=== PATIENT | male | born 1940 | race Caucasian/White ===

== ENCOUNTER → 2017-06-15 | Outpatient (CLI) | payer MEDICARE, SELFPAY | PROVIDERS: Visit Provider Nurse Practitioner Family | DX: J98.4 Other disorders of lung (principal); R05 Cough | CPT/HCPCS: 87070; 87205 ==

== ENCOUNTER 2017-06-27 09:00 | Outpatient (CLI) | payer MEDICARE, SELFPAY ==
[2017-06-27 08:35] VITALS: BP 110/65; PULSE 86; RESP 20; O2SAT 92
== END 2017-06-27 09:05 | disposition home or self-care (01) ==
LOC: INF 14:17
PROVIDERS: Family Provider Internal Medicine Adolescent Medicine; Visit Provider Allergy & Immunology
DX: J45.50 Severe persistent asthma, uncomplicated (principal)
CPT/HCPCS: 96372; J2357

== ENCOUNTER 2017-07-10 10:03 | Outpatient (CLI) | payer MEDICARE, SELFPAY ==
[2017-07-10 09:00] VITALS: BP 132/81; PULSE 68; RESP 20; TEMP 36.9; O2SAT 98
[2017-07-10 10:04] VITALS: BMI 29.4
== END 2017-07-10 10:33 | disposition home or self-care (01) ==
LOC: INF 10:04
PROVIDERS: Family Provider Internal Medicine Adolescent Medicine; Visit Provider Allergy & Immunology
DX: J45.50 Severe persistent asthma, uncomplicated (principal)
CPT/HCPCS: 96372; J2357

== ENCOUNTER 2017-07-13 13:01 | Day surgery (SDC) | payer MEDICARE, SELFPAY ==
--- NOTE | 2017-07-13 | CA_ITS ---
Procedure: Transesophageal echocardiogram Indication for procedure: MVP MR, shortness of breath Procedure: Patient was brought into cardiac catheter lab holding area in hemodynamically stable condition, after the informed consent, conscious sedation was provided by anesthesiologist, local anesthesia was applied, and transesophageal echocardiogram performed without any difficulty. Patient tolerated the procedure well Findings: 1. Left atrium is moderately enlarged, left atrial appendage is free of thrombus, there is good appendage flow by spectral Doppler. 2. The right atrium is mildly enlarged, intra-atrial septum is intact, there is no flow across the intra-atrial septum, agitated saline contrast study is to identify intracardiac shunt. 3. The aortic valve is minimally thickened and fibrosed, leaflet continue to display good mobility. There is no aortic stenosis or aortic insufficiency. 4. The mitral valve leaflets of myxomatous, there is zach prolapse of the posterior mitral leaflet, there is focal prolapse of the anterior mitral leaflet also seen. There is no mitral stenosis, there is multiple jets of the mitral regurgitation, or degenerating from both anterior and posterior mitral leaflet, the mean mitral regurgitation jet is through posterior mitral valve leaflets prolapse, or mitral regurgitation jet is very eccentric redirected, the vena contracta measures 9 mm suggestive of severe mitral regurgitation. There is blunting of the systolic forward flow seen in the pulmonary vein. 5. The tricuspid valve leaflets are minimally thickened, there is mild tricuspid regurgitation. 6. The pulmonic valve is minimally thickened and fibrosed. 7. The right ventricle is normal size and contractility. 8. The left ventricle is normal size, overall preserved left ventricular systolic function in the obtained views, visually estimated ejection fraction 55% with no obvious regional wall motion abnormality. 9. No significant pericardial effusion noted. 10. Ascending, arch and descending thoracic aorta there is no aneurysm or dissection, nonmobile by atheromatous plaque seen in the descending thoracic aorta. Conclusion: 1. Biatrial enlargement, normal left ventricular size, preserved left ventricular systolic function, visually estimated ejection fraction 55% with no obvious regional wall motion abnormality. 2. Abnormal mitral valve as described above associated with severe mitral regurgitation. 3. Mild tricuspid regurgitation. 4. Agitated saline contrast study fails to identify intracardiac shunt. 5. No significant pericardial effusion noted 6. Nonmobile atheromatous plaque seen in the descending thoracic aorta.
[2017-07-13 13:09] VITALS: BMI 29.0
[2017-07-13 13:18] VITALS: BP 159/86; PULSE 77; RESP 16; TEMP 36.8; O2SAT 97
[2017-07-13 13:56] VITALS: BP 116/62; PULSE 77; RESP 20; O2SAT 97
--- NOTE | 2017-07-13 14:03 | HMH.ANESCL ---
[facility] Anesthesia Checklist - Patient Identification Patient Identification: Arm Band - Structural Data Admitted From: Home Planned Operative Procedure/s: ERA Consent for Planned Operative Procedure(s) Verified: Yes Verified Documents: Surgical Consent, History and Physical - Additional verifications Anesthesia Reactions: No - Airway Assessment C-Spine Mobility Assessed: Yes (MP2) TMJ Mobility Assessed: Yes Dentition: Good Dentition - Neurological Assessment Level of Consciousness: Awake, Alert - Anesthesia Plan Anesthesia Risk discussed: Yes ASA Class: III Anesthesia Type: MAC [facility] Anesthesia HX I have reviewed the patient's past medical history: Yes Medical History: Reports:: Asthma, Diabetes Mellitus Type 2, Hyperlipidemia, Hypertension Denies:: Seizures Other Medical History: Reports: Arthritis, Hypothyroidism Comment: mitral valve prolapse Laterality Cases: Right: Total Hip Replacement Other Surgeries: Yes: Other *Family Hx:: No significant family history, Coronary Artery Disease, Heart Attack
[2017-07-13 14:15] VITALS: BP 117/69; PULSE 82; RESP 20; O2SAT 93
[2017-07-13 14:30] VITALS: BP 99/58; PULSE 81; RESP 20; O2SAT 93
[2017-07-13 14:45] VITALS: BP 144/72; PULSE 77; RESP 20; O2SAT 94
[2017-07-13 14:47] VITALS: BP 144/72; PULSE 81; RESP 20; O2SAT 93
== END 2017-07-13 14:53 | disposition home or self-care (01) ==
PROVIDERS: Family Provider Internal Medicine Adolescent Medicine; PCP Internal Medicine Adolescent Medicine; Visit Provider Internal Medicine Cardiovascular Disease
DX: R06.02 Shortness of breath (principal); I34.0 Nonrheumatic mitral (valve) insufficiency
CPT/HCPCS: 93312

== ENCOUNTER → 2017-07-21 11:09 | Outpatient (CLI) | payer MEDICARE, SELFPAY ==
[2017-07-21 11:33] LABS: INR 0.92 (0.9-1.1); Prothrombin Time 9.9 seconds (9.4-11.8)
[2017-07-21 12:11] LABS: Basophils # 0.1 K/mm3 (0-0.2); Basophils % 0.7 % (0.1-2.0); Eosinophils % 10.4 % (0.1-12.0); Hematocrit 43.1 % (42.0-52.0); Lymphocytes # 1.6 K/mm3 (0.7-4.5); Lymphocytes % 16.6 K/mm3 (10-50); Mean Corpuscular HGB Conc 32.6 g/dL (31.8-35.4); Mean Corpuscular Hemoglobin 30.8 pg (27.0-31.2); Mean Corpuscular Volume 94.6 fl (80-94); Mean Platelet Volume 7.3 fl (7.4-10.4); Monocytes # 0.5 K/mm3 (0.1-1.0); Monocytes % 4.8 % (1.7-9.3); Neutrophils # 6.3 K/mm3 (1.8-7.8); Neutrophils % 67.5 % (37.0-80.0); Platelet Count 259 K/mm3 (142-424); Red Blood Count 4.55 M/mm3 (4.60-6.20); Red Cell Distribution Width 13.1 % (11.5-17.5); White Blood Count 9.3 K/mm3 (4.8-10.8)
[2017-07-21 13:10] LABS: Blood Urea Nitrogen 17 mg/dL (7-18); Carbon Dioxide 28 mmol/L (21.0-32.0); Chloride 102 mmol/L (98-107); Creatinine,Serum 1.52 mg/dL (0.70-1.30); Estimated Glomerular Filt Rate 44 ml/min (>60); GFR (African American) 54 ML/MIN (>60); Glucose 309 mg/dL (74-106); Sodium 138 mmol/L (136-145)
== END ==
PROVIDERS: PCP Internal Medicine Adolescent Medicine; Visit Provider Internal Medicine Cardiovascular Disease
DX: Z01.818 Encounter for other preprocedural examination (principal); I34.1 Nonrheumatic mitral (valve) prolapse; I10 Essential (primary) hypertension; E78.5 Hyperlipidemia, unspecified; I34.0 Nonrheumatic mitral (valve) insufficiency; E11.9 Type 2 diabetes mellitus without complications; R06.00 Dyspnea, unspecified
CPT/HCPCS: 36415; 80048; 85025; 85610

== ENCOUNTER 2017-07-24 07:37 | Day surgery (SDC) | payer MEDICARE, SELFPAY ==
[2017-07-24] VITALS (15 sets, daily range): BP systolic 116–144; BP diastolic 64–83; PULSE 70–94; RESP 16–20; TEMP 36.6; O2SAT 90–96; BMI 30.6
--- NOTE | 2017-07-24 | IR_ITS ---
CARDIAC CATHETERIZATION DATE OF CATHETERIZATION:07/24/2017 9:26 AM PROCEDURES: 1. Left heart catheterization 2. Left ventriculogram 3. Selective coronary angiogram INDICATION FOR TEST: 1. Preoperative evaluation for mitral valve surgery 2. Coronary artery disease Informed consent was obtained prior to the procedure. COMPLICATIONS: None ESTIMATED BLOOD LOSS: Less than 10 ml. TECHNIQUE: One percent lidocaine used to anesthetize the right anterior aspect of the wrist. The right radial artery was accessed via the Seldinger technique. A 6 Trinidadian sheath was placed in the right radial artery. 2.5 mg of verapamil, 800 mcg of nitroglycerin and 5000 U Heparin were given through the arterial sheath. The trap catheter was also used to perform left heart catheterization and left ventriculography. At the end of the procedure the patient was transferred to the post-op holding area in stable condition for arterial sheath removal. ANGIOGRAPHIC RESULTS: 1. The left main artery has distal 10% stenoses 2. The left anterior descending artery has an ostial 60% stenosis followed by an additional 50-60% stenosis followed by a mid vessel concentric 80% stenosis. A large first diagonal artery is free of disease 3. The circumflex artery is nondominant and has a long concentric 60% stenosis 4. The right coronary artery is a dominant vessel and has proximal concentric 60% followed by mid vessel 70% followed by an additional mid vessel 80% stenosis 5. The SANCHEZ ventriculogram reveals mild left ventricular dilatation with normal ejection fraction 65% 6. The left ventricular end-diastolic pressure 20 mmHg IMPRESSION: 1. Severe three-vessel coronary artery disease as described above accompanied by severe mitral regurgitation per noninvasive evaluation 2. Mild left ventricular dilatation with normal ejection fraction in the setting of severe mitral regurgitation 3. Mildly elevated LVEDP PLAN: 1. Patient will be referred for 3-4 vessel bypass surgery along with mitral valve repair 2. Statin therapy with goal LDL less than 55 3. Daily low-dose aspirin 4. Avoidance of tobacco products
[2017-07-24 08:15] LABS: POC Glucose,Bedside 68 mg/dL
[2017-07-24 08:25] LABS: Anion Gap 13.3 mEq/L (5-15); Blood Urea Nitrogen 20 mg/dL (7-18); Carbon Dioxide 29 mmol/L (21.0-32.0); Chloride 107 mmol/L (98-107); Creatinine Clearance Estimated 62 mL/min (0-300); Creatinine,Serum 1.41 mg/dL (0.70-1.30); Estimated Glomerular Filt Rate 48 ml/min (>60); GFR (African American) 59 ML/MIN (>60); Glucose 74 mg/dL (74-106); Potassium 4.3 mmoL/L (3.5-5.1); Sodium 145 mmol/L (136-145)
[2017-07-24 08:30] LABS: Basophils # 0.1 K/mm3 (0-0.2); Basophils % 0.8 % (0.1-2.0); Eosinophils # 1.2 K/mm3 (0.0-0.4); Eosinophils % 11.6 % (0.1-12.0); Hematocrit 43.6 % (42.0-52.0); Hemoglobin 14.3 g/dL (14.1-18.0); Lymphocytes # 1.7 K/mm3 (0.7-4.5); Lymphocytes % 16.4 K/mm3 (10-50); Mean Corpuscular HGB Conc 32.7 g/dL (31.8-35.4); Mean Corpuscular Hemoglobin 30.4 pg (27.0-31.2); Mean Corpuscular Volume 92.9 fl (80-94); Mean Platelet Volume 6.9 fl (7.4-10.4); Monocytes # 0.5 K/mm3 (0.1-1.0); Monocytes % 4.3 % (1.7-9.3); Neutrophils # 7.1 K/mm3 (1.8-7.8); Neutrophils % 66.8 % (37.0-80.0); Platelet Count 270 K/mm3 (142-424); Red Cell Distribution Width 13.2 % (11.5-17.5); White Blood Count 10.6 K/mm3 (4.8-10.8)
[2017-07-24 10:00] LABS: POC Glucose,Bedside 75 mg/dL
--- NOTE | 2017-08-03 12:55 | PC.NURSE ---
post procedure call made, pt did not answer message left for pt to call hospital with any questions/concerns
== END 2017-07-24 14:12 | disposition home or self-care (01) ==
PROVIDERS: Family Provider Internal Medicine Adolescent Medicine; PCP Internal Medicine Adolescent Medicine; Visit Provider Internal Medicine
DX: I25.10 Atherosclerotic heart disease of native coronary artery without angina pectoris (principal); I34.0 Nonrheumatic mitral (valve) insufficiency; I10 Essential (primary) hypertension; R53.83 Other fatigue; E11.9 Type 2 diabetes mellitus without complications
CPT/HCPCS: 80048; 82962; 85025; 93458; 96372; 99152; C1725; C1769; J1644; J2357; Q9967

== ENCOUNTER → 2017-08-28 15:13 | Outpatient (REF) | payer MEDICARE, SELFPAY ==
[2017-08-28 15:34] LABS: Basophils % 0.2 % (0.1-2.0); Eosinophils # 0.7 K/mm3 (0.0-0.4); Eosinophils % 8.6 % (0.1-12.0); Hematocrit 30.4 % (42.0-52.0); Hemoglobin 9.3 g/dL (14.1-18.0); Lymphocytes # 1.2 K/mm3 (0.7-4.5); Lymphocytes % 15.1 K/mm3 (10-50); Mean Corpuscular HGB Conc 30.5 g/dL (31.8-35.4); Mean Corpuscular Hemoglobin 30.1 pg (27.0-31.2); Mean Corpuscular Volume 98.5 fl (80-94); Mean Platelet Volume 7.3 fl (7.4-10.4); Monocytes # 0.4 K/mm3 (0.1-1.0); Monocytes % 4.9 % (1.7-9.3); Neutrophils # 5.6 K/mm3 (1.8-7.8); Neutrophils % 71.2 % (37.0-80.0); Platelet Count 342 K/mm3 (142-424); Red Blood Count 3.09 M/mm3 (4.60-6.20); Red Cell Distribution Width 15.3 % (11.5-17.5); White Blood Count 7.9 K/mm3 (4.8-10.8)
[2017-08-28 17:09] LABS: Alanine Aminotransferase 37 U/L (12-78); Albumin Level 2.4 gm/dL (3.4-5.0); Albumin/Globulin Ratio 0.7 (1.1-1.8); Alkaline Phosphatase 70 U/L (46-116); Anion Gap 10.7 mEq/L (5-15); Bilirubin,Total 0.4 mg/dL (0.2-1.0); Blood Urea Nitrogen 23 mg/dL (7-18); Calcium 8.1 mg/dL (8.5-10.1); Carbon Dioxide 31 mmol/L (21.0-32.0); Chloride 101 mmol/L (98-107); Creatinine,Serum 1.57 mg/dL (0.70-1.30); Estimated Glomerular Filt Rate 43 ml/min (>60); GFR (African American) 52 ML/MIN (>60); Globulin 3.5 gm/dl (1.3-3.2); Glucose 165 mg/dL (74-106); Potassium 4.7 mmoL/L (3.5-5.1); Sodium 138 mmol/L (136-145); Total Protein,Serum 5.9 gm/dL (6.4-8.2)
[2017-08-28 17:21] LABS: Aspartate Amino Transferase 27 U/L (15-37)
== END ==
LOC: LAB 15:13
PROVIDERS: Visit Provider Internal Medicine Adolescent Medicine
DX: R53.1 Weakness (principal)
CPT/HCPCS: 80053; 85025

== ENCOUNTER → 2017-09-04 14:38 | Outpatient (CLI) | payer MEDICARE, SELFPAY ==
[2017-09-04 14:16] LABS: Basophils % 0.3 % (0.1-2.0); Eosinophils # 2.4 K/mm3 (0.0-0.4); Eosinophils % 24.9 % (0.1-12.0); Hematocrit 35.9 % (42.0-52.0); Hemoglobin 10.6 g/dL (14.1-18.0); Lymphocytes # 1.2 K/mm3 (0.7-4.5); Lymphocytes % 12.7 K/mm3 (10-50); Mean Corpuscular HGB Conc 29.6 g/dL (31.8-35.4); Mean Corpuscular Hemoglobin 29.7 pg (27.0-31.2); Mean Corpuscular Volume 100.2 fl (80-94); Mean Platelet Volume 7.5 fl (7.4-10.4); Monocytes # 0.4 K/mm3 (0.1-1.0); Monocytes % 3.9 % (1.7-9.3); Neutrophils # 5.6 K/mm3 (1.8-7.8); Neutrophils % 58.2 % (37.0-80.0); Platelet Count 278 K/mm3 (142-424); Red Blood Count 3.58 M/mm3 (4.60-6.20); Red Cell Distribution Width 15.3 % (11.5-17.5); White Blood Count 9.6 K/mm3 (4.8-10.8)
[2017-09-04 15:05] LABS: Alanine Aminotransferase 31 U/L (12-78); Albumin Level 2.7 gm/dL (3.4-5.0); Albumin/Globulin Ratio 0.7 (1.1-1.8); Alkaline Phosphatase 82 U/L (46-116); Anion Gap 13.7 mEq/L (5-15); Aspartate Amino Transferase 24 U/L (15-37); Bilirubin,Total 0.2 mg/dL (0.2-1.0); Blood Urea Nitrogen 17 mg/dL (7-18); Calcium 8.1 mg/dL (8.5-10.1); Carbon Dioxide 28 mmol/L (21.0-32.0); Chloride 104 mmol/L (98-107); Creatinine,Serum 1.63 mg/dL (0.70-1.30); Estimated Glomerular Filt Rate 41 ml/min (>60); GFR (African American) 50 ML/MIN (>60); Globulin 3.8 gm/dl (1.3-3.2); Glucose 243 mg/dL (74-106); Potassium 4.7 mmoL/L (3.5-5.1); Sodium 141 mmol/L (136-145); Total Protein,Serum 6.5 gm/dL (6.4-8.2)
== END ==
PROVIDERS: Family Provider Internal Medicine Adolescent Medicine; PCP Internal Medicine; Visit Provider Allergy & Immunology
DX: Z95.1 Presence of aortocoronary bypass graft (principal); R53.1 Weakness; E11.9 Type 2 diabetes mellitus without complications
CPT/HCPCS: 80053; 85025

== ENCOUNTER → 2017-09-11 14:47 | Outpatient (REF) | payer MEDICARE, SELFPAY ==
[2017-09-11 15:01] LABS: Basophils # 0.1 K/mm3 (0-0.2); Basophils % 0.4 % (0.1-2.0); Hematocrit 38.4 % (42.0-52.0); Hemoglobin 11.8 g/dL (14.1-18.0); Lymphocytes # 1.6 K/mm3 (0.7-4.5); Lymphocytes % 13.9 K/mm3 (10-50); Mean Corpuscular HGB Conc 30.6 g/dL (31.8-35.4); Mean Corpuscular Hemoglobin 30.1 pg (27.0-31.2); Mean Corpuscular Volume 98.2 fl (80-94); Mean Platelet Volume 7.2 fl (7.4-10.4); Monocytes # 0.4 K/mm3 (0.1-1.0); Monocytes % 3.6 % (1.7-9.3); Neutrophils # 4.6 K/mm3 (1.8-7.8); Platelet Count 251 K/mm3 (142-424); Red Blood Count 3.91 M/mm3 (4.60-6.20); Red Cell Distribution Width 15.2 % (11.5-17.5); White Blood Count 11.7 K/mm3 (4.8-10.8)
[2017-09-11 16:44] LABS: Alanine Aminotransferase 29 U/L (12-78); Albumin/Globulin Ratio 0.8 (1.1-1.8); Alkaline Phosphatase 76 U/L (46-116); Anion Gap 13.4 mEq/L (5-15); Aspartate Amino Transferase 22 U/L (15-37); Bilirubin,Total 0.3 mg/dL (0.2-1.0); Blood Urea Nitrogen 19 mg/dL (7-18); Calcium 8.2 mg/dL (8.5-10.1); Carbon Dioxide 29 mmol/L (21.0-32.0); Chloride 106 mmol/L (98-107); Estimated Glomerular Filt Rate 42 ml/min (>60); GFR (African American) 51 ML/MIN (>60); Globulin 3.8 gm/dl (1.3-3.2); Glucose 109 mg/dL (74-106); Potassium 4.4 mmoL/L (3.5-5.1); Sodium 144 mmol/L (136-145); Total Protein,Serum 6.8 gm/dL (6.4-8.2)
== END ==
LOC: LAB 14:47
PROVIDERS: Visit Provider Internal Medicine Adolescent Medicine
DX: I25.810 Atherosclerosis of coronary artery bypass graft(s) without angina pectoris (principal); R53.1 Weakness; E11.9 Type 2 diabetes mellitus without complications
CPT/HCPCS: 80053; 85025

== ENCOUNTER 2017-09-15 12:44 | Outpatient (RCR) | payer MEDICARE, SELFPAY | END 2017-10-25 11:14 | disposition home or self-care (01) | LOC: PT 12:44 | PROVIDERS: Family Provider Internal Medicine Adolescent Medicine; PCP Internal Medicine; Visit Provider Thoracic Surgery (Cardiothoracic Vascular Surgery) | DX: Z95.1 Presence of aortocoronary bypass graft (principal) | CPT/HCPCS: 93798 ==

== ENCOUNTER → 2017-09-22 11:41 | Outpatient (CLI) | payer MEDICARE, SELFPAY ==
--- NOTE | 2017-09-22 | CI_ITS ---
Cerebrovascular Exam Indications: TIA 434.91. IMPRESSIONS 1. The left internal carotid artery reveals no evidence of plaque or stenosis. 2. The left common and external carotid arteries reveal no significant stenosis. 3. Study suggests less than 20% stenosis involving the right internal carotid artery and the left internal carotid artery. Carotid duplex study. Complete study and Doppler flow study including spectral analysis, color and domingo scale imaging. Height: Height: 182.9cm. Height: 72in. Weight: Weight: 98kg. Weight: 215.6lb. Body mass index: BMI: 29.3kg/m^2. Body surface area: BSA: 2.25m^2. Location: Vascular laboratory. Patient status: Outpatient. Tables: Arterial flow: + +--------+--------+ Location V sys V ed + +--------+--------+ Right CCA - proximal 84.1cm/s 17.3cm/s + +--------+--------+ Right CCA - distal 88.8cm/s 19.6cm/s + +--------+--------+ Right ECA 85.5cm/s -------- + +--------+--------+ Right ICA - proximal 65.1cm/s 21cm/s + +--------+--------+ Right ICA - mid 90.4cm/s 35.3cm/s + +--------+--------+ Right ICA - distal 81.1cm/s 25.9cm/s + +--------+--------+ Right vertebral 48cm/s -------- + +--------+--------+ Left CCA - proximal 83.8cm/s 24.3cm/s + +--------+--------+ Left CCA - distal 74.4cm/s 21cm/s + +--------+--------+ Left ECA 98.7cm/s -------- + +--------+--------+ Left ICA - proximal 48cm/s 16.6cm/s + +--------+--------+ Left ICA - mid 72.5cm/s 30.1cm/s + +--------+--------+ Left ICA - distal 89.5cm/s 31.4cm/s + +--------+--------+ Left vertebral 49.1cm/s -------- + +--------+--------+ Velocity ratios: + + + + + + Right, V sys Right, V ed Left, V sys Left, V ed + + + + + + Max ICA/dist CCA 1.02 1.8 1.2 1.5 + + + + + + (Report amended ) Electronically signed by: Gustavo Prince [id number]
--- NOTE | 2017-09-22 11:43 | CT_ITS ---
CT head/brain wo con HISTORY: Weakness and slurred speech ITS.REASON: weakness, slurred speech ORDERING PHYSICIAN: Brian Reaves MD PATIENT AGE: 77 years COMPARISON: None TECHNIQUE: Axial images obtained without contrast. Brain and bone windows reviewed. All CT scans at the facility use one or more dose reduction, viz: automated exposure control; ma/kV adjustment per patient size (including targeted exams where dose is matched to indication; i.e. head); or iterative reconstruction technique. FINDINGS: There is extensive artifact from a right sided neurostimulator vestibular stimulator device. No midline shift or mass effect is evident. No intracranial hemorrhage or hydrocephalus. Artifact could obscure underlying abnormalities. There is mild generalized atrophy There is mild mucosal thickening of the ethmoid and maxillary sinuses as well as a small amount fluid in the right mastoid sinus. The vestibular stimulator device enters into the right mastoid region with postsurgical changes of the right mastoid sinus. IMPRESSION: 1. No acute finding. 2. Artifact from right vestibular stimulator device 3. Paranasal sinus disease
--- NOTE | 2017-09-22 11:43 | CA_ITS ---
PROCEDURE: 2-D M-mode and color Doppler study INDICATIONS FOR THE TEST: Chest pain COPD Heart Murmur Tobacco Smoking Palpitations Fatigue Syncope Edema Hypertension+Diabetes Mellitus+ Rheumatic Fever SOB TOVAR Obesity Hyperlipidemia+ Family History HD Additional History CABG, CAD, MVP, MV REPAIR 08/13 PATIENT INFORMATION HEIGHT:72 WEIGHT:216 GENDER: Male B/P:138/78 2-D/M-MODE INTERPRETATION: 2-D MEASUREMENTS OBSERVED VALUES IN CMS Right Ventricular Dimension (RVDd) 3.2 Interventricular Septum (Thickness)(IVsd) 1.6 Left Ventricular Internal Dimensions(LVIDd) 4.2 Left Ventricular Posterior Wall (Thickness)(LVPWd) 1.0 Aortic Root 3.9 Aortic Cusp Separation 2.3 Left Atrial Dimensions (LAD) 4.6 2D 1. Left atrium is mildly enlarged, left ventricle is normal size, mild concentric left ventricular hypertrophy, visually estimated ejection fraction 50%, there is abnormal septal motion. 2. The right atrium and right ventricle are mildly enlarged with normal contractility. 3. The aortic valve is minimally thickened and fibrosed. 4. The mitral valve leaflets are minimally thickened, patient is status post mitral valve repair. 5. The tricuspid valve leaflets are minimally thickened. 6. The pulmonic valve is poorly visualized. 7. No significant pericardial effusion note. DOPPLER INTERROGATION: Doppler interrogation of the aortic, mitral and tricuspid valvular presence of moderate mitral and mild tricuspid regurgitation, tricuspid and jet velocity insufficient for calculation of the right ventricular systolic pressure, diastolic parameters are inconclusive. There is no significant mitral inflow obstruction seen. CONCLUSION: 1. Mildly enlarged left atrium, normal left ventricular size, mild concentric left ventricular hypertrophy, visually estimated ejection fraction 50%, there is abnormal septal motion. Diastolic parameters are inconclusive. 2. Status post mitral valve repair, there is moderate mitral regurgitation, there is no significant mitral inflow obstruction. 3. Mild tricuspid regurgitation 4. No significant pericardial effusion noted.
== END ==
PROVIDERS: PCP Internal Medicine Adolescent Medicine; Visit Provider Internal Medicine Cardiovascular Disease
DX: I25.10 Atherosclerotic heart disease of native coronary artery without angina pectoris (principal); R47.81 Slurred speech; R53.1 Weakness; R29.898 Other symptoms and signs involving the musculoskeletal system; I34.1 Nonrheumatic mitral (valve) prolapse; I10 Essential (primary) hypertension; E78.5 Hyperlipidemia, unspecified; E11.9 Type 2 diabetes mellitus without complications
CPT/HCPCS: 70450; 93225; 93306; 93880

== ENCOUNTER → 2017-09-23 07:12 | Outpatient (CLI) | payer MEDICARE, SELFPAY ==
[2017-09-23 07:26] LABS: Basophils # 0.1 K/mm3 (0-0.2); Basophils % 0.6 % (0.1-2.0); Eosinophils # 2.9 K/mm3 (0.0-0.4); Hematocrit 41.1 % (42.0-52.0); Hemoglobin 12.5 g/dL (14.1-18.0); Lymphocytes % 18.5 K/mm3 (10-50); Mean Corpuscular HGB Conc 30.3 g/dL (31.8-35.4); Mean Corpuscular Hemoglobin 29.9 pg (27.0-31.2); Mean Corpuscular Volume 98.5 fl (80-94); Mean Platelet Volume 7.4 fl (7.4-10.4); Monocytes # 0.5 K/mm3 (0.1-1.0); Monocytes % 4.3 % (1.7-9.3); Neutrophils # 5.3 K/mm3 (1.8-7.8); Neutrophils % 49.5 % (37.0-80.0); Platelet Count 209 K/mm3 (142-424); Red Blood Count 4.17 M/mm3 (4.60-6.20); Red Cell Distribution Width 14.9 % (11.5-17.5); White Blood Count 10.7 K/mm3 (4.8-10.8)
[2017-09-23 07:51] LABS: Alanine Aminotransferase 33 U/L (12-78); Albumin Level 2.9 gm/dL (3.4-5.0); Alkaline Phosphatase 67 U/L (46-116); Anion Gap 10.3 mEq/L (5-15); Aspartate Amino Transferase 28 U/L (15-37); Bilirubin,Direct 0.2 mg/dL (0.0-0.2); Bilirubin,Total 0.5 mg/dL (0.2-1.0); Blood Urea Nitrogen 17 mg/dL (7-18); Carbon Dioxide 28 mmol/L (21.0-32.0); Chloride 107 mmol/L (98-107); Chol/HDL Ratio 3.2 (1-3.5); Cholesterol 136 mg/dL (140-200); Creatinine,Serum 1.28 mg/dL (0.70-1.30); Estimated Glomerular Filt Rate 54 ml/min (>60); Free T4 (Free Thyroxine) 1.18 ng/dl (0.76-1.46); GFR (African American) 66 ML/MIN (>60); Glucose 127 mg/dL (74-106); HDL Cholesterol 42 mg/dL (27-67); LDL Cholesterol 73 mg/dL (0-130); Potassium 4.3 mmoL/L (3.5-5.1); Sodium 141 mmol/L (136-145); Thyroid Stimulating Hormone 9.57 uIU/ml (0.358-3.740); Total Protein,Serum 7.2 gm/dL (6.4-8.2); Triglycerides 107 mg/dL (30-200); VLDL Cholesterol 21 mg/dL (0-40)
== END ==
PROVIDERS: Visit Provider Internal Medicine Cardiovascular Disease
DX: Z95.1 Presence of aortocoronary bypass graft (principal); Z98.890 Other specified postprocedural states; R47.81 Slurred speech; I34.1 Nonrheumatic mitral (valve) prolapse; I10 Essential (primary) hypertension; E78.5 Hyperlipidemia, unspecified; I25.10 Atherosclerotic heart disease of native coronary artery without angina pectoris; E11.9 Type 2 diabetes mellitus without complications
CPT/HCPCS: 36415; 80048; 80061; 80076; 84439; 84443; 85025

== ENCOUNTER → 2017-10-13 10:57 | Outpatient (CLI) | payer MEDICARE, SELFPAY ==
--- NOTE | 2017-10-13 11:02 | NVE_ITS ---
Venous Exam Indications: 729.5 Pain in limb. Cough IMPRESSIONS No evidence of deep or superficial vein thrombosis involving the right lower extremity and left lower extremity History: Left lower extremity pain. Swelling of the left lower extremity. Dyspnea. Risk factors: Hypertension. Labs, prior tests, procedures, and surgery: (July 2017). Mitral valve repair. Patient had cardiac bypass surgery 07/2017. Patient is currently taking Lovenox injections. Labs, prior tests, procedures, and surgery: (July 2017). Mitral valve repair. Patient had cardiac bypass surgery 07/2017. Patient is currently taking Lovenox injections. Complete lower extremity venous duplex evaluation. Doppler flow study including spectral analysis, color and domingo scale imaging. Location: Vascular laboratory. Patient status: Outpatient. CRITICAL FINDINGS - Reported to: EMERSON Alvarez - Read back and verified. - 10/13/17 - 11:40 - Bilateral venous dopplers negative for DVT or SVT Tables: Venous flow and imaging: + +-------+ + Location Overall Flow properties + +-------+ + Right common femoral Patent Normal phasicity; spontaneous; normal augmentation; compressible + +-------+ + Right saphenofemoral junction Patent Compressible + +-------+ + Right profunda femoral Patent Compressible + +-------+ + Right femoral Patent Normal phasicity; spontaneous; normal augmentation; compressible; no reflux + +-------+ + Right greater saphenous Patent Normal phasicity; spontaneous; normal augmentation; compressible + +-------+ + Right popliteal Patent Normal phasicity; spontaneous; normal augmentation; compressible + +-------+ + Right posterior tibial Patent Compressible + +-------+ + Right peroneal Patent Compressible + +-------+ + Right gastrocnemius Patent Compressible + +-------+ + Right soleal Patent Compressible + +-------+ + Left common femoral Patent Normal phasicity; spontaneous; normal augmentation; compressible + +-------+ + Left saphenofemoral junction Patent Com
== END ==
PROVIDERS: PCP Internal Medicine Adolescent Medicine; Visit Provider Internal Medicine Adolescent Medicine
DX: R60.1 Generalized edema (principal)
CPT/HCPCS: 93970

== ENCOUNTER 2017-10-16 09:34 | Outpatient (CLI) | payer MEDICARE, SELFPAY ==
[2017-10-16 16:01] LABS: PHA INR Fingerstick 1.3 (0.9-1.1)
== END 2017-10-16 16:06 | disposition home or self-care (01) ==
PROVIDERS: PCP Internal Medicine Adolescent Medicine; Visit Provider Internal Medicine Adolescent Medicine
DX: Z79.01 Long term (current) use of anticoagulants (principal); Z51.81 Encounter for therapeutic drug level monitoring; I05.9 Rheumatic mitral valve disease, unspecified
CPT/HCPCS: 85610; G0463

== ENCOUNTER 2017-10-18 09:34 | Outpatient (CLI) | payer MEDICARE, SELFPAY ==
--- NOTE | 2017-10-18 12:37 | US_ITS ---
US extremity LT limited CLINICAL INDICATION: ITS.REASON: MASS ON DORSUM ORDERING PHYSICIAN: Toney Contreras MD PATIENT AGE: 77 years FINDINGS: In the subcutaneous soft tissues along the dorsum of the foot there is a mostly hypoechoic heterogeneous area of echogenicity. This measures 3 x 0.7 x 2.9 cm containing scattered cystic areas within this region. IMPRESSION: Complex partially cystic area of heterogeneous echogenicity along the dorsum of the foot corresponding to the palpable abnormality. This is nonspecific and could represent hematoma or abscess.
--- NOTE | 2017-10-18 12:38 | XR_ITS ---
XR foot LT min 3V HISTORY: Soft tissue mass on the dorsum of the foot ITS.REASON: MASS ON DORSUM ORDERING PHYSICIAN: Toney Contreras MD PATIENT AGE: 77 years FINDINGS: No fracture or dislocation. No lytic or blastic change. There are mild hypertrophic changes at the navicular cuneiform joint. No bony erosive changes. Small calcaneal spur is present with mild calcification of the plantar fascia the region of the spur. There is mild focal soft tissue swelling along the dorsum of the foot at the proximal metatarsal region IMPRESSION: 1. No acute bony findings. 2. Focal soft tissue swelling along the dorsum of the forefoot.
[2017-10-18 14:19] LABS: PHA INR Fingerstick 1.5 (0.9-1.1)
== END 2017-10-18 14:28 | disposition home or self-care (01) ==
PROVIDERS: PCP Internal Medicine Adolescent Medicine; Visit Provider Internal Medicine Adolescent Medicine
DX: Z79.01 Long term (current) use of anticoagulants (principal); Z51.81 Encounter for therapeutic drug level monitoring; I34.0 Nonrheumatic mitral (valve) insufficiency; R22.42 Localized swelling, mass and lump, left lower limb
CPT/HCPCS: 73630; 76882; 85610; 99211; G0463

== ENCOUNTER 2017-10-23 09:07 | Outpatient (CLI) | payer MEDICARE, SELFPAY ==
[2017-10-23 14:36] LABS: PHA INR Fingerstick 1.4 (0.9-1.1)
== END 2017-10-23 15:06 | disposition home or self-care (01) ==
PROVIDERS: PCP Internal Medicine Adolescent Medicine; Visit Provider Internal Medicine Adolescent Medicine
DX: Z79.01 Long term (current) use of anticoagulants (principal); Z51.81 Encounter for therapeutic drug level monitoring; I34.0 Nonrheumatic mitral (valve) insufficiency
CPT/HCPCS: 85610; 99211; G0463

== ENCOUNTER 2017-10-30 09:00 | Outpatient (CLI) | payer MEDICARE, SELFPAY ==
[2017-10-30 14:22] LABS: PHA INR Fingerstick 1.8 (0.9-1.1)
== END 2017-10-30 14:33 | disposition home or self-care (01) ==
LOC: ACC 09:01
PROVIDERS: Family Provider Internal Medicine Adolescent Medicine; PCP Internal Medicine Adolescent Medicine; Visit Provider Internal Medicine Adolescent Medicine
DX: Z79.01 Long term (current) use of anticoagulants (principal); Z51.81 Encounter for therapeutic drug level monitoring; I34.0 Nonrheumatic mitral (valve) insufficiency
CPT/HCPCS: 71046; 85610; 99211; G0463

== ENCOUNTER → 2017-10-31 06:58 | Outpatient (CLI) | payer MEDICARE, SELFPAY ==
[2017-10-31 07:24] LABS: Basophils # 0.1 K/mm3 (0-0.2); Basophils % 0.9 % (0.1-2.0); Eosinophils # 1.2 K/mm3 (0.0-0.4); Eosinophils % 12.5 % (0.1-12.0); Hematocrit 44.1 % (42.0-52.0); Hemoglobin 14.1 g/dL (14.1-18.0); Lymphocytes # 1.7 K/mm3 (0.7-4.5); Lymphocytes % 17.1 K/mm3 (10-50); Mean Corpuscular Hemoglobin 30.7 pg (27.0-31.2); Mean Corpuscular Volume 96.1 fl (80-94); Mean Platelet Volume 7.3 fl (7.4-10.4); Monocytes # 0.6 K/mm3 (0.1-1.0); Monocytes % 5.7 % (1.7-9.3); Neutrophils # 6.2 K/mm3 (1.8-7.8); Neutrophils % 63.8 % (37.0-80.0); Platelet Count 242 K/mm3 (142-424); Red Blood Count 4.59 M/mm3 (4.60-6.20); Red Cell Distribution Width 14.5 % (11.5-17.5); White Blood Count 9.7 K/mm3 (4.8-10.8)
[2017-10-31 09:13] LABS: Alanine Aminotransferase 46 U/L (12-78); Albumin Level 3.7 gm/dL (3.4-5.0); Alkaline Phosphatase 65 U/L (46-116); Anion Gap 12.2 mEq/L (5-15); Aspartate Amino Transferase 47 U/L (15-37); Bilirubin,Direct 0.2 mg/dL (0.0-0.2); Bilirubin,Indirect 0.4 mg/dL (0.0-0.9); Bilirubin,Total 0.6 mg/dL (0.2-1.0); Blood Urea Nitrogen 38 mg/dL (7-18); Carbon Dioxide 32 mmol/L (21.0-32.0); Chloride 104 mmol/L (98-107); Chol/HDL Ratio 3.7 (1-3.5); Cholesterol 179 mg/dL (140-200); Creatinine,Serum 1.88 mg/dL (0.70-1.30); Estimated Glomerular Filt Rate 35 ml/min (>60); Free Thyroxine Index 4.8 ug/dL (5.93-13.13); GFR (African American) 42 ML/MIN (>60); Glucose 187 mg/dL (74-106); HDL Cholesterol 48 mg/dL (27-67); LDL Cholesterol 105 mg/dL (0-130); Potassium 5.2 mmoL/L (3.5-5.1); Sodium 143 mmol/L (136-145); T4 (Thyroxine) 13.1 ug/dl (4.7-13.3); Thyroid Stimulating Hormone 8.55 uIU/ml (0.358-3.740); Total Protein,Serum 7.2 gm/dL (6.4-8.2); Triglycerides 129 mg/dL (30-200); Triiodothryronine (T3) Uptake 37 % (31-39); VLDL Cholesterol 26 mg/dL (0-40)
== END ==
PROVIDERS: Visit Provider Physician Assistant
DX: R06.02 Shortness of breath (principal); R07.89 Other chest pain; R05 Cough; I34.1 Nonrheumatic mitral (valve) prolapse; R53.83 Other fatigue
CPT/HCPCS: 36415; 80048; 80061; 80076; 83880; 84436; 84443; 84479; 85025

== ENCOUNTER 2017-11-06 08:51 | Outpatient (CLI) | payer MEDICARE, SELFPAY ==
[2017-11-06 13:05] LABS: PHA INR Fingerstick 2.2 (0.9-1.1)
== END 2017-11-06 14:53 | disposition home or self-care (01) ==
LOC: ACC 08:52
PROVIDERS: Family Provider Internal Medicine Adolescent Medicine; PCP Internal Medicine Adolescent Medicine; Visit Provider Internal Medicine Adolescent Medicine
DX: Z79.01 Long term (current) use of anticoagulants (principal); Z51.81 Encounter for therapeutic drug level monitoring; I34.0 Nonrheumatic mitral (valve) insufficiency
CPT/HCPCS: 85610; 99211; G0463

== ENCOUNTER 2017-11-09 13:52 | Outpatient (RCR) | payer MEDICARE, SELFPAY | END 2017-11-09 13:53 | disposition home or self-care (01) | LOC: PT 13:52 | PROVIDERS: Visit Provider Internal Medicine Adolescent Medicine | DX: I25.10 Atherosclerotic heart disease of native coronary artery without angina pectoris (principal); I34.0 Nonrheumatic mitral (valve) insufficiency | CPT/HCPCS: 93798 ==

== ENCOUNTER → 2017-11-10 07:08 | Outpatient (CLI) | payer MEDICARE, SELFPAY ==
[2017-11-10 09:16] LABS: Alanine Aminotransferase 74 U/L (12-78); Albumin Level 3.1 gm/dL (3.4-5.0); Alkaline Phosphatase 54 U/L (46-116); Aspartate Amino Transferase 59 U/L (15-37); Bilirubin,Direct 0.2 mg/dL (0.0-0.2); Bilirubin,Indirect 0.3 mg/dL (0.0-0.9); Bilirubin,Total 0.5 mg/dL (0.2-1.0); Cholesterol 139 mg/dL (140-200); HDL Cholesterol 47 mg/dL (27-67); LDL Cholesterol 76 mg/dL (0-130); Total Protein,Serum 5.7 gm/dL (6.4-8.2); Triglycerides 82 mg/dL (30-200); VLDL Cholesterol 16 mg/dL (0-40)
== END ==
PROVIDERS: Visit Provider Internal Medicine Cardiovascular Disease
DX: Z98.890 Other specified postprocedural states (principal); I10 Essential (primary) hypertension; Z95.1 Presence of aortocoronary bypass graft
CPT/HCPCS: 36415; 80061; 80076

== ENCOUNTER 2017-11-21 07:47 | Outpatient (CLI) | payer MEDICARE, SELFPAY | END 2017-11-21 11:32 | disposition home or self-care (01) | LOC: ACC 07:48 | PROVIDERS: Visit Provider Internal Medicine Adolescent Medicine | DX: Z79.01 Long term (current) use of anticoagulants (principal); Z51.81 Encounter for therapeutic drug level monitoring; I34.0 Nonrheumatic mitral (valve) insufficiency | CPT/HCPCS: 85610; 99211; G0463 ==

== ENCOUNTER 2017-12-13 07:46 | Outpatient (CLI) | payer MEDICARE, SELFPAY | END 2017-12-13 14:12 | disposition home or self-care (01) | LOC: ACC 07:46 | PROVIDERS: PCP Internal Medicine Adolescent Medicine; Visit Provider Internal Medicine Adolescent Medicine | DX: Z79.01 Long term (current) use of anticoagulants (principal) | CPT/HCPCS: 85610; 99211; G0463 ==

== ENCOUNTER → 2018-01-19 07:09 | Outpatient (CLI) | payer MEDICARE, SELFPAY ==
[2018-01-19 07:14] LABS: Microscopic, Urine URINE MICROSCOPIC (MICROSCOPIC)
[2018-01-19 08:01] LABS: Basophils # 0.1 K/mm3 (0-0.2); Basophils % 0.7 % (0.1-2.0); Eosinophils # 1.5 K/mm3 (0.0-0.4); Eosinophils % 19.6 % (0.1-12.0); Hematocrit 44.6 % (42.0-52.0); Hemoglobin 14.5 g/dL (14.1-18.0); Lymphocytes # 1.4 K/mm3 (0.7-4.5); Lymphocytes % 17.9 K/mm3 (10-50); Mean Corpuscular HGB Conc 32.5 g/dL (31.8-35.4); Mean Corpuscular Hemoglobin 30.4 pg (27.0-31.2); Mean Corpuscular Volume 93.6 fl (80-94); Monocytes # 0.4 K/mm3 (0.1-1.0); Monocytes % 5.3 % (1.7-9.3); Neutrophils # 4.4 K/mm3 (1.8-7.8); Neutrophils % 56.5 % (37.0-80.0); Platelet Count 214 K/mm3 (142-424); Red Blood Count 4.77 M/mm3 (4.60-6.20); White Blood Count 7.7 K/mm3 (4.8-10.8)
[2018-01-19 08:47] LABS: Albumin Level 3.5 gm/dL (3.4-5.0); Anion Gap 15.3 mEq/L (5-15); Blood Urea Nitrogen 15 mg/dL (7-18); Calcium 8.8 mg/dL (8.5-10.1); Carbon Dioxide 27 mmol/L (21.0-32.0); Chloride 107 mmol/L (98-107); Creatinine,Serum 1.18 mg/dL (0.70-1.30); Estimated Glomerular Filt Rate 60 ml/min (>60); GFR (African American) 72 ML/MIN (>60); Glucose 196 mg/dL (74-106); Phosphorous 3.5 mg/dL (2.4-4.9); Potassium 5.3 mmoL/L (3.5-5.1); Sodium 144 mmol/L (136-145)
[2018-01-19 09:23] LABS: Appearance,Urine CLEAR (Clear); Bilirubin,Urine Negative (Negative); Blood, Urine TRACE-I (Negative); Color,Urine YELLOW (Yellow); Glucose,Urine (UA) Negative (Negative); Ketones,Urine Negative (Negative); Leukocyte Esterase,Urine Negative (Negative); Nitrate,Urine Negative (Negative); Protein,Urine Negative (Negative); Specific Gravity, Urine 1.025 (1.005-1.030); Urobilinogen,Urine 0.2 EU/dl (0.2)
[2018-01-19 09:30] LABS: Creatinine,Urine Random 187 mg/dL (20-320); Total Protein,Urine Random 21.9 mg/dL (0.0-11.9)
[2018-01-19 09:36] LABS: Bacteria,Urine Trace /lpf
== END ==
PROVIDERS: Physician Assistant; Visit Provider Hospitalist
DX: N18.9 Chronic kidney disease, unspecified (principal); Z79.01 Long term (current) use of anticoagulants; Z51.81 Encounter for therapeutic drug level monitoring; I34.1 Nonrheumatic mitral (valve) prolapse; R06.02 Shortness of breath
CPT/HCPCS: 36415; 80069; 81001; 82570; 83880; 84155; 85025

== ENCOUNTER 2018-01-24 08:03 | Outpatient (CLI) | payer MEDICARE, SELFPAY ==
[2018-01-25 10:46] LABS: PHA INR Fingerstick 2.2 (0.9-1.1)
== END 2018-01-25 10:48 | disposition home or self-care (01) ==
LOC: ACC 08:04
PROVIDERS: Family Provider Internal Medicine Adolescent Medicine; PCP Internal Medicine Adolescent Medicine; Visit Provider Internal Medicine Adolescent Medicine
DX: Z79.01 Long term (current) use of anticoagulants (principal); Z51.81 Encounter for therapeutic drug level monitoring; I34.1 Nonrheumatic mitral (valve) prolapse
CPT/HCPCS: 85610; 99211; G0463

== ENCOUNTER → 2018-02-17 07:25 | Outpatient (CLI) | payer MEDICARE, SELFPAY ==
[2018-02-17 07:58] LABS: Basophils # 0.1 K/mm3 (0-0.2); Basophils % 0.8 % (0.1-2.0); Eosinophils # 1.2 K/mm3 (0.0-0.4); Eosinophils % 15.5 % (0.1-12.0); Hematocrit 45.9 % (42.0-52.0); Hemoglobin 14.7 g/dL (14.1-18.0); Lymphocytes # 1.6 K/mm3 (0.7-4.5); Lymphocytes % 21.3 K/mm3 (10-50); Mean Corpuscular HGB Conc 31.9 g/dL (31.8-35.4); Mean Corpuscular Hemoglobin 30.4 pg (27.0-31.2); Mean Corpuscular Volume 95.3 fl (80-94); Mean Platelet Volume 6.9 fl (7.4-10.4); Monocytes # 0.4 K/mm3 (0.1-1.0); Monocytes % 4.8 % (1.7-9.3); Neutrophils # 4.4 K/mm3 (1.8-7.8); Neutrophils % 57.5 % (37.0-80.0); Platelet Count 173 K/mm3 (142-424); Red Blood Count 4.82 M/mm3 (4.60-6.20); Red Cell Distribution Width 13.9 % (11.5-17.5); White Blood Count 7.6 K/mm3 (4.8-10.8)
[2018-02-17 09:02] LABS: Alanine Aminotransferase 54 U/L (12-78); Albumin Level 3.4 gm/dL (3.4-5.0); Alkaline Phosphatase 62 U/L (46-116); Anion Gap 9.9 mEq/L (5-15); Aspartate Amino Transferase 42 U/L (15-37); Bilirubin,Total 0.6 mg/dL (0.2-1.0); Blood Urea Nitrogen 17 mg/dL (7-18); Calcium 8.4 mg/dL (8.5-10.1); Carbon Dioxide 30 mmol/L (21.0-32.0); Chloride 106 mmol/L (98-107); Creatinine,Serum 1.25 mg/dL (0.70-1.30); Estimated Glomerular Filt Rate 56 ml/min (>60); Free Thyroxine Index 3.6 ug/dL (5.93-13.13); GFR (African American) 67 ML/MIN (>60); Globulin 3.4 gm/dl (1.3-3.2); Glucose 233 mg/dL (74-106); Potassium 4.9 mmoL/L (3.5-5.1); Prostate Specific Ag, Diagnost 2.41 ng/mL (0.0-4.0); Sodium 141 mmol/L (136-145); T4 (Thyroxine) 9.8 ug/dl (4.7-13.3); Thyroid Stimulating Hormone 3.12 uIU/ml (0.358-3.740); Total Protein,Serum 6.8 gm/dL (6.4-8.2); Triiodothryronine (T3) Uptake 37 % (31-39)
== END ==
PROVIDERS: PCP Internal Medicine Adolescent Medicine; Visit Provider Internal Medicine Adolescent Medicine
DX: E11.42 Type 2 diabetes mellitus with diabetic polyneuropathy (principal); N40.0 Benign prostatic hyperplasia without lower urinary tract symptoms; E03.9 Hypothyroidism, unspecified; E78.5 Hyperlipidemia, unspecified; I25.10 Atherosclerotic heart disease of native coronary artery without angina pectoris
CPT/HCPCS: 36415; 80053; 83036; 84153; 84436; 84443; 84479; 85025

== ENCOUNTER → 2018-02-20 12:45 | Outpatient (CLI) | payer MEDICARE, SELFPAY ==
--- NOTE | 2018-02-20 12:47 | US_ITS ---
US kidney retroperitoneal comp HISTORY: Chronic renal disease ITS.REASON: CKD ORDERING PHYSICIAN: Joshua Finley PATIENT AGE: 77 years Comparison: None FINDINGS: The right kidney is 10 x 5 x 7 cm. No hydronephrosis. There is mild cortical thinning with cortex measuring 1 cm. Unremarkable echogenicity. The left kidney is 11 x 4.5 x 5 cm. No hydronephrosis. Mild cortical thinning at approximately 1 cm with unremarkable echogenicity. Incidental note made of cholelithiasis. IMPRESSION: 1. Bilateral renal cortical thinning. No hydronephrosis 2. Cholelithiasis
== END ==
PROVIDERS: Family Provider Internal Medicine Adolescent Medicine; PCP Internal Medicine Adolescent Medicine; Visit Provider Hospitalist
DX: N18.9 Chronic kidney disease, unspecified (principal)
CPT/HCPCS: 76770

== ENCOUNTER 2018-02-28 07:55 | Outpatient (CLI) | payer MEDICARE, SELFPAY ==
[2018-02-28 10:32] LABS: PHA INR Fingerstick 2.1 (0.9-1.1)
== END 2018-02-28 10:38 | disposition home or self-care (01) ==
LOC: ACC 07:56
PROVIDERS: PCP Internal Medicine Adolescent Medicine; Visit Provider Internal Medicine Adolescent Medicine
DX: Z51.81 Encounter for therapeutic drug level monitoring (principal); Z79.01 Long term (current) use of anticoagulants; I05.9 Rheumatic mitral valve disease, unspecified
CPT/HCPCS: 85610; 99211; G0463

== ENCOUNTER → 2018-03-09 07:14 | Outpatient (CLI) | payer MEDICARE, SELFPAY ==
[2018-03-09 07:24] LABS: Microscopic, Urine URINE MICROSCOPIC (MICROSCOPIC)
[2018-03-09 07:56] LABS: Basophils # 0.1 K/mm3 (0-0.2); Basophils % 0.8 % (0.1-2.0); Eosinophils # 1.2 K/mm3 (0.0-0.4); Eosinophils % 15.7 % (0.1-12.0); Lymphocytes # 1.6 K/mm3 (0.7-4.5); Lymphocytes % 21.3 K/mm3 (10-50); Mean Corpuscular HGB Conc 32.5 g/dL (31.8-35.4); Mean Corpuscular Volume 95.2 fl (80-94); Mean Platelet Volume 6.9 fl (7.4-10.4); Monocytes # 0.4 K/mm3 (0.1-1.0); Monocytes % 5.8 % (1.7-9.3); Neutrophils # 4.3 K/mm3 (1.8-7.8); Neutrophils % 56.4 % (37.0-80.0); Platelet Count 176 K/mm3 (142-424); Red Blood Count 4.83 M/mm3 (4.60-6.20); Red Cell Distribution Width 13.7 % (11.5-17.5); White Blood Count 7.6 K/mm3 (4.8-10.8)
[2018-03-09 08:37] LABS: Appearance,Urine CLEAR (Clear); Bilirubin,Urine Negative (Negative); Blood, Urine 1+ (Negative); Color,Urine DK YELLOW (Yellow); Glucose,Urine (UA) Negative (Negative); Ketones,Urine Negative (Negative); Leukocyte Esterase,Urine Negative (Negative); Nitrate,Urine Negative (Negative); Protein,Urine Negative (Negative); Specific Gravity, Urine >= 1.030 (1.005-1.030); Urobilinogen,Urine 0.2 EU/dl (0.2)
[2018-03-09 09:41] LABS: Bacteria,Urine 2+ /lpf; Mucus,Urine 2+ /lpf
[2018-03-09 10:46] LABS: Albumin Level 3.4 gm/dL (3.4-5.0); Anion Gap 9.5 mEq/L (5-15); Blood Urea Nitrogen 14 mg/dL (7-18); Calcium 8.4 mg/dL (8.5-10.1); Carbon Dioxide 31 mmol/L (21.0-32.0); Chloride 107 mmol/L (98-107); Creatinine,Serum 1.24 mg/dL (0.70-1.30); Estimated Glomerular Filt Rate 56 ml/min (>60); GFR (African American) 68 ML/MIN (>60); Glucose 220 mg/dL (74-106); Phosphorous 3.4 mg/dL (2.4-4.9); Potassium 5.5 mmoL/L (3.5-5.1); Sodium 142 mmol/L (136-145)
[2018-03-09 10:49] LABS: Hemoglobin A1C 8.3 % (0.0-7.0)
[2018-03-10 09:16] LABS: Immunoglobulin A, Qn 173 mg/dL (61-437); Immunoglobulin G, Qn 1186 mg/dL (700-1600)
[2018-03-12 05:17] LABS: Immunoglobulin M, Qn 118 mg/dL (15-143)
[2018-03-12 16:19] LABS: Albumin 3.4 g/dL (2.9-4.4); Alpha-1-Globulin 0.3 g/dL (0.0-0.4); Alpha-2-Globulin 0.8 g/dL (0.4-1.0); Gamma Globulin 1.2 g/dL (0.4-1.8); Protein, Total 6.9 g/dL (6.0-8.5)
[2018-03-13 15:30] LABS: Albumin, U 35.2 % (.); Alpha-1-Globulin, U 2.9 % (.); Alpha-2-Globulin, U 15.7 % (.); Gamma Globulin, U 24.2 % (.); M-Spike, % Not Observed % (Not Observed); Protein,Total,Urine 32.4 mg/dL (Not Estab.)
== END ==
PROVIDERS: PCP Internal Medicine Adolescent Medicine; Visit Provider Hospitalist
DX: N18.9 Chronic kidney disease, unspecified (principal); Z51.81 Encounter for therapeutic drug level monitoring; Z79.01 Long term (current) use of anticoagulants; R82.90 Unspecified abnormal findings in urine; E11.9 Type 2 diabetes mellitus without complications
CPT/HCPCS: 36415; 80069; 81001; 82784; 83036; 84155; 84156; 84165; 84166; 85025; 86335; 87086

== ENCOUNTER 2018-04-09 07:54 | Outpatient (CLI) | payer MEDICARE, SELFPAY ==
[2018-04-09 10:30] LABS: PHA INR Fingerstick 2.3 (0.9-1.1)
== END 2018-04-09 10:36 | disposition home or self-care (01) ==
LOC: ACC 07:55
PROVIDERS: Family Provider Internal Medicine Adolescent Medicine; PCP Internal Medicine Adolescent Medicine; Visit Provider Internal Medicine Adolescent Medicine
DX: Z79.01 Long term (current) use of anticoagulants (principal); Z51.81 Encounter for therapeutic drug level monitoring; I34.1 Nonrheumatic mitral (valve) prolapse
CPT/HCPCS: 85610; 99211; G0463

== ENCOUNTER 2018-05-21 07:46 | Outpatient (CLI) | payer MEDICARE, SELFPAY ==
[2018-05-21 14:19] LABS: PHA INR Fingerstick 1.6 (0.9-1.1)
== END 2018-05-21 14:23 | disposition home or self-care (01) ==
LOC: ACC 07:48
PROVIDERS: PCP Internal Medicine Adolescent Medicine; Visit Provider Internal Medicine Adolescent Medicine
DX: Z51.81 Encounter for therapeutic drug level monitoring (principal); Z79.01 Long term (current) use of anticoagulants; I05.9 Rheumatic mitral valve disease, unspecified
CPT/HCPCS: 85610; 99211; G0463

== ENCOUNTER → 2018-05-23 07:06 | Outpatient (CLI) | payer MEDICARE, SELFPAY ==
[2018-05-23 09:37] LABS: Prostate Specific Ag Screen 2.4 ng/mL (0.0-4.0)
== END ==
PROVIDERS: Visit Provider Urology
DX: N40.1 Benign prostatic hyperplasia with lower urinary tract symptoms (principal); Z12.5 Encounter for screening for malignant neoplasm of prostate
CPT/HCPCS: 36415; G0103

== ENCOUNTER 2018-06-20 07:59 | Outpatient (CLI) | payer MEDICARE, SELFPAY ==
[2018-06-20 10:57] LABS: PHA INR Fingerstick 2.1 (0.9-1.1)
== END 2018-06-20 10:58 | disposition home or self-care (01) ==
LOC: ACC 08:00
PROVIDERS: PCP Internal Medicine Adolescent Medicine; Visit Provider Internal Medicine Adolescent Medicine
DX: Z51.81 Encounter for therapeutic drug level monitoring (principal); Z79.01 Long term (current) use of anticoagulants; I05.9 Rheumatic mitral valve disease, unspecified
CPT/HCPCS: 85610; 99211; G0463

== ENCOUNTER → 2018-06-21 07:00 | Outpatient (CLI) | payer MEDICARE, SELFPAY ==
[2018-06-21 07:30] LABS: Basophils # 0.1 K/mm3 (0-0.2); Basophils % 0.8 % (0.1-2.0); Eosinophils # 1.3 K/mm3 (0.0-0.4); Eosinophils % 13.7 % (0.1-12.0); Hematocrit 43.5 % (42.0-52.0); Hemoglobin 14.5 g/dL (14.1-18.0); Lymphocytes # 1.5 K/mm3 (0.7-4.5); Lymphocytes % 16.4 % (10-50); Mean Corpuscular HGB Conc 33.3 g/dL (31.8-35.4); Mean Corpuscular Hemoglobin 31.2 pg (27.0-31.2); Mean Corpuscular Volume 93.8 fl (80-94); Mean Platelet Volume 6.9 fl (7.4-10.4); Monocytes # 0.5 K/mm3 (0.1-1.0); Monocytes % 4.8 % (1.7-9.3); Neutrophils % 64.4 % (37.0-80.0); Platelet Count 205 K/mm3 (142-424); Red Blood Count 4.64 M/mm3 (4.60-6.20); Red Cell Distribution Width 13.8 % (11.5-17.5); White Blood Count 9.4 K/mm3 (4.8-10.8)
[2018-06-21 09:12] LABS: Hemoglobin A1C 10.1 % (0.0-7.0)
[2018-06-21 09:19] LABS: Alanine Aminotransferase 53 U/L (12-78); Albumin Level 3.2 gm/dL (3.4-5.0); Albumin/Globulin Ratio 0.9 (1.1-1.8); Alkaline Phosphatase 64 U/L (46-116); Anion Gap 13.4 mEq/L (5-15); Aspartate Amino Transferase 40 U/L (15-37); Bilirubin,Total 0.6 mg/dL (0.2-1.0); Blood Urea Nitrogen 13 mg/dL (7-18); Calcium 8.4 mg/dL (8.5-10.1); Carbon Dioxide 28 mmol/L (21.0-32.0); Chloride 107 mmol/L (98-107); Chol/HDL Ratio 3.3 (1-3.5); Cholesterol 150 mg/dL (140-200); Creatinine,Serum 1.13 mg/dL (0.70-1.30); Estimated Glomerular Filt Rate 62 ml/min (>60); Free Thyroxine Index 3.6 ug/dL (5.93-13.13); GFR (African American) 76 ML/MIN (>60); Globulin 3.4 gm/dl (1.3-3.2); Glucose 138 mg/dL (74-106); HDL Cholesterol 45 mg/dL (27-67); LDL Cholesterol 83 mg/dL (0-130); Potassium 4.4 mmoL/L (3.5-5.1); Sodium 144 mmol/L (136-145); T4 (Thyroxine) 10.1 ug/dl (4.7-13.3); Thyroid Stimulating Hormone 0.81 uIU/ml (0.358-3.740); Total Protein,Serum 6.6 gm/dL (6.4-8.2); Triglycerides 109 mg/dL (30-200); Triiodothryronine (T3) Uptake 36 % (31-39); VLDL Cholesterol 22 mg/dL (0-40)
== END ==
PROVIDERS: Visit Provider Internal Medicine Adolescent Medicine
DX: E11.42 Type 2 diabetes mellitus with diabetic polyneuropathy (principal); E78.5 Hyperlipidemia, unspecified; E03.9 Hypothyroidism, unspecified
CPT/HCPCS: 36415; 80053; 80061; 83036; 84436; 84443; 84479; 85025

== ENCOUNTER → 2018-07-17 13:24 | Outpatient (CLI) | payer MEDICARE, SELFPAY ==
--- NOTE | 2018-07-17 13:28 | XR_ITS ---
XR hip RT 2-3V w/pelvis HISTORY: ITS.REASON: RT HIP PAIN ORDERING PHYSICIAN: Lawrence Kay MD PATIENT AGE: 78 years COMPARISON: 09/30/2014 FINDINGS: There has been a polar prosthesis placement on the right. No fracture or dislocation. There is good alignment of the prosthesis. Small metallic clips are present in the lower pelvic region consistent with prostate seed implants. IMPRESSION: Status post right hip replacement with no acute finding
== END ==
PROVIDERS: PCP Internal Medicine Adolescent Medicine; Visit Provider Internal Medicine Adolescent Medicine
DX: M25.551 Pain in right hip (principal)
CPT/HCPCS: 73502

== ENCOUNTER → 2018-07-24 07:28 | Outpatient (CLI) | payer MEDICARE, SELFPAY ==
[2018-07-24 07:34] LABS: Microscopic, Urine URINE MICROSCOPIC (MICROSCOPIC)
[2018-07-24 07:58] LABS: Appearance,Urine CLEAR (Clear); Bilirubin,Urine Negative (Negative); Blood, Urine 1+ (Negative); Color,Urine YELLOW (Yellow); Glucose,Urine (UA) Negative (Negative); Ketones,Urine Negative (Negative); Leukocyte Esterase,Urine Negative (Negative); Nitrate,Urine Negative (Negative); Protein,Urine Negative (Negative); Urobilinogen,Urine 0.2 EU/dl (0.2)
[2018-07-24 08:03] LABS: Basophils # 0.1 K/mm3 (0-0.2); Basophils % 0.8 % (0.1-2.0); Eosinophils # 1.4 K/mm3 (0.0-0.4); Eosinophils % 13.4 % (0.1-12.0); Hematocrit 49.2 % (42.0-52.0); Hemoglobin 15.2 g/dL (14.1-18.0); Lymphocytes # 1.5 K/mm3 (0.7-4.5); Lymphocytes % 14.8 % (10-50); Mean Corpuscular HGB Conc 30.9 g/dL (31.8-35.4); Mean Corpuscular Hemoglobin 30.5 pg (27.0-31.2); Mean Corpuscular Volume 98.5 fl (80-94); Mean Platelet Volume 7.2 fl (7.4-10.4); Monocytes # 0.5 K/mm3 (0.1-1.0); Monocytes % 4.9 % (1.7-9.3); Neutrophils # 6.8 K/mm3 (1.8-7.8); Neutrophils % 66.1 % (37.0-80.0); Platelet Count 192 K/mm3 (142-424); Red Cell Distribution Width 13.6 % (11.5-17.5); White Blood Count 10.2 K/mm3 (4.8-10.8)
[2018-07-24 08:22] LABS: WBC,Urine Occasional #/hpf (0-3)
[2018-07-24 08:23] LABS: Bacteria,Urine Trace /lpf; RBC,Urine 20-50 #/hpf (0-3); Squamous Epithelial Cell,Urine Occasional #/hpf (0-5)
[2018-07-24 08:51] LABS: INR 1.55 (0.9-1.1); Prothrombin Time 15.8 seconds (9.4-11.8)
[2018-07-24 10:06] LABS: Albumin Level 3.6 gm/dL (3.4-5.0); Anion Gap 11.7 mEq/L (5-15); Blood Urea Nitrogen 16 mg/dL (7-18); Calcium 8.7 mg/dL (8.5-10.1); Carbon Dioxide 30 mmol/L (21.0-32.0); Chloride 102 mmol/L (98-107); Estimated Glomerular Filt Rate 58 ml/min (>60); GFR (African American) 70 ML/MIN (>60); Glucose 219 mg/dL (74-106); Phosphorous 3.7 mg/dL (2.4-4.9); Potassium 4.7 mmoL/L (3.5-5.1); Sodium 139 mmol/L (136-145)
[2018-07-25 09:31] LABS: Vitamin D 25 Hydroxy 30.3 ng/mL (30.0-100.0)
== END ==
LOC: ACC 07:35 → LAB 08:08
PROVIDERS: PCP Internal Medicine Adolescent Medicine; Visit Provider Hospitalist
DX: N18.9 Chronic kidney disease, unspecified (principal); Z51.81 Encounter for therapeutic drug level monitoring; Z79.01 Long term (current) use of anticoagulants; I05.9 Rheumatic mitral valve disease, unspecified
CPT/HCPCS: 36415; 80069; 81001; 82652; 85025; 85610

== ENCOUNTER 2018-08-06 08:30 | Outpatient (CLI) | payer MEDICARE, SELFPAY ==
[2018-09-24 11:36] LABS: PHA INR Fingerstick 2.2 (0.9-1.1)
== END 2018-08-06 14:27 | disposition home or self-care (01) ==
LOC: ACC 08:31
PROVIDERS: PCP Internal Medicine Adolescent Medicine; Visit Provider Internal Medicine Adolescent Medicine
DX: Z51.81 Encounter for therapeutic drug level monitoring (principal); Z79.01 Long term (current) use of anticoagulants; I34.1 Nonrheumatic mitral (valve) prolapse
CPT/HCPCS: 85610; 99211; G0463

== ENCOUNTER → 2018-08-07 08:02 | Outpatient (POV) | payer MEDICARE, SELFPAY | PROVIDERS: Visit Provider Dermatology | DX: Z00.00 Encounter for general adult medical examination without abnormal findings (principal) ==

== ENCOUNTER 2018-08-24 09:00 | Outpatient (RCR) | payer MEDICARE, SELFPAY | END 2018-08-24 09:05 | disposition home or self-care (01) | LOC: PT 09:00 | PROVIDERS: Visit Provider Orthopaedic Surgery | DX: M70.61 Trochanteric bursitis, right hip (principal) | CPT/HCPCS: 97010; 97014; 97035; 97110; 97163; G0283 ==

== ENCOUNTER 2018-09-03 07:23 | Outpatient (CLI) | payer MEDICARE, SELFPAY ==
[2018-09-19 16:04] LABS: PHA INR Fingerstick 2.2 (0.9-1.1)
== END 2018-09-03 16:11 | disposition home or self-care (01) ==
LOC: ACC 07:24
PROVIDERS: PCP Internal Medicine Adolescent Medicine; Visit Provider Internal Medicine Adolescent Medicine
DX: Z51.81 Encounter for therapeutic drug level monitoring (principal); Z79.01 Long term (current) use of anticoagulants; I34.0 Nonrheumatic mitral (valve) insufficiency
CPT/HCPCS: 85610; 99211; G0463

== ENCOUNTER → 2018-09-13 07:00 | Outpatient (CLI) | payer MEDICARE, SELFPAY ==
[2018-09-13 07:29] LABS: Basophils # 0.1 K/mm3 (0-0.2); Basophils % 0.6 % (0.1-2.0); Eosinophils # 0.4 K/mm3 (0.0-0.4); Eosinophils % 3.8 % (0.1-12.0); Hemoglobin 14.4 g/dL (14.1-18.0); Lymphocytes # 1.2 K/mm3 (0.7-4.5); Lymphocytes % 10.9 % (10-50); Mean Corpuscular HGB Conc 32.7 g/dL (31.8-35.4); Mean Corpuscular Hemoglobin 31.4 pg (27.0-31.2); Mean Corpuscular Volume 96.1 fl (80-94); Monocytes # 0.5 K/mm3 (0.1-1.0); Monocytes % 4.5 % (1.7-9.3); Neutrophils # 8.5 K/mm3 (1.8-7.8); Neutrophils % 80.2 % (37.0-80.0); Platelet Count 279 K/mm3 (142-424); Red Blood Count 4.58 M/mm3 (4.60-6.20); Red Cell Distribution Width 13.4 % (11.5-17.5); White Blood Count 10.6 K/mm3 (4.8-10.8)
[2018-09-13 07:47] LABS: Hemoglobin A1C 8.5 % (0.0-7.0)
[2018-09-13 08:44] LABS: Alanine Aminotransferase 66 U/L (12-78); Albumin Level 3.2 gm/dL (3.4-5.0); Albumin/Globulin Ratio 0.9 (1.1-1.8); Alkaline Phosphatase 61 U/L (46-116); Anion Gap 13.3 mEq/L (5-15); Aspartate Amino Transferase 61 U/L (15-37); Bilirubin,Total 0.6 mg/dL (0.2-1.0); Blood Urea Nitrogen 17 mg/dL (7-18); Calcium 8.6 mg/dL (8.5-10.1); Carbon Dioxide 28 mmol/L (21.0-32.0); Chloride 105 mmol/L (98-107); Chol/HDL Ratio 3.6 (1-3.5); Cholesterol 154 mg/dL (140-200); Creatinine,Serum 1.14 mg/dL (0.70-1.30); Estimated Glomerular Filt Rate 62 ml/min (>60); GFR (African American) 75 ML/MIN (>60); Globulin 3.6 gm/dl (1.3-3.2); Glucose 164 mg/dL (74-106); HDL Cholesterol 43 mg/dL (27-67); LDL Cholesterol 87 mg/dL (0-130); Potassium 5.3 mmoL/L (3.5-5.1); Sodium 141 mmol/L (136-145); Thyroid Stimulating Hormone 5.36 uIU/ml (0.358-3.740); Total Protein,Serum 6.8 gm/dL (6.4-8.2); Triglycerides 120 mg/dL (30-200); VLDL Cholesterol 24 mg/dL (0-40)
== END ==
PROVIDERS: Visit Provider Internal Medicine Adolescent Medicine
DX: E11.42 Type 2 diabetes mellitus with diabetic polyneuropathy (principal); Z79.4 Long term (current) use of insulin; E78.5 Hyperlipidemia, unspecified; E03.9 Hypothyroidism, unspecified; I48.2 Chronic atrial fibrillation
CPT/HCPCS: 36415; 80053; 80061; 83036; 84443; 85025

== ENCOUNTER 2018-10-01 08:03 | Outpatient (CLI) | payer MEDICARE, SELFPAY | END 2018-10-01 14:59 | disposition home or self-care (01) | LOC: ACC 08:04 | PROVIDERS: PCP Internal Medicine Adolescent Medicine; Visit Provider Internal Medicine | DX: Z51.81 Encounter for therapeutic drug level monitoring (principal); Z79.01 Long term (current) use of anticoagulants; I05.9 Rheumatic mitral valve disease, unspecified | CPT/HCPCS: 99211; G0463 ==

== ENCOUNTER → 2018-10-23 10:56 | Outpatient (CLI) | payer MEDICARE, SELFPAY ==
--- NOTE | 2018-10-23 11:01 | CA_ITS ---
PROCEDURE: 2-D M-mode and color Doppler study INDICATIONS FOR THE TEST: Chest pain COPD Heart Murmur Tobacco Smoking Palpitations Fatigue+ Syncope Edema Hypertension+Diabetes Mellitus+ Rheumatic Fever SOB TOVAR+Obesity Hyperlipidemia+ Family History HD Additional History CABG, MV Repair 07/2017 PATIENT INFORMATION HEIGHT: 72 WEIGHT: 226 GENDER: Male B/P: 158/76 2-D/M-MODE INTERPRETATION: 2-D MEASUREMENTS OBSERVED VALUES IN CMS Right Ventricular Dimension (RVDd) 3.6 Interventricular Septum (Thickness)(IVsd) 1.1 Left Ventricular Internal Dimensions(LVIDd) 5.5 Left Ventricular Posterior Wall (Thickness)(LVPWd) 1.0 Aortic Root 3.7 Aortic Cusp Separation 2.2 Left Atrial Dimensions (LAD) 4.3 2D 1. Left atrium is moderately enlarged, left ventricle is normal size, mild concentric left ventricular hypertrophy, visually estimated ejection fraction 55% with no regional wall motion abnormality. 2. The right atrium and right ventricle are mildly enlarged with normal contractility. 3. The aortic valve is thickened and calcified leaflet continue to display good mobility. 4.. Historically the patient has mitral valve repair, leaflets are minimally thickened, there appears to be a mitral valve clip present. 5. The tricuspid valve is grossly normal. 6. The pulmonic valve is poorly visualized. 7. No significant pericardial effusion noted. DOPPLER INTERROGATION: Doppler interrogation of the aortic, mitral and tricuspid valvular presence of moderate to severe mitral and mild tricuspid regurgitation, tricuspid regurgitant jet velocity is inadequate for calculation of the right ventricular systolic pressure, diastolic parameters are inconclusive. CONCLUSION: 1. Biatrial enlargement, normal left ventricular size, mild concentric left ventricular hypertrophy, visually estimated ejection fraction 55% with no regional wall motion abnormality, diastolic parameters are inconclusive. 2. Mildly enlarged right ventricle with normal contractility. 3. Thickened and calcified aortic valve without aortic stenosis aortic insufficiency. 4. Status post mitral valve repair likely mitral valve clip, there is residual moderate to severe mitral regurgitation present, there is no significant mitral inflow obstruction. 5. Mild tricuspid regurgitation, tricuspid regurgitant jet velocity is inadequate for calculation of the right ventricular systolic pressure. 6. No significant pericardial effusion noted.
--- NOTE | 2018-10-23 11:46 | XR_ITS ---
XR chest 2V HISTORY: ITS.REASON: cough ORDERING PHYSICIAN: Seth Clement MD PATIENT AGE: 78 years COMPARISON: 10/30/2017 FINDINGS: There has been a prior CABG. There is fracture of the superiormost median sternotomy wire which has developed in the interval. Normal heart size. There are atelectatic changes in the right lung base. There are increased markings in the left lower lobe consistent with atelectasis or infiltrate with some superimposed chronic change. No acute bony findings. IMPRESSION: 1. Right basilar atelectasis which has developed since the previous exam. 2. Left basilar atelectasis or infiltrate with superimposed chronic change
[2018-10-23 14:24] LABS: Anion Gap 13.4 mEq/L (5-15); Blood Urea Nitrogen 18 mg/dL (7-18); Carbon Dioxide 28 mmol/L (21.0-32.0); Chloride 104 mmol/L (98-107); Creatinine,Serum 1.25 mg/dL (0.70-1.30); Estimated Glomerular Filt Rate 56 ml/min (>60); GFR (African American) 67 ML/MIN (>60); Glucose 71 mg/dL (74-106); Potassium 4.4 mmoL/L (3.5-5.1); Sodium 141 mmol/L (136-145)
[2018-10-23 14:32] LABS: Creatine Kinase 1990 U/L (39-308)
== END ==
PROVIDERS: PCP Internal Medicine Adolescent Medicine; Visit Provider Internal Medicine
DX: I25.10 Atherosclerotic heart disease of native coronary artery without angina pectoris; I34.1 Nonrheumatic mitral (valve) prolapse; E11.9 Type 2 diabetes mellitus without complications; E78.5 Hyperlipidemia, unspecified; I48.91 Unspecified atrial fibrillation; I50.9 Heart failure, unspecified; J44.9 Chronic obstructive pulmonary disease, unspecified; R05 Cough; R06.00 Dyspnea, unspecified; R53.83 Other fatigue; R06.02 Shortness of breath; Z79.4 Long term (current) use of insulin
CPT/HCPCS: 36415; 71046; 80048; 82550; 83880; 93306

== ENCOUNTER → 2018-10-25 14:51 | Outpatient (CLI) | payer MEDICARE, SELFPAY ==
[2018-10-25 20:47] LABS: Creatine Kinase 2862 U/L (39-308)
== END ==
PROVIDERS: Visit Provider Urology
DX: E11.9 Type 2 diabetes mellitus without complications (principal); E78.5 Hyperlipidemia, unspecified; I25.10 Atherosclerotic heart disease of native coronary artery without angina pectoris; I34.1 Nonrheumatic mitral (valve) prolapse; I48.91 Unspecified atrial fibrillation; I50.9 Heart failure, unspecified; J44.9 Chronic obstructive pulmonary disease, unspecified; R05 Cough; R06.00 Dyspnea, unspecified; R53.83 Other fatigue; Z79.4 Long term (current) use of insulin
CPT/HCPCS: 36415; 82550

== ENCOUNTER 2018-10-29 08:12 | Outpatient (CLI) | payer MEDICARE, SELFPAY ==
[2018-10-29 12:04] LABS: PHA INR Fingerstick 2.6 (0.9-1.1)
== END 2018-10-29 12:06 | disposition home or self-care (01) ==
LOC: ACC 08:13
PROVIDERS: PCP Internal Medicine Adolescent Medicine; Visit Provider Internal Medicine
DX: Z51.81 Encounter for therapeutic drug level monitoring (principal); Z79.01 Long term (current) use of anticoagulants; I34.0 Nonrheumatic mitral (valve) insufficiency
CPT/HCPCS: 85610; 99211; G0463

== ENCOUNTER → 2018-10-30 12:33 | Outpatient (CLI) | payer MEDICARE, SELFPAY ==
[2018-10-30 14:53] LABS: Alanine Aminotransferase 74 U/L (12-78); Albumin Level 3.4 gm/dL (3.4-5.0); Alkaline Phosphatase 67 U/L (46-116); Anion Gap 10.4 mEq/L (5-15); Aspartate Amino Transferase 53 U/L (15-37); Bilirubin,Direct 0.1 mg/dL (0.0-0.2); Bilirubin,Indirect 0.4 mg/dL (0.0-0.9); Bilirubin,Total 0.5 mg/dL (0.2-1.0); Blood Urea Nitrogen 22 mg/dL (7-18); Calcium 8.3 mg/dL (8.5-10.1); Carbon Dioxide 30 mmol/L (21.0-32.0); Chloride 104 mmol/L (98-107); Creatinine,Serum 1.32 mg/dL (0.70-1.30); Estimated Glomerular Filt Rate 52 ml/min (>60); Free Thyroxine Index 2.7 ug/dL (5.93-13.13); GFR (African American) 63 ML/MIN (>60); Glucose 148 mg/dL (74-106); Potassium 4.4 mmoL/L (3.5-5.1); Sodium 140 mmol/L (136-145); T4 (Thyroxine) 7.9 ug/dl (4.7-13.3); Thyroid Stimulating Hormone 3.42 uIU/ml (0.358-3.740); Total Protein,Serum 7.4 gm/dL (6.4-8.2); Triiodothryronine (T3) Uptake 34 % (31-39)
[2018-10-30 14:54] LABS: Creatine Kinase 1491 U/L (39-308)
== END ==
PROVIDERS: Visit Provider Nurse Practitioner Family
DX: E07.9 Disorder of thyroid, unspecified (principal); E78.5 Hyperlipidemia, unspecified; I10 Essential (primary) hypertension; I25.10 Atherosclerotic heart disease of native coronary artery without angina pectoris; M62.82 Rhabdomyolysis
CPT/HCPCS: 36415; 80048; 80076; 82550; 84436; 84443; 84479

== ENCOUNTER 2018-11-02 08:00 | Outpatient (RCR) | payer MEDICARE, SELFPAY | END 2018-11-02 08:05 | disposition home or self-care (01) | LOC: PT 08:00 | PROVIDERS: Visit Provider Orthopaedic Surgery | DX: M54.5 Low back pain (principal) | CPT/HCPCS: 97010; 97110; 97163 ==

== ENCOUNTER → 2018-11-06 10:07 | Outpatient (CLI) | payer MEDICARE, SELFPAY ==
[2018-11-06 11:41] LABS: Creatine Kinase 1180 U/L (39-308)
== END ==
PROVIDERS: Visit Provider Internal Medicine
DX: I34.1 Nonrheumatic mitral (valve) prolapse; I25.10 Atherosclerotic heart disease of native coronary artery without angina pectoris; R06.02 Shortness of breath; E11.9 Type 2 diabetes mellitus without complications; E78.2 Mixed hyperlipidemia; I48.0 Paroxysmal atrial fibrillation; I50.32 Chronic diastolic (congestive) heart failure; J43.8 Other emphysema; R05 Cough; R53.83 Other fatigue; Z79.4 Long term (current) use of insulin
CPT/HCPCS: 36415; 82550

== ENCOUNTER → 2018-11-07 10:49 | Outpatient (CLI) | payer MEDICARE, SELFPAY ==
--- NOTE | 2018-11-07 10:56 | FL_ITS ---
FL barium swallow modified: 11/07/2018 10:56 AM CLINICAL HISTORY: ORDERING PHYSICIAN: Toney Contreras MD PATIENT AGE: 78 years Comparison: None TECHNIQUE: Patient administered varying consistencies of barium contrast, while viewed in lateral position under real-time fluoroscopy with cine recording. FLUOROSCOPY TIME: 1 minute and 31 seconds The study was performed in conjunction with speech pathologist. Please see that report & recommendations. FINDINGS: Patient was given varying consistencies of barium. No distended penetration or tracheal aspiration. There is mild minimal residual within the valleculae IMPRESSION: Unremarkable modified barium swallow Please see speech pathologist report and recommendations.
--- NOTE | 2018-11-07 14:26 | HMH.SLMBS2 ---
Speech & Language Evaluation Speech/Language Mod Barium Swallow Start: 11/07/18 14:17 Freq: once Status: Complete Protocol: Document 11/07/18 14:17 NILESH (Rec: 11/07/18 14:26 NILESH [id number]) [facility] Recommendations Diet Dietary Recommendations Regular,Thin Liquids Treatment/Strategies Strategy/Precaution Recommend Small Bites and Sips,Alternate Liquids/Solids Mod Barium Swallow Impressions Summary and Impressions Oral Phase Impression No Impairment (WFL) Oral Phase Summary Mr. Wu was given the following consistencies: thins via straw and open cup, pudding, pureed, mechanical soft, regular, mixed, and pill with thin wash. No signs of impairment in the oral phase noted. Pharyngeal Phase Impression Minimal Impairment Pharyngeal Phase Summary Mild residue noted in valleculae with mechanical soft and regular but cleared with thin wash. At this time, it is recommended that Mr. Wu alternate between bite and sip and use small bites and small sips during meals. It is also recommended that he use gravy or sauce on dry meat. Speech/Language MBS Assessment/Goals/Plan Assessment Date of Evaluation: 11/07/18 Evaluation Type Initial Certification Assessment/Problems Dysphagia Does Patient Qualify for Service No Recommendations PHYSICIAN CERTIFICATION: The specified therapy services are required, authorized, and reviewed every 30 days. Dysphagia Swallow Precautions/Strategies Small Bites and Sips,Alternate Liquids/Solids Plan Pt/Guardian verbally ack understanding Yes of dx/prognosis/goals G -code Required Yes G-CODES ST Current Status [id number] ST Current Status Modifier CI-At least 1% but less than 20% impaired, limited or restricted ST Goal Status [id number] ST Goal Status Modifier CI-At least 1% but less than 20% impaired, limited or restricted Mod Barium Swallow Setup Exam Setup Radiologist Gustavo Prince Level of Consciousness Awake,Alert,Appropriate, Follows Commands Position (degrees) 90 Mod Barium Swallow-Lat View Textures Lateral View Food Presen
== END ==
PROVIDERS: PCP Internal Medicine Adolescent Medicine; Visit Provider Internal Medicine Adolescent Medicine
DX: R13.10 Dysphagia, unspecified (principal)
CPT/HCPCS: 70371; 92611

== ENCOUNTER 2018-11-20 08:22 | Day surgery (SDC) | payer MEDICARE, SELFPAY ==
[2018-11-20] VITALS (17 sets, daily range): BP systolic 135–173; BP diastolic 65–95; PULSE 65–76; RESP 16–18; TEMP 36.8; O2SAT 92–97; BMI 30.9
--- NOTE | 2018-11-20 08:00 | IR_ITS ---
CARDIAC CATHETERIZATION DATE OF CATHETERIZATION:11/20/2018 12:43 PM PROCEDURES: Left heart catheterization Selective coronary angiogram Left ventriculogram Left internal mammary angiography Selective engagement of the saphenous vein graft to the right coronary artery with angiography INDICATION FOR TEST: 1. Severe mitral regurgitation 2. Preoperative evaluation for mitral valve repair 3. Coronary artery disease 4. Status post coronary artery bypass surgery COMPLICATIONS: None ESTIMATED BLOOD LOSS: Less than 10 ml. TECHNIQUE: One percent lidocaine was used to anesthetize the right groin. The right femoral artery was accessed via the Seldinger technique. A 5 [place] sheath was placed in the right femoral artery and a 7 [place] sheath was placed in the right femoral vein. A [place]-Yanelis catheter was used to perform right heart catheterization as well as perform a saturation and hemodynamic run. A [id number] 4 [id number] multipurpose catheter and angled pigtail catheter were used to perform selective angiography of the saphenous vein graft to the right coronary artery as well as nonselective left internal mammary angiography as well as left heart catheterization and left ventriculogram. At the end of the procedure the patient was transferred to the postop holding area in stable condition for sheath removal. ANGIOGRAPHIC RESULTS: The left main artery is mid vessel 20% and distal 30-40% stenosis The left anterior descending artery has severe proximal stenosis with competitive flow from the left internal mammary artery The circumflex artery gives rise to 2 obtuse marginal arteries both have proximal 30% nonflow limiting stenoses with no evidence of competitive venous flow The right coronary artery has proximal 30-40% stenosis followed by mid vessel 80% stenoses with competitive flow from the posterior descending artery The SANCHEZ ventriculogram reveals preserved at 65%, +3-4 mitral regurgitation is identified The left ventricular end-diastolic pressure 10 mmHg The left internal mammary artery is widely patent to the mid LAD The saphenous vein graft to the posterior descending artery is widely patent Right atrial pressure 3 mmHg Pulmonary artery pressure 40/20 mmHg Pulmonary artery occlusion pressure 15 mmHg, no V wave is seen during blood wedging Left ventricular end-diastolic pressure 10 mmHg Right atrial saturation 77% Pulmonary artery saturation 76% IMPRESSION: Coronary artery disease as described above with adequate two-vessel revascularization Class III to IV mitral regurgitation Moderate pulmonary hypertension No hemodynamic evidence of V wave on right heart catheterization or during pulmonary artery occlusion pressure Moderate to severe mitral regurgitation is described above PLAN: 1. At this point I favor medical management. I am interested in obtaining a transesophageal echocardiogram if at all possible to obtain better images of the mitral valve apparatus to determine if patient might be a candidate for mitral clip
[2018-11-20 09:13] LABS: Basophils # 0.1 K/mm3 (0-0.2); Basophils % 0.8 % (0.1-2.0); Eosinophils # 1.8 K/mm3 (0.0-0.4); Eosinophils % 20.9 % (0.1-12.0); Hemoglobin 15.1 g/dL (14.1-18.0); Lymphocytes # 1.6 K/mm3 (0.7-4.5); Lymphocytes % 18.9 % (10-50); Mean Corpuscular HGB Conc 34.3 g/dL (31.8-35.4); Mean Corpuscular Hemoglobin 32.2 pg (27.0-31.2); Mean Corpuscular Volume 93.9 fl (80-94); Monocytes # 0.4 K/mm3 (0.1-1.0); Monocytes % 4.8 % (1.7-9.3); Neutrophils # 4.6 K/mm3 (1.8-7.8); Neutrophils % 54.5 % (37.0-80.0); Platelet Count 188 K/mm3 (142-424); Red Blood Count 4.69 M/mm3 (4.60-6.20); Red Cell Distribution Width 14.1 % (11.5-17.5); White Blood Count 8.4 K/mm3 (4.8-10.8)
[2018-11-20 09:20] LABS: INR 0.99 (0.9-1.1); Prothrombin Time 10.3 seconds (9.4-11.8)
[2018-11-20 09:48] LABS: Blood Urea Nitrogen 13 mg/dL (7-18); Calcium 8.2 mg/dL (8.5-10.1); Carbon Dioxide 28 mmol/L (21.0-32.0); Chloride 104 mmol/L (98-107); Creatinine Clearance Estimated 74 mL/min (50-200); Creatinine,Serum 1.17 mg/dL (0.70-1.30); Estimated Glomerular Filt Rate 60 ml/min (>60); GFR (African American) 73 ML/MIN (>60); Glucose 233 mg/dL (74-106); Sodium 140 mmol/L (136-145)
[2018-11-20 15:46] LABS: CATHL Arterial O2 SAT 76 % (90-100); CATHL Venous O2 SAT 77 % (75-80)
== END 2018-11-20 15:52 | disposition home or self-care (01) ==
LOC: CATHLAB 08:23
PROVIDERS: PCP Internal Medicine Adolescent Medicine; Visit Provider Internal Medicine
DX: E11.9 Type 2 diabetes mellitus without complications (principal); E78.5 Hyperlipidemia, unspecified; I11.0 Hypertensive heart disease with heart failure; I25.10 Atherosclerotic heart disease of native coronary artery without angina pectoris; I34.0 Nonrheumatic mitral (valve) insufficiency; I48.0 Paroxysmal atrial fibrillation; I50.32 Chronic diastolic (congestive) heart failure; Z95.1 Presence of aortocoronary bypass graft; Z79.51 Long term (current) use of inhaled steroids; Z79.4 Long term (current) use of insulin; Z79.01 Long term (current) use of anticoagulants; Z79.899 Other long term (current) drug therapy; Z88.8 Allergy status to other drugs, medicaments and biological substances; Z82.49 Family history of ischemic heart disease and other diseases of the circulatory system; E03.9 Hypothyroidism, unspecified
CPT/HCPCS: 80048; 82810; 85025; 85610; 93461; 99152; 99153; C1725; C1769; C1894; J1644; Q9967

== ENCOUNTER 2018-11-26 08:56 | Outpatient (CLI) | payer MEDICARE, SELFPAY ==
[2018-11-26 10:41] LABS: PHA INR Fingerstick 1.6 (0.9-1.1)
== END 2018-11-26 10:48 | disposition home or self-care (01) ==
LOC: ACC 08:58
PROVIDERS: PCP Internal Medicine Adolescent Medicine; Visit Provider Internal Medicine
DX: Z51.81 Encounter for therapeutic drug level monitoring (principal); Z79.01 Long term (current) use of anticoagulants; Z95.2 Presence of prosthetic heart valve
CPT/HCPCS: 85610; 99211; G0463

== ENCOUNTER → 2018-11-26 10:44 | Outpatient (CLI) | payer MEDICARE, SELFPAY ==
--- NOTE | 2017-10-30 10:28 | XR_ITS ---
XR chest 2V HISTORY: ITS.REASON: cough, dyspnea ORDERING PHYSICIAN: MARY Salcido PATIENT AGE: 77 years COMPARISON: 10/08/2017 FINDINGS: Prior median sternotomy. Patchy density is present in the left lung base consistent with atelectasis and/or infiltrate. The remaining lungs are clear. No acute bony anomalies. IMPRESSION: Atelectasis and/or infiltrate in the left lower lobe
[2018-11-26 12:03] LABS: Creatine Kinase 1499 U/L (39-308)
== END ==
PROVIDERS: Nurse Practitioner Family; Visit Provider Physician Assistant
DX: Z51.81 Encounter for therapeutic drug level monitoring (principal); Z79.01 Long term (current) use of anticoagulants; I34.0 Nonrheumatic mitral (valve) insufficiency
CPT/HCPCS: 36415; 71046; 82550; 85610; 99211; G0463

== ENCOUNTER → 2018-11-29 06:57 | Outpatient (CLI) | payer MEDICARE, SELFPAY ==
[2018-11-29 08:09] LABS: Erythrocyte Sedimentation Rate 22 mm/hr (0-20)
[2018-11-29 11:08] LABS: C-Reactive Protein < 0.2 mg/L (0.0-0.9)
[2018-11-30 12:13] LABS: Anti-Centromere B Antibodies <0.2 AI (0.0-0.9); Anti-Jo-1 <0.2 AI (0.0-0.9); Anti-Smith Antibody <0.2 AI (0.0-0.9); Antichromatin Antibodies <0.2 AI (0.0-0.9); Antiscleroderma-70 Antibodies <0.2 AI (0.0-0.9); RNP Antibodies 0.4 AI (0.0-0.9); Sjogren's Anti-SS-A <0.2 AI (0.0-0.9); Sjogren's Anti-SS-B <0.2 AI (0.0-0.9)
[2018-11-30 20:48] LABS: Anti-DNA (DS) Ab Qn <1 IU/mL (0-9)
== END ==
PROVIDERS: Visit Provider Internal Medicine
DX: R74.8 Abnormal levels of other serum enzymes (principal); E11.9 Type 2 diabetes mellitus without complications; E78.5 Hyperlipidemia, unspecified; I10 Essential (primary) hypertension; I25.10 Atherosclerotic heart disease of native coronary artery without angina pectoris; I34.0 Nonrheumatic mitral (valve) insufficiency; I48.0 Paroxysmal atrial fibrillation; M62.82 Rhabdomyolysis; R05 Cough; R06.09 Other forms of dyspnea; R53.83 Other fatigue; Z82.49 Family history of ischemic heart disease and other diseases of the circulatory system; Z86.73 Personal history of transient ischemic attack (TIA), and cerebral infarction without residual deficits; Z95.1 Presence of aortocoronary bypass graft; Z95.2 Presence of prosthetic heart valve; Z98.890 Other specified postprocedural states; Z79.4 Long term (current) use of insulin
CPT/HCPCS: 36415; 85651; 86140; 86225; 86235; 86431

== ENCOUNTER → 2018-12-06 09:12 | Outpatient (CLI) | payer MEDICARE, SELFPAY ==
--- NOTE | 2018-12-06 09:25 | CT_ITS ---
CT chest wo con HISTORY: Pulmonary fibrosis, elevated eosinophils , asthma, cough, shortness of air ITS.REASON: pulmonary fibrosis ORDERING PHYSICIAN: Seth Clement MD PATIENT AGE: 78 years COMPARISON: None Technique: Axial images obtained. Sagittal, and coronal reformatted images are also generated and reviewed. All CT scans at the facility use one or more dose reduction, viz: automated exposure control, ma/kV adjustment per patient size (including targeted exams where dose is matched to indication, i.e. head), or iterative reconstruction technique. FINDINGS: No mediastinal or hilar mass. There are mildly prominent mediastinal lymph nodes. The largest ismael area is in the precarinal region measuring 2.3 x 1.2 cm not significantly changed. Coronary artery calcifications are present. There has been a prior CABG. Median sternotomy site is slightly prominent but not significantly changed. There is mild cardiomegaly. There are scattered reticular opacities in the right lower lobe peripherally.. There are atelectatic/fibrotic changes in both lower lobes. There is an ill-defined nodular opacity in the right upper lobe at 7 mm. There is a 11 mm nodule in the right lung base centrally not readily apparent on the previous exam. There is an additional 6 mm nodule in the right lower lobe posteriorly. There is low lung volumes with bilateral lower lobe atelectatic changes. There is a 10 mm noncalcified nodule within the lingula. Calcified granuloma is present in the left lower lobe. A 3 mm noncalcified nodule present in the left upper lobe. There is elevation of the hemidiaphragm on both sides with atelectatic changes slightly worse on the right the previous exam. No acute bony findings. Upper abdominal images show cholelithiasis. IMPRESSION: 1. There are low lung lines with elevated hemidiaphragms on both sides with bibasilar atelectasis. This is slightly worse on the right when compared to the previous exam. 2. There are bilateral nodular opacities which are not readily apparent on the previous exam. The nodules in the lung bases could have been obscured by the motion artifact that was present on the previous study. Continued follow-up is recommended. One cannot see the possibility of neoplasm/metastatic disease. 3. There are some scattered reticular opacities in the right lower lobe peripherally. These are nonspecific and could be inflammatory or infectious. 4. Cholelithiasis
== END ==
PROVIDERS: Visit Provider Internal Medicine
DX: R06.00 Dyspnea, unspecified (principal); J84.10 Pulmonary fibrosis, unspecified
CPT/HCPCS: 71250

== ENCOUNTER → 2018-12-07 07:00 | Outpatient (CLI) | payer MEDICARE, SELFPAY | PROVIDERS: Visit Provider Internal Medicine | DX: D72.1 Eosinophilia (principal) | CPT/HCPCS: 87177 ==

== ENCOUNTER → 2018-12-10 06:57 | Outpatient (CLI) | payer MEDICARE, SELFPAY ==
[2018-12-10 07:29] LABS: Basophils # 0.1 K/mm3 (0-0.2); Basophils % 0.9 % (0.1-2.0); Eosinophils # 1.8 K/mm3 (0.0-0.4); Eosinophils % 17.5 % (0.1-12.0); Hemoglobin 14.7 g/dL (14.1-18.0); Lymphocytes # 1.8 K/mm3 (0.7-4.5); Lymphocytes % 18.1 % (10-50); Mean Corpuscular HGB Conc 32.6 g/dL (31.8-35.4); Mean Corpuscular Volume 92.1 fl (80-94); Mean Platelet Volume 7.1 fl (7.4-10.4); Monocytes # 0.5 K/mm3 (0.1-1.0); Monocytes % 5.3 % (1.7-9.3); Neutrophils # 5.9 K/mm3 (1.8-7.8); Neutrophils % 58.3 % (37.0-80.0); Platelet Count 230 K/mm3 (142-424); Red Blood Count 4.88 M/mm3 (4.60-6.20); Red Cell Distribution Width 13.8 % (11.5-17.5); White Blood Count 10.1 K/mm3 (4.8-10.8)
[2018-12-10 08:35] LABS: Albumin Level 3.2 gm/dL (3.4-5.0); Anion Gap 14.3 mEq/L (5-15); Blood Urea Nitrogen 17 mg/dL (7-18); Calcium 8.5 mg/dL (8.5-10.1); Carbon Dioxide 28 mmol/L (21.0-32.0); Chloride 103 mmol/L (98-107); Creatinine,Serum 1.47 mg/dL (0.70-1.30); Estimated Glomerular Filt Rate 46 ml/min (>60); GFR (African American) 56 ML/MIN (>60); Glucose 172 mg/dL (74-106); Phosphorous 3.7 mg/dL (2.4-4.9); Potassium 4.3 mmoL/L (3.5-5.1); Sodium 141 mmol/L (136-145)
[2018-12-10 09:09] LABS: Microscopic, Urine URINE MICROSCOPIC (MICROSCOPIC)
[2018-12-10 09:25] LABS: Appearance,Urine CLEAR (Clear); Bilirubin,Urine Negative (Negative); Blood, Urine TRACE-I (Negative); Color,Urine YELLOW (Yellow); Glucose,Urine (UA) Negative (Negative); Ketones,Urine Negative (Negative); Leukocyte Esterase,Urine Negative (Negative); Nitrate,Urine Negative (Negative); Protein,Urine Negative (Negative); Urobilinogen,Urine 0.2 EU/dl (0.2)
[2018-12-10 10:28] LABS: Bacteria,Urine 1+ /lpf; RBC,Urine Occasional #/hpf (0-3); Squamous Epithelial Cell,Urine Occasional #/hpf (0-5); WBC,Urine Occasional #/hpf (0-3)
[2018-12-13 07:45] LABS: Strongyloides IgG Antibody Negative (Negative)
== END ==
PROVIDERS: Internal Medicine; Visit Provider Internal Medicine Nephrology
DX: D72.1 Eosinophilia (principal); N18.2 Chronic kidney disease, stage 2 (mild)
CPT/HCPCS: 36415; 80069; 81001; 85025; 86682

== ENCOUNTER → 2018-12-19 06:55 | Outpatient (CLI) | payer MEDICARE, SELFPAY ==
[2018-12-19 07:34] LABS: Basophils # 0.1 K/mm3 (0-0.2); Basophils % 0.8 % (0.1-2.0); Eosinophils # 2.2 K/mm3 (0.0-0.4); Eosinophils % 25.1 % (0.1-12.0); Hematocrit 48.3 % (42.0-52.0); Hemoglobin 15.2 g/dL (14.1-18.0); Lymphocytes # 1.6 K/mm3 (0.7-4.5); Lymphocytes % 18.3 % (10-50); Mean Corpuscular HGB Conc 31.5 g/dL (31.8-35.4); Mean Corpuscular Hemoglobin 30.8 pg (27.0-31.2); Mean Corpuscular Volume 97.8 fl (80-94); Mean Platelet Volume 7.7 fl (7.4-10.4); Monocytes # 0.4 K/mm3 (0.1-1.0); Neutrophils # 4.6 K/mm3 (1.8-7.8); Neutrophils % 51.8 % (37.0-80.0); Platelet Count 231 K/mm3 (142-424); Red Blood Count 4.93 M/mm3 (4.60-6.20); Red Cell Distribution Width 14.2 % (11.5-17.5); White Blood Count 8.9 K/mm3 (4.8-10.8)
[2018-12-19 08:27] LABS: Alanine Aminotransferase 50 U/L (12-78); Albumin Level 3.2 gm/dL (3.4-5.0); Albumin/Globulin Ratio 0.8 (1.1-1.8); Alkaline Phosphatase 68 U/L (46-116); Anion Gap 13.5 mEq/L (5-15); Aspartate Amino Transferase 36 U/L (15-37); Bilirubin,Total 0.7 mg/dL (0.2-1.0); Blood Urea Nitrogen 20 mg/dL (7-18); Calcium 8.3 mg/dL (8.5-10.1); Carbon Dioxide 28 mmol/L (21.0-32.0); Chloride 103 mmol/L (98-107); Chol/HDL Ratio 6.4 (1-3.5); Cholesterol 238 mg/dL (140-200); Creatinine,Serum 1.47 mg/dL (0.70-1.30); Estimated Glomerular Filt Rate 46 ml/min (>60); Free Thyroxine Index 2.5 ug/dL (5.93-13.13); GFR (African American) 56 ML/MIN (>60); Globulin 3.9 gm/dl (1.3-3.2); Glucose 206 mg/dL (74-106); HDL Cholesterol 37 mg/dL (27-67); LDL Cholesterol 165 mg/dL (0-130); Potassium 4.5 mmoL/L (3.5-5.1); Sodium 140 mmol/L (136-145); T4 (Thyroxine) 7.5 ug/dl (4.7-13.3); Thyroid Stimulating Hormone 12.85 uIU/ml (0.358-3.740); Total Protein,Serum 7.1 gm/dL (6.4-8.2); Triglycerides 181 mg/dL (30-200); Triiodothryronine (T3) Uptake 33 % (31-39); VLDL Cholesterol 36 mg/dL (0-40)
[2018-12-19 08:37] LABS: Hemoglobin A1C 8.3 % (0.0-7.0)
== END ==
PROVIDERS: Visit Provider Internal Medicine Adolescent Medicine
DX: E11.42 Type 2 diabetes mellitus with diabetic polyneuropathy (principal); E03.9 Hypothyroidism, unspecified; Z79.4 Long term (current) use of insulin
CPT/HCPCS: 36415; 80053; 80061; 83036; 84436; 84443; 84479; 85025

== ENCOUNTER → 2019-01-07 10:01 | Outpatient (CLI) | payer MEDICARE, SELFPAY ==
[2019-01-07 10:07] LABS: Microscopic, Urine URINE MICROSCOPIC (MICROSCOPIC)
[2019-01-07 11:08] LABS: Appearance,Urine CLEAR (Clear); Bilirubin,Urine Negative (Negative); Blood, Urine 1+ (Negative); Color,Urine YELLOW (Yellow); Glucose,Urine (UA) 1+ (Negative); Ketones,Urine Negative (Negative); Leukocyte Esterase,Urine Negative (Negative); Nitrate,Urine Negative (Negative); Protein,Urine Negative (Negative); Specific Gravity, Urine 1.025 (1.005-1.030); Urobilinogen,Urine 0.2 EU/dl (0.2)
[2019-01-07 11:13] LABS: Basophils # 0.1 K/mm3 (0-0.2); Basophils % 0.6 % (0.1-2.0); Eosinophils # 1.1 K/mm3 (0.0-0.4); Eosinophils % 12.8 % (0.1-12.0); Hematocrit 44.5 % (42.0-52.0); Lymphocytes # 1.3 K/mm3 (0.7-4.5); Mean Corpuscular HGB Conc 31.5 g/dL (31.8-35.4); Mean Corpuscular Hemoglobin 29.9 pg (27.0-31.2); Mean Corpuscular Volume 94.8 fl (80-94); Mean Platelet Volume 7.1 fl (7.4-10.4); Monocytes # 0.4 K/mm3 (0.1-1.0); Monocytes % 4.8 % (1.7-9.3); Neutrophils # 5.9 K/mm3 (1.8-7.8); Neutrophils % 66.8 % (37.0-80.0); Platelet Count 224 K/mm3 (142-424); Red Blood Count 4.69 M/mm3 (4.60-6.20); White Blood Count 8.9 K/mm3 (4.8-10.8)
[2019-01-07 11:20] LABS: Bacteria,Urine Trace /lpf; Squamous Epithelial Cell,Urine Occasional #/hpf (0-5); WBC,Urine Occasional #/hpf (0-3)
--- NOTE | 2019-01-07 12:19 | XR_ITS ---
XR hip RT 2-3V w/pelvis HISTORY: Right hip pain, prior hip replacement ITS.REASON: RT HIP PAIN ORDERING PHYSICIAN: Stepan Patel PATIENT AGE: 78 years COMPARISON: None 07/17/2018 FINDINGS: Bipolar prosthesis is present is in good position. No orthopedic complications. No fracture or dislocation. No lytic or blastic change. IMPRESSION: Status post bipolar prosthesis placement, no acute finding
--- NOTE | 2019-01-07 12:19 | XR_ITS ---
XR sacroiliac joint BI min 3V CLINICAL INDICATION: Pain ITS.REASON: LOW BACK PAIN ORDERING PHYSICIAN: Stepan Patel PATIENT AGE: 78 years Comparison: None FINDINGS: No fracture or dislocation. No lytic or blastic change. The SI joints have an unremarkable appearance IMPRESSION: Negative SI joints
--- NOTE | 2019-01-07 12:19 | XR_ITS ---
EXAM: XR lumbar spine min 4V HISTORY: ITS.REASON: LOW BACK PAIN ORDERING PHYSICIAN: Stepan Patel PATIENT AGE: 78 years COMPARISON: None FINDINGS: There is minimal lumbar curvature convex right. Multilevel osteophytes are present from L1 to L5. Degenerative disc disease is noted at L1-L2, L2-L3, and L3-L4. No fracture or dislocation. No lytic or blastic change. Mild facet arthritic changes are present at L3-L4 and L5. Incidental note is made of a fusiform infrarenal abdominal aortic aneurysm which measures 4.9 cm in AP dimension on the lateral view. IMPRESSION: Lumbar spondylosis with degenerative disc disease, facet arthritic change, and osteophytosis Infrarenal abdominal aortic aneurysm at 4.9 cm on the lateral view. Consider CT for more thorough evaluation
[2019-01-07 12:40] LABS: Albumin Level 3.2 gm/dL (3.4-5.0); Anion Gap 11.8 mEq/L (5-15); Blood Urea Nitrogen 22 mg/dL (7-18); Calcium 8.7 mg/dL (8.5-10.1); Carbon Dioxide 30 mmol/L (21.0-32.0); Chloride 103 mmol/L (98-107); Estimated Glomerular Filt Rate 49 ml/min (>60); GFR (African American) 59 ML/MIN (>60); Glucose 227 mg/dL (74-106); Potassium 4.8 mmoL/L (3.5-5.1); Sodium 140 mmol/L (136-145)
== END ==
PROVIDERS: PCP Internal Medicine Adolescent Medicine; Visit Provider Internal Medicine Nephrology
DX: N18.2 Chronic kidney disease, stage 2 (mild) (principal); M54.5 Low back pain; M25.551 Pain in right hip
CPT/HCPCS: 36415; 72110; 72202; 73502; 80069; 81001; 85025

== ENCOUNTER → 2019-01-10 09:33 | Outpatient (CLI) | payer MEDICARE, SELFPAY ==
[2019-01-11 10:32] LABS: Vitamin B12 407 pg/mL (232-1245)
[2019-01-12 09:39] LABS: Peripheral Smear Review Scanned Result
[2019-01-17 08:05] LABS: Strongyloides IgG Antibody Negative (Negative)
== END ==
PROVIDERS: Visit Provider Internal Medicine Medical Oncology
DX: D64.9 Anemia, unspecified (principal)
CPT/HCPCS: 36415; 82607; 83520; 86682

== ENCOUNTER → 2019-01-11 10:41 | Outpatient (CLI) | payer MEDICARE, SELFPAY ==
--- NOTE | 2019-01-11 10:43 | MR_ITS ---
MR lumbar spine wo con, MR 3-d myelogram/MRCP HISTORY: Low back pain, trouble walking, bilateral leg pain, fatigue. Symptoms X several years, worsening recently. ORDERING PHYSICIAN: Toney Contreras MD PATIENT AGE: 78 years Comparison: 01/07/2019 TECHNIQUE: Standard multiplanar multiecho sequences are performed without contrast. 3-D MIP and myelographic images are also rendered and reviewed FINDINGS: There is normal alignment. Spinal cord ends at the L1 level. T12-L1: Unremarkable. L1-L2: Mild disc desiccation. L2-L3: Mild degenerative disc disease with mild facet and ligamentum flavum hypertrophy. There is mild right lateral recess narrowing. L3-L4: Moderate to severe degenerative disc disease with bulging disc along with endplate hypertrophic change and facet and ligamentum flavum hypertrophy with bilateral lateral recess narrowing left greater than right and severe left-sided foraminal narrowing moderate to severe right foraminal narrowing. A Schmorl's node is present along the inferior endplate of L3. L4-L5: Degenerative disc disease with bulging disc and small broad-based right paracentral disc protrusion which shows some slight increase in T1 and T2 signal. There is associated severe facet and ligamentum flavum hypertrophy. There is resultant severe right lateral recess narrowing with severe canal stenosis at this level with severe right foraminal narrowing and moderate to severe left foraminal narrowing. L5-S1: Mild degenerative disc disease with small concentric bulging disc with an annular fissure with mild bilateral lateral recess and foraminal narrowing. Incidental note made of a fusiform abdominal aortic aneurysm measuring at least 3.6 cm x 3.7 cm. IMPRESSION: 1. L3-L4: Moderate to severe degenerative disc disease with bulging disc along with endplate hypertrophic change and facet and ligamentum flavum hypertrophy with bilateral lateral recess narrowing left greater than right and severe left-sided foraminal narrowing moderate to severe right foraminal narrowing. A Schmorl's node is present along the inferior endplate of L3. 2. L4-L5: Degenerative disc disease with bulging disc and small broad-based right paracentral disc protrusion which shows some slight increase in T1 and T2 signal. There is associated severe facet and ligamentum flavum hypertrophy. There is resultant severe right lateral recess narrowing with severe canal stenosis at this level with severe right foraminal narrowing and moderate to severe left foraminal narrowing. 3. L5-S1: Mild degenerative disc disease with small concentric bulging disc with an annular fissure with mild bilateral lateral recess and foraminal narrowing. 4. 3.7 cm infrarenal abdominal aortic aneurysm
== END ==
PROVIDERS: PCP Internal Medicine Adolescent Medicine; Visit Provider Internal Medicine Adolescent Medicine
DX: M54.5 Low back pain (principal); M47.9 Spondylosis, unspecified
CPT/HCPCS: 72148; 76376; 85060

== ENCOUNTER → 2019-01-21 08:56 | Outpatient (POV) | payer MEDICARE, SELFPAY ==
[2019-01-21 09:08] VITALS: BP 130/84; PULSE 75; RESP 16; O2SAT 93; BMI 29.4
--- NOTE | 2019-01-22 08:43 | HMH.PMCON ---
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 We discussed utilizing a smaller dose of steroid. We will also see if he can come off of his anticoagulation therapy for the procedure. Patient and I did also briefly discuss the mild procedure given his severe ligamentum flavum hypertrophy it may be beneficial for him in the future. Dr. Worthington has reviewed this note and agrees with this plan of care. This note was dictated using voice recognition software and may contain errors or omissions HPI - Data of Consult Consult date: 01/21/19 Requesting Physician: Maria Del Rosario Macario APRN Primary Care Provider: Toney Contreras MD - Consult Narrative Reason for consult: Back pain, hip pain, leg weakness History of present illness: Mr. Wu is a 78 year old male Who presents today for consultation in regards to his low back and leg pain. Patient has had a long history of back pain and has found that it is recently gotten much worse. Patient sustained a fall several months ago since then he has been having continued issues with his low back. He does have an MRI showing multiple levels of facet and ligamentum flavum hypertrophy. Patient does state that his pain is relieved when he is sitting down and is worse when he is standing. We did discuss spinal stenosis. Patient is currently on anticoagulation therapy. He is getting this from Dr. Clement. He is continuing to try to stay active as possible and continuing home stretching. He rates his pain today a 6 out of 10. CC: Maria Del Rosario Macario APRN [facility] History I have reviewed the patient's past medical history: Yes Medical History: Reports:: Asthma, Atrial Fibrillation, Congestive Heart Failure, Chronic Obstructive Pulmonary Disease (COPD), Coronary Artery Disease, Diabetes Mellitus Type 2, Hyperlipidemia, Hypertension Denies:: Cancer, Internal Pacemaker, MRSA, Seizures *Have you ever received a pneumonia vaccine?: Yes *Have you received a flu vaccine this season?: No Other Medical History: Reports: Arthritis, Hypothyroidism Laterality Cases: Right: Total Hip Replacement Other Surgeries: Yes: CABG, Cardiac Catheterization, Cardiac Surgery, Colonoscopy, Other (cochlear implant). No: Pacemaker Amputation: No - *Social History Smoking Status: Never smoker Alcohol Intake: never Alcohol Intake Frequency:: other Substance Use Type: denies use *Occupational Status:: retired Housing: house Household Members: spouse *Travel in the last 8 weeks: None Family Hx:: No significant family history, Coronary Artery Disease, Heart Attack, Diabetes Review of Systems - Review of Systems ROS General: no recent weight change, no fever, no sleep disturbances Respiratory: no cough, no shortness of air, no recurring pulmonary infections Cardiovascular/Peripheral Vascular: No chest pain, No palpitations, no edema, no shortness of breath. Gastrointestinal: no incontinence, normal bowel movements reported Genitourinary: no incontinence Musculoskeletal: Back pain, leg pain Psychiatric: normal mood/ affect Neurological: Weakne
--- NOTE | 2019-01-22 08:46 | P.CONS_ITS ---
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 We discussed utilizing a smaller dose of steroid. We will also see if he can come off of his anticoagulation therapy for the procedure. Patient and I did also briefly discuss the mild procedure given his severe ligamentum flavum hypertrophy it may be beneficial for him in the future. Dr. Worthington has reviewed this note and agrees with this plan of care. This note was dictated using voice recognition software and may contain errors or omissions HPI - Data of Consult Consult date: 01/21/19 Requesting Physician: Maria Del Rosario Macario APRN Primary Care Provider: Toney Contreras MD - Consult Narrative Reason for consult: Back pain, hip pain, leg weakness History of present illness: Mr. Wu is a 78 year old male Who presents today for consultation in regards to his low back and leg pain. Patient has had a long history of back pain and has found that it is recently gotten much worse. Patient sustained a fall several months ago since then he has been having continued issues with his low back. He does have an MRI showing multiple levels of facet and ligamentum flavum hypertrophy. Patient does state that his pain is relieved when he is sitting down and is worse when he is standing. We did discuss spinal stenosis. Patient is currently on anticoagulation therapy. He is getting this from Dr. Clement. He is continuing to try to stay active as possible and continuing home stretching. He rates his pain today a 6 out of 10. CC: Maria Del Rosario Macario APRN [facility] History I have reviewed the patient's past medical history: Yes Medical History: Reports:: Asthma, Atrial Fibrillation, Congestive Heart Failure, Chronic Obstructive Pulmonary Disease (COPD), Coronary Artery Disease, Diabetes Mellitus Type 2, Hyperlipidemia, Hypertension Denies:: Cancer, Internal Pacemaker, MRSA, Seizures *Have you ever received a pneumonia vaccine?: Yes *Have you received a flu vaccine this season?: No Other Medical History: Reports: Arthritis, Hypothyroidism Laterality Cases: Right: Total Hip Replacement Other Surgeries: Yes: CABG, Cardiac Catheterization, Cardiac Surgery, Colonoscopy, Other (cochlear implant). No: Pacemaker Amputation: No - *Social History Smoking Status: Never smoker Alcohol Intake: never Alcohol Intake Frequency:: other Substance Use Type: denies use *Occupational Status:: retired Housing: house Household Members: spouse *Travel in the last 8 weeks: None Family Hx:: No significant family history, Coronary Artery Disease, Heart Attack, Diabetes Review of Systems - Review of Systems ROS General: no recent weight change, no fever, no sleep disturbances Respiratory: no cou
== END ==
PROVIDERS: PCP Internal Medicine Adolescent Medicine; Visit Provider Clinical Nurse Specialist Family Health
DX: M51.36 Other intervertebral disc degeneration, lumbar region (principal); M48.00 Spinal stenosis, site unspecified; M46.06 Spinal enthesopathy, lumbar region
CPT/HCPCS: 99202

== ENCOUNTER → 2019-03-05 09:10 | Outpatient (POV) | payer MEDICARE, SELFPAY ==
[2019-03-05 09:30] VITALS: BP 165/85; PULSE 75; RESP 18; O2SAT 98; BMI 30.1
--- NOTE | 2019-03-05 10:14 | P.CONS_ITS ---
[facility] Pain Management SOAP Note Subjective:: Patient is a pleasant 78-year-old white male who presents today for follow-up after lumbar epidural steroid injection. Patient did have some relief however it was not lasting. Patient's main complaint is pain when he is walking and standing. Patient has have ligamentum flavum hypertrophy and he does have weakness in his bilateral lower legs. Patient's pain is relieved with leaning forward and sitting down. He rates his pain a 0 out of 10 when he is sitting however it is a 7 out of 10 when he is walking ROS General: no recent weight change, no fever, no sleep disturbances Respiratory: no cough, no shortness of air, no recurring pulmonary infections Cardiovascular/Peripheral Vascular: No chest pain, No palpitations, no edema, no shortness of breath. Gastrointestinal: no incontinence, normal bowel movements reported Genitourinary: no incontinence Musculoskeletal: Back pain, leg pain Psychiatric: normal mood/ affect Neurological: Weakness in bilateral lower extremities when standing, [denies balance issues] Objective:: Physical Exam General: Alert and oriented x3, no acute distress, pleasant and cooperative, [on room air] Lungs: Resps E/U, Symmetrical chest expansion, Eyes: PERRL Musculoskeletal: Flexion and extension of lumbar spine somewhat guarded secondary to pain, deep tendon reflexes normal, strength in upper and lower extremities [5/5], [abnormal gait noted] Neurological: speech clear, 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 Plan:: We will continue the like the phone number to her this encounter is for exam of the for normal comparison and control and clinical research program. We will plan a mild procedure at L3-L4 L4-L5 for him. Patient is on anticoagulation therapy however he does have permission to come off prior to the procedure. I discussed risks and benefits with the patient he would like to proceed. Patient and I discussed adding physical therapy after his procedure and he would like to do so I discussed doing this with an 8 weeks after. Patient states that he can walk for less than 10 minutes and stand for less than 5 minutes [address] time[address] Dr[address] Worthington has reviewed this note and agrees with this plan of care. This note was dictated using voice recognition software and may contain errors or omissions Pain Management Hx Components *Have you ever received a pneumonia vaccine?: Yes *Have you received a flu vaccine this season?: Yes - *Social History *Occupational Status:: other *Travel in the last 8 weeks: None
== END ==
PROVIDERS: PCP Internal Medicine Adolescent Medicine; Visit Provider Clinical Nurse Specialist Family Health
DX: M51.16 Intervertebral disc disorders with radiculopathy, lumbar region (principal); M48.062 Spinal stenosis, lumbar region with neurogenic claudication
CPT/HCPCS: 99212

== ENCOUNTER → 2019-03-15 07:03 | Outpatient (CLI) | payer MEDICARE, SELFPAY ==
[2019-03-15 08:18] LABS: Basophils # 0.1 K/mm3 (0-0.2); Basophils % 0.7 % (0.1-2.0); Eosinophils # 0.5 K/mm3 (0.0-0.4); Eosinophils % 5.3 % (0.1-12.0); Hematocrit 42.1 % (42.0-52.0); Hemoglobin 14.1 g/dL (14.1-18.0); Lymphocytes # 1.5 K/mm3 (0.7-4.5); Lymphocytes % 16.2 % (10-50); Mean Corpuscular HGB Conc 33.5 g/dL (31.8-35.4); Mean Corpuscular Hemoglobin 32.2 pg (27.0-31.2); Mean Corpuscular Volume 96.4 fl (80-94); Mean Platelet Volume 7.1 fl (7.4-10.4); Monocytes # 0.5 K/mm3 (0.1-1.0); Neutrophils # 6.6 K/mm3 (1.8-7.8); Neutrophils % 72.8 % (37.0-80.0); Platelet Count 222 K/mm3 (142-424); Red Blood Count 4.36 M/mm3 (4.60-6.20); Red Cell Distribution Width 13.6 % (11.5-17.5)
[2019-03-15 09:14] LABS: Alanine Aminotransferase 35 U/L (12-78); Albumin Level 3.3 gm/dL (3.4-5.0); Alkaline Phosphatase 59 U/L (46-116); Anion Gap 15.5 mEq/L (5-15); Aspartate Amino Transferase 38 U/L (15-37); Bilirubin,Total 0.6 mg/dL (0.2-1.0); Blood Urea Nitrogen 17 mg/dL (7-18); Calcium 8.7 mg/dL (8.5-10.1); Carbon Dioxide 25 mmol/L (21.0-32.0); Chloride 107 mmol/L (98-107); Chol/HDL Ratio 5.6 (1-3.5); Cholesterol 213 mg/dL (140-200); Creatinine,Serum 1.09 mg/dL (0.70-1.30); Estimated Glomerular Filt Rate 65 ml/min (>60); Free Thyroxine Index 3.4 ug/dL (5.93-13.13); GFR (African American) 79 ML/MIN (>60); Globulin 3.3 gm/dl (1.3-3.2); Glucose 98 mg/dL (74-106); HDL Cholesterol 38 mg/dL (27-67); LDL Cholesterol 153 mg/dL (0-130); Potassium 4.5 mmoL/L (3.5-5.1); Sodium 143 mmol/L (136-145); T4 (Thyroxine) 9.2 ug/dl (4.7-13.3); Thyroid Stimulating Hormone 3.76 uIU/ml (0.358-3.740); Total Protein,Serum 6.6 gm/dL (6.4-8.2); Triglycerides 110 mg/dL (30-200); Triiodothryronine (T3) Uptake 37 % (31-39); VLDL Cholesterol 22 mg/dL (0-40)
[2019-03-15 10:32] LABS: Hemoglobin A1C 7.6 % (0.0-7.0)
== END ==
PROVIDERS: Visit Provider Internal Medicine Adolescent Medicine
DX: E78.5 Hyperlipidemia, unspecified (principal); E03.9 Hypothyroidism, unspecified; E11.42 Type 2 diabetes mellitus with diabetic polyneuropathy; Z79.4 Long term (current) use of insulin
CPT/HCPCS: 36415; 80053; 80061; 83036; 84436; 84443; 84479; 85025

== ENCOUNTER → 2019-04-23 10:25 | Outpatient (POV) | payer MEDICARE, SELFPAY ==
--- NOTE | 2019-04-23 11:06 | HMH.PAINSOAP ---
[facility] Pain Management SOAP Note Subjective:: Patient is a pleasant 79-year-old white male who presents today for follow-up after a mild procedure. Overall patient is doing extremely well rating his pain a 2 out of 10. The mild procedure site has healed well with no sign symptoms of infection. Patient would like to move forward with physical therapy at this time. Patient states that he has noticed a difference in his pain pattern. ROS General: no recent weight change, no fever, no sleep disturbances Respiratory: no cough, no shortness of air, no recurring pulmonary infections Cardiovascular/Peripheral Vascular: No chest pain, No palpitations, no edema, no shortness of breath. Gastrointestinal: no new onset incontinence, normal bowel movements reported Genitourinary: no new onset incontinence Musculoskeletal: Back pain, leg pain at times Psychiatric: normal mood/ affect Neurological: [denies new onset weakness in extremities], [denies new onset balance issues] Objective:: Physical Exam General: Alert and oriented x3, no acute distress, pleasant and cooperative, [on room air] Lungs: Resps E/U, Symmetrical chest expansion, Eyes: PERRL Musculoskeletal: Flexion and extension of lumbar spine somewhat guarded secondary to pain, deep tendon reflexes normal, strength in upper and lower extremities [5/5], slightly antalgic gait noted Neurological: speech clear, 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 Patient's been instructed to call the office if he has any issues prior to his next appointment. Dr. Worthington has reviewed this note and agrees with this plan of care. This note was dictated using voice recognition software and may contain errors or omissions [facility] History I have reviewed the patient's past medical history: Yes Medical History: Reports:: Asthma, Atrial Fibrillation, Congestive Heart Failure, Chronic Obstructive Pulmonary Disease (COPD), Coronary Artery Disease, Diabetes Mellitus Type 2, Hyperlipidemia, Hypertension Denies:: Cancer, Diabetes Mellitus Type 1, Internal Pacemaker, MRSA, Seizures *Have you ever received a pneumonia vaccine?: Yes *Have you received a flu vaccine this season?: Yes Other Medical History: Reports: Arthritis, Hypothyroidism. Denies: Blood Transfusion Reaction Laterality Cases: Right: Total Hip Replacement Other Surgeries: Yes: CABG, Cardiac Catheterization, Cardiac Surgery, Colonoscopy, Other (cochlear implant). No: Pacemaker Amputation: No Fractures: No - *Social History Smoking Status: Never smoker Alcohol Intake: never Alcohol Intake Frequency:: other Substance Use Type: denies use *Occupational Status:: retired Housing: house Household Members: spouse *Travel in the last 8 weeks: None Family Hx:: No significant family history, Coronary Artery Disease, Heart Attack, Diabetes
--- NOTE | 2019-04-23 11:09 | P.CONS_ITS ---
[facility] Pain Management SOAP Note Subjective:: Patient is a pleasant 79-year-old white male who presents today for follow-up after a mild procedure. Overall patient is doing extremely well rating his pain a 2 out of 10. The mild procedure site has healed well with no sign symptoms of infection. Patient would like to move forward with physical therapy at this time. Patient states that he has noticed a difference in his pain pattern. ROS General: no recent weight change, no fever, no sleep disturbances Respiratory: no cough, no shortness of air, no recurring pulmonary infections Cardiovascular/Peripheral Vascular: No chest pain, No palpitations, no edema, no shortness of breath. Gastrointestinal: no new onset incontinence, normal bowel movements reported Genitourinary: no new onset incontinence Musculoskeletal: Back pain, leg pain at times Psychiatric: normal mood/ affect Neurological: [denies new onset weakness in extremities], [denies new onset balance issues] Objective:: Physical Exam General: Alert and oriented x3, no acute distress, pleasant and cooperative, [on room air] Lungs: Resps E/U, Symmetrical chest expansion, Eyes: PERRL Musculoskeletal: Flexion and extension of lumbar spine somewhat guarded secondary to pain, deep tendon reflexes normal, strength in upper and lower ex tremities [5/5], slightly antalgic gait noted Neurological: speech clear, continuous improvement specialist equal, no gross sensory deficits Assessment:: 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 Patient's been instructed to call the office if he has any issues prior to his next appointment. Dr. Worthington has reviewed this note and agrees with this plan of care. This note was dictated using voice recognition software and may contain errors or omissions [facility] History I have reviewed the patient's past medical history: Yes Medical History: Reports:: Asthma, Atrial Fibrillation, Congestive Heart Failure, Chronic Obstructive Pulmonary Disease (COPD), Coronary Artery Disease, Diabetes Mellitus Type 2, Hyperlipidemia, Hypertension Denies:: Cancer, Diabetes Mellitus Type 1, Internal Pacemaker, MRSA, Seizures *Have you ever received a pneumonia vaccine?: Yes *Have you received a flu vaccine this season?: Yes Other Medical History: Reports: Arthritis, Hypothyroidism. Denies: Blood Transfusion Reaction Laterality Cases: Right: Total Hip Replacement Other Surgeries: Yes: CABG, Cardiac Catheterization, Cardiac Surgery, Colonoscopy, Other (cochlear implant). No: Pacemaker Amputation: No Fractures: No - *Social History Smoking Status: Never smoker Alcohol Intake: never Alcohol Intake Frequency:: other Substance Use Type: denies use *Occupational Status:: retired Housing: house Household Members: spouse *Travel in the last 8 weeks: None Family Hx:: No significant family history, Coronary Artery Disease, Heart Attack, Diabetes
== END ==
PROVIDERS: PCP Internal Medicine Adolescent Medicine; Visit Provider Clinical Nurse Specialist Family Health
DX: M51.36 Other intervertebral disc degeneration, lumbar region (principal); M48.062 Spinal stenosis, lumbar region with neurogenic claudication
CPT/HCPCS: 99212

== ENCOUNTER → 2019-04-29 07:06 | Outpatient (CLI) | payer MEDICARE, SELFPAY ==
[2019-04-29 07:52] LABS: Basophils # 0.1 K/mm3 (0-0.2); Basophils % 0.8 % (0.1-2.0); Eosinophils # 0.8 K/mm3 (0.0-0.4); Eosinophils % 9.3 % (0.1-12.0); Hematocrit 42.6 % (42.0-52.0); Hemoglobin 13.2 g/dL (14.1-18.0); Lymphocytes # 1.1 K/mm3 (0.7-4.5); Lymphocytes % 13.3 % (10-50); Mean Corpuscular Hemoglobin 31.3 pg (27.0-31.2); Mean Corpuscular Volume 101.1 fl (80-94); Mean Platelet Volume 7.6 fl (7.4-10.4); Monocytes # 0.4 K/mm3 (0.1-1.0); Monocytes % 4.2 % (1.7-9.3); Neutrophils % 72.5 % (37.0-80.0); Platelet Count 193 K/mm3 (142-424); Red Blood Count 4.22 M/mm3 (4.60-6.20); Red Cell Distribution Width 13.2 % (11.5-17.5); White Blood Count 8.3 K/mm3 (4.8-10.8)
[2019-04-29 10:03] LABS: Alanine Aminotransferase 41 U/L (12-78); Albumin Level 3.2 gm/dL (3.4-5.0); Albumin/Globulin Ratio 1.1 (1.1-1.8); Alkaline Phosphatase 58 U/L (46-116); Anion Gap 13.5 mEq/L (5-15); Aspartate Amino Transferase 34 U/L (15-37); Bilirubin,Total 0.5 mg/dL (0.2-1.0); Blood Urea Nitrogen 16 mg/dL (7-18); Calcium 8.3 mg/dL (8.5-10.1); Carbon Dioxide 27 mmol/L (21.0-32.0); Chloride 107 mmol/L (98-107); Chol/HDL Ratio 3.1 (1-3.5); Cholesterol 145 mg/dL (140-200); Creatine Kinase 558 U/L (39-308); Creatinine,Serum 1.12 mg/dL (0.70-1.30); Estimated Glomerular Filt Rate 63 ml/min (>60); Free T4 (Free Thyroxine) 1.17 ng/dl (0.76-1.46); GFR (African American) 76 ML/MIN (>60); Glucose 138 mg/dL (74-106); HDL Cholesterol 47 mg/dL (27-67); LDL Cholesterol 84 mg/dL (0-130); Potassium 4.5 mmoL/L (3.5-5.1); Sodium 143 mmol/L (136-145); Thyroid Stimulating Hormone 4.96 uIU/ml (0.358-3.740); Total Protein,Serum 6.2 gm/dL (6.4-8.2); Triglycerides 69 mg/dL (30-200); VLDL Cholesterol 14 mg/dL (0-40)
[2019-04-29 10:20] LABS: C-Reactive Protein < 0.2 mg/dL (0.0-0.9)
[2019-04-29 11:34] LABS: Hemoglobin A1C 8.2 % (0.0-7.0)
[2019-04-30 09:29] LABS: Vitamin D 25 Hydroxy 28.7 ng/mL (30.0-100.0)
[2019-05-01 14:11] LABS: Microscopic, Urine URINE MICROSCOPIC (MICROSCOPIC)
[2019-05-01 14:38] LABS: Phosphorous 3.1 mg/dL (2.4-4.9)
[2019-05-01 16:37] LABS: Creatinine,Urine Random 210 mg/dL (20-320); Total Protein,Urine Random 22.8 mg/dL (0.0-11.9)
[2019-05-01 16:38] LABS: Appearance,Urine Clear (Clear); Blood, Urine TRACE-I (Negative); Color,Urine Yellow (Yellow); Glucose,Urine (UA) Negative (Negative); Ketones,Urine Negative (Negative); Nitrate,Urine Negative (Negative); Protein,Urine Negative (Negative); Specific Gravity, Urine 1.025 (1.005-1.030)
[2019-05-01 16:39] LABS: Bacteria,Urine Trace /lpf; Bilirubin,Urine Negative (Negative); Leukocyte Esterase,Urine Negative (Negative); Squamous Epithelial Cell,Urine Occasional #/hpf (0-5); Urobilinogen,Urine 0.2 EU/dl (0.2)
[2019-05-01 16:40] LABS: Uric Acid 5.9 mg/dL (2.6-7.2)
[2019-05-01 16:44] LABS: Complement C3 158; Parathyroid Hormone Intact 44
[2019-05-06 14:23] LABS: Antinuclear Antibodies, IFA N
== END ==
PROVIDERS: Internal Medicine Nephrology; PCP Internal Medicine Adolescent Medicine
DX: I25.10 Atherosclerotic heart disease of native coronary artery without angina pectoris (principal); E78.5 Hyperlipidemia, unspecified; I48.91 Unspecified atrial fibrillation; N18.2 Chronic kidney disease, stage 2 (mild); R31.9 Hematuria, unspecified; E11.65 Type 2 diabetes mellitus with hyperglycemia; E55.9 Vitamin D deficiency, unspecified; N40.0 Benign prostatic hyperplasia without lower urinary tract symptoms; Z79.4 Long term (current) use of insulin; I12.9 Hypertensive chronic kidney disease with stage 1 through stage 4 chronic kidney disease, or unspecified chronic kidney disease
CPT/HCPCS: 36415; 80053; 80061; 81001; 82550; 82570; 82652; 83036; 83970; 84100; 84155; 84244; 84439; 84443; 84550; 85025; 86038; 86140; 86161; 87205

== ENCOUNTER 2019-05-09 09:00 | Outpatient (RCR) | payer MEDICARE, SELFPAY ==
--- NOTE | 2019-04-29 11:44 | HMH.PTOPEV ---
PT Outpatient Evaluation Rehab PT Outpatient Evaluation Start: 04/29/19 11:03 Freq: Status: Active Protocol: Document 04/29/19 11:03 MACKENZIE (Rec: 04/29/19 11:44 MACKENZIE [id number]) Electronically Signed By Garrick Cummins, PT 04/29/19 11:03 Outpatient Therapy Subjective History Subjective History Pt reports h/o chronic LBP, w/ injection of the lumbar spine ~ 6 weeks, and then followed by a 'back procedure 2 weeks ago where they made a small incision and removed some cartilage because of my stenosis'. Pt reports improved LBP since the most recent procedure, however, ' I feel like I'm out of shape, my legs get tired real easy'. Chief Complaint Weakness Symptoms Relieved By Rest/Positioning Symptoms Aggravated By Standing,Physical Activity, Walking Prior Functional Limitations Housework,Standing,Walking, Stairs Current Functional Limitations Housework,Standing,Walking, Stairs Symptom Description Intermittent Level of pain today (0-10) 0 Pain scale - at its best (0-10) 0 Pain scale - at its worst (0-10) 1 Lumbopelvic Eval Posture Thoracic Spine Posture Standing Position Neutral Lumbar Spine Posture Standing Position Neutral Assistive device Assistive Devices None / NA Gait Observation General Gait Pattern Observation No Deviations/Normal,Antalgic Gait Manual Muscle Test Bilateral Knee Extension Strength Grade 4 Good Knee Flexion Strength Grade 4 Good Hip Flexion Strength Grade 4- Good- Hip Abduction Strength Grade 3+ Fair+ Hip Adduction Strength Grade 3+ Fair+ Hip External Rotation Strength Grade 4 Good Hip Internal Rotation Strength Grade 4 Good Hip Extension Strength Grade 4- Good- Gluteus Freddy Strength Grade 4 Good Extensor Hallucis Longus Strength Grade 5 Normal Ankle Dorsiflexion Strength Grade 5 Normal Gastronemius/Soleus Strength Grade 5 Normal DTR Rt Patellar 1+ Lt Patellar 1+ Rt Gastroc/Soleus 1+ Lt Gastroc/Soleus 1+ Outpatient Therapy Assessment Impairments Problems/Impairmments Impaired Strength,Impaired Endurance,Impaired Walking, Impaired Standing,Impaired Household Care,Impaired Stair Climbing,Impaired Self Car
== END 2019-05-09 09:05 | disposition home or self-care (01) ==
LOC: PT 09:00
PROVIDERS: PCP Internal Medicine Adolescent Medicine; Visit Provider Clinical Nurse Specialist Family Health
DX: M54.5 Low back pain (principal)
CPT/HCPCS: 97110; 97112; 97163

== ENCOUNTER 2019-05-30 19:10 | Observation (INO) ==
--- NOTE | 2019-05-30 19:49 | Emergency Department Note ---
ED Disposition Condition on Discharge: Fair Time of Disposition: 21:05 - Critical Care Critical Care Time: No <Lety De La Paz - Last Filed: 05/30/19 21:03> <Tomasz Mooney - Last Filed: 05/30/19 21:50> Clinical Impression: Respiratory illness A-fib Qualifiers: Atrial fibrillation type: unspecified Qualified Code(s): I48.91 - Unspecified atrial fibrillation Disposition: Admitted as Observation Attestation: On 05/30/19, the high probability of a clinically significant, sudden or life threatening deterioration of the following system(s) required my full and direct attention, intervention and personal management. The time I documented below is in addition to time spent performing reported procedures but includes the following listed in this critical care notation. Medical Decision Making - Medical Records Medical records reviewed: Yes: I reviewed the patient's medical records. - Todd Inquiry Pt receiving controlled substance: No Todd was queried for this patient: No - Lab Data Lab results reviewed: Yes: I reviewed the patient's lab results. Result diagrams: 05/30/19 20:40 <Lety De La Paz - Last Filed: 05/30/19 21:03> - Lab Data Result diagrams: 05/30/19 20:40 05/30/19 20:40 - Radiology Data #1 Image(s): Chest Image Reviewed: Yes I reviewed the patient's radiology image Preliminary Findings: Abnormal (nonspecific) - ECG Data Tracing #1 Arrhythmias present: afib Ischemic changes: non-specific ST-T wave changes - Physician Consults Physician Consulted: glenroy Reason -: Admission - IRWIN Score for Non-Stemi Age of Patient: 80-89 years old Heart Rate: 70-89 bpm Systolic Blood Pressure: 100-119 mmHg Serum Creatinine: 1.20-1.59 mg/dl CHF Killip Class: I-No CHF Other Risk Factors: None Non-Stemi Risk Score: 153 <Tomasz Mooney - Last Filed: 05/30/19 21:50> Vital Signs: 05/30/19 20:30 05/30/19 20:31 Temperature 98.1 F 98.1 F Temperature Source Oral Oral Pulse Rate [Brachial] 73 Pulse Rate [Right Brachial] 75 Respiratory Rate 20 30 H Blood Pressure [Right Arm] 114/56 L 114/58 L Blood Pressure Mean [Right Arm] 75 76 Blood Pressure Source [Right Arm] Automatic Cuff Automatic Cuff Blood Pressure Position [Right Arm] Sitting Supine 02 Sat by Pulse Oximetry 98 94 L Oxygen Delivery Method Room Air Room Air - Lab Data Lab Results 05/30/19 20:40: WBC 8.6, RBC 4.07 L, Hgb 12.6 L, Hct 39.5 L, MCV 97.1 H, MCH 30.9, MCHC 31.8, RDW 13.5, Plt Count 247, MPV 7.9, Neut % (Auto) 74.9, Lymph % (Auto) 10.6, Mcclain % (Auto) 5.2, Eos % (Auto) 8.7, Baso % (Auto) 0.6, Neut # (Auto) 6.5, Lymph # (Auto) 0.9, Mcclain # (Auto) 0.5, Eos # (Auto) 0.8 H, Baso # (Auto) 0.1 05/30/19 20:40: Sodium 142, Potassium 3.9, Chloride 105, Carbon Dioxide 26, Anion Gap 14.9, BUN 18, Creatinine 1.51 H, Estimated Creat Clear 57, Estimated GFR 45 L, Est GFR ( Amer) 54 L, Glucose 81, Calcium 8.3 L, Total Bilirubin 0.3, AST 32, ALT 39, Alkaline Phosphatase 59, Troponin I 0.04, Total Protein 6.8, Albumin 2.9 L, Globulin 3.9 H, Albumin/Globulin Ratio 0.7 L 05/30/19 20:40: Lactate 1.0 05/30/19 20:40: PT 12.0 H, INR 1.16 H, APTT 34.8 H 05/30/19 21:00: Influenza Type A Ag Negative, Influenza Type B Ag Negative 05/30/19 21:00: Group A Strep Rapid Negative Orders (Tests/Meds): ED MEDICATIONS Generic Name Dose Route Start Last Admin Trade Name Freq PRN Reason Stop Dose Admin Sodium Chloride 1,000 mls @ 999 mls/hr 05/30/19 20:45 05/30/19 20:59 Sod Chlor 0.9% 1000ml Bag IV 05/30/19 21:45 999 mls/hr .Q1H1M CORINA Administration Ceftriaxone Sodium 1 gm/ 50 mls @ 100 mls/hr 05/30/19 21:45 05/30/19 21:43 Sodium Chloride IV 06/13/19 21:44 100 mls/hr Q24H CORINA Administration Protocol Sodium Chloride 3 ml 05/30/19 21:24 Sodium Chloride 3% 15ml [facility] 06/29/19 21:23 ONCE PRN INDUCE SPUTUM COLLECTION Sodium Chloride 3 ml 05/30/19 21:39 Sodium Chloride 3% 15ml [facility] 06/29/19 21:38 ONCE PRN INDUCE SPUTUM COLLECTION Discontinued Medications Generic Name Dose Route Start Last Admin Trade Name Dorene PRN Reason Stop Dose Admin Albuterol/Ipratropium 3 ml 05/30/19 19:50 05/30/19 20:40 Duoneb 3ml [facility] 05/30/19 19:51 3 ml ONCE ONE Administration ORDERS Category Date Time Status BNP [B-Type Natriuretic Peptide] Stat Lab 05/30/19 20:40 Received Troponin I Q3H Lab 05/30/19 23:00 Ordered Troponin I Q3H Lab 05/31/19 02:00 Ordered Blood Culture Stat Micro 05/30/19 19:49 Ordered Sputum Culture & Gram Stain Stat Micro 05/30/19 21:24 Ordered Strep Screen Confirmation Stat Micro 05/30/19 21:00 Received ECG Request by /Som Stat Y 05/30/19 19:57 Ordered Resp/SOB HPI <Lety De La Paz - Last Filed: 05/30/19 21:03> - General Mode of Arrival: Ambulatory Source of Information: Patient, Spouse, Medical Record Limitations: No Limitations - History of Present Illness MD Complaint: shortness of breath, cough Onset (ago): day(s) Context: recent illness Severity: moderate Known history of: diabetes Associated symptoms: denies other symptoms <Tomasz Mooney - Last Filed: 05/30/19 21:50> - General Stated Complaint: Has pneumonia 101.2;coughing;lethargic Time Seen by Provider: 05/30/19 19:43 - History of Present Illness Patient is an 79-year-old white gentleman who comes to the emergency room with persistent cough. He was seen by Dr. Gonzalez on Monday and started on is a Z-Sumit and some prednisone was seen by Dr. Gonzalez again on Monday given cefdinir and Lasix and now comes to the emergency room with a temp of 101.2 and stated that he is still not any better even after taking the medications prescribed by Dr. Gonzalez patient also says he has been coughing up some blood and he is on Xarelto and he has a history of having had a two-vessel CABG 2 mitral valve repairs history of A. fib A. fib right hip replacement surgery for lumbar stenosis and a cochlear implant (Lety De La Paz) - Related Data Home Medications Medication Instructions Recorded Confirmed Insulin Glargine,Hum.rec.anlog 20 unit SQ HS 06/27/17 05/30/19 [Lantus Insulin 100units/mL 10mL vial] Insulin Lispro Protamin/Lispro 50 unit SQ BID 06/27/17 05/30/19 [HumaLOG Mix 75/25 3mL flexpen] aspirin 81 mg tablet,delayed 81 mg PO DAILY tab 09/19/17 05/30/19 release azelastine 137 mcg (0.1 %) nasal 2 mcg INTRANASAL BID PRN 09/19/17 05/30/19 spray aerosol doxazosin 1 mg tablet 4 mg PO DAILY 10/23/18 05/30/19 finasteride 5 mg tablet 5 mg PO DAILY 10/23/18 05/30/19 fluticasone propionate-salmeterol 2 puff INHALATION BID 10/23/18 05/30/19 115 mcg-21 mcg/actuation HFA inhaler Metoprolol Succinate 50 mg PO DAILY 12/27/18 05/30/19 Rivaroxaban [Xarelto] 15 mg PO QPM 12/27/18 05/30/19 levothyroxine 150 mcg tablet 150 mcg PO DAILY #90 tab 01/10/19 05/30/19 Fluticasone/Salmeterol [Advair Hfa 12 gm IH BID 01/21/19 05/30/19 115-21 Mcg Inhaler] Allergies Allergy/AdvReac Type Severity Reaction Status Date / Time nystatin Allergy Intermediate I-HIVES Verified 05/30/19 20:35 Nqnulkq-Gcs-Oqa Reductase AdvReac Severe rhabdomyoly Verified 05/30/19 20:35 Inhibitor sis [facility] History I have reviewed the patient's past medical history: Yes Medical History: Reports:: Asthma, Atrial Fibrillation, Congestive Heart Failure, Chronic Obstructive Pulmonary Disease (COPD), Coronary Artery Disease, Diabetes Mellitus Type 2, Hyperlipidemia, Hypertension Denies:: Cancer, Diabetes Mellitus Type 1, Internal Pacemaker, MRSA, Seizures Other Medical History: Reports: Arthritis, Hypothyroidism. Denies: Blood Transfusion Reaction Comment: mitral valve prolapse Laterality Cases: Right: Total Hip Replacement Other Surgeries: Yes: CABG, Cardiac Catheterization, Cardiac Surgery, Colonoscopy, Other (cochlear implant). No: Pacemaker Amputation: No Fractures: No Comment: Cochlear Implant - Social History Smoking Status: Never smoker Alcohol Intake: never Alcohol Intake Frequency:: other Substance Use Type: denies use Occupational Status: retired Housing: house Household Members: spouse Family Hx:: No significant family history, Coronary Artery Disease, Heart Attack, Diabetes <Lety De La Paz - Last Filed: 05/30/19 21:03> - Hepatitis A Screen Attestation statement:: This patient has been screened for Hepatitis A risk factors. ROS Obtained: Yes All systems reviewed & no additional complaints - Constitutional Constitutional: Reports system reviewed and no additional complaints, except as docu - Cardiovascular Cardiovascular: Reports system reviewed and no additional complaints, except as docu, Reports as per HPI (History of congestive heart failure in the past and has had some heart surg) - Respiratory Respiratory: Yes system reviewed and no additional complaints, except as docu, Yes as per HPI, Yes non-productive cough, Yes coughing up blood <Lety De La Paz - Last Filed: 05/30/19 21:03> Physical Exam - General General appearance: alert, in no apparent distress - Head Head exam: atraumatic, other (Cochlear implant on the right side) - ENT ENT exam: Present: normal exam, other (Cochlear implant on the right side) - Neck Neck exam: Present: normal inspection - Chest Chest inspection: Present: normal inspection - Respiratory Respiratory exam: Present: other - Cardiovascular Cardiovascular exam: Present: irregular rhythm - Abdominal Exam Abdominal exam: Present: soft - Back Exam Back exam: Present: normal inspection - Neurological Exam Neurological exam: Present: alert, oriented X3 <Lety De La Paz - Last Filed: 05/30/19 21:03> - Eye Eye exam: Present: PERRL, EOMI - Extremities Exam Extremities exam: Present: pedal edema. Absent: calf tenderness - Psychiatric Psychiatric exam: Present: normal affect - Skin Skin exam: Present: intact <Tomasz Mooney - Last Filed: 05/30/19 21:50>
[2019-05-30 20:51] LABS: Basophils # 0.1 K/mm3 (0-0.2); Basophils % 0.6 % (0.1-2.0); Eosinophils # 0.8 K/mm3 (0.0-0.4); Eosinophils % 8.7 % (0.1-12.0); Hematocrit 39.5 % (42.0-52.0); Hemoglobin 12.6 g/dL (14.1-18.0); Lymphocytes # 0.9 K/mm3 (0.7-4.5); Lymphocytes % 10.6 % (10-50); Mean Corpuscular HGB Conc 31.8 g/dL (31.8-35.4); Mean Corpuscular Volume 97.1 fl (80-94); Mean Platelet Volume 7.9 fl (7.4-10.4); Monocytes # 0.5 K/mm3 (0.1-1.0); Monocytes % 5.2 % (1.7-9.3); Neutrophils # 6.5 K/mm3 (1.8-7.8); Neutrophils % 74.9 % (37.0-80.0); Platelet Count 247 K/mm3 (142-424); Red Blood Count 4.07 M/mm3 (4.60-6.20); Red Cell Distribution Width 13.5 % (11.5-17.5); White Blood Count 8.6 K/mm3 (4.8-10.8)
[2019-05-30 21:03] LABS: Activated Partial Thrombo Time 34.8 seconds (23.6-34.0); INR 1.16 (0.9-1.1)
[2019-05-30 21:15] LABS: Albumin Level 2.9 gm/dL (3.4-5.0); Albumin/Globulin Ratio 0.7 (1.1-1.8); Anion Gap 14.9 mEq/L (5-15); Bilirubin,Total 0.3 mg/dL (0.2-1.0); Calcium 8.3 mg/dL (8.5-10.1); Globulin 3.9 gm/dl (1.3-3.2); Total Protein,Serum 6.8 gm/dL (6.4-8.2)
[2019-05-31 06:56] LABS: Anion Gap 10.1 mEq/L (5-15); Calcium 7.8 mg/dL (8.5-10.1)
[2019-05-31 06:58] LABS: Basophils % 0.5 % (0.1-2.0); Eosinophils # 0.7 K/mm3 (0.0-0.4); Eosinophils % 10.2 % (0.1-12.0); Hematocrit 36.4 % (42.0-52.0); Hemoglobin 11.5 g/dL (14.1-18.0); Lymphocytes # 0.9 K/mm3 (0.7-4.5); Mean Corpuscular HGB Conc 31.6 g/dL (31.8-35.4); Mean Corpuscular Volume 97.9 fl (80-94); Mean Platelet Volume 7.6 fl (7.4-10.4); Monocytes # 0.5 K/mm3 (0.1-1.0); Monocytes % 8.1 % (1.7-9.3); Neutrophils # 4.5 K/mm3 (1.8-7.8); Neutrophils % 68.2 % (37.0-80.0); Platelet Count 201 K/mm3 (142-424); Red Blood Count 3.72 M/mm3 (4.60-6.20); Red Cell Distribution Width 13.6 % (11.5-17.5); White Blood Count 6.6 K/mm3 (4.8-10.8)
--- NOTE | 2019-05-31 07:27 | Pharmacy Consult Notes ---
[facility] Pharmacy VTE Monitoring - Patient Demographics Admission date: 05/30/19 Report Date: 05/31/19 Time: 07:27 Allergies/Adverse Reactions: Patient Allergies nystatin Allergy (Intermediate, Verified 05/30/19 20:35) I-HIVES Ektarln-Xms-Wvd Reductase Inhibitor Adverse Reaction (Severe, Verified 05/30/19 20:35) rhabdomyolysis Height: 1.83 m Weight: 104.043 kg Patient Problems: Current Active Problems Respiratory illness (Acute) A-fib (Chronic) - VTE Risk Labs: VTE Related Lab Results Hgb 11.5 g/dL (14.1-18.0) L 05/31/19 06:31 Hct 36.4 % (42.0-52.0) L 05/31/19 06:31 Plt Count 201 K/mm3 (142-424) 05/31/19 06:31 PT 12.0 seconds (9.4-11.8) H 05/30/19 20:40 INR 1.16 (0.9-1.1) H 05/30/19 20:40 APTT 34.8 seconds (23.6-34.0) H 05/30/19 20:40 BUN 17 mg/dL (7-18) 05/31/19 06:31 Creatinine 1.32 mg/dL (0.70-1.30) H 05/31/19 06:31 Estimated Creat Clear 65 mL/min (50-200) 05/31/19 06:31 Was VTE Risk Assessment Performed: Yes VTE Score: 6 VTE Risk Level: Moderate Risk - Prophylaxis VTE Prophylaxis Ordered?: Yes Types of VTE Prophylaxis: Pharmacological Pharmacologic Type: Other (XARELTO) - VTE Diagnosis Confirmed Treatment or plan recommended: Continue Current Treatment
--- NOTE | 2019-05-31 08:03 | History & Physical Report ---
*Admission Date: 05/30/19 *Chief complaint: hemoptysis, cough, fever *History of present illness: Mr. Wu is an 79-year-old gentleman who was treated recently for pneumonia in the outpatient setting but has unfortunately not had anticipated response to antibiotics. Has proceeded to have worsening cough, congestion, fever over the past week in light of oral antibiotics. Presented to the ER yesterday due to his cough and fever. Imaging performed showed lobar pneumonia/atalectasis. He was found to be febrile and had a white count. Initiated on a dose of IV ceftriaxone and admitted for failure of outpatient therapy. On interview this morning his biggest complaint is his cough. Denies chest pain, shortness of breath, nausea, vomiting. Nondyspneic on interview. Tolerating good oral intake. Sitting upright in bed. In good spirits. at bedside with him. [facility] History I have reviewed the patient's past medical history: Yes Medical History: Reports:: Asthma, Atrial Fibrillation, Congestive Heart Failure, Chronic Obstructive Pulmonary Disease (COPD), Coronary Artery Disease, Diabetes Mellitus Type 2, Heart Murmur, Hyperlipidemia, Hypertension Denies:: Cancer, Diabetes Mellitus Type 1, Internal Pacemaker, MRSA, Seizures *Have you ever received a pneumonia vaccine?: Yes *Have you received a flu vaccine this season?: Yes Other Medical History: Reports: Anemia, Arthritis, Cataracts, Hypothyroidism, Thyroid Disease. Denies: Blood Transfusion Reaction Laterality Cases: Right: Total Hip Replacement, Bilateral: Cataract Other Surgeries: Yes: CABG, Cardiac Catheterization, Cardiac Surgery, Colonoscopy, Other (cochlear implant). No: Pacemaker Amputation: No Fractures: No - *Social History Educational Level: Completed Graduate School Smoking Status: Never smoker Alcohol Intake: never Alcohol Intake Frequency:: other Substance Use Type: denies use *Occupational Status:: retired Housing: house Household Members: spouse *Travel in the last 8 weeks: None Family Hx:: Diabetes, Heart Attack Review of Systems - Review of Systems Review of systems:: pertinent systems reviewed and negative unless documented below Meds Home Medications Medication Instructions Recorded Confirmed Type Insulin Lispro Protamin/Lispro 50 unit SQ PM 06/27/17 05/31/19 History [HumaLOG Mix 75/25 3mL flexpen] aspirin 81 mg tablet,delayed 81 mg PO DAILY tab 09/19/17 05/30/19 History release azelastine 137 mcg (0.1 %) nasal 2 spray INTRANASAL BID PRN 09/19/17 05/31/19 Hi story spray aerosol finasteride 5 mg tablet 5 mg PO DAILY 10/23/18 05/30/19 History Metoprolol Succinate 50 mg PO DAILY 12/27/18 05/30/19 History Rivaroxaban [Xarelto] 15 mg PO PM 12/27/18 05/31/19 History Albuterol Sulfate [Proair Hfa 2 puffs IH Q4HP PRN 05/30/19 05/30/19 History 90mcg/puff Inh] Atorvastatin Calcium [Atorvastatin 10 mg PO HS 05/30/19 05/30/19 History 10mg Tab] Ezetimibe 10 mg PO HS 05/30/19 05/30/19 History Hydralazine HCl [Hydralazine HCl 25 mg PO BID 05/30/19 05/30/19 History 25mg Tablet] Ubidecarenone [Coenzyme Q-10] 200 mg PO DAILY 05/30/19 05/30/19 History Cefdinir [Omnicef 300mg Capsule] 300 mg PO BID 05/31/19 05/31/19 History Doxazosin Mesylate [Cardura 4mg 4 mg PO DAILY 05/31/19 05/31/19 History tablet] Fluticasone Propionate 2 spry NS BID 05/31/19 05/31/19 History Fluticasone/Salmeterol [Advair Hfa 2 puffs IH BID 05/31/19 05/31/19 History 230-21 Mcg Inhaler] Insulin Lispro Protamin/Lispro 65 unit SQ DAILY 05/31/19 05/31/19 History [HumaLOG Mix 75/25 3mL flexpen] Levothyroxine Sodium 175 mcg PO DAILY 05/31/19 05/31/19 History [Levothyroxine 175mcg (0.175mg) Tab] Allergies Allergy/AdvReac Type Severity Reaction Status Date / Time nystatin Allergy Intermediate I-HIVES Verified 05/30/19 20:35 Ecbxwoi-Huy-Snl Reductase AdvReac Severe rhabdomyoly Verified 05/30/19 20:35 Inhibitor sis Exam Vital signs and Labs for Last 24 Hours: Temp Pulse Resp BP Pulse Ox 97.3 F L 84 18 97/63 L 94 L 05/31/19 04:00 05/31/19 05:57 05/31/19 04:00 05/31/19 04:00 05/31/19 05:57 Laboratory Results - last 24 hr 05/30/19 20:40: WBC 8.6, RBC 4.07 L, Hgb 12.6 L, Hct 39.5 L, MCV 97.1 H, MCH 30.9, MCHC 31.8, RDW 13.5, Plt Count 247, MPV 7.9, Neut % (Auto) 74.9, Lymph % (Auto) 10.6, [place] % (Auto) 5.2, Eos % (Auto) 8.7, Baso % (Auto) 0.6, Neut # (Auto) 6.5, Lymph # (Auto) 0.9, [place] # (Auto) 0.5, Eos # (Auto) 0.8 H, Baso # (Auto) 0.1 05/30/19 20:40: Sodium 142, Potassium 3.9, Chloride 105, Carbon Dioxide 26, Anion Gap 14.9, BUN 18, Creatinine 1.51 H, Estimated Creat Clear 57, Estimated GFR 45 L, Est GFR ( Amer) 54 L, Glucose 81, Calcium 8.3 L, Total Bilirubin 0.3, AST 32, ALT 39, Alkaline Phosphatase 59, Troponin I 0.04, Total Protein 6.8, Albumin 2.9 L, Globulin 3.9 H, Albumin/Globulin Ratio 0.7 L 05/30/19 20:40: Lactate 1.0 05/30/19 20:40: PT 12.0 H, INR 1.16 H, APTT 34.8 H 05/30/19 20:40: B-Natriuretic Peptide 660 H 05/30/19 21:00: Influenza Type A Ag Negative, Influenza Type B Ag Negative 05/30/19 21:00: Group A Strep Rapid Negative 05/30/19 23:00: Troponin I 0.03 05/30/19 23:24: POC Glucose 60 L 05/30/19 23:51: POC Glucose 75 05/31/19 02:27: Troponin I 0.03 05/31/19 06:31: WBC 6.6, RBC 3.72 L, Hgb 11.5 L, Hct 36.4 L, MCV 97.9 H, MCH 30.9, MCHC 31.6 L, RDW 13.6, Plt Count 201, MPV 7.6, Neut % (Auto) 68.2, Lymph % (Auto) 13.0, [place] % (Auto) 8.1, Eos % (Auto) 10.2, Baso % (Auto) 0.5, Neut # (Auto) 4.5, Lymph # (Auto) 0.9, [place] # (Auto) 0.5, Eos # (Auto) 0.7 H, Baso # (Auto) 0.0 05/31/19 06:31: Sodium 142, Potassium 4.1, Chloride 108 H, Carbon Dioxide 28, Anion Gap 10.1, BUN 17, Creatinine 1.32 H, Estimated Creat Clear 65, Estimated GFR 52 L, Est GFR ( Amer) 63, Glucose 88, Calcium 7.8 L, Magnesium 1.7 05/31/19 06:36: POC Glucose 81 I & O for Last 24 hours: Intake & Output 05/28/19 05/29/19 05/30/19 05/31/19 23:59 23:59 23:59 23:59 Intake Total 1050 / 1150 478 / 478 Balance 1050 / 1150 478 / 478 Weight 104.043 kg 104.043 kg - *Routine HEENT Exam Head: Present: normocephalic Eye: Present: EOMI, PERRL ENT: Present: mucous membranes moist - *Routine Neck Exam Present: supple, JVD. Absent: lymphadenopathy - *Routine Respiratory Exam Comments: Good air movement bilaterally, crackles in bilateral bases, no wheeze or rhonchi. - *Routine Cardiovascular Exam Present: RRR - *Routine Abdominal Exam Present: soft, normoactive bowel sounds. Absent: tenderness - *Routine Extremities Exam Absent: cyanosis, clubbing, edema - *Routine Skin Exam Present: warm. Absent: rash - *Routine Neurological Exam Present: alert, oriented X3 Assessment and Plan (1) Pneumonia Current visit: Yes Status: Acute Category: Medical Code(s): J18.9 - Pneumonia, unspecified organism (2) COPD (chronic obstructive pulmonary disease) Current visit: No Status: Chronic Qualifiers: COPD type: emphysema Emphysema type: unspecified Qualified Code(s): J43.9 - Emphysema, unspecified Category: Medical Code(s): J44.9 - Chronic obstructive pulmonary disease, unspecified (3) Hypertensive disorder Current visit: No Status: Chronic Qualifiers: Hypertension type: essential hypertension Qualified Code(s): I10 - Essential (primary) hypertension Category: Medical Code(s): I10 - Essential (primary) hypertension (4) PAF (paroxysmal atrial fibrillation) Current visit: No Status: Chronic Category: Medical Code(s): I48.0 - Paroxysmal atrial fibrillation (5) Cough Current visit: No Status: Resolved Category: Medical Code(s): R05 - Cough (6) LIDYA (acute kidney injury) Current visit: Yes Status: Acute Category: Medical Code(s): N17.9 - Acute kidney failure, unspecified Fluids overnight. Monitor for improvement with morning labs (7) CHF exacerbation Current visit: Yes Status: Acute Category: Medical Code(s): I50.9 - Heart failure, unspecified BNP elevated, JVD on exam, bilateral findings on imaging, and cough, will diurese with Lasix x1. Assess for improvement in respiratory status with improved fluid balance - Assessment and plan all Dx Assessment and Plan for all problems:: Mr. Wu is an 79-year-old male with treatment in the outpatient setting for pneumonia that comes in with persistent fever and cough. Transition to IV Levaquin today. Patient's PSI score is a 91 justifying inpatient admission. Continues to complain of cough. Started on Tessalon Perles. Also noted to have paroxysmal A. fib with coughing not controlled with his metoprolol. Will titrate up dose today with plan for increase dosage at time of discharge if tolerates with blood pressure. Compressive respiratory panel ordered to better identify possible viral etiology as justification for why patient failed outpatient antibiotics. Further management pending results of labs. If remains stable and afebrile for 24 hours, plan for discharge tomorrow
--- NOTE | 2019-05-31 16:36 | Electrocardiograph Report ---
APPROVED REPORT Exam: Resting ECG HR:112 bpm ECG Measurements Heart Rate 112 AXES QRSd 94 QRS 26 QT 388 T120 QTc 529 <Conclusion> Atrial fibrillation with rapid ventricular response Nonspecific ST and T wave abnormality, probably digitalis effect Abnormal ECG Electronically signed by : Toney Contreras, 05/31/2019 16:35:39
[2019-05-31 18:11] LABS: Coronavirus 229E Not Detected (NotDetected); Coronavirus NL63 Not Detected (NotDetected); Coronavirus OC43 Not Detected (NotDetected); Coronovirus HKU1,PCR Not Detected (NotDetected)
--- NOTE | 2019-06-01 00:01 | Discharge Summary ---
General - General Admission date:: 05/30/19 Discharge date: 06/01/19 HPI HPI: Mr. Wu is an 79-year-old gentleman who was treated recently for pneumonia in the outpatient setting but has unfortunately not had anticipated response to antibiotics. Has proceeded to have worsening cough, congestion, fever over the past week in light of oral antibiotics. Presented to the ER yesterday due to his cough and fever. Imaging performed showed lobar pneumonia/atalectasis. He was found to be febrile and had a white count. Initiated on a dose of IV ceftriaxone and admitted for failure of outpatient therapy. On interview this morning his biggest complaint is his cough. Denies chest pain, shortness of breath, nausea, vomiting. Nondyspneic on interview. Tolerating good oral intake. Sitting upright in bed. In good spirits. at bedside with him. Hospital Course Hospital Course: Mr. Wu was admitted for failure of outpatient treatment for pneumonia and paroxysmal A. fib. Would go in and out of A. fib with coughing. Increased metoprolol dosage to 100 mg of extended release with plan to continue this at home. Patient during admission however required no oxygen, had no fever. Tolerated good p.o. intake. Comprehensive panel showed patient positive for parainfluenza. Anticipate failure of antibiotics likely secondary to viral etiology with underlying lung disease. Continue breathing treatments and nebulizers at home. We will also complete 1 more day of Levaquin for total of 10 days of antibiotic treatment for gout prudence to cover for bacterial etiologies that may have been concurrent with para flu. Offered reassurance that this is likely the reason his symptoms were prolonged because of the viral etiology. Counseled that cough may persist for a few weeks. Plan to follow-up in clinic within the next week to assess response to metoprolol and improvement in respiratory symptoms. Patient denies any fever, nausea, chest pain, diarrhea. Complains of cough and fatigue Objective Vital signs: Temp Pulse Resp BP Pulse Ox 98.3 F 85 18 135/70 95 05/31/19 20:00 05/31/19 20:00 05/31/19 20:00 05/31/19 20:00 05/31/19 20:00 Narrative: *Routine HEENT Exam Head: Present: normocephalic Eye: Present: EOMI, PERRL ENT: Present: mucous membranes moist - *Routine Neck Exam Present: supple, JVD. Absent: lymphadenopathy - *Routine Respiratory Exam Comments: Good air movement bilaterally, rhonchi that clear with cough, no wheeze or crackles. - *Routine Cardiovascular Exam Present: RRR - *Routine Abdominal Exam Present: soft, normoactive bowel sounds. Absent: tenderness - *Routine Extremities Exam Absent: cyanosis, clubbing, edema - *Routine Skin Exam Present: warm. Absent: rash - *Routine Neurological Exam Present: alert, oriented X3 Results Labs on day of discharge: Labs from last 24 hours 05/31/19 05/31/19 05/31/19 21:59 18:03 16:46 WBC RBC Hgb Hct MCV MCH MCHC RDW Plt Count MPV Neut % (Auto) Lymph % (Auto) [place] % (Auto) Eos % (Auto) Baso % (Auto) Neut # (Auto) Lymph # (Auto) [place] # (Auto) Eos # (Auto) Baso # (Auto) Sodium Potassium Chloride Carbon Dioxide Anion Gap BUN Creatinine Estimated Creat Clear Estimated GFR Est GFR ( Amer) Glucose POC Glucose 375 H* 298 H Calcium Magnesium Troponin I Chlamy pneumoniae PCR Not detected Adenovirus (PCR) Not detected B. pertussis DNA (PCR) Not detected Coronavirus OC43 (PCR) Not detected Coronavirus HKU1 (PCR) Not detected Coronavirus 229E (PCR) Not detected Coronavirus NL63 (PCR) Not detected Human Metapneumovir PCR Not detected Influenza A (H1) PCR Not detected Influ A (H1N1/09) PCR Not detected Influenza A (H3) PCR Not detected Influenza Type A (PCR) Not detected Influenza Type B (PCR) Not detected M. pneumoniae (PCR) Not detected Parainfluenza 1 (PCR) Detected A Parainfluenza 2 (PCR) Not detected Parainfluenza 3 (PCR) Not detected Parainfluenza 4 (PCR) Not detected RSV (PCR) Not detected Entero/Rhino (PCR) Not detected 05/31/19 05/31/19 05/31/19 11:27 06:36 06:31 WBC RBC Hgb Hct MCV MCH MCHC RDW Plt Count MPV Neut % (Auto) Lymph % (Auto) [place] % (Auto) Eos % (Auto) Baso % (Auto) Neut # (Auto) Lymph # (Auto) [place] # (Auto) Eos # (Auto) Baso # (Auto) Sodium 142 Potassium 4.1 Chloride 108 H Carbon Dioxide 28 Anion Gap 10.1 BUN 17 Creatinine 1.32 H Estimated Creat Clear 65 Estimated GFR 52 L Est GFR ( Amer) 63 Glucose 88 POC Glucose 331 H* 81 Calcium 7.8 L Magnesium 1.7 Troponin I Chlamy pneumoniae PCR Adenovirus (PCR) B. pertussis DNA (PCR) Coronavirus OC43 (PCR) Coronavirus HKU1 (PCR) Coronavirus 229E (PCR) Coronavirus NL63 (PCR) Human Metapneumovir PCR Influenza A (H1) PCR Influ A (H1N1) PCR Influenza A (H3) PCR Influenza Type A (PCR) Influenza Type B (PCR) M. pneumoniae (PCR) Parainfluenza 1 (PCR) Parainfluenza 2 (PCR) Parainfluenza 3 (PCR) Parainfluenza 4 (PCR) RSV (PCR) Entero/Rhino (PCR) 05/31/19 05/31/19 05/30/19 06:31 02:27 23:51 WBC 6.6 RBC 3.72 L Hgb 11.5 L Hct 36.4 L MCV 97.9 H MCH 30.9 MCHC 31.6 L RDW 13.6 Plt Count 201 MPV 7.6 Neut % (Auto) 68.2 Lymph % (Auto) 13.0 [place] % (Auto) 8.1 Eos % (Auto) 10.2 Baso % (Auto) 0.5 Neut # (Auto) 4.5 Lymph # (Auto) 0.9 [place] # (Auto) 0.5 Eos # (Auto) 0.7 H Baso # (Auto) 0.0 Sodium Potassium Chloride Carbon Dioxide Anion Gap BUN Creatinine Estimated Creat Clear Estimated GFR Est GFR ( Amer) Glucose POC Glucose 75 Calcium Magnesium Troponin I 0.03 Chlamy pneumoniae PCR Adenovirus (PCR) B. pertussis DNA (PCR) Coronavirus OC43 (PCR) Coronavirus HKU1 (PCR) Coronavirus 229E (PCR) Coronavirus NL63 (PCR) Human Metapneumovir PCR Influenza A (H1) PCR Influ A () PCR Influenza A (H3) PCR Influenza Type A (PCR) Influenza Type B (PCR) M. pneumoniae (PCR) Parainfluenza 1 (PCR) Parainfluenza 2 (PCR) Parainfluenza 3 (PCR) Parainfluenza 4 (PCR) RSV (PCR) Entero/Rhino (PCR) DS: Diagnosis - Discharge Diagnosis (1) Pneumonia Status: Acute (2) COPD (chronic obstructive pulmonary disease) Status: Chronic (3) Hypertensive disorder Status: Chronic (4) PAF (paroxysmal atrial fibrillation) Status: Chronic (5) Cough Status: Acute (6) LIDYA (acute kidney injury) Status: Acute (7) CHF exacerbation Status: Resolved Discharge Plan - Patient Discharge Instructions ACTIVITY: Continue current activity DIET: continue same diet Patient Instructions: Coronary Artery Disease, Atrial Fibrillation, DI for Atrial Fibrillation, DI for Coronary Artery Disease, DI for Respiratory Failure, Respiratory Failure - Follow up Plan Follow up with: Toney Contreras MD [Primary Care Provider] - Disposition: Home, Self-Assisted Medications: Home Medications Medication Instructions Recorded Confirmed Type Insulin Lispro Protamin/Lispro 50 unit SQ PM 06/27/17 05/31/19 History [HumaLOG Mix 75/25 3mL flexpen] aspirin 81 mg tablet,delayed 81 mg PO DAILY tab 09/19/17 05/30/19 History release azelastine 137 mcg (0.1 %) nasal 2 spray INTRANASAL BID PRN 09/19/17 05/31/19 History spray aerosol finasteride 5 mg tablet 5 mg PO DAILY 10/23/18 05/30/19 History Metoprolol Succinate 50 mg PO DAILY 12/27/18 05/30/19 History Rivaroxaban [Xarelto] 15 mg PO PM 12/27/18 05/31/19 History Albuterol Sulfate [Proair Hfa 2 puffs IH Q4HP PRN 05/30/19 05/30/19 History 90mcg/puff Inh] Atorvastatin Calcium [Atorvastatin 10 mg PO HS 05/30/19 05/30/19 History 10mg Tab] Ezetimibe 10 mg PO HS 05/30/19 05/30/19 History Hydralazine HCl [Hydralazine HCl 25 mg PO BID 05/30/19 05/30/19 History 25mg Tablet] Ubidecarenone [Coenzyme Q-10] 200 mg PO DAILY 05/30/19 05/30/19 History Cefdinir [Omnicef 300mg Capsule] 300 mg PO BID 05/31/19 05/31/19 History Doxazosin Mesylate [Cardura 4mg 4 mg PO DAILY 05/31/19 05/31/19 History tablet] Fluticasone Propionate 2 spry NS BID 05/31/19 05/31/19 History Fluticasone/Salmeterol [Advair Hfa 2 puffs IH BID 05/31/19 05/31/19 History 230-21 Mcg Inhaler] Insulin Lispro Protamin/Lispro 65 unit SQ DAILY 05/31/19 05/31/19 History [HumaLOG Mix 75/25 3mL flexpen] Levothyroxine Sodium 175 mcg PO DAILY 05/31/19 05/31/19 History [Levothyroxine 175mcg (0.175mg) Tab] Metoprolol Succinate [Toprol XL 100 mg PO DAILY 30 Days #30 06/01/19 Rx 100mg tablet] tab.er.24h levoFLOXacin [Levaquin 750mg 750 mg PO DAILY 1 Days #1 tab 06/01/19 Rx tablet] Prescriptions/Medication Reconciliation: New levoFLOXacin [Levaquin 750mg tablet] 750 mg PO DAILY 1 Days #1 tab Metoprolol Succinate [Toprol XL 100mg tablet] 100 mg PO DAILY 30 Days #30 tab.er.24h Continued aspirin 81 mg tablet,delayed release 81 mg PO DAILY tab finasteride 5 mg tablet 5 mg PO DAILY azelastine 137 mcg (0.1 %) nasal spray aerosol 2 spray INTRANASAL BID PRN PRN Reason: Asthma/ALLERGIES Insulin Lispro Protamin/Lispro [HumaLOG Mix 75/25 3mL flexpen] 50 unit SQ PM Rivaroxaban [Xarelto] 15 mg PO PM Ezetimibe 10 mg PO HS Ubidecarenone [Coenzyme Q-10] 200 mg PO DAILY Atorvastatin Calcium [Atorvastatin 10mg Tab] 10 mg PO HS Albuterol Sulfate [Proair Hfa 90mcg/puff Inh] 2 puffs IH Q4HP PRN PRN Reason: Shortness Of Breath Or Wheezing Levothyroxine Sodium [Levothyroxine 175mcg (0.175mg) Tab] 175 mcg PO DAILY Fluticasone/Salmeterol [Advair Hfa 230-21 Mcg Inhaler] 2 puffs IH BID Insulin Lispro Protamin/Lispro [HumaLOG Mix 75/25 3mL flexpen] 65 unit SQ DAILY Fluticasone Propionate 2 spry NS BID Hydralazine HCl [Hydralazine HCl 25mg Tablet] 25 mg PO BID Doxazosin Mesylate [Cardura 4mg tablet] 4 mg PO DAILY Discontinued Metoprolol Succinate 50 mg PO DAILY Cefdinir [Omnicef 300mg Capsule] 300 mg PO BID - Problem Reconciliation Problems Reviewed?: Yes
[2019-06-01 06:52] LABS: Basophils % 0.6 % (0.1-2.0); Eosinophils # 0.4 K/mm3 (0.0-0.4); Eosinophils % 7.2 % (0.1-12.0); Hematocrit 38.5 % (42.0-52.0); Lymphocytes # 0.7 K/mm3 (0.7-4.5); Lymphocytes % 11.5 % (10-50); Mean Corpuscular HGB Conc 31.1 g/dL (31.8-35.4); Mean Corpuscular Volume 98.3 fl (80-94); Mean Platelet Volume 8.3 fl (7.4-10.4); Monocytes # 0.4 K/mm3 (0.1-1.0); Monocytes % 6.5 % (1.7-9.3); Neutrophils # 4.6 K/mm3 (1.8-7.8); Neutrophils % 74.1 % (37.0-80.0); Platelet Count 201 K/mm3 (142-424); Red Blood Count 3.92 M/mm3 (4.60-6.20); Red Cell Distribution Width 13.4 % (11.5-17.5); White Blood Count 6.2 K/mm3 (4.8-10.8)
[2019-06-01 07:44] LABS: Anion Gap 17.8 mEq/L (5-15); Calcium 7.8 mg/dL (8.5-10.1)
== END 2019-06-01 10:50 | disposition home or self-care (01) ==
LOC: ER 19:10 → 2ND 19:10
PROVIDERS: ADMIT Family Medicine; ATTEND Internal Medicine Adolescent Medicine
CPT/HCPCS: 36415; 71020; 71046; 80048; 80053; 82962; 83605; 83735; 83880; 84484; 85025; 85610; 85730; 87275; 87276; 87430; 87486; 87581; 87633; 87798; 93005; 94640; 94761; 96365; 96367; 99285; G0378; J1956

== ENCOUNTER → 2019-06-03 07:03 | Outpatient (CLI) | payer MEDICARE, SELFPAY ==
[2019-06-03 10:28] LABS: Hemoglobin A1C 8.2 % (0.0-7.0)
[2019-06-03 10:51] LABS: Alanine Aminotransferase 49 U/L (12-78); Albumin Level 2.9 gm/dL (3.4-5.0); Albumin/Globulin Ratio 0.9 (1.1-1.8); Alkaline Phosphatase 54 U/L (46-116); Anion Gap 13.2 mEq/L (5-15); Aspartate Amino Transferase 42 U/L (15-37); Bilirubin,Total 0.3 mg/dL (0.2-1.0); Blood Urea Nitrogen 20 mg/dL (7-18); Calcium 7.8 mg/dL (8.5-10.1); Carbon Dioxide 26 mmol/L (21.0-32.0); Chloride 108 mmol/L (98-107); Chol/HDL Ratio 3.7 (1-3.5); Cholesterol 131 mg/dL (140-200); Creatine Kinase 789 U/L (39-308); Creatinine,Serum 1.28 mg/dL (0.70-1.30); Estimated Glomerular Filt Rate 54 ml/min (>60); Free T4 (Free Thyroxine) 1.24 ng/dl (0.76-1.46); GFR (African American) 65 ML/MIN (>60); Globulin 3.4 gm/dl (1.3-3.2); Glucose 125 mg/dL (74-106); HDL Cholesterol 35 mg/dL (27-67); LDL Cholesterol 84 mg/dL (0-130); Potassium 4.2 mmoL/L (3.5-5.1); Sodium 143 mmol/L (136-145); Thyroid Stimulating Hormone 5.53 uIU/ml (0.358-3.740); Total Protein,Serum 6.3 gm/dL (6.4-8.2); Triglycerides 62 mg/dL (30-200); VLDL Cholesterol 12 mg/dL (0-40)
== END ==
DX: I25.10 Atherosclerotic heart disease of native coronary artery without angina pectoris (principal); E11.9 Type 2 diabetes mellitus without complications; Z79.4 Long term (current) use of insulin
CPT/HCPCS: 36415; 80053; 80061; 82550; 83036; 84439; 84443

== ENCOUNTER → 2019-06-04 09:10 | Outpatient (POV) | payer MEDICARE, SELFPAY ==
--- NOTE | 2019-06-04 09:57 | [facility].PAINSOAP ---
[facility] Pain Management SOAP Note Subjective:: Patient is a pleasant 79-year-old white male who presents today for follow-up after mild procedure. Patient overall doing well. Patient had to quit his physical therapy due to hospital stay for pneumonia. Patient is quite weak today. He is having no back pain. Patient would like to continue with his physical therapy after he gets stronger. ROS General: no recent weight change, no fever, no sleep disturbances Respiratory: no cough, no shortness of air, no recurring pulmonary infections Cardiovascular/Peripheral Vascular: No chest pain, No palpitations, no edema, no shortness of breath. Gastrointestinal: no new onset incontinence, normal bowel movements reported Genitourinary: no new onset incontinence Musculoskeletal: Back pain Psychiatric: normal mood/ affect Neurological: [denies new onset weakness in extremities], [denies new onset balance issues] Objective:: Physical Exam General: Alert and oriented x3, no acute distress, pleasant and cooperative, Lungs: Resps E/U, Symmetrical chest expansion, Eyes: PERRL Musculoskeletal: Flexion and extension of lumbar spine somewhat guarded secondary to pain, deep tendon reflexes normal, strength in upper and lower extremities [5/5], antalgic gait noted Neurological: speech clear, arts and humanities council director equal, no gross sensory deficits Assessment:: Degenerative disc disease, spinal stenosis with neurogenic claudication Plan:: I will follow-up with the patient in 3 months reassess his symptoms at that time is been instructed to call the office if he has any issues prior to his next appointment. Dr. Worthington has reviewed this note and agrees with this plan of care. This note was dictated using voice recognition software and may contain errors or omissions [facility] History I have reviewed the patient's past medical history: Yes Medical History: Reports:: Asthma, Atrial Fibrillation, Congestive Heart Failure, Chronic Obstructive Pulmonary Disease (COPD), Coronary Artery Disease, Diabetes Mellitus Type 2, Heart Murmur, Hyperlipidemia, Hypertension Denies:: Cancer, Diabetes Mellitus Type 1, Internal Pacemaker, MRSA, Seizures *Have you ever received a pneumonia vaccine?: No *Have you received a flu vaccine this season?: No Other Medical History: Reports: Anemia, Arthritis, Cataracts, Hypothyroidism, Thyroid Disease. Denies: Blood Transfusion Reaction Laterality Cases: Right: Total Hip Replacement Other Surgeries: Yes: CABG, Cardiac Catheterization, Cardiac Surgery, Colonoscopy, Other (cochlear implant). No: Pacemaker Amputation: No Fractures: No - *Social History Smoking Status: Never smoker Alcohol Intake: never Alcohol Intake Frequency:: other Substance Use Type: denies use *Occupational Status:: retired Housing: house Household Members: spouse *Travel in the last 8 weeks: None Family Hx:: Diabetes, Heart Attack
[2019-06-04 10:04] VITALS: BP 122/65; PULSE 74; RESP 18; O2SAT 98; BMI 30.4
== END ==
PROVIDERS: PCP Internal Medicine Adolescent Medicine; Visit Provider Clinical Nurse Specialist Family Health
DX: M48.062 Spinal stenosis, lumbar region with neurogenic claudication (principal)
CPT/HCPCS: 99212

== ENCOUNTER → 2019-07-25 10:02 | Outpatient (CLI) | payer MEDICARE, SELFPAY | PROVIDERS: Visit Provider Urology | DX: R97.20 Elevated prostate specific antigen [PSA] (principal); Z12.5 Encounter for screening for malignant neoplasm of prostate | CPT/HCPCS: 36415; G0103 ==

== ENCOUNTER → 2019-08-14 10:25 | Outpatient (CLI) | payer MEDICARE, SELFPAY ==
--- NOTE | 2019-08-14 10:43 | XR_ITS ---
PROCEDURE: XR CHEST 2V CLINICAL HISTORY: dyspnea Shamir COMPARISON: CXR2V XR chest 2V from 10/30/2017 XR CHEST 2V from 05/30/2019 FINDINGS: The cardiomediastinal silhouette and pulmonary vascularity are within normal limits. There has been prior median sternotomy. There is elevation of the right hemidiaphragm. There is some parenchymal density in association. Compressive atelectasis is favored. This appears to have increased compared to previous exams. Clinical correlation is recommended to entirely exclude a right basilar pneumonia. There is no pleural effusion. No acute bony abnormalities. IMPRESSION: New densities in association with the right lung base with elevated hemidiaphragm. Atelectasis and/or infiltrate should be considered. Dictated by: Joel Navas 08/14/2019 16:19 Electronically signed by Joel Navas in [place] 08/14/2019 16:19
[2019-08-14 11:34] LABS: Basophils # 0.1 K/mm3 (0-0.2); Basophils % 0.6 % (0.1-2.0); Eosinophils # 1.3 K/mm3 (0.0-0.4); Eosinophils % 13.4 % (0.1-12.0); Hematocrit 38.7 % (42.0-52.0); Hemoglobin 12.5 g/dL (14.1-18.0); Lymphocytes # 1.3 K/mm3 (0.7-4.5); Mean Corpuscular HGB Conc 32.2 g/dL (31.8-35.4); Mean Corpuscular Hemoglobin 30.4 pg (27.0-31.2); Mean Corpuscular Volume 94.3 fl (80-94); Mean Platelet Volume 7.6 fl (7.4-10.4); Monocytes # 0.4 K/mm3 (0.1-1.0); Monocytes % 4.3 % (1.7-9.3); Neutrophils # 6.8 K/mm3 (1.8-7.8); Neutrophils % 68.6 % (37.0-80.0); Platelet Count 208 K/mm3 (142-424); Red Cell Distribution Width 13.9 % (11.5-17.5); White Blood Count 9.9 K/mm3 (4.8-10.8)
[2019-08-14 12:30] LABS: Chloride 108 mmol/L (98-107)
[2019-08-14 12:31] LABS: Potassium 4.3 mmoL/L (3.5-5.1); Sodium 143 mmol/L (136-145)
[2019-08-14 12:33] LABS: Alanine Aminotransferase 38 U/L (12-78); Alkaline Phosphatase 48 U/L (38-126); Anion Gap 12.3 mEq/L (5-15); Aspartate Amino Transferase 44 U/L (17-59); Bilirubin,Indirect 0.5 mg/dL (0.0-0.9); Bilirubin,Total 0.5 mg/dl (0.2-1.3); Bilirubin,Unconjugated 0.7 mg/dL (0.0-1.1); Blood Urea Nitrogen 17 mg/dl (9-20); Carbon Dioxide 27 mmol/L (22.0-30.0); Cholesterol 100 mg/dl (140-200); Creatine Kinase 746 U/L (55-170); Estimated Glomerular Filt Rate 64 ml/min (>60); GFR (African American) 78 ML/MIN (>60); Triglycerides 81 mg/dl (30-150); VLDL Cholesterol 16 mg/dL (0-40)
[2019-08-14 12:34] LABS: Albumin Level 3.6 g/dl (3.5-5.0); Calcium 8.7 mg/dl (8.4-10.2); Chol/HDL Ratio 2.4 (1-3.5); HDL Cholesterol 42 mg/dl (40-60); Total Protein,Serum 6.3 g/dl (6.3-8.2)
[2019-08-14 12:45] LABS: Direct LDL Cholesterol 50.54 mg/dL (100-129)
[2019-08-14 15:16] LABS: Glucose 48 mg/dl (74-100)
== END ==
PROVIDERS: PCP Internal Medicine Adolescent Medicine; Visit Provider Urology
DX: D72.1 Eosinophilia (principal); I25.10 Atherosclerotic heart disease of native coronary artery without angina pectoris; I34.0 Nonrheumatic mitral (valve) insufficiency; I48.0 Paroxysmal atrial fibrillation; I50.32 Chronic diastolic (congestive) heart failure; R01.1 Cardiac murmur, unspecified; R06.02 Shortness of breath; Z95.1 Presence of aortocoronary bypass graft; Z98.890 Other specified postprocedural states
CPT/HCPCS: 36415; 71046; 80048; 80061; 80076; 82550; 85025

== ENCOUNTER → 2019-08-19 12:02 | Outpatient (CLI) | payer MEDICARE, SELFPAY ==
[2019-08-19 12:25] LABS: Basophils # 0.1 K/mm3 (0-0.2); Basophils % 0.5 % (0.1-2.0); Eosinophils # 1.3 K/mm3 (0.0-0.4); Eosinophils % 11.3 % (0.1-12.0); Hematocrit 42.4 % (42.0-52.0); Hemoglobin 13.5 g/dL (14.1-18.0); Lymphocytes # 1.5 K/mm3 (0.7-4.5); Lymphocytes % 13.2 % (10-50); Mean Corpuscular HGB Conc 31.9 g/dL (31.8-35.4); Mean Corpuscular Volume 94.2 fl (80-94); Mean Platelet Volume 7.4 fl (7.4-10.4); Monocytes # 0.5 K/mm3 (0.1-1.0); Monocytes % 4.7 % (1.7-9.3); Neutrophils % 70.3 % (37.0-80.0); Platelet Count 218 K/mm3 (142-424); Red Blood Count 4.51 M/mm3 (4.60-6.20); Red Cell Distribution Width 13.9 % (11.5-17.5); White Blood Count 11.4 K/mm3 (4.8-10.8)
[2019-08-19 14:03] LABS: Anion Gap 12.2 mEq/L (5-15); Blood Urea Nitrogen 21 mg/dl (9-20); Calcium 9.2 mg/dl (8.4-10.2); Carbon Dioxide 30 mmol/L (22.0-30.0); Chloride 99 mmol/L (98-107); Creatine Kinase 448 U/L (55-170); Estimated Glomerular Filt Rate 58 ml/min (>60); GFR (African American) 70 ML/MIN (>60); Glucose 215 mg/dl (74-100); Potassium 4.2 mmoL/L (3.5-5.1); Sodium 137 mmol/L (136-145)
[2019-08-19 14:07] LABS: NT Pro Brain Natriuretic Pep. 996 pg/mL (0-450)
== END ==
PROVIDERS: Visit Provider Nurse Practitioner Family
DX: E11.9 Type 2 diabetes mellitus without complications (principal); E78.5 Hyperlipidemia, unspecified; I27.20 Pulmonary hypertension, unspecified; I48.91 Unspecified atrial fibrillation; M62.82 Rhabdomyolysis; I50.9 Heart failure, unspecified; Z79.4 Long term (current) use of insulin
CPT/HCPCS: 36415; 80048; 82550; 83880; 85025

== ENCOUNTER → 2019-08-26 11:34 | Outpatient (CLI) | payer MEDICARE, SELFPAY ==
[2019-08-26 18:53] LABS: Chloride 100 mmol/L (98-107); Potassium 4.9 mmoL/L (3.5-5.1); Sodium 136 mmol/L (136-145)
[2019-08-26 18:56] LABS: Anion Gap 11.9 mEq/L (5-15); Blood Urea Nitrogen 27 mg/dl (9-20); Carbon Dioxide 29 mmol/L (22.0-30.0); Estimated Glomerular Filt Rate 49 ml/min (>60); GFR (African American) 59 ML/MIN (>60)
[2019-08-26 18:57] LABS: Calcium 9.4 mg/dl (8.4-10.2); Glucose 220 mg/dl (74-100)
== END ==
PROVIDERS: Nurse Practitioner Family; Visit Provider Internal Medicine
DX: I27.20 Pulmonary hypertension, unspecified (principal); R06.02 Shortness of breath
CPT/HCPCS: 36415; 80048

== ENCOUNTER 2019-08-27 13:17 | Outpatient (RCR) | payer MEDICARE, SELFPAY | END 2019-10-24 13:09 | disposition home or self-care (01) | LOC: PT 13:17 | PROVIDERS: Visit Provider Internal Medicine | DX: Z95.1 Presence of aortocoronary bypass graft (principal); I25.10 Atherosclerotic heart disease of native coronary artery without angina pectoris | CPT/HCPCS: 93798 ==

== ENCOUNTER → 2019-09-11 08:56 | Outpatient (CLI) | payer MEDICARE, SELFPAY | PROVIDERS: PCP Internal Medicine Adolescent Medicine; Visit Provider Nurse Practitioner Family | DX: G47.9 Sleep disorder, unspecified (principal); R40.0 Somnolence | CPT/HCPCS: G0399 ==

== ENCOUNTER → 2019-10-04 07:57 | Outpatient (CLI) | payer MEDICARE, SELFPAY ==
[2019-10-04 09:26] LABS: Chloride 100 mmol/L (98-107); Potassium 5.2 mmoL/L (3.5-5.1); Sodium 136 mmol/L (136-145)
[2019-10-04 09:29] LABS: Anion Gap 14.2 mEq/L (5-15); Blood Urea Nitrogen 32 mg/dl (9-20); Calcium 9.2 mg/dl (8.4-10.2); Carbon Dioxide 27 mmol/L (22.0-30.0); Estimated Glomerular Filt Rate 45 ml/min (>60); GFR (African American) 54 ML/MIN (>60); Glucose 184 mg/dl (74-100)
[2019-10-04 09:38] LABS: NT Pro Brain Natriuretic Pep. 656 pg/mL (0-450)
== END ==
PROVIDERS: Visit Provider Urology
DX: R06.02 Shortness of breath (principal); I50.9 Heart failure, unspecified
CPT/HCPCS: 36415; 80048; 83880

== ENCOUNTER → 2019-10-11 07:52 | Outpatient (CLI) | payer MEDICARE, SELFPAY ==
[2019-10-11 12:23] LABS: Chloride 100 mmol/L (98-107); Potassium 5.4 mmoL/L (3.5-5.1); Sodium 136 mmol/L (136-145)
[2019-10-11 12:26] LABS: Alanine Aminotransferase 33 U/L (12-78); Albumin Level 3.7 g/dl (3.5-5.0); Albumin/Globulin Ratio 1.3 (1.1-1.8); Alkaline Phosphatase 59 U/L (38-126); Anion Gap 16.4 mEq/L (5-15); Aspartate Amino Transferase 45 U/L (17-59); Bilirubin,Total 0.6 mg/dl (0.2-1.3); Blood Urea Nitrogen 37 mg/dl (9-20); Calcium 8.7 mg/dl (8.4-10.2); Carbon Dioxide 25 mmol/L (22.0-30.0); Estimated Glomerular Filt Rate 49 ml/min (>60); GFR (African American) 59 ML/MIN (>60); Globulin 2.8 g/dL (1.3-3.2); Glucose 351 mg/dl (74-100); Total Protein,Serum 6.5 g/dl (6.3-8.2)
[2019-10-11 12:27] LABS: Magnesium 2.2 mg/dl (1.6-2.3)
[2019-10-11 12:30] LABS: NT Pro Brain Natriuretic Pep. 1130 pg/mL (0-450)
[2019-10-11 12:52] LABS: Thyroid Stimulating Hormone 0.29 uIU/mL (0.465-4.68)
[2019-10-11 14:17] LABS: Hemoglobin A1C 8.3 % (4.0-6.0)
== END ==
PROVIDERS: Internal Medicine Adolescent Medicine; Visit Provider Physician Assistant
DX: E87.5 Hyperkalemia (principal); I50.30 Unspecified diastolic (congestive) heart failure; I48.20 Chronic atrial fibrillation, unspecified; E03.9 Hypothyroidism, unspecified; E11.42 Type 2 diabetes mellitus with diabetic polyneuropathy; Z79.4 Long term (current) use of insulin
CPT/HCPCS: 36415; 80053; 83036; 83735; 83880; 84443; 93798

== ENCOUNTER → 2019-10-18 08:06 | Outpatient (CLI) | payer MEDICARE, SELFPAY ==
[2019-10-18 11:09] LABS: Anion Gap 10.8 mEq/L (5-15); Blood Urea Nitrogen 31 mg/dl (9-20); Calcium 9.1 mg/dl (8.4-10.2); Carbon Dioxide 27 mmol/L (22.0-30.0); Chloride 105 mmol/L (98-107); Estimated Glomerular Filt Rate 53 ml/min (>60); GFR (African American) 64 ML/MIN (>60); Glucose 163 mg/dl (74-100); Potassium 4.8 mmoL/L (3.5-5.1); Sodium 138 mmol/L (136-145)
[2019-10-18 11:18] LABS: NT Pro Brain Natriuretic Pep. 726 pg/mL (0-450)
== END ==
PROVIDERS: Visit Provider Urology
DX: I27.20 Pulmonary hypertension, unspecified (principal); I50.9 Heart failure, unspecified; R06.02 Shortness of breath; R53.83 Other fatigue; I50.30 Unspecified diastolic (congestive) heart failure
CPT/HCPCS: 36415; 80048; 83880

== ENCOUNTER → 2019-10-25 07:02 | Outpatient (CLI) | payer MEDICARE, SELFPAY ==
[2019-10-25 08:27] LABS: Chloride 103 mmol/L (98-107); Potassium 4.6 mmoL/L (3.5-5.1); Sodium 139 mmol/L (136-145)
[2019-10-25 08:30] LABS: Anion Gap 10.6 mEq/L (5-15); Blood Urea Nitrogen 23 mg/dl (9-20); Carbon Dioxide 30 mmol/L (22.0-30.0); Estimated Glomerular Filt Rate 53 ml/min (>60); GFR (African American) 64 ML/MIN (>60)
[2019-10-25 08:31] LABS: Calcium 8.6 mg/dl (8.4-10.2); Glucose 166 mg/dl (74-100)
[2019-10-25 08:40] LABS: NT Pro Brain Natriuretic Pep. 882 pg/mL (0-450)
[2019-10-25 10:18] LABS: Uric Acid 8.4 mg/dl (3.5-8.5)
[2019-10-25 10:22] LABS: Creatinine,Urine Random 234 mg/dL (Not Estab.)
[2019-10-26 19:27] LABS: Parathyroid Hormone Intact 60 pg/mL (15-65); Vitamin D 25 Hydroxy 26.7 ng/mL (30.0-100.0)
== END ==
PROVIDERS: Internal Medicine Nephrology; Visit Provider Urology
DX: R06.00 Dyspnea, unspecified; E11.9 Type 2 diabetes mellitus without complications; E78.5 Hyperlipidemia, unspecified; I25.10 Atherosclerotic heart disease of native coronary artery without angina pectoris; I34.1 Nonrheumatic mitral (valve) prolapse; I48.91 Unspecified atrial fibrillation; I50.9 Heart failure, unspecified; J44.9 Chronic obstructive pulmonary disease, unspecified; R05 Cough; R53.83 Other fatigue; E55.9 Vitamin D deficiency, unspecified; Z79.4 Long term (current) use of insulin
CPT/HCPCS: 36415; 80048; 82570; 82652; 83880; 83970; 84155; 84550

== ENCOUNTER → 2019-11-13 07:07 | Outpatient (CLI) | payer MEDICARE, SELFPAY ==
[2019-11-13 08:15] LABS: Chloride 103 mmol/L (98-107); Sodium 137 mmol/L (136-145)
[2019-11-13 08:16] LABS: Potassium 4.6 mmoL/L (3.5-5.1)
[2019-11-13 08:19] LABS: Anion Gap 8.6 mEq/L (5-15); Blood Urea Nitrogen 29 mg/dl (9-20); Calcium 8.5 mg/dl (8.4-10.2); Carbon Dioxide 30 mmol/L (22.0-30.0); Estimated Glomerular Filt Rate 49 ml/min (>60); GFR (African American) 59 ML/MIN (>60); Glucose 183 mg/dl (74-100)
[2019-11-13 08:29] LABS: NT Pro Brain Natriuretic Pep. 944 pg/mL (0-450)
== END ==
PROVIDERS: Visit Provider Urology
DX: R06.00 Dyspnea, unspecified; I25.10 Atherosclerotic heart disease of native coronary artery without angina pectoris; I50.9 Heart failure, unspecified; J44.9 Chronic obstructive pulmonary disease, unspecified
CPT/HCPCS: 36415; 80048; 83880

== ENCOUNTER → 2019-12-24 10:58 | Outpatient (CLI) | payer MEDICARE, SELFPAY ==
--- NOTE | 2019-12-24 11:12 | CT_ITS ---
PROCEDURE: CT ABDOMEN PELVIS W CON CLINICAL INDICATION: RUQ PAIN Upper quadrant pain COMPARISON: CHESTWO CT chest wo con from 12/06/2018 TECHNIQUE: IV Contrast: 75ML OPTIRAY 350 Oral Contrast None Axial images obtained with sagittal and coronal reformats. All CT scans at the facility use one or more dose reduction, viz: automated exposure control, ma/kV adjustment per patient size (including targeted exams where dose is matched to indication, i.e. head), or iterative reconstruction technique. FINDINGS: There is slightly elevated right hemidiaphragm with right basilar atelectasis is. Prior CABG. Mild cardiomegaly. Cholelithiasis. Gallbladder has a septated appearance with stones in 2 different areas. The spleen, adrenal glands, have an unremarkable appearance. There is diffuse fatty infiltration of the pancreas. Duodenal diverticulum noted. No hydronephrosis or renal calculi evident. There is a 10 mm calcific density at the right ureterovesical junction consistent with a right UVJ stone. No hydronephrosis or hydroureter however.. Multiple prostate seed implants are present. There is diffuse thickening of the colon at the hepatic flexure with stranding of the pericolic fat. Thickening also involves the proximal aspect/right aspect of the transverse colon and the ascending colon near the patent flexure. Small amount fluid is present in the pericolic region laterally at the hepatic flexure. There is an abrupt zone of transition of thickened and non thickened colon and in the mid aspect of the transverse colon area. No obvious pneumatosis or free air. No abscess evident. Unremarkable appearing appendix. There is diverticulosis of the descending and sigmoid colon. There is a small amount of free fluid in the pelvis. Artifact is present from right hip hemiarthroplasty. There is avascular necrosis of the left femoral head with geographic area of sclerosis with internal lucency without cortical collapse. There are degenerative changes in the lumbar spine. There is a fusiform aneurysm of the infrarenal portion of the abdominal aorta measuring 3.7 cm AP and 3.9 cm transverse. There is a small umbilical hernia containing fat. IMPRESSION: 1. Diffuse thickening with stranding of the pericolic fat at the hepatic flexure with adjacent involvement of the ascending colon and proximal transverse colon. This could be a sequela of acute diverticulitis or severe focal colitis. There is however abrupt transition to normal appearing transverse colon raising the suspicion of neoplasm. Follow-up recommended. No obvious abscess or perforation. There is a small amount pericolic fluid but does not appear organized 2. Cholelithiasis 3. 4 cm infrarenal abdominal aortic aneurysm 4. 10 mm right ureterovesical junction stone without hydronephrosis or hydroureter 5. Colonic diverticulosis 6. Avascular necrosis of the left hip Dictated by: Gustavo Prince MD 12/24/2019 12:56 Electronically signed by Gustavo Prince MD in [place] 12/24/2019 12:56
[2019-12-24 11:15] LABS: Basophils % 0.1 % (0.1-2.0); Eosinophils # 0.3 K/mm3 (0.0-0.4); Hematocrit 39.4 % (42.0-52.0); Hemoglobin 13.4 g/dL (14.1-18.0); Lymphocytes # 1.4 K/mm3 (0.7-4.5); Lymphocytes % 8.8 % (10-50); Mean Corpuscular Hemoglobin 33.1 pg (27.0-31.2); Mean Corpuscular Volume 97.4 fl (80-94); Mean Platelet Volume 8.2 fl (7.4-10.4); Monocytes # 0.5 K/mm3 (0.1-1.0); Monocytes % 2.9 % (1.7-9.3); Neutrophils # 13.7 K/mm3 (1.8-7.8); Neutrophils % 86.2 % (37.0-80.0); Platelet Count 212 K/mm3 (142-424); Red Blood Count 4.05 M/mm3 (4.60-6.20); Red Cell Distribution Width 13.9 % (11.5-17.5); White Blood Count 15.9 K/mm3 (4.8-10.8)
[2019-12-24 11:18] LABS: Chloride 98 mmol/L (98-107); MANUAL DIFFERENTIAL MANUAL DIFFERENTIAL (MANUAL DIFF)
[2019-12-24 11:19] LABS: Potassium 4.5 mmoL/L (3.5-5.1); Sodium 136 mmol/L (136-145)
[2019-12-24 11:21] LABS: Alanine Aminotransferase 29 U/L (12-78); Alkaline Phosphatase 67 U/L (38-126); Anion Gap 10.5 mEq/L (5-15); Aspartate Amino Transferase 26 U/L (17-59); Bilirubin,Total 1.3 mg/dl (0.2-1.3); Blood Urea Nitrogen 46 mg/dl (9-20); Carbon Dioxide 32 mmol/L (22.0-30.0); Estimated Glomerular Filt Rate 39 ml/min (>60); GFR (African American) 47 ML/MIN (>60); Lipase 12 U/L (23-300)
[2019-12-24 11:22] LABS: Albumin Level 3.6 g/dl (3.5-5.0); Calcium 9.2 mg/dl (8.4-10.2); Globulin 3.6 g/dL (1.3-3.2); Glucose 118 mg/dl (74-100); Total Protein,Serum 7.2 g/dl (6.3-8.2)
[2019-12-24 11:36] LABS: Eosinophils % 3 % (0-3); Lymphocytes % 11 % (10-50); Monocytes % 2 % (2-9); Neutrophils % 84 % (42-76); Platelet Estimate Normal; RBC Morphology Normal; Total Cells Counted 100
== END ==
PROVIDERS: PCP Internal Medicine Adolescent Medicine; Visit Provider Internal Medicine Adolescent Medicine
DX: R10.11 Right upper quadrant pain (principal)
CPT/HCPCS: 36415; 74177; 80053; 83690; 85007; 85025; Q9967

== ENCOUNTER → 2019-12-31 16:04 | Outpatient (CLI) | payer MEDICARE, SELFPAY ==
[2019-12-31 16:09] LABS: Adenovirus F 40/41, stool Not Detected (NotDetected); Astrovirus Not Detected (NotDetected); Campylobacter Not Detected (NotDetected); Clostridium Difficile A/B, PCR Not Detected (NotDetected); Cryptosporidium Not Detected (NotDetected); Cyclospora Cayetanesis Not Detected (NotDetected); Entamoeba histolytica Not Detected (NotDetected); Enteroaggregative E coli Not Detected (NotDetected); Enteropathogenic E coli Not Detected (NotDetected); Enterotoxigenic E coli Not Detected (NotDetected); Giardia lamblia Not Detected (NotDetected); Norovirus Not Detected (NotDetected); Plesimonas Shigalloides, PCR Not Detected (NotDetected); Rotavirus A Not Detected (NotDetected); Salmonella, PCR Not Detected (NotDetected); Sapovirus Not Detected (NotDetected); Shiga-like toxin E coli Not Detected (NotDetected); Shigella Enterovasive E coli Not Detected (NotDetected); Vibrio Cholerae Not Detected (NotDetected); Vibrio, PCR Not Detected (NotDetected); Yersinia Entercolitica, PCR Not Detected (NotDetected)
[2019-12-31 18:29] LABS: Occult Blood,Stool Positive (Negative)
== END ==
PROVIDERS: Visit Provider Internal Medicine Adolescent Medicine
DX: K52.9 Noninfective gastroenteritis and colitis, unspecified (principal); K92.1 Melena
CPT/HCPCS: 82272; 87506; G0328

== ENCOUNTER → 2020-01-03 07:06 | Outpatient (CLI) | payer MEDICARE, SELFPAY ==
[2020-01-03 08:57] LABS: Basophils % 0.3 % (0.1-2.0); Eosinophils # 0.4 K/mm3 (0.0-0.4); Eosinophils % 3.1 % (0.1-12.0); Hematocrit 34.8 % (42.0-52.0); Hemoglobin 11.6 g/dL (14.1-18.0); Lymphocytes # 1.3 K/mm3 (0.7-4.5); Mean Corpuscular HGB Conc 33.4 g/dL (31.8-35.4); Mean Corpuscular Hemoglobin 32.5 pg (27.0-31.2); Mean Corpuscular Volume 97.4 fl (80-94); Mean Platelet Volume 7.9 fl (7.4-10.4); Monocytes # 0.6 K/mm3 (0.1-1.0); Monocytes % 5.2 % (1.7-9.3); Neutrophils # 9.6 K/mm3 (1.8-7.8); Neutrophils % 80.3 % (37.0-80.0); Platelet Count 293 K/mm3 (142-424); Red Blood Count 3.57 M/mm3 (4.60-6.20); Red Cell Distribution Width 13.9 % (11.5-17.5)
[2020-01-03 09:31] LABS: Chloride 104 mmol/L (98-107); Sodium 137 mmol/L (136-145)
[2020-01-03 09:32] LABS: Hemoglobin A1C 7.5 % (4.0-6.0); Potassium 4.5 mmoL/L (3.5-5.1)
[2020-01-03 09:34] LABS: Alanine Aminotransferase 20 U/L (12-78); Albumin Level 2.7 g/dl (3.5-5.0); Alkaline Phosphatase 51 U/L (38-126); Aspartate Amino Transferase 36 U/L (17-59); Bilirubin,Total 0.4 mg/dl (0.2-1.3); Blood Urea Nitrogen 27 mg/dl (9-20); Estimated Glomerular Filt Rate 36 ml/min (>60); GFR (African American) 44 ML/MIN (>60)
[2020-01-03 09:35] LABS: Albumin/Globulin Ratio 1.1 (1.1-1.8); Anion Gap 7.5 mEq/L (5-15); Calcium 7.9 mg/dl (8.4-10.2); Carbon Dioxide 30 mmol/L (22.0-30.0); Globulin 2.5 g/dL (1.3-3.2); Glucose 99 mg/dl (74-100); Total Protein,Serum 5.2 g/dl (6.3-8.2)
== END ==
PROVIDERS: Visit Provider Internal Medicine Adolescent Medicine
DX: D64.9 Anemia, unspecified (principal); I10 Essential (primary) hypertension; E11.42 Type 2 diabetes mellitus with diabetic polyneuropathy; Z79.4 Long term (current) use of insulin
CPT/HCPCS: 36415; 80053; 83036; 85025

== ENCOUNTER → 2020-01-31 07:10 | Outpatient (CLI) | payer MEDICARE, SELFPAY ==
[2020-01-31 09:55] LABS: Coronavirus 19 IgG Antibody Negative (Negative); Coronavirus 19 IgM Antibody Negative (Negative)
== END ==
PROVIDERS: Visit Provider Internal Medicine Gastroenterology
DX: Z01.818 Encounter for other preprocedural examination (principal); Z12.11 Encounter for screening for malignant neoplasm of colon; K92.1 Melena
CPT/HCPCS: 36415; 86328

== ENCOUNTER 2020-02-03 09:59 | Day surgery (SDC) | payer MEDICARE, SELFPAY ==
[2020-02-03 10:25] VITALS: BP 125/66; PULSE 77; RESP 16; TEMP 36.2; O2SAT 100; BMI 29.2
[2020-02-03 10:41] LABS: POC Glucose,Bedside 253 (70-110)
[2020-02-03 10:49] VITALS: O2SAT 97
--- NOTE | 2020-02-03 10:52 | HMH.ANESCL ---
[facility] Anesthesia Checklist - Patient Identification Patient Identification: Arm Band, Verbal (Name & ) - Structural Data Admitted From: Home Planned Operative Procedure/s: Colonoscopy Consent for Planned Operative Procedure(s) Verified: Yes Verified Documents: Surgical Consent, History and Physical - NPO Status Verified Time NPO: 00:00 - Chart Verification Results Verified: CBC, BMP - Additional verifications Anesthesia Reactions: No Hx Blood Transfusions: No Blood Transfusion Reaction: No - Airway Assessment C-Spine Mobility Assessed: Yes TMJ Mobility Assessed: Yes Dentition: Good Dentition - Neurological Assessment Level of Consciousness: Awake, Alert, Appropriate, Follows Commands Hx Seizures: No Numbness or tingling in extremities: No - Anesthesia Plan Anesthesia Risk discussed: Yes Anesthesia Plan: Verified ASA Class: III Anesthesia Type: MAC [facility] History I have reviewed the patient's past medical history: Yes Medical History: Reports:: Asthma, Atrial Fibrillation, Congestive Heart Failure, Chronic Obstructive Pulmonary Disease (COPD), Coronary Artery Disease, Diabetes Mellitus Type 2, Heart Murmur, Hyperlipidemia, Hypertension, Transient Ischemic Attacks (TIA) Denies:: Cancer, Diabetes Mellitus Type 1, Internal Pacemaker, MRSA, Seizures *Have you ever received a pneumonia vaccine?: Yes *Have you received a flu vaccine this season?: Yes Other Medical History: Reports: Anemia, Arthritis, Cataracts, Hypothyroidism, Thyroid Disease. Denies: Blood Transfusion Reaction Anesthesia experience/problems:: none Laterality Cases: Right: Total Hip Replacement Other Surgeries: Yes: CABG, Cardiac Catheterization, Cardiac Surgery, Colonoscopy, Other (cochlear implant). No: Pacemaker Amputation: No Fractures: No - *Social History Smoking Status: Never smoker Alcohol Intake: never Alcohol Intake Frequency:: other Substance Use Type: denies use *Occupational Status:: retired Housing: house Household Members: spouse *Travel in the last 8 weeks: None Family Hx:: Diabetes, Heart Attack
--- NOTE | 2020-02-03 11:17 | HMH.PROC ---
[facility] Procedure Note Procedure Note:: Colonoscopy Procedure Report: Colonoscopy with cold biopsies Endoscopist: Raj Soriano II, MD Referring physician: Lawrence Kay MD Date of Procedure: February 03, 2020 Equipment: Olympus 180 variable stiffness pediatric colonoscope Sedation: MAC sedation Indication: Mr. Wu is an 79-year-old gentleman who developed crampy abdominal discomfort, diarrhea/loose stools, gassiness and some blood in the stool. He was later tested Hemoccult positive. He had low-grade fever. This was short-term. He now has regular bowel movements and reports no bright red rectal bleeding, hematochezia or melena. He reports no abdominal pain. He has had some intentional weight loss. He reports no family history of colon cancer. The patient did have a colonoscopy in 2014 and had a tubular adenoma. He had a repeat colonoscopy in October 2015 with a tubular adenoma. Lab work did show hemoglobin 13.[address] scan of the abdomen and pelvis with contrast on December 24, 2019 showed diffuse thickening with standing of the pericolic fat at the hepatic flexure with adjacent involvement of the ascending colon and proximal transverse colon. This was felt to be related to acute severe focal colitis. There was also evidence of cholelithiasis and a 4 cm infrarenal abdominal aortic aneurysm. There was colonic diverticulosis. Procedure: Prior to the procedure, a history and physical exam was performed, and patient's medications and allergies were reviewed. The risks, benefits and alternatives of the sedation and procedure were discussed with the patient. All questions were answered and informed consent was obtained. The patient was brought to the procedure room. Patient identification and proposed procedure were verified by the physician and the nurse. The patient was placed in a left lateral decubitus position and the scope was passed under direct vision. Throughout the procedure, the patient's blood pressure, pulse, and oxygen saturations were monitored continuously. The colonoscopy was accomplished without difficulty. The patient tolerated the procedure well. Findings: On digital rectal examination there was normal rectal tone. There were no external hemorrhoids. The prostate was 2+, mildly firm but symmetric without nodules. The colonoscope was introduced through the anal canal to the rectum and advanced to the hepatic flexure. At the hepatic flexure, there was luminal stenosis with ulceration that appeared to be healing with fibrosis of the colonic mucosa and some stenosis/stricturing from healing of this acute colitis. The scope could not be advanced beyond this region due to the stenosis. There was a couple of pseudopolyps and superficial ulceration that appeared to be healing acute colitis. Biopsies were obtained. The scope was then withdrawn. The remainder of the transverse colon was normal. There were scattered diverticuli throughout the descending and sigmoid colon (LEFT colon). The rectum itself was normal. Upon retroflexion within the rectum there were grade 1-2 internal hemorrhoids. The preparation was excellent throughout with [place] Preparation Score of 9. The cecal time was 10 minutes. Impression: 1. Resolving acute self-limited colitis at the hepatic flexure with resulting sequela of some focal colonic stenosis/fibrosis status post biopsies 2. Left-sided diverticulosis 3. Grade 1-2 internal hemorrhoids Plan: I will follow-up the biopsies. I am not convinced that he will require further diagnostic colonoscopy even though I was unable to reach the cecum because of the colonic stricturing. I will discuss dietary measures and avoidance of NSAIDs. I do not know the etiology of his prior colitis which was presumptively bacterial/microbial. Intermittent ischemic colitis can give this appearance as well. I will follow-up the biopsies.
[2020-02-03 11:20] VITALS: BP 108/54; PULSE 67; RESP 12; TEMP 36.3; O2SAT 96
[2020-02-03 11:30] VITALS: BP 135/76; PULSE 76; RESP 16; O2SAT 97
[2020-02-03 11:40] VITALS: BP 161/72; PULSE 82; RESP 16; O2SAT 92
[2020-02-03 11:50] VITALS: BP 132/76; PULSE 80; RESP 16; O2SAT 94
== END 2020-02-03 12:09 | disposition home or self-care (01) ==
LOC: OUTP 10:00
PROVIDERS: PCP Internal Medicine Adolescent Medicine; Visit Provider Internal Medicine Gastroenterology
PROC: 0DJD8ZZ Inspection of Lower Intestinal Tract, Via Natural or Artificial Opening Endoscopic (ICD-10-PCS; CPT 45378; principal; 2020-02-03 11:00)
DX: K56.600 Partial intestinal obstruction, unspecified as to cause (principal); K57.30 Diverticulosis of large intestine without perforation or abscess without bleeding; K52.89 Other specified noninfective gastroenteritis and colitis; K63.3 Ulcer of intestine; Z87.19 Personal history of other diseases of the digestive system; J44.9 Chronic obstructive pulmonary disease, unspecified; I48.91 Unspecified atrial fibrillation; I11.0 Hypertensive heart disease with heart failure; I50.9 Heart failure, unspecified; E78.5 Hyperlipidemia, unspecified; E11.9 Type 2 diabetes mellitus without complications; I25.10 Atherosclerotic heart disease of native coronary artery without angina pectoris
CPT/HCPCS: 45380; 82962; 88305

== ENCOUNTER → 2020-03-03 09:27 | Outpatient (CLI) | payer MEDICARE, SELFPAY ==
--- NOTE | 2020-03-03 09:32 | US_ITS ---
APPROVED REPORT Exam Type: Lower Extremity Segmental Pressures Cardiovascular Surgical Tech: Darby Villatoro RDCS Indications Claudication: Rest Pain: Risk Factors Hypertension Hyperlipidemia Cardiac Disease Diabetes Pressures/Indices Right Indices Left Indices Brachial 132.00 mmHg Brachial 136.00 mmHg Low Thigh 159.00 mmHg 1.17 Low Thigh 156.00 mmHg 1.15 Calf 151.00 mmHg 1.11 Calf 164.00 mmHg 1.21 Ankle(PT) 159.00 mmHg 1.17 Ankle(PT) 166.00 mmHg 1.22 Ankle(DP) 150.00 mmHg 1.10 Ankle(DP) 156.00 mmHg 1.15 Digit 79.00 mmHg 0.58 Digit 114.00 mmHg 0.84 Findings R SHAHBAZ 1.2 L SHAHBAZ 1.2 R TBI .6 L TBI .8 DIMINISHED PULSES AND WAVEFORMS Conclusion R SHAHBAZ 1.2 L SHAHBAZ 1.2 R TBI .6 L TBI .8 DIMINISHED PULSES AND WAVEFORMS Electronically signed by : Gustavo Prince MD 03/03/2020 15:53:13
== END ==
PROVIDERS: PCP Internal Medicine Adolescent Medicine; Visit Provider Urology
DX: I73.9 Peripheral vascular disease, unspecified (principal)
CPT/HCPCS: 93923

== ENCOUNTER → 2020-04-03 07:05 | Outpatient (CLI) | payer MEDICARE, SELFPAY ==
[2020-04-03 08:18] LABS: Alanine Aminotransferase 27 U/L (12-78); Albumin Level 3.7 g/dl (3.5-5.0); Albumin/Globulin Ratio 1.2 (1.1-1.8); Alkaline Phosphatase 64 U/L (38-126); Anion Gap 11.3 mEq/L (5-15); Aspartate Amino Transferase 40 U/L (17-59); Bilirubin,Total 0.4 mg/dl (0.2-1.3); Blood Urea Nitrogen 26 mg/dl (9-20); Calcium 8.8 mg/dl (8.4-10.2); Carbon Dioxide 29 mmol/L (22.0-30.0); Chloride 105 mmol/L (98-107); Chol/HDL Ratio 3.9 (1-3.5); Cholesterol 169 mg/dl (140-200); Estimated Glomerular Filt Rate 45 ml/min (>60); GFR (African American) 54 ML/MIN (>60); Glucose 101 mg/dl (74-100); HDL Cholesterol 43 mg/dl (40-60); Potassium 4.3 mmoL/L (3.5-5.1); Sodium 141 mmol/L (136-145); Total Protein,Serum 6.7 g/dl (6.3-8.2); Triglycerides 103 mg/dl (30-150); VLDL Cholesterol 21 mg/dL (0-40)
[2020-04-03 08:30] LABS: Basophils # 0.1 K/mm3 (0-0.2); Basophils % 0.9 % (0.1-2.0); Eosinophils # 1.1 K/mm3 (0.0-0.4); Hematocrit 38.5 % (42.0-52.0); Hemoglobin 11.8 g/dL (14.1-18.0); Lymphocytes # 1.5 K/mm3 (0.7-4.5); Lymphocytes % 18.2 % (10-50); Mean Corpuscular HGB Conc 30.6 g/dL (31.8-35.4); Mean Corpuscular Hemoglobin 29.1 pg (27.0-31.2); Mean Platelet Volume 7.2 fl (7.4-10.4); Monocytes # 0.6 K/mm3 (0.1-1.0); Neutrophils # 5.1 K/mm3 (1.8-7.8); Neutrophils % 60.9 % (37.0-80.0); Platelet Count 232 K/mm3 (142-424); Red Blood Count 4.05 M/mm3 (4.60-6.20); Red Cell Distribution Width 14.7 % (11.5-17.5); White Blood Count 8.4 K/mm3 (4.8-10.8)
[2020-04-03 08:47] LABS: Thyroid Stimulating Hormone 0.42 uIU/mL (0.465-4.68)
[2020-04-03 09:05] LABS: Hemoglobin A1C 7.4 % (4.0-6.0)
== END ==
PROVIDERS: Visit Provider Internal Medicine Adolescent Medicine
DX: E03.9 Hypothyroidism, unspecified (principal); E11.42 Type 2 diabetes mellitus with diabetic polyneuropathy; Z79.4 Long term (current) use of insulin
CPT/HCPCS: 36415; 80053; 80061; 83036; 84443; 85025

== ENCOUNTER → 2020-04-20 07:07 | Outpatient (CLI) | payer MEDICARE, SELFPAY ==
[2020-04-20 07:58] LABS: Creatinine,Urine Random 154 mg/dL (Not Estab.)
[2020-04-20 08:49] LABS: Albumin Level 3.7 g/dl (3.5-5.0); Anion Gap 12.6 mEq/L (5-15); Blood Urea Nitrogen 29 mg/dl (9-20); Calcium 8.7 mg/dl (8.4-10.2); Carbon Dioxide 29 mmol/L (22.0-30.0); Chloride 102 mmol/L (98-107); Estimated Glomerular Filt Rate 53 ml/min (>60); GFR (African American) 64 ML/MIN (>60); Glucose 324 mg/dl (74-100); Phosphorous 3.3 mg/dl (2.5-4.5); Potassium 4.6 mmoL/L (3.5-5.1); Sodium 139 mmol/L (136-145); Uric Acid 8.6 mg/dl (3.5-8.5)
[2020-04-20 09:01] LABS: Intact Parathyroid Hormone 168.1 pg/mL (7.5-53.5)
[2020-04-20 09:05] LABS: 25-OH Vitamin D, Total 37.8 ng/mL (30-100)
== END ==
PROVIDERS: Visit Provider Internal Medicine Nephrology
DX: N28.9 Disorder of kidney and ureter, unspecified (principal)
CPT/HCPCS: 36415; 80069; 82306; 82570; 83970; 84155; 84550

== ENCOUNTER → 2020-07-03 07:07 | Outpatient (CLI) | payer MEDICARE, SELFPAY ==
[2020-07-03 07:37] LABS: Basophils # 0.1 K/mm3 (0-0.2); Basophils % 0.7 % (0.1-2.0); Eosinophils # 0.8 K/mm3 (0.0-0.4); Eosinophils % 8.7 % (0.1-12.0); Hematocrit 40.8 % (42.0-52.0); Hemoglobin 13.2 g/dL (14.1-18.0); Lymphocytes # 1.5 K/mm3 (0.7-4.5); Lymphocytes % 16.3 % (10-50); Mean Corpuscular HGB Conc 32.4 g/dL (31.8-35.4); Mean Corpuscular Hemoglobin 29.8 pg (27.0-31.2); Mean Corpuscular Volume 92.2 fl (80-94); Mean Platelet Volume 7.5 fl (7.4-10.4); Monocytes # 0.4 K/mm3 (0.1-1.0); Monocytes % 4.1 % (1.7-9.3); Neutrophils # 6.5 K/mm3 (1.8-7.8); Neutrophils % 70.2 % (37.0-80.0); Platelet Count 241 K/mm3 (142-424); Red Blood Count 4.43 M/mm3 (4.60-6.20); Red Cell Distribution Width 15.8 % (11.5-17.5); White Blood Count 9.3 K/mm3 (4.8-10.8)
[2020-07-03 08:31] LABS: Alanine Aminotransferase 32 U/L (12-78); Albumin Level 3.7 g/dl (3.5-5.0); Albumin/Globulin Ratio 1.2 (1.1-1.8); Alkaline Phosphatase 64 U/L (38-126); Anion Gap 10.3 mEq/L (5-15); Aspartate Amino Transferase 45 U/L (17-59); Bilirubin,Total 0.7 mg/dl (0.2-1.3); Blood Urea Nitrogen 23 mg/dl (9-20); Calcium 8.8 mg/dl (8.4-10.2); Carbon Dioxide 32 mmol/L (22.0-30.0); Chloride 102 mmol/L (98-107); Estimated Glomerular Filt Rate 49 ml/min (>60); GFR (African American) 59 ML/MIN (>60); Globulin 3.2 g/dL (1.3-3.2); Glucose 154 mg/dl (74-100); Potassium 4.3 mmoL/L (3.5-5.1); Sodium 140 mmol/L (136-145); Total Protein,Serum 6.9 g/dl (6.3-8.2)
[2020-07-03 08:42] LABS: Hemoglobin A1C 7.9 % (4.0-6.0)
== END ==
PROVIDERS: Visit Provider Internal Medicine Adolescent Medicine
DX: E11.42 Type 2 diabetes mellitus with diabetic polyneuropathy (principal); Z79.4 Long term (current) use of insulin
CPT/HCPCS: 36415; 80053; 83036; 85025

== ENCOUNTER → 2020-07-22 12:43 | Outpatient (CLI) | payer MEDICARE, SELFPAY | PROVIDERS: PCP Internal Medicine Adolescent Medicine; Visit Provider Nurse Practitioner Family | DX: G47.33 Obstructive sleep apnea (adult) (pediatric) (principal); G25.81 Restless legs syndrome | CPT/HCPCS: G0399 ==

== ENCOUNTER → 2020-07-27 14:08 | Outpatient (CLI) | payer MEDICARE, SELFPAY ==
[2020-07-27 15:19] LABS: Anion Gap 9.3 mEq/L (5-15); Blood Urea Nitrogen 28 mg/dl (9-20); Calcium 9.4 mg/dl (8.4-10.2); Carbon Dioxide 31 mmol/L (22.0-30.0); Chloride 104 mmol/L (98-107); Estimated Glomerular Filt Rate 53 ml/min (>60); GFR (African American) 64 ML/MIN (>60); Glucose 94 mg/dl (74-100); Potassium 4.3 mmoL/L (3.5-5.1); Sodium 140 mmol/L (136-145)
[2020-07-27 15:49] LABS: Prostate Specific Ag Screen 0.9 ng/ml (0.0-4.0)
== END ==
PROVIDERS: Urology; Visit Provider Urology
DX: I25.10 Atherosclerotic heart disease of native coronary artery without angina pectoris (principal); R06.00 Dyspnea, unspecified; Z12.5 Encounter for screening for malignant neoplasm of prostate
CPT/HCPCS: 36415; 80048; G0103

== ENCOUNTER → 2020-07-31 07:40 | Outpatient (CLI) | payer MEDICARE, SELFPAY ==
--- NOTE | 2020-07-31 07:42 | CT_ITS ---
PROCEDURE: CT ABDOMEN PELVIS WO CON CLINICAL INDICATION: ACUTE KIDNEY FAILURE,HTN,HEMATURIA,TYPE II DIABETES COMPARISON: CT CT ABDOMEN PELVIS W CON from 12/24/2019 TECHNIQUE: Axial images obtained with sagittal and coronal reformats. All CT scans at the facility use one or more dose reduction, viz: automated exposure control, ma/kV adjustment per patient size (including targeted exams where dose is matched to indication, i.e. head), or iterative reconstruction technique. FINDINGS: LOWER THORAX: There is scarring and/or atelectatic changes in both lower lobes. There has been a prior CABG. ABDOMEN & PELVIS: Cholelithiasis noted. There are small stones in the fundus of the gallbladder and a large stone in the body of the gallbladder measuring 17 mm. Duodenal diverticulum is noted No evidence of appendicitis. There is elise colonic diverticulosis but no evidence of diverticulitis. Previously noted severe colonic thickening in the hepatic flexure and transverse colon have improved there is a small umbilical hernia which contains fat. There is a loop of small bowel at the ostium of the hernia however, the small bowel does not extend into the hernia. No evidence of intestinal obstruction or free air. No renal calculi or hydronephrosis. There remains a 10 mm calcific density at the right ureterovesical junction consistent with a ureteral stone. However, there is no evidence of hydronephrosis or hydroureter. There is a fusiform infrarenal abdominal aortic aneurysm measuring 3.9 x 3.9 cm not significantly changed. No evidence of retroperitoneal hemorrhage. There is a small left inguinal hernia containing fat. Prostate seed implants are present with persistent prominence of the seminal vesicles. Artifact is present from right hip prosthesis. Lipoma is present in the right paravertebral muscles in the lower thoracic region and upper lumbar area. No acute bony findings. There is avascular necrosis of the left femoral head IMPRESSION: 1. Cholelithiasis 2. Pancolonic diverticulosis without diverticulitis. 3. Persistent 10 mm calcific density at the region of the right ureterovesical junction suggesting right UVJ stone without hydronephrosis or hydroureter. 4. No change abdominal aortic aneurysm 5. Left femoral head avascular necrosis Dictated by: Gustavo Prince MD 08/02/2020 12:43 Gustavo Prince MD in [place] 08/02/2020 12:43
== END ==
PROVIDERS: PCP Internal Medicine Adolescent Medicine; Visit Provider Internal Medicine Nephrology
DX: R31.9 Hematuria, unspecified (principal); N17.9 Acute kidney failure, unspecified; I12.9 Hypertensive chronic kidney disease with stage 1 through stage 4 chronic kidney disease, or unspecified chronic kidney disease; N18.2 Chronic kidney disease, stage 2 (mild); E11.65 Type 2 diabetes mellitus with hyperglycemia; Z79.4 Long term (current) use of insulin
CPT/HCPCS: 74176

== ENCOUNTER → 2020-09-07 07:17 | Outpatient (CLI) | payer MEDICARE, SELFPAY ==
[2020-09-07 07:21] LABS: Microscopic, Urine URINE MICROSCOPIC (MICROSCOPIC)
[2020-09-07 07:47] LABS: Appearance,Urine CLEAR (Clear); Bilirubin,Urine Negative (Negative); Blood, Urine TRACE-I (Negative); Color,Urine YELLOW (Yellow); Glucose,Urine (UA) 3+ (Negative); Ketones,Urine Negative (Negative); Leukocyte Esterase,Urine Negative (Negative); Nitrate,Urine Negative (Negative); PH,Urine 5.5 (5.0-8.5); Protein,Urine Negative (Negative); Specific Gravity, Urine 1.025 (1.005-1.030); Urobilinogen,Urine 0.2 EU/dl (0.2)
[2020-09-07 08:06] LABS: Squamous Epithelial Cell,Urine Occasional #/hpf (0-5)
[2020-09-07 08:15] LABS: Creatinine,Urine Random 99 mg/dL (Not Estab.)
[2020-09-07 08:49] LABS: Hemoglobin A1C 8.3 % (4.0-6.0)
[2020-09-07 08:56] LABS: Albumin Level 3.6 g/dl (3.5-5.0); Anion Gap 9.8 mEq/L (5-15); Blood Urea Nitrogen 28 mg/dl (9-20); Calcium 8.8 mg/dl (8.4-10.2); Carbon Dioxide 28 mmol/L (22.0-30.0); Chloride 103 mmol/L (98-107); Estimated Glomerular Filt Rate 58 ml/min (>60); GFR (African American) 70 ML/MIN (>60); Phosphorous 3.6 mg/dl (2.5-4.5); Potassium 4.8 mmoL/L (3.5-5.1); Sodium 136 mmol/L (136-145); Uric Acid 8.1 mg/dl (3.5-8.5)
[2020-09-07 09:08] LABS: Intact Parathyroid Hormone 105.3 pg/mL (7.5-53.5)
[2020-09-07 09:14] LABS: 25-OH Vitamin D, Total 29.1 ng/mL (30-100)
[2020-09-07 09:59] LABS: Glucose 418 mg/dl (74-100)
== END ==
PROVIDERS: Visit Provider Internal Medicine Nephrology
DX: N17.9 Acute kidney failure, unspecified (principal); N18.2 Chronic kidney disease, stage 2 (mild); E11.65 Type 2 diabetes mellitus with hyperglycemia; R31.9 Hematuria, unspecified; E55.9 Vitamin D deficiency, unspecified; Z79.4 Long term (current) use of insulin; I12.9 Hypertensive chronic kidney disease with stage 1 through stage 4 chronic kidney disease, or unspecified chronic kidney disease
CPT/HCPCS: 36415; 80069; 81001; 82306; 82570; 83036; 83970; 84155; 84550

== ENCOUNTER → 2020-09-18 12:14 | Outpatient (POV) | payer MEDICARE, SELFPAY ==
[2020-09-18 12:31] LABS: Basophils # 0.1 K/mm3 (0-0.2); Basophils % 0.8 % (0.1-2.0); Eosinophils # 0.8 K/mm3 (0.0-0.4); Eosinophils % 8.7 % (0.1-12.0); Hematocrit 40.9 % (42.0-52.0); Hemoglobin 13.4 g/dL (14.1-18.0); Lymphocytes # 1.7 K/mm3 (0.7-4.5); Lymphocytes % 17.7 % (10-50); Mean Corpuscular HGB Conc 32.8 g/dL (31.8-35.4); Mean Corpuscular Hemoglobin 30.6 pg (27.0-31.2); Mean Corpuscular Volume 93.4 fl (80-94); Mean Platelet Volume 7.8 fl (7.4-10.4); Monocytes # 0.5 K/mm3 (0.1-1.0); Neutrophils # 6.3 K/mm3 (1.8-7.8); Neutrophils % 67.8 % (37.0-80.0); Platelet Count 219 K/mm3 (142-424); Red Blood Count 4.38 M/mm3 (4.60-6.20); Red Cell Distribution Width 14.8 % (11.5-17.5); White Blood Count 9.3 K/mm3 (4.8-10.8)
[2020-09-18 13:08] LABS: Hemoglobin A1C 8.3 % (4.0-6.0)
[2020-09-18 13:51] LABS: Alanine Aminotransferase 27 U/L (12-78); Albumin Level 3.9 g/dl (3.5-5.0); Albumin/Globulin Ratio 1.3 (1.1-1.8); Alkaline Phosphatase 60 U/L (38-126); Anion Gap 11.2 mEq/L (5-15); Aspartate Amino Transferase 41 U/L (17-59); Bilirubin,Total 0.6 mg/dl (0.2-1.3); Blood Urea Nitrogen 24 mg/dl (9-20); Calcium 8.8 mg/dl (8.4-10.2); Carbon Dioxide 30 mmol/L (22.0-30.0); Chloride 104 mmol/L (98-107); Estimated Glomerular Filt Rate 49 ml/min (>60); GFR (African American) 59 ML/MIN (>60); Potassium 4.2 mmoL/L (3.5-5.1); Sodium 141 mmol/L (136-145); Total Protein,Serum 6.9 g/dl (6.3-8.2)
[2020-09-18 14:23] LABS: Thyroid Stimulating Hormone 0.26 uIU/mL (0.465-4.68)
[2020-09-18 14:47] LABS: Glucose 50 mg/dl (74-100)
== END ==
PROVIDERS: PCP Internal Medicine Adolescent Medicine; Visit Provider Internal Medicine Nephrology
DX: E11.42 Type 2 diabetes mellitus with diabetic polyneuropathy (principal); E03.9 Hypothyroidism, unspecified; Z79.4 Long term (current) use of insulin
CPT/HCPCS: 36415; 80053; 83036; 84443; 85025

== ENCOUNTER → 2020-11-11 07:15 | Outpatient (CLI) | payer MEDICARE, SELFPAY ==
[2020-11-11 08:04] LABS: Basophils # 0.1 K/mm3 (0-0.2); Basophils % 0.6 % (0.1-2.0); Eosinophils # 0.6 K/mm3 (0.0-0.4); Eosinophils % 6.2 % (0.1-12.0); Hematocrit 35.1 % (42.0-52.0); Hemoglobin 11.3 g/dL (14.1-18.0); Lymphocytes # 1.1 K/mm3 (0.7-4.5); Lymphocytes % 11.4 % (10-50); Mean Corpuscular HGB Conc 32.2 g/dL (31.8-35.4); Mean Corpuscular Hemoglobin 30.6 pg (27.0-31.2); Mean Corpuscular Volume 95.2 fl (80-94); Mean Platelet Volume 7.7 fl (7.4-10.4); Monocytes # 0.5 K/mm3 (0.1-1.0); Monocytes % 5.1 % (1.7-9.3); Neutrophils # 7.2 K/mm3 (1.8-7.8); Neutrophils % 76.6 % (37.0-80.0); Platelet Count 255 K/mm3 (142-424); Red Blood Count 3.68 M/mm3 (4.60-6.20); Red Cell Distribution Width 14.4 % (11.5-17.5); White Blood Count 9.4 K/mm3 (4.8-10.8)
[2020-11-11 08:17] LABS: Alanine Aminotransferase 28 U/L (12-78); Albumin Level 3.4 g/dl (3.5-5.0); Albumin/Globulin Ratio 1.2 (1.1-1.8); Alkaline Phosphatase 60 U/L (38-126); Anion Gap 8.4 mEq/L (5-15); Aspartate Amino Transferase 41 U/L (17-59); Bilirubin,Total 0.8 mg/dl (0.2-1.3); Blood Urea Nitrogen 23 mg/dl (9-20); Calcium 8.3 mg/dl (8.4-10.2); Carbon Dioxide 28 mmol/L (22.0-30.0); Chloride 105 mmol/L (98-107); Estimated Glomerular Filt Rate 58 ml/min (>60); GFR (African American) 70 ML/MIN (>60); Globulin 2.8 g/dL (1.3-3.2); Glucose 338 mg/dl (74-100); Potassium 5.4 mmoL/L (3.5-5.1); Sodium 136 mmol/L (136-145); Total Protein,Serum 6.2 g/dl (6.3-8.2)
[2020-11-11 08:27] LABS: Hemoglobin A1C 7.4 % (4.0-6.0)
[2020-11-11 08:46] LABS: Thyroid Stimulating Hormone 0.84 uIU/mL (0.465-4.68)
== END ==
PROVIDERS: Visit Provider Internal Medicine Adolescent Medicine
DX: E11.42 Type 2 diabetes mellitus with diabetic polyneuropathy (principal); E03.9 Hypothyroidism, unspecified; Z79.4 Long term (current) use of insulin
CPT/HCPCS: 36415; 80053; 83036; 84443; 85025

== ENCOUNTER → 2020-12-09 07:02 | Outpatient (CLI) | payer MEDICARE, SELFPAY | PROVIDERS: Visit Provider Internal Medicine Gastroenterology | DX: Z01.812 Encounter for preprocedural laboratory examination (principal); Z20.822 Contact with and (suspected) exposure to COVID-19; Z12.2 Encounter for screening for malignant neoplasm of respiratory organs | CPT/HCPCS: U0003 ==

== ENCOUNTER 2020-12-11 08:57 | Day surgery (SDC) | payer MEDICARE, SELFPAY ==
[2020-12-01 13:55] VITALS: BMI 28.7
[2020-12-11] VITALS (7 sets, daily range): BP systolic 108–136; BP diastolic 51–72; PULSE 73–96; RESP 16–18; TEMP 36.2–36.8; O2SAT 95–98
--- NOTE | 2020-12-11 09:35 | HMH.ANESCL ---
[facility] Anesthesia Checklist - Patient Identification Patient Identification: Arm Band - Structural Data Admitted From: Home Planned Operative Procedure/s: Colonoscopy Consent for Planned Operative Procedure(s) Verified: Yes - NPO Status Verified Time NPO: 00:00 - Additional verifications Anesthesia Reactions: No Hx Blood Transfusions: No Blood Transfusion Reaction: No - Airway Assessment C-Spine Mobility Assessed: Yes TMJ Mobility Assessed: Yes Dentition: Good Dentition - Neurological Assessment Level of Consciousness: Awake Hx Seizures: No Numbness or tingling in extremities: No - Anesthesia Plan Anesthesia Risk discussed: Yes Anesthesia Plan: Verified ASA Class: III Anesthesia Type: MAC [facility] History Medical History: Reports:: Asthma, Atrial Fibrillation, Congestive Heart Failure, Chronic Obstructive Pulmonary Disease (COPD), Coronary Artery Disease, Diabetes Mellitus Type 2, Heart Murmur, Hyperlipidemia, Hypertension, Transient Ischemic Attacks (TIA) Denies:: Cancer, Diabetes Mellitus Type 1, Internal Pacemaker, MRSA, Seizures *Have you ever received a pneumonia vaccine?: Yes *Have you received a flu vaccine this season?: Yes Other Medical History: Reports: Anemia, Arthritis, Cataracts, Hypothyroidism, Thyroid Disease. Denies: Blood Transfusion Reaction Anesthesia experience/problems:: None Laterality Cases: Right: Total Hip Replacement Other Surgeries: Yes: No Previous Surgery, CABG, Cardiac Catheterization, Cardiac Surgery, Colonoscopy, Open Heart Surgery, Other (cochlear implant). No: Pacemaker Amputation: No Fractures: No - *Social History Last grade of school completed: Advanced degree Smoking Status: Never smoker Alcohol Intake: never Alcohol Intake Frequency:: other Substance Use Type: denies use *Occupational Status:: retired Housing: house Household Members: spouse *Travel in the last 8 weeks: None Family Hx:: Coronary Artery Disease, Heart Attack, Hyperlipidemia, Hypertension
[2020-12-11 09:48] LABS: POC Glucose,Bedside 283 (70-110)
--- NOTE | 2020-12-11 10:33 | HMH.PROC ---
[facility] Procedure Note Procedure Note:: Colonoscopy Procedure Report: Colonoscopy with cold snare polypectomy Endoscopist: Raj Soriano II, MD Referring physician: Lawrence Kay MD Date of Procedure: December 11, 2020 Equipment: Olympus 190 variable stiffness pediatric colonoscope Sedation: MAC sedation Indication: Mr. Wu is an 80-year-old gentleman who recently had one episode of moderate bright red blood per rectum that did fill the commode. This happened 3 to 4 weeks ago and did not recur. He states that he was eating some grapes the night before. He reports no abdominal pain, change in his bowel habits or family history of colon cancer. He has had some intentional weight loss over the last year (approximately 10 pounds). He did have a colonoscopy by me in January 2020 that was done for diarrhea and some blood in the stool. He was Hemoccult positive at that time. His colonoscopy at that time showed resolving acute self-limited colitis with focal stenosis involving the hepatic flexure. At that time, the right colon and cecum were not visualized because of this colonic stricture. Procedure: Prior to the procedure, a history and physical exam was performed, and patient's medications and allergies were reviewed. The risks, benefits and alternatives of the sedation and procedure were discussed with the patient. All questions were answered and informed consent was obtained. The patient was brought to the procedure room. Patient identification and proposed procedure were verified by the physician and the nurse. The patient was placed in a left lateral decubitus position and the scope was passed under direct vision. Throughout the procedure, the patient's blood pressure, pulse, and oxygen saturations were monitored continuously. The colonoscopy was accomplished without difficulty. The patient tolerated the procedure well. Findings: On digital rectal examination there was normal rectal tone. There were no external hemorrhoids. The colonoscope was introduced through the anal canal to the rectum and advanced to the cecum. There was resolution of the hepatic flexure stricture with some mucosal fibrosis at the site from healing. The ileocecal valve and appendiceal orifice were identified. The scope was advanced a short distance into the ileum which appeared grossly normal. The scope was then withdrawn into the colon. There were a total of 5 colon polyps (cecal x2 (3 and 4 mm), descending x1 (6 mm) and sigmoid x2 (3 and 9 mm)) which were all removed via cold snare polypectomy. There were scattered diverticuli throughout the colon but more predominantly in the descending and sigmoid colon. The rectum itself was normal. Upon retroflexion within the rectum there were grade 2 internal hemorrhoids. The preparation was excellent throughout with [place] Preparation Score of 9. The cecal time was 14 minutes. Impression: 1. Colon polyps x5 2. Pandiverticulosis 3. Grade 2 internal hemorrhoids Plan: The patient had one episode of bleeding which was likely hemorrhoidal in nature. I will encourage bulk fiber supplementation on a long-term daily maintenance basis. I do feel the polyps are adenomatous but based upon his age, I would not recommend further surveillance unless any of the polyps are advanced (villous histology).
== END 2020-12-11 11:35 | disposition home or self-care (01) ==
LOC: OUTP 09:00
PROVIDERS: PCP Internal Medicine Adolescent Medicine; Visit Provider Internal Medicine Gastroenterology
PROC: 0DJD8ZZ Inspection of Lower Intestinal Tract, Via Natural or Artificial Opening Endoscopic (ICD-10-PCS; CPT 45378; principal; 2020-12-11 10:00)
DX: K63.5 Polyp of colon (principal); K57.30 Diverticulosis of large intestine without perforation or abscess without bleeding; K64.1 Second degree hemorrhoids; I48.91 Unspecified atrial fibrillation; I11.0 Hypertensive heart disease with heart failure; I50.9 Heart failure, unspecified; J44.9 Chronic obstructive pulmonary disease, unspecified; I25.10 Atherosclerotic heart disease of native coronary artery without angina pectoris; E78.5 Hyperlipidemia, unspecified; Z86.73 Personal history of transient ischemic attack (TIA), and cerebral infarction without residual deficits; D64.9 Anemia, unspecified; M19.90 Unspecified osteoarthritis, unspecified site
CPT/HCPCS: 45385; 82962; 88305; J2704

== ENCOUNTER → 2021-02-18 07:03 | Outpatient (CLI) | payer MEDICARE, SELFPAY ==
[2021-02-18 07:39] LABS: Basophils # 0.1 K/mm3 (0-0.2); Basophils % 0.7 % (0.1-2.0); Eosinophils # 0.8 K/mm3 (0.0-0.4); Hematocrit 41.6 % (42.0-52.0); Hemoglobin 13.1 g/dL (14.1-18.0); Lymphocytes # 1.2 K/mm3 (0.7-4.5); Lymphocytes % 14.8 % (10-50); Mean Corpuscular HGB Conc 31.5 g/dL (31.8-35.4); Mean Corpuscular Hemoglobin 30.1 pg (27.0-31.2); Mean Corpuscular Volume 95.6 fl (80-94); Mean Platelet Volume 8.5 fl (7.4-10.4); Monocytes # 0.3 K/mm3 (0.1-1.0); Neutrophils # 5.5 K/mm3 (1.8-7.8); Neutrophils % 70.5 % (37.0-80.0); Platelet Count 225 K/mm3 (142-424); Red Blood Count 4.35 M/mm3 (4.60-6.20); Red Cell Distribution Width 14.9 % (11.5-17.5); White Blood Count 7.8 K/mm3 (4.8-10.8)
[2021-02-18 08:10] LABS: Hemoglobin A1C 6.2 % (4.0-6.0)
[2021-02-18 08:18] LABS: Alanine Aminotransferase 26 U/L (12-78); Albumin Level 3.5 g/dl (3.5-5.0); Albumin/Globulin Ratio 1.3 (1.1-1.8); Alkaline Phosphatase 60 U/L (38-126); Anion Gap 14.7 mEq/L (5-15); Aspartate Amino Transferase 35 U/L (17-59); Bilirubin,Total 0.9 mg/dl (0.2-1.3); Blood Urea Nitrogen 30 mg/dl (9-20); Calcium 8.3 mg/dl (8.4-10.2); Carbon Dioxide 29 mmol/L (22.0-30.0); Chloride 98 mmol/L (98-107); Estimated Glomerular Filt Rate 53 ml/min (>60); GFR (African American) 64 ML/MIN (>60); Globulin 2.8 g/dL (1.3-3.2); Glucose 362 mg/dl (74-100); Potassium 4.7 mmoL/L (3.5-5.1); Sodium 137 mmol/L (136-145); Total Protein,Serum 6.3 g/dl (6.3-8.2)
== END ==
PROVIDERS: Visit Provider Internal Medicine Adolescent Medicine
DX: E11.42 Type 2 diabetes mellitus with diabetic polyneuropathy (principal); D64.9 Anemia, unspecified; Z79.4 Long term (current) use of insulin
CPT/HCPCS: 36415; 80053; 83036; 85025

== ENCOUNTER → 2021-03-08 07:12 | Outpatient (CLI) | payer MEDICARE, SELFPAY ==
[2021-03-08 07:17] LABS: Microscopic, Urine URINE MICROSCOPIC (MICROSCOPIC)
[2021-03-08 09:26] LABS: Hemoglobin 12.8 g/dL (14.1-18.0); Mean Corpuscular HGB Conc 31.1 g/dL (31.8-35.4); Mean Corpuscular Hemoglobin 30.6 pg (27.0-31.2); Mean Corpuscular Volume 98.1 fl (80-94); Platelet Count 231 K/mm3 (142-424); Red Blood Count 4.18 M/mm3 (4.60-6.20); Red Cell Distribution Width 14.4 % (11.5-17.5); White Blood Count 6.6 K/mm3 (4.8-10.8)
[2021-03-08 09:53] LABS: Creatinine,Urine Random 101 mg/dL (Not Estab.)
[2021-03-08 10:45] LABS: 25-OH Vitamin D, Total 37.1 ng/mL (30-100)
[2021-03-08 10:45] LABS: Alanine Aminotransferase 28 U/L (12-78); Albumin Level 3.4 g/dl (3.5-5.0); Albumin/Globulin Ratio 1.1 (1.1-1.8); Alkaline Phosphatase 63 U/L (38-126); Anion Gap 14.8 mEq/L (5-15); Aspartate Amino Transferase 44 U/L (17-59); Bilirubin,Total 0.5 mg/dl (0.2-1.3); Blood Urea Nitrogen 27 mg/dl (9-20); Calcium 8.1 mg/dl (8.4-10.2); Carbon Dioxide 27 mmol/L (22.0-30.0); Chloride 98 mmol/L (98-107); Estimated Glomerular Filt Rate 58 ml/min (>60); GFR (African American) 70 ML/MIN (>60); Potassium 4.8 mmoL/L (3.5-5.1); Sodium 135 mmol/L (136-145); Total Protein,Serum 6.4 g/dl (6.3-8.2); Uric Acid 8.8 mg/dl (3.5-8.5)
[2021-03-08 11:07] LABS: Glucose 445 mg/dl (74-100)
[2021-03-08 12:20] LABS: Hemoglobin A1C 8.4 % (4.0-6.0)
[2021-03-08 12:27] LABS: Appearance,Urine CLEAR (Clear); Bilirubin,Urine Negative (Negative); Blood, Urine TRACE-I (Negative); Color,Urine YELLOW (Yellow); Glucose,Urine (UA) 3+ (Negative); Ketones,Urine Negative (Negative); Leukocyte Esterase,Urine Negative (Negative); Nitrate,Urine Negative (Negative); Protein,Urine Negative (Negative); Urobilinogen,Urine 0.2 EU/dl (0.2)
[2021-03-08 12:39] LABS: Bacteria,Urine Trace /lpf; RBC,Urine Occasional #/hpf (0-3); Squamous Epithelial Cell,Urine Occasional #/hpf (0-5)
== END ==
PROVIDERS: Visit Provider Internal Medicine Nephrology
DX: E11.65 Type 2 diabetes mellitus with hyperglycemia (principal); N18.30 Chronic kidney disease, stage 3 unspecified; E55.9 Vitamin D deficiency, unspecified; Z79.4 Long term (current) use of insulin; I12.9 Hypertensive chronic kidney disease with stage 1 through stage 4 chronic kidney disease, or unspecified chronic kidney disease
CPT/HCPCS: 36415; 80053; 81001; 82306; 82570; 83036; 83970; 84155; 84550; 85014; 85018; 85048; 85049

== ENCOUNTER → 2021-03-19 14:26 | Outpatient (POV) | payer MEDICARE, SELFPAY | PROVIDERS: Visit Provider Internal Medicine Nephrology | DX: Z00.00 Encounter for general adult medical examination without abnormal findings (principal) ==

== ENCOUNTER → 2021-05-12 07:20 | Outpatient (CLI) | payer MEDICARE, SELFPAY ==
[2021-05-12 09:15] LABS: Thyroid Stimulating Hormone 0.16 uIU/mL (0.465-4.68)
[2021-05-12 09:55] LABS: Hemoglobin A1C 7.7 % (4.0-6.0)
[2021-05-12 22:11] LABS: Chloride 99 mmol/L (98-107); Potassium 4.6 mmoL/L (3.5-5.1); Sodium 134 mmol/L (136-145)
[2021-05-12 22:14] LABS: Alanine Aminotransferase 22 U/L (12-78); Albumin Level 3.4 g/dl (3.5-5.0); Albumin/Globulin Ratio 1.2 (1.1-1.8); Alkaline Phosphatase 74 U/L (38-126); Anion Gap 11.6 mEq/L (5-15); Aspartate Amino Transferase 33 U/L (17-59); Bilirubin,Total 0.8 mg/dl (0.2-1.3); Blood Urea Nitrogen 26 mg/dl (9-20); Calcium 8.3 mg/dl (8.4-10.2); Carbon Dioxide 28 mmol/L (22.0-30.0); Estimated Glomerular Filt Rate 53 ml/min (>60); GFR (African American) 64 ML/MIN (>60); Globulin 2.9 g/dL (1.3-3.2); Glucose 375 mg/dl (74-100); Total Protein,Serum 6.3 g/dl (6.3-8.2)
== END ==
PROVIDERS: Visit Provider Internal Medicine Adolescent Medicine
DX: E11.42 Type 2 diabetes mellitus with diabetic polyneuropathy (principal); E03.9 Hypothyroidism, unspecified; Z79.4 Long term (current) use of insulin
CPT/HCPCS: 36415; 80053; 83036; 84443

== ENCOUNTER → 2021-05-25 10:54 | Outpatient (POV) | payer MEDICARE, SELFPAY | PROVIDERS: Visit Provider Dermatology | DX: Z00.00 Encounter for general adult medical examination without abnormal findings (principal) ==

== ENCOUNTER → 2021-07-27 09:31 | Outpatient (CLI) | payer MEDICARE, SELFPAY ==
[2021-07-27 11:47] LABS: Prostate Specific Ag, Diagnost 0.746 ng/ml (0.0-4.0)
== END ==
PROVIDERS: PCP Internal Medicine Adolescent Medicine; Visit Provider Urology
DX: N40.1 Benign prostatic hyperplasia with lower urinary tract symptoms (principal)
CPT/HCPCS: 36415; 84153

== ENCOUNTER → 2021-08-12 07:00 | Outpatient (CLI) | payer MEDICARE, SELFPAY ==
[2021-08-12 08:47] LABS: Chloride 97 mmol/L (98-107); Potassium 4.4 mmoL/L (3.5-5.1); Sodium 132 mmol/L (136-145)
[2021-08-12 08:50] LABS: Alanine Aminotransferase 20 U/L (12-78); Albumin Level 3.7 g/dl (3.5-5.0); Albumin/Globulin Ratio 1.3 (1.1-1.8); Alkaline Phosphatase 77 U/L (38-126); Anion Gap 9.4 mEq/L (5-15); Aspartate Amino Transferase 31 U/L (17-59); Blood Urea Nitrogen 44 mg/dl (9-20); Calcium 8.1 mg/dl (8.4-10.2); Carbon Dioxide 30 mmol/L (22.0-30.0); Estimated Glomerular Filt Rate 48 ml/min (>60); GFR (African American) 59 ML/MIN (>60); Globulin 2.8 g/dL (1.3-3.2); Glucose 193 mg/dl (74-100); Total Protein,Serum 6.5 g/dl (6.3-8.2)
[2021-08-12 09:34] LABS: Hemoglobin A1C 8.2 % (4.0-6.0)
== END ==
PROVIDERS: PCP Internal Medicine Adolescent Medicine; Visit Provider Internal Medicine Adolescent Medicine
DX: E11.42 Type 2 diabetes mellitus with diabetic polyneuropathy (principal); N18.30 Chronic kidney disease, stage 3 unspecified; Z79.4 Long term (current) use of insulin
CPT/HCPCS: 36415; 80053; 83036

== ENCOUNTER → 2021-09-06 07:10 | Outpatient (CLI) | payer MEDICARE, SELFPAY ==
[2021-09-06 07:17] LABS: Microscopic, Urine URINE MICROSCOPIC (MICROSCOPIC)
[2021-09-06 07:56] LABS: Hematocrit 42.1 % (42.0-52.0); Hemoglobin 13.2 g/dL (14.1-18.0); Mean Corpuscular HGB Conc 31.4 g/dL (31.8-35.4); Mean Corpuscular Hemoglobin 31.4 pg (27.0-31.2); Platelet Count 236 K/mm3 (142-424); Red Blood Count 4.21 M/mm3 (4.60-6.20); Red Cell Distribution Width 15.3 % (11.5-17.5); White Blood Count 9.1 K/mm3 (4.8-10.8)
[2021-09-06 08:39] LABS: Alanine Aminotransferase 28 U/L (12-78); Albumin/Globulin Ratio 1.5 (1.1-1.8); Alkaline Phosphatase 60 U/L (38-126); Anion Gap 13.9 mEq/L (5-15); Aspartate Amino Transferase 33 U/L (17-59); Bilirubin,Total 1.2 mg/dl (0.2-1.3); Blood Urea Nitrogen 29 mg/dl (9-20); Calcium 8.5 mg/dl (8.4-10.2); Carbon Dioxide 30 mmol/L (22.0-30.0); Chloride 99 mmol/L (98-107); Estimated Glomerular Filt Rate 48 ml/min (>60); GFR (African American) 59 ML/MIN (>60); Globulin 2.7 g/dL (1.3-3.2); Glucose 196 mg/dl (74-100); Potassium 3.9 mmoL/L (3.5-5.1); Sodium 139 mmol/L (136-145); Total Protein,Serum 6.7 g/dl (6.3-8.2)
[2021-09-06 08:52] LABS: Intact Parathyroid Hormone 184.6 pg/mL (7.5-53.5)
[2021-09-06 08:57] LABS: 25-OH Vitamin D, Total 47.5 ng/mL (30-100)
[2021-09-06 11:08] LABS: Appearance,Urine CLEAR (Clear); Bilirubin,Urine Negative (Negative); Blood, Urine 1+ (Negative); Color,Urine YELLOW (Yellow); Glucose,Urine (UA) Negative (Negative); Ketones,Urine Negative (Negative); Leukocyte Esterase,Urine Negative (Negative); Nitrate,Urine Negative (Negative); PH,Urine 5.5 (5.0-8.5); Protein,Urine Negative (Negative); Urobilinogen,Urine 0.2 EU/dl (0.2)
[2021-09-06 11:18] LABS: Hemoglobin A1C 7.9 % (4.0-6.0)
[2021-09-06 11:21] LABS: Creatinine,Urine Random 202 mg/dL (Not Estab.); Total Protein,Urine Random < 5.0 mg/dL (0.0-12.0)
[2021-09-06 11:49] LABS: Bacteria,Urine Trace /lpf; Squamous Epithelial Cell,Urine Occasional #/hpf (0-5)
--- NOTE | 2021-09-06 15:07 | XR_ITS ---
FINAL REPORT CLINICAL HISTORY: ROTATOR CUFF SYNDROME OF RT SHOULDER FINDINGS: RIGHT SHOULDER: 3 views of the right shoulder were obtained. There is no acute fracture or dislocation. There are mild degenerative changes of the acromioclavicular and the glenohumeral joints. There is no soft tissue abnormality. IMPRESSION: Mild degenerative changes. Reviewed, Interpreted and Dictated by Williams Haskins III, MD Transcribed by Washington Coronel Authenticated by Williams Haskins III, MD on 09/06/2021 04:55:36 PM [facility]
== END ==
PROVIDERS: PCP Internal Medicine Adolescent Medicine; Visit Provider Internal Medicine Nephrology
DX: N18.30 Chronic kidney disease, stage 3 unspecified (principal); E11.65 Type 2 diabetes mellitus with hyperglycemia; E55.9 Vitamin D deficiency, unspecified; I10 Essential (primary) hypertension; M75.101 Unspecified rotator cuff tear or rupture of right shoulder, not specified as traumatic; Z79.4 Long term (current) use of insulin
CPT/HCPCS: 36415; 73030; 80053; 81001; 82306; 82570; 83036; 83970; 84155; 84550; 85014; 85018; 85048; 85049

== ENCOUNTER → 2021-09-17 13:56 | Outpatient (POV) | payer MEDICARE, SELFPAY | PROVIDERS: Visit Provider Internal Medicine Nephrology | DX: Z00.00 Encounter for general adult medical examination without abnormal findings (principal) ==

== ENCOUNTER 2021-09-30 08:00 | Outpatient (RCR) | payer MEDICARE, SELFPAY | END 2021-09-30 09:00 | disposition home or self-care (01) | LOC: OT 08:00 | PROVIDERS: PCP Internal Medicine Adolescent Medicine; Visit Provider Internal Medicine Adolescent Medicine | DX: M75.101 Unspecified rotator cuff tear or rupture of right shoulder, not specified as traumatic (principal) | CPT/HCPCS: 97010; 97014; 97110; 97140; 97165; 97530; G0283 ==

== ENCOUNTER → 2021-10-08 10:54 | Outpatient (CLI) | payer MEDICARE, SELFPAY ==
--- NOTE | 2021-10-08 10:59 | XR_ITS ---
FINAL REPORT CLINICAL HISTORY: COUGH, SOB XWKS COMPARISON: 06/13/2019 FINDINGS: TWO-VIEW CHEST There is mild cardiomegaly. The patient is status post median sternotomy. There is scarring at the bases. The lungs are otherwise clear. There is no pneumothorax. IMPRESSION: No acute cardiopulmonary process. Reviewed, Interpreted and Dictated by Jonah Camargo MD Transcribed by Juany Mendoza Authenticated by Jonah Camagro MD on 10/08/2021 01:02:41 PM [facility]
== END ==
PROVIDERS: Visit Provider Internal Medicine Adolescent Medicine
DX: R05.9 Cough, unspecified (principal)
CPT/HCPCS: 71046

== ENCOUNTER 2021-10-16 10:34 | Emergency (ER) | payer MEDICARE, SELFPAY ==
[2021-10-16] VITALS (9 sets, daily range): BP systolic 92–158; BP diastolic 61–78; PULSE 67–80; RESP 16–24; TEMP 36.6–37; O2SAT 94–98; BMI 29.2; BMI 292916.8
--- NOTE | 2021-10-16 10:55 | ECG_ITS ---
APPROVED REPORT Exam: Resting ECG HR:79 bpm ECG Measurements Heart Rate 79 AXES QRSd 106 QRS 44 QT 391 T 40 QTc 426 Conclusion SUPRAVENTRICULAR RHYTHM ABNORMAL RHYTHM ECG UNCONFIRMED REPORT Electronically signed by : Toney Contreras MD 10/17/2021 15:12:11
--- NOTE | 2021-10-16 11:15 | XR_ITS ---
PROCEDURE INFORMATION: Exam: XR Chest Exam date and time: 10/16/2021 11:24 AM Age: 81 years old Clinical indication: Cough and shortness of breath and wheezing; Prior surgery; Surgery date: 6+ months; Surgery type: Open heart SX 2017; Patient HX: SOA, cough, wheezing, pts says was recently diagnosed with pna; Additional info: SOB TECHNIQUE: Imaging protocol: XR of the chest. Views: 1 view. COMPARISON: CR XR CHEST 2V 10/08/2021 11:08 AM FINDINGS: Lungs: Left basilar airspace opacity medially, obscuring the heart margin, worrisome for pneumonia. Recommend follow-up to resolution. Right lung clear. Pleural spaces: Unremarkable. No pleural effusion. No pneumothorax. Heart/Mediastinum: Unremarkable. No cardiomegaly. Bones/joints: Median sternotomy wires. IMPRESSION: Left basilar airspace opacity medially, obscuring the heart margin, worrisome for pneumonia. Recommend follow-up to resolution.
[2021-10-16 11:53] LABS: Chloride 98 mmol/L (98-107); Potassium 5.1 mmoL/L (3.5-5.1); Sodium 134 mmol/L (136-145)
[2021-10-16 11:56] LABS: Blood Urea Nitrogen 39 mg/dl (9-20); Creatinine Clearance Estimated 43 mL/min (50-200); Estimated Glomerular Filt Rate 36 ml/min (>60); GFR (African American) 44 ML/MIN (>60)
[2021-10-16 11:57] LABS: Anion Gap 8.1 mEq/L (5-15); Calcium 8.8 mg/dl (8.4-10.2); Carbon Dioxide 33 mmol/L (22.0-30.0); Glucose 206 mg/dl (74-100); Lactic Acid 1.3 mmol/L (0.7-2.1)
[2021-10-16 12:01] LABS: Basophils # 0.1 K/mm3 (0-0.2); Basophils % 1.3 % (0.1-2.0); Eosinophils # 1.3 K/mm3 (0.0-0.4); Eosinophils % 15.5 % (0.1-12.0); Hematocrit 44.2 % (42.0-52.0); Hemoglobin 14.1 g/dL (14.1-18.0); Lymphocytes # 0.9 K/mm3 (0.7-4.5); Lymphocytes % 11.2 % (10-50); Mean Corpuscular Hemoglobin 32.1 pg (27.0-31.2); Mean Corpuscular Volume 100.4 fl (80-94); Mean Platelet Volume 7.8 fl (7.4-10.4); Monocytes # 0.4 K/mm3 (0.1-1.0); Monocytes % 4.6 % (1.7-9.3); Neutrophils # 5.7 K/mm3 (1.8-7.8); Neutrophils % 67.4 % (37.0-80.0); Platelet Count 234 K/mm3 (142-424); Red Cell Distribution Width 15.8 % (11.5-17.5); White Blood Count 8.4 K/mm3 (4.8-10.8)
[2021-10-16 12:17] LABS: Bilirubin,Unconjugated 0.8 mg/dL (0.0-1.1)
[2021-10-16 12:18] LABS: Alanine Aminotransferase 27 U/L (12-78); Albumin Level 3.7 g/dl (3.5-5.0); Alkaline Phosphatase 67 U/L (38-126); Aspartate Amino Transferase 42 U/L (17-59); Bilirubin,Direct 0.1 mg/dl (0.0-0.4); Bilirubin,Indirect 0.7 mg/dL (0.0-0.9); Bilirubin,Total 0.8 mg/dl (0.2-1.3); Total Protein,Serum 6.6 g/dl (6.3-8.2)
[2021-10-16 12:27] LABS: NT Pro Brain Natriuretic Pep. 923 pg/mL (0-450)
[2021-10-16 12:33] LABS: Troponin I 0.01 ng/ml (0.00-0.034)
--- NOTE | 2021-10-16 13:13 | CT_ITS ---
PROCEDURE INFORMATION: Exam: CTA Chest With Contrast Exam date and time: 10/16/2021 1:19 PM Age: 81 years old Clinical indication: Shortness of breath; Prior surgery; Additional info: SOB TECHNIQUE: Imaging protocol: Computed tomographic angiography of the chest with contrast. 3D rendering (Not supervised by radiologist): MIP and/or 3D reconstructed images were created by the technologist. Radiation optimization: All CT scans at this facility use at least one of these dose optimization techniques: automated exposure control; mA and/or kV adjustment per patient size (includes targeted exams where dose is matched to clinical indication); or iterative reconstruction. Contrast material: ISOVUE 370; Contrast volume: 70 ml; Contrast route: INTRAVENOUS (IV); COMPARISON: CHESTWO CT chest wo con 12/06/2018 9:31 AM FINDINGS: Pulmonary arteries: Negative for acute pulmonary embolism. Aorta: Unremarkable. No aortic aneurysm. No aortic dissection. Lungs: Small patchy areas of ground-glass density in the right upper lobe, largest measuring 1.6 x 1.2 cm. Nonspecific finding, may be infectious or inflammatory in etiology. Recommend follow-up to resolution. Pleural spaces: Unremarkable. No pneumothorax. No pleural effusion. Heart: Unremarkable. No cardiomegaly. No pericardial effusion. Lymph nodes: Unremarkable. No enlarged lymph nodes. Gallbladder and bile ducts: Cholelithiasis. Bones/joints: Unremarkable. No acute fracture. Soft tissues: Unremarkable. IMPRESSION: 1. Negative for acute pulmonary embolism. 2. Small patchy areas of ground-glass density in the right upper lobe, largest measuring 1.6 x 1.2 cm. Nonspecific finding, may be infectious or inflammatory in etiology. Recommend follow-up to resolution. 3. Cholelithiasis.
--- NOTE | 2021-10-16 14:00 | PC.NURSE ---
AT BEDSIDE PT RESTING QUIETLY
--- NOTE | 2021-10-16 14:38 | HMH.EDGENADL ---
ED Disposition Clinical Impression: Pneumonia Qualifiers: Pneumonia type: due to unspecified organism Laterality: right Lung location: upper lobe of lung Qualified Code(s): J18.9 - Pneumonia, unspecified organism Disposition: Home, Self-Care Condition on Discharge: Fair Additional Instructions: Please take Levaquin as prescribed and please follow-up with your primary care physician for a repeat creatinine check and for further evaluation. Please also talk to your primary care physician or small products i assembler about frequent PVCs seen on your EKG. Please return to the emergency department with any new or worsening symptoms including worsening shortness of breath, chest pain, fainting or any other new or concerning symptoms. Prescriptions: levoFLOXacin [Levaquin 750mg tablet] 750 mg PO DAILY 5 Days #5 tab Transmission Status: Pending to [facility] #[id number] Referrals: Lawrence Kay MD [Primary Care Provider] - - Critical Care Critical Care Time: No Attestation: On 10/16/21, the high probability of a clinically significant, sudden or life threatening deterioration of the following system(s) required my full and direct attention, intervention and personal management. The time I documented below is in addition to time spent performing reported procedures but includes the following listed in this critical care notation. Medical Decision Making - Todd Inquiry Pt receiving controlled substance: No Vital Signs: 10/16/21 11:00 10/16/21 11:31 10/16/21 12:00 Pulse Rate 80 76 78 Respiratory Rate 22 21 23 Blood Pressure 92/61 L 111/67 105/63 L Blood Pressure Mean 69 76 02 Sat by Pulse Oximetry 94 L 95 95 Oxygen Delivery Method Room Air Room Air 10/16/21 12:30 10/16/21 14:00 10/16/21 14:30 Pulse Rate 80 73 71 Respiratory Rate 24 19 21 Blood Pressure 110/61 115/70 117/72 Blood Pressure Mean 85 81 02 Sat by Pulse Oximetry 95 95 97 Oxygen Delivery Method 10/16/21 15:01 Pulse Rate 77 Respiratory Rate 20 Blood Pressure 122/69 Blood Pressure Mean 86 02 Sat by Pulse Oximetry 95 Oxygen Delivery Method - Lab Data Lab Results 10/16/21 11:30: WBC 8.4, RBC 4.40 L, Hgb 14.1, Hct 44.2, MCV 100.4 H, MCH 32.1 H, MCHC 32.0, RDW 15.8, Plt Count 234, MPV 7.8, Neut % (Auto) 67.4, Lymph % (Auto) 11.2, [place] % (Auto) 4.6, Eos % (Auto) 15.5 H, Baso % (Auto) 1.3, Neut # (Auto) 5.7, Lymph # (Auto) 0.9, [place] # (Auto) 0.4, Eos # (Auto) 1.3 H, Baso # (Auto) 0.1 10/16/21 11:30: Sodium 134 L, Potassium 5.1, Chloride 98, Carbon Dioxide 33 H, Anion Gap 8.1, BUN 39 H, Creatinine 1.80 H, Estimated Creat Clear 43, Estimated GFR 36 L, Est GFR ( Amer) 44 L, Glucose 206 H, Calcium 8.8, Troponin I 0.01 10/16/21 11:30: Total Bilirubin 0.8, Direct Bilirubin 0.1, Conjugated Bilirubin 0.0, Indirect Bilirubin 0.7, Unconjugated Bilirubin 0.8, AST 42, ALT 27, Alkaline Phosphatase 67, NT-Pro-B Natriuret Pep 923 H, Total Protein 6.6, Albumin 3.7 10/16/21 11:30: Lactate 1.3 10/16/21 14:25: Troponin I 0.02 Result diagrams: 10/16/21 11:30 10/16/21 11:30 Orders (Tests/Meds): ED MEDICATIONS Discontinued Medications Generic Name Dose Route Start Last Admin Trade Name Freq PRN Reason Stop Dose Admin Sodium Chloride 250 mls @ 999 mls/hr 10/16/21 13:15 10/16/21 14:51 Sod Chlor 0.9% 1000ml Bag IV 10/16/21 13:30 999 mls/hr .Q16M CORINA Administration Iopamidol 70 ml 10/16/21 13:33 10/16/21 13:36 Iopamidol-370 (76%);100ml Bottle IV 10/16/21 13:34 70 ml ONCE ONE Administration Sodium Chloride 40 ml 10/16/21 13:33 Sodium Chloride 0.9% 20ml Vial IV 10/16/21 13:34 ONCE ONE ORDERS Category Date Time Status Troponin I Q3H Lab 10/16/21 17:15 Ordered Blood Culture Stat Micro 10/16/21 11:30 Received Medical Decision Narrative: 81-year-old male presents the emergency department with history of pneumonia diagnosed last week with patient stating that he took a Z-Sumit but his symptoms have not resol
--- NOTE | 2021-10-16 15:00 | PC.NURSE ---
PT RESTING AT BEDSIDE
[2021-10-16 15:26] LABS: Troponin I 0.02 ng/ml (0.00-0.034)
--- NOTE | 2021-10-16 15:26 | PC.NURSE ---
Pt ambulated to bathroom
--- NOTE | 2021-10-16 16:00 | PC.NURSE ---
UPDATED ON PLAN OF CARE
== END 2021-10-16 17:00 | disposition home or self-care (01) ==
PROVIDERS: Emergency Provider Student in an Organized Health Care Education/Training Program; PCP Internal Medicine Adolescent Medicine
DX: M62.82 Rhabdomyolysis; R06.02 Shortness of breath; R53.82 Chronic fatigue, unspecified; I11.0 Hypertensive heart disease with heart failure; I50.9 Heart failure, unspecified; I25.10 Atherosclerotic heart disease of native coronary artery without angina pectoris; I34.0 Nonrheumatic mitral (valve) insufficiency; I34.1 Nonrheumatic mitral (valve) prolapse; I48.91 Unspecified atrial fibrillation; R01.1 Cardiac murmur, unspecified; E78.5 Hyperlipidemia, unspecified; E11.9 Type 2 diabetes mellitus without complications; N20.0 Calculus of kidney; J44.9 Chronic obstructive pulmonary disease, unspecified; Z79.4 Long term (current) use of insulin; Z79.82 Long term (current) use of aspirin; Z79.51 Long term (current) use of inhaled steroids; Z79.899 Other long term (current) drug therapy; Z88.8 Allergy status to other drugs, medicaments and biological substances; Z95.1 Presence of aortocoronary bypass graft; Z96.641 Presence of right artificial hip joint; Z86.73 Personal history of transient ischemic attack (TIA), and cerebral infarction without residual deficits; Z82.49 Family history of ischemic heart disease and other diseases of the circulatory system; Z83.438 Family history of other disorder of lipoprotein metabolism and other lipidemia
CPT/HCPCS: 36415; 71045; 71275; 80048; 80076; 83605; 83880; 84484; 85025; 87040; 93005; 99285; Q9967

== ENCOUNTER → 2022-02-11 16:06 | Outpatient (CLI) | payer MEDICARE, SELFPAY ==
[2022-02-11 16:22] LABS: Microscopic, Urine URINE MICROSCOPIC (MICROSCOPIC)
[2022-02-11 17:06] LABS: Hematocrit 35.4 % (42.0-52.0); Hemoglobin 10.9 g/dL (14.1-18.0); Mean Corpuscular HGB Conc 30.8 g/dL (31.8-35.4); Mean Corpuscular Hemoglobin 33.1 pg (27.0-31.2); Mean Corpuscular Volume 107.4 fl (80-94); Platelet Count 250 K/mm3 (142-424); Red Blood Count 3.29 M/mm3 (4.60-6.20); White Blood Count 8.6 K/mm3 (4.8-10.8)
[2022-02-11 17:31] LABS: Alanine Aminotransferase 32 U/L (12-78); Albumin Level 3.4 g/dl (3.5-5.0); Albumin/Globulin Ratio 1.3 (1.1-1.8); Alkaline Phosphatase 91 U/L (38-126); Aspartate Amino Transferase 39 U/L (17-59); Bilirubin,Total 0.9 mg/dl (0.2-1.3); Blood Urea Nitrogen 31 mg/dl (9-20); Calcium 8.4 mg/dl (8.4-10.2); Carbon Dioxide 23 mmol/L (22.0-30.0); Chloride 101 mmol/L (98-107); Estimated Glomerular Filt Rate 53 ml/min (>60); GFR (African American) 64 ML/MIN (>60); Globulin 2.6 g/dL (1.3-3.2); Glucose 388 mg/dl (74-100); Sodium 131 mmol/L (136-145); Uric Acid 6.4 mg/dl (3.5-8.5)
[2022-02-11 17:41] LABS: Appearance,Urine CLEAR (Clear); Bilirubin,Urine Negative (Negative); Blood, Urine Negative (Negative); Color,Urine YELLOW (Yellow); Glucose,Urine (UA) 3+ (Negative); Ketones,Urine Negative (Negative); Leukocyte Esterase,Urine Negative (Negative); Nitrate,Urine Negative (Negative); PH,Urine 6.5 (5.0-8.5); Protein,Urine Negative (Negative); Urobilinogen,Urine 0.2 EU/dl (0.2)
[2022-02-11 17:44] LABS: Intact Parathyroid Hormone 96.2 pg/mL (7.5-53.5)
[2022-02-11 17:49] LABS: 25-OH Vitamin D, Total 55.5 ng/mL (30-100)
[2022-02-11 18:19] LABS: RBC,Urine Occasional #/hpf (0-3); Squamous Epithelial Cell,Urine Occasional #/hpf (0-5)
[2022-02-11 20:14] LABS: Creatinine,Urine Random 73 mg/dL (Not Estab.)
== END ==
PROVIDERS: PCP Internal Medicine Adolescent Medicine; Visit Provider Internal Medicine Nephrology
DX: N18.30 Chronic kidney disease, stage 3 unspecified (principal); E11.65 Type 2 diabetes mellitus with hyperglycemia; E55.9 Vitamin D deficiency, unspecified
CPT/HCPCS: 36415; 80053; 81001; 82043; 82306; 82570; 83036; 83970; 84550; 85014; 85018; 85048; 85049

== ENCOUNTER 2022-02-11 16:45 | Emergency (ER) | payer MEDICARE, OTHER, SELFPAY ==
--- NOTE | 2022-02-11 16:51 | XR_ITS ---
PROCEDURE INFORMATION: Exam: XR Right Forearm Exam date and time: 02/11/2022 5:22 PM Age: 81 years old Clinical indication: Injury or trauma; Fall; Blunt trauma (contusions or hematomas); Arm, upper; Right TECHNIQUE: Imaging protocol: Radiologic exam of the Right forearm. Views: 2 views. COMPARISON: CR XR WRIST RT MIN 3V 02/11/2022 5:20 PM FINDINGS: Bones/joints: The radius and ulna appear intact and normally aligned with grossly normal mineralization. 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 No significant arthritic deformities at the elbow joint, but there are small degenerative enthesophytes of the lateral and medial humeral epicondyles suggesting history of chronic epicondylitis, greatest laterally. Soft tissues: Soft tissue swelling. No radiopaque foreign bodies seen. IMPRESSION: 1. No acute fracture or dislocation. 2. Degenerative and arthritic changes of the wrist and elbow, as above. 3. Soft tissue swelling.
--- NOTE | 2022-02-11 16:51 | XR_ITS ---
PROCEDURE INFORMATION: Exam: XR Right Hand Exam date and time: 02/11/2022 5:17 PM Age: 81 years old Clinical indication: Injury or trauma; Fall; Blunt trauma (contusions or hematomas); Hand; Right TECHNIQUE: Imaging protocol: Radiologic exam of the Right hand. Views: 3 or more views. COMPARISON: No relevant prior studies available. FINDINGS: Bones/joints: No definite fracture or dislocation. Arthritic changes in the interphalangeal joints, greatest in the DIP joints with joint narrowing and periarticular spurs. Arthritis at the 1st metacarpophalangeal joint and interphalangeal joint of the thumb with periarticular spurs and soft tissue calcifications. Chondrocalcinosis in the medial wrist joint. On the lateral view, the dorsal cortex of the triquetrum is slightly irregular and ill-defined, likely degenerative, no discrete fracture line is visible. A possible degenerative 7 mm cystic lesion in the proximal pole of the scaphoid bone. Soft tissues: Soft tissue swelling. No radiopaque foreign bodies seen. IMPRESSION: 1. No definite fracture or dislocation in the right hand. 2. 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 3. 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 4. Soft tissue swelling.
--- NOTE | 2022-02-11 16:51 | XR_ITS ---
PROCEDURE INFORMATION: Exam: XR Right Wrist Exam date and time: 02/11/2022 5:20 PM Age: 81 years old Clinical indication: Injury or trauma; Fall; Blunt trauma (contusions or hematomas); Wrist; Right TECHNIQUE: Imaging protocol: Radiologic exam of the Right wrist. Views: 3 or more views. COMPARISON: CR XR HAND RT MIN 3V 02/11/2022 5:17 PM FINDINGS: Bones/joints: No acute fracture or dislocation. Chondrocalcinosis in the medial wrist joint, likely within the triangular fibrocartilage disc. Possible degenerative 6 mm cystic lesion in the proximal pole of the scaphoid. A smaller rounded 3 mm lesion at the distal pole which could be a subcortical cyst, or these could be areas of trabecular rarefaction. Minimal degenerative cortical irregularity of the triquetrum. Mild arthritis of the 1st carpal-metacarpal joint at the base of thumb with slight joint narrowing and minimal periarticular spurs. Soft tissues: Soft tissue swelling greatest medially.No radiopaque foreign bodies seen. IMPRESSION: 1. No acute fracture or dislocation. 2. Degenerative arthritic changes in the wrist. 3. Chondrocalcinosis, likely calcification within the triangular fibrocartilage disc. 4. Soft tissue swelling, correlate for sprain or contusion.
--- NOTE | 2022-02-11 16:51 | PC.NURSE ---
calling xr for orders
--- NOTE | 2022-02-11 16:58 | HMH.EDUTC ---
[facility] [place] Disposition Clinical Impression: Right wrist sprain Qualifiers: Encounter type: initial encounter Qualified Code(s): S63.501A - Unspecified sprain of right wrist, initial encounter Disposition: Home, Self-Care Condition on Discharge: Good Instructions: Wrist Sprain, DI for Wrist Sprain Additional Instructions: Rest the extremity, apply ice for 15 minutes as tolerated three or four times per day, Wear the eric wrap for compression, Elevate the extremity as tolerated while you are resting. Follow up with Dr. Dial (orthopedics). Sometimes there can be injuries that don't show up well on the first set of x-rays. So, you should follow up if you continue to have symptoms. I put in a referral but you need to call his office and schedule an appointment. Follow up with your regular doctor. GO TO THE ER FOR ANY WORSENING SYMPTOMS Referrals: Lawrence Kay MD [Primary Care Provider] - Zachary Dial MD [Staff Physician] - Time of Disposition: 18:01 Medical Decision Making - Medical Records Medical records reviewed: No: I reviewed the patient's medical records. - Todd Inquiry Pt receiving controlled substance: No Vital Signs: 02/11/22 17:00 02/11/22 18:25 Temperature 98.6 F 98.6 F Temperature Source Oral Oral Pulse Rate 62 Pulse Rate [Left Radial] 69 Respiratory Rate 18 19 Blood Pressure 115/74 Blood Pressure [Right Arm] 111/47 L Blood Pressure Mean [Right Arm] 68 02 Sat by Pulse Oximetry 96 Oxygen Delivery Method Room Air Room Air - Radiology Data #1 Image(s): Wrist Image Reviewed: Yes I reviewed the patient's radiology image, Yes I have reviewed radiologist's interpretation Preliminary Findings: No Fracture Seen PROCEDURE INFORMATION: Exam: XR Right Hand Exam date and time: 02/11/2022 5:17 PM Age: 81 years old Clinical indication: Injury or trauma; Fall; Blunt trauma (contusions or hematomas); Hand; Right TECHNIQUE: Imaging protocol: Radiologic exam of the Right hand. Views: 3 or more views. COMPARISON: No relevant prior studies available. FINDINGS: Bones/joints: No definite fracture or dislocation. Arthritic changes in the interphalangeal joints, greatest in the DIP joints with joint narrowing and periarticular spurs. Arthritis at the 1st metacarpophalangeal joint and interphalangeal joint of the thumb with periarticular spurs and soft tissue calcifications. Chondrocalcinosis in the medial wrist joint. On the lateral view, the dorsal cortex of the triquetrum is slightly irregular and ill-defined, likely degenerative, no discrete fracture line is visible. A possible degenerative 7 mm cystic lesion in the proximal pole of the scaphoid bone. Soft tissues: Soft tissue swelling. No radiopaque foreign bodies seen. IMPRESSION: 1. No definite fracture or dislocation in the right hand. 2. 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 3. 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 4. Soft tissue swelling. [facility] [place] HPI - General Stated complaint: AO [email or web address] R wrist Time Seen by Provider: 02/11/22 17:00 - History of Present Illness Provider Complaint: He fell 2 days ago and came down on his right arm and hand. He states that afterwards he has wrist pain, but it wasn't too bad. So, yesterday he used a weed eater. After that he began having worsening pain in his right wrist. He came in today to have it checked. He denies any other injury. Onset (ago): hour(s) - Related Data Home Medications Medication Instructions Recorded Confirmed aspirin 81 mg tablet,delayed 81 mg PO DAILY tab 09/19/17 10/01/21 release azelastine 137 mcg (0.1 %) nasal 2 spray INTRANASAL BID PRN 09/19/17 10/01/21 spray aerosol finasteride 5 mg tablet 5 mg PO DAILY 10/23/18 10/01/21 Doxazosin Mesylate [Cardura 4mg 4 mg PO DAILY 05/31/19 10/01/21 tablet] Fluticasone Propion/Salmeterol
[2022-02-11 17:00] VITALS: BP 111/47; PULSE 69; RESP 18; TEMP 37; O2SAT 96; BMI 28.5
--- NOTE | 2022-02-11 17:24 | PC.NURSE ---
pt to xr via wheelchair
[2022-02-11 18:25] VITALS: BP 115/74; PULSE 62; RESP 19; TEMP 37; O2SAT 97
== END 2022-02-11 18:27 | disposition home or self-care (01) ==
PROVIDERS: Emergency Provider Nurse Practitioner Family; PCP Internal Medicine Adolescent Medicine
DX: S63.501A Unspecified sprain of right wrist, initial encounter (principal); Z79.899 Other long term (current) drug therapy; I48.91 Unspecified atrial fibrillation; J44.9 Chronic obstructive pulmonary disease, unspecified; I25.10 Atherosclerotic heart disease of native coronary artery without angina pectoris; E78.5 Hyperlipidemia, unspecified; I10 Essential (primary) hypertension; D64.9 Anemia, unspecified; M19.90 Unspecified osteoarthritis, unspecified site
CPT/HCPCS: 36415; 73090; 73110; 73130; 80053; 81001; 82043; 82306; 82570; 83036; 83970; 84155; 84550; 85014; 85018; 85048; 85049; 99213; G0463

== ENCOUNTER → 2022-02-18 15:12 | Outpatient (POV) | payer MEDICARE, SELFPAY | PROVIDERS: Visit Provider Internal Medicine Nephrology | DX: Z00.00 Encounter for general adult medical examination without abnormal findings (principal) ==

== ENCOUNTER → 2022-03-09 08:49 | Outpatient (CLI) | payer MEDICARE, OTHER, SELFPAY ==
--- NOTE | 2022-03-09 08:55 | NM_ITS ---
FINAL REPORT CLINICAL HISTORY: CHRONIC KIDNEY DISEASE. TYPE 2 DIABETES. (VIT. D DIFICIENCY) 9:10AM 20.8 MCI TC SESTAMIBI FINDINGS: NUCLEAR MEDICINE PARATHYROID SCAN The patient was injected with 20.8 mCi technetium 99 M Sestamibi. There are no focal areas of abnormal tracer activity seen within the neck to suggest parathyroid adenoma. IMPRESSION: No areas of abnormal tracer activity to suggest parathyroid adenoma. Reviewed, Interpreted and Dictated by Williams Haskins III, MD Transcribed by Soraya Macedo Authenticated and [facility]
== END ==
PROVIDERS: PCP Internal Medicine Adolescent Medicine; Visit Provider Internal Medicine Nephrology
DX: N18.30 Chronic kidney disease, stage 3 unspecified (principal); I12.9 Hypertensive chronic kidney disease with stage 1 through stage 4 chronic kidney disease, or unspecified chronic kidney disease; E55.9 Vitamin D deficiency, unspecified; E11.65 Type 2 diabetes mellitus with hyperglycemia; Z79.4 Long term (current) use of insulin
CPT/HCPCS: 78070; A9500

== ENCOUNTER 2022-05-03 09:00 | Outpatient (RCR) | payer MEDICARE, SELFPAY ==
--- NOTE | 2022-04-27 09:14 | HMH.OTOPEV ---
OT Inpatient Evaluation Rehab OT Outpatient Eval Start: 04/27/22 08:54 Freq: Status: Active Protocol: Document 04/27/22 08:55 LAUREN (Rec: 04/27/22 09:13 RMELTON [id number]) E-signed By Arnie Ramos, OT Outpatient Therapy Subjective History Subjective History Pt is an 82 year old male who reports to therapy for initial evaluation to right shoulder. Pt explains his right shoulder began hurting him ~ 2 weeks ago and he does not recall a specific injury causing the pain to begin. Pt does demonstrate with a decline in AROM and strength at right shoulder. Pt is right hand dominant. Pt will continue to be seen twice a week in order to address right shoulder defictis. Chief Complaint Pain,Stiff,Weakness Symptom Type Ache,Throb,Sharp,Dull Symptoms Relieved By Rest/Positioning,OTC Meds Symptoms Aggravated By Physical Activity,Lifting Prior Functional Limitations None Current Functional Limitations Reaching,Lifting,Housework, Driving,Sleeping,Recreation Activity Symptom Description Intermittent,Activity Dependent Level of pain today (0-10) 0 Pain scale - at its best (0-10) 0 Pain scale - at its worst (0-10) 7 Shoulder/Elbow Eval Shoulder Objective Measurements Shoulder ROM Right Shoulder Abduction Active Range of 115 degrees Motion (degrees) Shoulder Flexion Active Range of Motion 120 degrees (degrees) Query Text: Shoulder External Rotation Active Range 60 degrees of Motion (degrees) Shoulder Internal Rotation Active Range 30 degrees of Motion (degrees) pain with active ROM shoulder exam right standard pain with passive ROM shoulder exam right standard decreased ROM shoulder exam standard right Shoulder MMT Shoulder Abduction Strength Grade 3 Fair Shoulder Extension Strength Grade 3 Fair Shoulder Flexion Strength Grade 3 Fair Shoulder External Rotation Strength 3 Fair Grade Shoulder Internal Rotation Strength 3 Fair Grade Shoulder Strength Patient Testing Sitting Position Shoulder Special Tests impingement sign present shoulder exam right standard
== END 2022-05-03 09:05 | disposition home or self-care (01) ==
LOC: OT 09:00
PROVIDERS: PCP Internal Medicine Adolescent Medicine; Visit Provider Internal Medicine Adolescent Medicine
DX: M75.101 Unspecified rotator cuff tear or rupture of right shoulder, not specified as traumatic (principal)
CPT/HCPCS: 97010; 97014; 97110; 97140; 97166; G0283

== ENCOUNTER → 2022-05-04 14:53 | Outpatient (CLI) | payer MEDICARE, SELFPAY ==
[2022-05-04 17:05] VITALS: PULSE 100; PULSE 90
--- NOTE | 2022-05-09 11:18 | RESP.PFTSS ---
05/04/22 patient unable to do DLCO
== END ==
PROVIDERS: PCP Internal Medicine Adolescent Medicine; Visit Provider Internal Medicine Pulmonary Disease
DX: R06.09 Other forms of dyspnea (principal)
CPT/HCPCS: 94060; 94618; 94640; 94727; 94729

== ENCOUNTER 2022-05-06 08:00 | Outpatient (RCR) | payer MEDICARE, OTHER, SELFPAY | END 2022-05-06 08:05 | disposition home or self-care (01) | LOC: PT 08:00 | PROVIDERS: PCP Internal Medicine Adolescent Medicine; Visit Provider Otolaryngology | DX: R42 Dizziness and giddiness (principal) | CPT/HCPCS: 97110; 97112; 97163; 97164; 97530 ==

== ENCOUNTER 2022-05-06 10:22 | Emergency (ER) | payer MEDICARE, SELFPAY ==
[2022-05-06 10:27] VITALS: BMI 25.8
--- NOTE | 2022-05-06 10:27 | XR_ITS ---
FINAL REPORT CLINICAL HISTORY: COUGH,SOA COMPARISON: 10/16/2021 FINDINGS: TWO-VIEW CHEST There is mild cardiomegaly. The patient is status post median sternotomy. The lungs are clear. There is no pneumothorax. IMPRESSION: No acute cardiopulmonary process. Reviewed, Interpreted and Dictated by Jonah Camargo MD Transcribed by Juany Mendoza Authenticated and [facility]
[2022-05-06 11:35] VITALS: BP 113/69; PULSE 71; RESP 19; TEMP 36.7; O2SAT 97; BMI 28.2
--- NOTE | 2022-05-06 11:57 | EXP.UTC ---
Discharge Plan Disposition Patient Disposition: Home, Self-Care Condition: Good Prescriptions Prescriptions: New cefdinir 300 mg capsule 300 mg PO BID 7 Days Qty: 14 0RF No Action aspirin [Aspir-Low] 81 mg tablet,delayed release (DR/EC) 81 mg PO DAILY finasteride 5 mg tablet 5 mg PO DAILY levothyroxine 200 mcg tablet 200 mcg PO DAILY Qty: 30 0RF calcitriol 0.25 mcg capsule 0.5 mcg PO DAILY allopurinol 100 mg tablet 100 mg PO DAILY montelukast 10 mg tablet 10 mg PO DAILY budesonide-formoterol [Symbicort] 160-4.5 mcg/actuation HFA aerosol inhaler 2 puff inhalation BID albuterol sulfate 90 mcg/actuation HFA aerosol inhaler 2 inh inhalation Q6H PRN (Reason: shortness of breath or wheezing) 90 Days Qty: 8.5 3RF ropinirole 2 mg tablet See Rx Instructions .ROUTE .COMPLEX Qty: 90 3RF Dose Instruction: TAKE 1 TABLET AT BEDTIME Rx Instructions: TAKE 1 TABLET AT BEDTIME furosemide [Lasix] 40 mg tablet 40 mg PO DAILY Qty: 90 3RF rivaroxaban 20 mg tablet 20 mg PO DAILY Qty: 90 3RF ezetimibe 10 mg tablet 10 mg PO HS Qty: 90 3RF azelastine 137 MCG/0.137 ML bottle 2 spray INTRANASAL BID PRN (Reason: Asthma/ALLERGIES) Rx Instructions: Insert 2 squirts in each nostril twice daily insulin lispro protamin-lispro 100 unit/mL (75-25) insulin pen 85 unit SQ DIRECTED Rx Instructions: inject 65 units each morning and 50 units each evening. doxazosin 4 MG tablet 4 mg PO DAILY fluticasone propionate 16 GM spray,suspension 2 spry intranasal BID Label Comments: INHALE 2 SPRAYS INTO EACH NOSTRIL TWICE A DAY metoprolol succinate 100 MG tablet extended release 24 hr 100 mg PO DAILY insulin glargine 100 UNIT/ML insulin pen 30 unit SQ HS Referrals Follow up/Referrals: Toney Contreras MD [Primary Care Provider] - See instructions Activity Restrictions/Add. Instructions Additional Instructions/Restrictions: *Monitor Temp, Over the counter Motrin or Tylenol as directed/as needed Tylenol every 4 hours and Motrin every 6 hours (as long as your family doctor has told you that you can take it) for fever or pain. and straight to ER if unable to lower temp less than 101.0 after medication given *Warm salt water gargles may help to soothe the throat *Throat Lozenges? *Warm fluids like tea with honey may help to soothe the throat? *Sleep elevated *Humidifier/Vaporizer Take medication as prescribed Follow up with your Damage Assessor if you continued to have wheezing and Shortness of breath Follow up IMMEDIATELY for new or worsening symptoms or no Noticeable improvement over the next 48-72 hours. 911 for difficulty breathing or swallowing GO straight to ER if any worsening of shortness of breath Clinical Impressions Clinical Impression: Sinusitis Qualifiers: Sinusitis location: unspecified location Chronicity: unspecified Qualified Code(s): J32.9 - Chronic sinusitis, unspecified Instructions Patient Instructions: DI for Sinusitis, Sinusitis Discharge ED Provider: Lexii Simmons [facility] General Stated complaint: Cough,SOA Mode of Arrival: Ambulatory Source of Information: Patient Limitations: No Limitations Time Seen by Provider: 05/06/22 11:57 Description of Symptoms (Recalled from Triage Doc. by RN): PATIENT C/O COUGH AND MALAISE X 1 WEEK HEENT Symptoms (Recalled from RN notes): No Resp Symptoms (Recalled from RN notes): Yes Skin Symptoms (Recalled from RN notes): No MS Symptoms (Recalled from RN notes): No Functional Status (Recalled from RN notes): WNL History of Present Illness Provider Complaint: Patient states that he has been having cough, nasal congestion, drainage and unable to sleep when he lies down due to the cough States that he is feeling tired and achy but not had any fever that he is aware of States he gets bronchitis about this time every yea
[2022-05-06 12:35] VITALS: BP 113/69; PULSE 71; RESP 19; TEMP 36.7; O2SAT 97
[2022-05-06 12:44] LABS: Adenovirus,PCR Not Detected (NotDetected); Bordetella Pertussis Not Detected (NotDetected); Chlamydophila Pneumoniae, PCR Not Detected (NotDetected); Coronavirus 19, PCR Not Detected (NotDetected); Coronavirus 229E Not Detected (NotDetected); Coronavirus NL63 Not Detected (NotDetected); Coronavirus OC43 Not Detected (NotDetected); Coronovirus HKU1,PCR Not Detected (NotDetected); Human Metapneumovirus Not Detected (NotDetected); Influenza A, PCR Not Detected (NotDetected); Influenza AH1, 2009 Not Detected (NotDetected); Influenza AH1, PCR Not Detected (NotDetected); Influenza AH3,PCR Not Detected (NotDetected); Influenza B, PCR Not Detected (NotDetected); Mycoplasma Pneumoniae, PCR Not Detected (NotDetected); Parainfluenza 1, PCR Not Detected (NotDetected); Parainfluenza 2, PCR Not Detected (NotDetected); Parainfluenza 3, PCR Not Detected (NotDetected); Parainfluenza 4, PCR Not Detected (NotDetected); Respiratory Syncytial Virus Not Detected (NotDetected); Rhinovirus/Enterovirus Not Detected (NotDetected)
== END 2022-05-06 12:42 | disposition home or self-care (01) ==
PROVIDERS: Emergency Provider Nurse Practitioner; PCP Internal Medicine Adolescent Medicine
DX: J32.9 Chronic sinusitis, unspecified (principal)
CPT/HCPCS: 71046; 87581; 87632; 87798; 94640; 99212; C9803; G0463; U0003; U0005

== ENCOUNTER → 2022-05-11 15:10 | Outpatient (CLI) | payer MEDICARE, SELFPAY ==
[2022-05-11 16:56] LABS: Basophils # 0.1 K/mm3 (0-0.2); Basophils % 0.7 % (0.1-2.0); Eosinophils # 1.2 K/mm3 (0.0-0.4); Eosinophils % 14.9 % (0.1-12.0); Hematocrit 40.1 % (42.0-52.0); Hemoglobin 12.5 g/dL (14.1-18.0); Lymphocytes # 1.2 K/mm3 (0.7-4.5); Lymphocytes % 15.5 % (10-50); Mean Corpuscular HGB Conc 31.1 g/dL (31.8-35.4); Mean Corpuscular Hemoglobin 30.1 pg (27.0-31.2); Mean Corpuscular Volume 96.7 fl (80-94); Monocytes # 0.3 K/mm3 (0.1-1.0); Monocytes % 4.1 % (1.7-9.3); Neutrophils # 5.1 K/mm3 (1.8-7.8); Neutrophils % 64.8 % (37.0-80.0); Platelet Count 232 K/mm3 (142-424); Red Blood Count 4.15 M/mm3 (4.60-6.20); Red Cell Distribution Width 16.7 % (11.5-17.5); White Blood Count 7.8 K/mm3 (4.8-10.8)
[2022-05-18 08:15] LABS: D001-IgE D pteronyssinus <0.10 kU/L (Class 0); D002-IgE D farinae <0.10 kU/L (Class 0); E001-IgE Cat Dander <0.10 kU/L (Class 0); E005-IgE Dog Dander <0.10 kU/L (Class 0); E072-IgE Mouse Urine <0.10 kU/L (Class 0); G002-IgE Bermuda Grass <0.10 kU/L (Class 0); G006-IgE Timothy Grass <0.10 kU/L (Class 0); I006-IgE Cockroach, German <0.10 kU/L (Class 0); Immunoglobulin E, Total 804 IU/mL (6-495); M001-IgE Penicillium chrysogen <0.10 kU/L (Class 0); M002-IgE Cladosporium herbarum <0.10 kU/L (Class 0); M003-IgE Aspergillus fumigatus 0.17 kU/L (Class 0/I); M006-IgE Alternaria alternata <0.10 kU/L (Class 0); T001-IgE Maple/Box Elder <0.10 kU/L (Class 0); T003-IgE Common Silver Birch <0.10 kU/L (Class 0); T006-IgE Cedar, Mountain <0.10 kU/L (Class 0); T007-IgE Oak, White <0.10 kU/L (Class 0); T008-IgE Elm, American <0.10 kU/L (Class 0); T010-IgE Walnut <0.10 kU/L (Class 0); T011-IgE Maple Leaf Sycamore <0.10 kU/L (Class 0); T014-IgE Cottonwood <0.10 kU/L (Class 0); T015-IgE Ash, White <0.10 kU/L (Class 0); T022-IgE Pecan, Hickory <0.10 kU/L (Class 0); T070-IgE White Mulberry <0.10 kU/L (Class 0); W001-IgE Ragweed, Short <0.10 kU/L (Class 0); W011-IgE Thistle, Russian <0.10 kU/L (Class 0); W014-IgE Pigweed, Common <0.10 kU/L (Class 0); W018-IgE Sheep Sorrel <0.10 kU/L (Class 0)
== END ==
PROVIDERS: PCP Internal Medicine Adolescent Medicine; Visit Provider Internal Medicine Pulmonary Disease
DX: J45.909 Unspecified asthma, uncomplicated (principal)
CPT/HCPCS: 36415; 82785; 85025; 86003

== ENCOUNTER → 2022-06-10 07:54 | Outpatient (CLI) | payer MEDICARE, SELFPAY ==
--- NOTE | 2022-06-10 07:56 | CT_ITS ---
FINAL REPORT TECHNIQUE: Axial imaging of the chest was obtained without contrast. Reformatted images were also obtained and reviewed.This study was performed with techniques to keep radiation doses as low as reasonably achievable, (ALARA). Individualized dose reduction technique using automated exposure control or adjustment of mA and/or kV according to the patient's size were employed. CLINICAL HISTORY: . INTERSTITIAL LUNG DISEASE COMPARISON: 10/16/2021 FINDINGS: There is no axillary adenopathy. There is mediastinal adenopathy which is slightly worse from prior exam. A precarinal lymph node is seen measuring 25 mm, previously measured 22 mm. This may be reactive versus neoplastic. Patient is status post median sternotomy. Heart size is normal. There is no pericardial or pleural effusion. Limited images of the upper abdomen are unremarkable. There has been interval partial improvement in previously identified ground-glass opacities involving the right lung. However, there are new ground-glass nodules in the more inferior right upper lobe measuring up to 17 mm. There is mild scarring at the lung bases. There is a left lower lobe calcified granuloma. There is no evidence of emphysema, bronchiectasis or significant interstitial fibrosis. Limited imaging of the upper abdomen demonstrates cholelithiasis. IMPRESSION: Partial improvement of a previously seen ground-glass nodular opacities with multiple, new ground-glass opacities which may be infectious or inflammatory. Slight worsening mediastinal adenopathy which may be reactive or neoplastic. Cholelithiasis. Reviewed, Interpreted and Dictated by Williams Haskins III, MD Transcribed by Carline Gibbs Authenticated and [facility]
== END ==
PROVIDERS: PCP Internal Medicine Adolescent Medicine; Visit Provider Internal Medicine Pulmonary Disease
DX: J84.9 Interstitial pulmonary disease, unspecified (principal); J98.4 Other disorders of lung
CPT/HCPCS: 71250

== ENCOUNTER → 2022-06-24 10:41 | Outpatient (CLI) | payer MEDICARE, OTHER, SELFPAY ==
[2022-06-24 10:57] LABS: Microscopic, Urine URINE MICROSCOPIC (MICROSCOPIC)
[2022-06-24 11:16] LABS: Appearance,Urine CLEAR (Clear); Bilirubin,Urine Negative (Negative); Blood, Urine TRACE-L (Negative); Color,Urine YELLOW (Yellow); Glucose,Urine (UA) 3+ (Negative); Ketones,Urine TRACE (Negative); Leukocyte Esterase,Urine Negative (Negative); Nitrate,Urine Negative (Negative); Protein,Urine Negative (Negative); Urobilinogen,Urine 0.2 EU/dl (0.2)
[2022-06-24 11:23] LABS: Hematocrit 38.3 % (42.0-52.0); Hemoglobin 11.3 g/dL (14.1-18.0); Mean Corpuscular HGB Conc 29.4 g/dL (31.8-35.4); Mean Corpuscular Hemoglobin 29.4 pg (27.0-31.2); Mean Corpuscular Volume 99.9 fl (80-94); Platelet Count 297 K/mm3 (142-424); Red Blood Count 3.83 M/mm3 (4.60-6.20); Red Cell Distribution Width 17.7 % (11.5-17.5); White Blood Count 9.5 K/mm3 (4.8-10.8)
[2022-06-24 11:34] LABS: Bacteria,Urine Trace /lpf; Creatinine,Urine Random 105 mg/dL (Not Estab.); Squamous Epithelial Cell,Urine Occasional #/hpf (0-5); WBC,Urine Occasional #/hpf (0-3)
[2022-06-24 13:31] LABS: Alanine Aminotransferase 28 U/L (12-78); Albumin Level 3.2 g/dl (3.5-5.0); Albumin/Globulin Ratio 1.1 (1.1-1.8); Alkaline Phosphatase 82 U/L (38-126); Aspartate Amino Transferase 31 U/L (17-59); Bilirubin,Total 0.7 mg/dl (0.2-1.3); Blood Urea Nitrogen 29 mg/dl (9-20); Calcium 7.9 mg/dl (8.4-10.2); Carbon Dioxide 27 mmol/L (22.0-30.0); Chloride 97 mmol/L (98-107); Estimated Glomerular Filt Rate 39 ml/min (>60); GFR (African American) 47 ML/MIN (>60); Sodium 133 mmol/L (136-145); Total Protein,Serum 6.2 g/dl (6.3-8.2); Uric Acid 6.4 mg/dl (3.5-8.5)
[2022-06-24 13:43] LABS: Intact Parathyroid Hormone 92.5 pg/mL (7.5-53.5)
[2022-06-24 13:50] LABS: 25-OH Vitamin D, Total 33.7 ng/mL (30-100)
[2022-06-24 13:52] LABS: Hemoglobin A1C 8.5 % (4.0-6.0)
[2022-06-24 14:02] LABS: Thyroid Stimulating Hormone 0.14 uIU/mL (0.465-4.68)
[2022-06-24 14:07] LABS: Anion Gap 13.6 mEq/L (5-15); Glucose 510 mg/dl (74-100); Potassium 4.6 mmoL/L (3.5-5.1)
== END ==
PROVIDERS: PCP Internal Medicine Adolescent Medicine; Visit Provider Internal Medicine Nephrology
DX: E03.9 Hypothyroidism, unspecified (principal); E11.65 Type 2 diabetes mellitus with hyperglycemia; N18.30 Chronic kidney disease, stage 3 unspecified; I10 Essential (primary) hypertension; E55.9 Vitamin D deficiency, unspecified; E79.0 Hyperuricemia without signs of inflammatory arthritis and tophaceous disease; Z79.4 Long term (current) use of insulin
CPT/HCPCS: 36415; 80053; 81001; 82306; 82570; 83036; 83970; 84155; 84443; 84550; 85014; 85018; 85048; 85049

== ENCOUNTER 2022-06-28 08:26 | Day surgery (SDC) | payer MEDICARE, OTHER, SELFPAY ==
[2022-06-28] VITALS (11 sets, daily range): BP systolic 90–140; BP diastolic 41–79; PULSE 77–96; RESP 16–20; TEMP 36.2–36.6; O2SAT 91–97; BMI 27.3
[2022-06-28 09:28] LABS: POC Glucose,Bedside 214 (70-110)
--- NOTE | 2022-06-28 09:53 | P.PN_ITS ---
[facility] Disclaimer: The information contained in this section may have been updated after the patient was seen, as this information can be updated by other users. Medical History Allergic rhinitis Asthma Atrial fibrillation CAD (coronary artery disease) Chronic cough Chronic kidney disease Diabetes mellitus Diabetes mellitus, type 2 Dyspnea on exertion Edema Enlarged prostate Family history of cardiac disorder Hemorrhoid History of anemia History of cataract History of transient ischemic attack (TIA) Hyperlipidemia Hypertensive disorder Hypothyroid Lung nodule Mitral valve prolapse Mitral valve regurgitation Moderate persistent asthma Murmur Pneumonia Restrictive lung disease Rhabdomyolysis due to statin therapy Surgical History History of bronchoscopy History of cochlear implant History of mitral valve repair History of right hip replacement S/P CABG x 2 Family History Sister Pulmonary hypertension Father Heart attack Brother Heart attack Grandmother Heart attack Mother Alzheimer disease Social History Smoking Status: Never smoker second hand exposure: No alcohol intake: never counseling provided: none substance use type: denies use current occupational status: retired Travel in the last 8 weeks: None household members: spouse housing: house current occupational exposures/hazards: No caffeine: Yes [facility] Anesthesia Checklist Patient Identification Patient Identification: Arm Band Structural Data Planned Operative Procedure/s: Bronchoscopy with Bx + EBUS Consent for Planned Operative Procedure(s) Verified: Yes Verified Documents: Surgical Consent and History and Physical NPO Status Verified Time NPO: 00:00 Additional verifications Anesthesia Reactions: No Hx Blood Transfusions: No Blood Transfusion Reaction: No Airway Assessment C-Spine Mobility Assessed: Yes TMJ Mobility Assessed: Yes Dentition: Good Dentition Neurological Assessment Level of Consciousness: Awake and Alert Anesthesia Plan Anesthesia Risk discussed: Yes Anesthesia Plan: Verified ASA Class: III Anesthesia Type: General
--- NOTE | 2022-06-28 12:14 | XR_ITS ---
FINAL REPORT CLINICAL HISTORY: BRONCHOSCOPY WITH BIOPSY FINDINGS: FLUORO TIME PROCEDURE: Bronchoscopy with biopsy. FINDINGS: Fluoroscopy time was provided by the radiology department for the clinical service. Two films were obtained. Fluoroscopy exposure time: 85 seconds IMPRESSION: See above Reviewed, Interpreted and Dictated by Tony Whitley MD Transcribed by Sloane Aldrich Authenticated and . [facility]
--- NOTE | 2022-06-28 12:24 | XR_ITS ---
FINAL REPORT CLINICAL HISTORY: post op bronchoscopy COMPARISON: May 06, 2022 FINDINGS: PORTABLE CHEST Patient is status post CABG. The heart is normal in size. The mediastinum is unremarkable. There is a vague opacity in the right lower lobe which could be due to postoperative change, pneumonia or partially obscured mass however no abnormality was seen in this region on prior chest radiograph. There is no pneumothorax. IMPRESSION: New vague opacity and right lower lobe could be due to postoperative change, pneumonia or partially obscured mass. Reviewed, Interpreted and Dictated by Tony Whitley MD Transcribed by Sloane Aldrich Authenticated and [facility]
--- NOTE | 2022-06-28 12:27 | P.PNANES_ITS ---
[facility] Anesthesia Record Part I Anesthesia Record I Intake, IV Amount: 1,100 Estimated blood loss (mL): 0 Urine output (mL): 0 Blood Products used (#): none Blood Pressure: 140/41 SaO2: 92 Pulse Rate: 95 Respiratory Rate: 16 Temperature: 97.4 F Patient is:: Drowsy and Stable Stable to PACU at:: 12:20
--- NOTE | 2022-06-28 13:07 | EXP.BRONCH.N ---
Procedure: Date: 06/28/22 Patient Date of :: 1940 Procedure Performed:: Bronchoscopy with airway examination, bronchoalveolar lavage transbronchial biopsy and EBUS FNA Indications:: Atypical pneumonia, lymphadenopathy Performing Provider:: Zack Edwards MD Referring Provider:: Dr. Contreras Sedation:: General anesthesia Procedure:: Endobronchial ultrasound-guided fine-needle aspiration bronchoscopy airway examination, bronchoalveolar lavage and transbronchial lung biopsy: Clean EBUS bronchoscopy was advanced the ET tube and lymph node surveillance was performed. Patient noted to have lymphadenopathy at stations 10 R and 4R. 6 passes was performed in each lymph node station 5 passes were sent in formalin for cytopathologic examination and 1 pass was sent for cultures. Pathologist at bedside examined, adequate lymphoid tissue, no evidence of granuloma or malignancy. EBUS bronchoscopy was retracted and a clean DIAGNOSTIC bronchoscopy was advanced through the ET tube and airways were examined up to subsegmental bronchi. Airways appeared grossly normal. Bronchoalveolar lavage was performed in the RIGHT UPPER LOBE with instillation of 60 cc normal saline with return of 30 cc back. BAL fluid was sent for cell count and differential along with bacterial fungal and AFB stain and cultures. Transbronchial biopsy was performed in the RIGHT UPPER LOBE with a total of 7 biopsies performed, 5 biopsy specimens were sent in formalin for cytopathologic examination. The other 2 biopsy samples, were sent one each in two separate normal saline specimen cups for bacterial fungal and AFB stain cultures. Special request was also made for the pathologist to evaluate for AFB and fungal organisms on the cytopathologic examination. Patient tolerated the procedure with no acute complications. We will follow the patient in pulmonary clinic in 7 to 10 days. Findings:: Please see the procedure note Recommendations:: Please see the procedure note. Follow in pulmonary clinic in 3 to 4 days Complications:: No acute immediate complications Estimated blood obtained (mL): 20
--- NOTE | 2022-06-28 13:23 | PC.NURSE ---
1227-checked fsbs wiht results of 105, notified VISHAL Lakhani, no further orders 1231-radiology at bedside
--- NOTE | 2022-06-28 13:30 | PC.NURSE ---
1241-detailed report called to LALITA Moon 9734-pt transported to post op via stretcher w/gaviota rails up and left in care of LALITA Moon with bed locked in lowest position, vss, pt stable
[2022-06-29 07:19] LABS: POC Glucose,Bedside 105 (70-110)
--- NOTE | 2022-06-29 08:20 | EXP.ANES.II ---
[facility] Anesthesia Record Part II Anesthesia Record Part II Discharge Time: 12:50 Destination: Surgical Day Care (OP Surgery) PACU nurse assessment reviewed?: Yes Patient Condition:: Good Anesthesia Complications:: None Swallowing reflex intact?: Yes Cyanosis?: No Blood Pressure: 118/60 Pulse Rate: 86 Temperature: 97.3 F Mental Status: Alert & Oriented Pain level:: 0 Nausea and/or vomitting:: None Intake, IV Amount: 0
[2022-06-29 08:21] VITALS: BP 118/60; PULSE 86; TEMP 36.3
== END 2022-06-28 13:36 | disposition home or self-care (01) ==
PROVIDERS: PCP Internal Medicine Adolescent Medicine; Visit Provider Internal Medicine Pulmonary Disease
PROC: (CPT 31624; principal; 2022-06-28 10:00)
DX: R91.1 Solitary pulmonary nodule (principal); J44.9 Chronic obstructive pulmonary disease, unspecified; E11.9 Type 2 diabetes mellitus without complications; Z79.4 Long term (current) use of insulin; I25.10 Atherosclerotic heart disease of native coronary artery without angina pectoris; E78.5 Hyperlipidemia, unspecified; I10 Essential (primary) hypertension; J30.9 Allergic rhinitis, unspecified; Z79.899 Other long term (current) drug therapy
CPT/HCPCS: 31624; 31625; 31652; 71045; 82962; 87070; 87102; 87116; 87186; 87205; 87206; 88112; 88172; 88173; 88177; 88305; 88312; 89051; 94640; J2405

== ENCOUNTER → 2022-07-01 10:31 | Outpatient (CLI) | payer MEDICARE, OTHER, SELFPAY ==
--- NOTE | 2022-07-01 10:37 | XR_ITS ---
FINAL REPORT CLINICAL HISTORY: Shortness of breath COMPARISON: 06/28/2022 FINDINGS: Two views of the chest show elevation of the right diaphragm with moderate bibasilar atelectasis. The patient is status post CABG. Pulmonary vascularity is normal. Heart is unremarkable. No pleural effusion is present. IMPRESSION: Moderate bibasilar atelectasis. Reviewed, Interpreted and Dictated by Tony Whitley MD Transcribed by Nina Rosario Authenticated and [facility]
== END ==
PROVIDERS: PCP Internal Medicine Adolescent Medicine; Visit Provider Internal Medicine Pulmonary Disease
DX: R06.02 Shortness of breath (principal)
CPT/HCPCS: 71046

== ENCOUNTER → 2022-08-15 10:45 | Outpatient (CLI) | payer MEDICARE, OTHER, SELFPAY ==
--- NOTE | 2022-08-15 10:52 | XR_ITS ---
FINAL REPORT CLINICAL HISTORY: CELLULITIS OF RT FOOT, pain FINDINGS: RIGHT FOOT Three views of the right foot demonstrate no acute fracture or dislocation. There are mild degenerative changes. The soft tissues are unremarkable. IMPRESSION: No acute bony abnormality. Reviewed, Interpreted and Dictated by Williams Haskins III, MD Transcribed by Sloane Aldrich Authenticated and [facility]
== END ==
PROVIDERS: PCP Internal Medicine Adolescent Medicine; Visit Provider Internal Medicine Adolescent Medicine
DX: L03.115 Cellulitis of right lower limb (principal)
CPT/HCPCS: 73630

== ENCOUNTER → 2022-09-20 12:25 | Outpatient (CLI) | payer MEDICARE, OTHER, SELFPAY ==
--- NOTE | 2022-09-20 12:30 | XR_ITS ---
FINAL REPORT CLINICAL HISTORY: BILATERAL FOOT AND ANKLE PAIN FINDINGS: AP, oblique, and lateral views of the right ankle were obtained. There is no prior exam for comparison. There is no fracture or dislocation. The ankle mortise is intact. There is mild degenerative disease. There is calcification adjacent to the medial malleolus, likely represents old injury. IMPRESSION: Calcification adjacent to the medial malleolus, likely represents old injury. Mild degenerative disease. Reviewed, Interpreted and Dictated by Sun Frey MD Transcribed by Juany Mendoza Authenticated and [facility]
--- NOTE | 2022-09-20 12:30 | XR_ITS ---
FINAL REPORT CLINICAL HISTORY: BILATERAL FOOT AND ANKLE PAIN COMPARISON: 08/15/2022 FINDINGS: AP, oblique and lateral views of the right foot were obtained. There is no acute fracture or dislocation. The joint spaces are preserved. Soft tissues are normal. IMPRESSION: No acute osseous abnormality of the right foot. Reviewed, Interpreted and Dictated by Sun Frey MD Transcribed by Juany Mendoza Authenticated and . [facility]
--- NOTE | 2022-09-20 12:30 | XR_ITS ---
FINAL REPORT CLINICAL HISTORY: BILATERAL FOOT AND ANKLE PAIN FINDINGS: AP, oblique, and lateral views of the left ankle were obtained. There is no prior exam for comparison. There is no fracture or dislocation. The ankle mortise is intact. There is calcification adjacent to the tip of the lateral malleolus and adjacent to the medial malleolus, could represent old avulsion injury. IMPRESSION: Calcifications as above, may represent old avulsion injury. Reviewed, Interpreted and Dictated by Sun Frey MD Transcribed by Juany Mendoza Authenticated and [facility]
--- NOTE | 2022-09-20 12:30 | XR_ITS ---
FINAL REPORT CLINICAL HISTORY: BILATERAL FOOT AND ANKLE PAIN FINDINGS: AP, oblique and lateral views of the left foot were obtained. There is no prior exam for comparison. There is no acute fracture or dislocation. There is multi joint degenerative disease, most pronounced involving the midfoot. Soft tissues are normal. IMPRESSION: Multi joint degenerative disease. Reviewed, Interpreted and Dictated by Sun Frey MD Transcribed by Juany Mendoza Authenticated and [facility]
== END ==
PROVIDERS: PCP Internal Medicine Adolescent Medicine; Visit Provider Nurse Practitioner Family
DX: M79.671 Pain in right foot (principal); M79.672 Pain in left foot; M25.571 Pain in right ankle and joints of right foot; M25.572 Pain in left ankle and joints of left foot
CPT/HCPCS: 73610; 73630

== ENCOUNTER → 2022-11-30 15:07 | Outpatient (CLI) | payer MEDICARE, OTHER, SELFPAY ==
[2022-11-30 17:06] LABS: Free T4 (Free Thyroxine) 2.39 ng/dl (0.78-2.19)
[2022-11-30 17:20] LABS: Thyroid Stimulating Hormone 0.07 uIU/mL (0.465-4.68)
== END ==
PROVIDERS: PCP Internal Medicine Adolescent Medicine; Visit Provider Nurse Practitioner
DX: E04.9 Nontoxic goiter, unspecified (principal); I10 Essential (primary) hypertension
CPT/HCPCS: 36415; 84439; 84443

== ENCOUNTER → 2022-12-09 08:20 | Outpatient (CLI) | payer MEDICARE, OTHER, SELFPAY ==
--- NOTE | 2022-12-09 08:20 | US_ITS ---
FINAL REPORT CLINICAL HISTORY: thyroid goiter FINDINGS: Thyroid ultrasound: The right lobe of the thyroid gland measures 2.7 x 0.6 x 1.4 cm in size. The echotexture of the right lobe is heterogeneous. No focal nodules are identified. The left lobe of the thyroid gland measures 2.5 x 1.4 x 1.2 cm in size. The echotexture is heterogeneous, and no focal nodules are identified. The isthmus measures 0.4 cm in thickness. IMPRESSION: Heterogeneous small thyroid gland, most compatible with a chronic thyroiditis. Reviewed, Interpreted and Dictated by Williams Haskins III, MD Transcribed by Jennifer Real Authenticated and [facility]
--- NOTE | 2022-12-09 08:20 | FL_ITS ---
FINAL REPORT CLINICAL HISTORY: dysphagia .53 fluoro time FINDINGS: ESOPHAGRAM HISTORY: Abdominal pain, nausea. PROCEDURE: The patient ingested barium. Effervescent crystals were also administered. Spot and overhead films were obtained. FINDINGS: The esophagus is mildly narrowed distally. A 13 mm barium tablet is briefly delayed but does pass through the area of narrowing. There is no hiatal hernia. There is no gastroesophageal reflux. Peristalsis is normal. IMPRESSION: Mild narrowing of the distal esophagus. Consider endoscopic correlation.. Films reviewed , interpreted and dictated by Dr. Haskins Transcribed by Arthur Bennett PA-C. Reviewed, Interpreted and Dictated by Williams Haskins III, MD Transcribed by MARY Kay Authenticated and [facility]
== END ==
PROVIDERS: PCP Internal Medicine Adolescent Medicine; Visit Provider Nurse Practitioner
DX: E04.9 Nontoxic goiter, unspecified (principal); R13.10 Dysphagia, unspecified
CPT/HCPCS: 74220; 76536

== ENCOUNTER → 2022-12-26 16:07 | Outpatient (CLI) | payer MEDICARE, OTHER, SELFPAY ==
[2022-12-26 16:19] LABS: Microscopic, Urine URINE MICROSCOPIC (MICROSCOPIC)
[2022-12-26 16:52] LABS: Appearance,Urine CLEAR (Clear); Bilirubin,Urine Negative (Negative); Blood, Urine TRACE-I (Negative); Color,Urine YELLOW (Yellow); Glucose,Urine (UA) 1+ (Negative); Ketones,Urine Negative (Negative); Leukocyte Esterase,Urine Negative (Negative); Nitrate,Urine Negative (Negative); Protein,Urine Negative (Negative); Urobilinogen,Urine 0.2 EU/dl (0.2)
[2022-12-26 17:00] LABS: Creatinine,Urine Random 94 mg/dL (Not Estab.); Hemoglobin A1C 8.2 % (4.0-6.0); RBC,Urine Occasional #/hpf (0-3); Squamous Epithelial Cell,Urine Occasional #/hpf (0-5); Total Protein,Urine Random < 5.0 mg/dL (0.0-12.0)
[2022-12-26 17:17] LABS: Alanine Aminotransferase 33 U/L (12-78); Albumin Level 3.5 g/dl (3.5-5.0); Albumin/Globulin Ratio 1.1 (1.1-1.8); Alkaline Phosphatase 83 U/L (38-126); Anion Gap 14.5 mEq/L (5-15); Aspartate Amino Transferase 40 U/L (17-59); Bilirubin,Total 0.4 mg/dl (0.2-1.3); Blood Urea Nitrogen 23 mg/dl (9-20); Calcium 8.1 mg/dl (8.4-10.2); Carbon Dioxide 29 mmol/L (22.0-30.0); Chloride 97 mmol/L (98-107); Estimated Glomerular Filt Rate 53 ml/min (>60); GFR (African American) 64 ML/MIN (>60); Globulin 3.1 g/dL (1.3-3.2); Glucose 290 mg/dl (74-100); Potassium 4.5 mmoL/L (3.5-5.1); Sodium 136 mmol/L (136-145); Total Protein,Serum 6.6 g/dl (6.3-8.2); Uric Acid 6.1 mg/dl (3.5-8.5)
[2022-12-26 17:31] LABS: Intact Parathyroid Hormone 131.2 pg/mL (7.5-53.5)
[2022-12-26 17:35] LABS: 25-OH Vitamin D, Total 35.4 ng/mL (30-100)
[2022-12-26 19:08] LABS: Hematocrit 40.3 % (42.0-52.0); Hemoglobin 12.4 g/dL (14.1-18.0); Mean Corpuscular HGB Conc 30.9 g/dL (31.8-35.4); Mean Corpuscular Hemoglobin 31.1 pg (27.0-31.2); Mean Corpuscular Volume 100.7 fl (80-94); Platelet Count 265 K/mm3 (142-424); Red Cell Distribution Width 15.5 % (11.5-17.5); White Blood Count 8.9 K/mm3 (4.8-10.8)
== END ==
PROVIDERS: PCP Internal Medicine Adolescent Medicine; Visit Provider Internal Medicine Nephrology
DX: N18.30 Chronic kidney disease, stage 3 unspecified (principal); E11.65 Type 2 diabetes mellitus with hyperglycemia; I10 Essential (primary) hypertension; E55.9 Vitamin D deficiency, unspecified; E79.0 Hyperuricemia without signs of inflammatory arthritis and tophaceous disease; E03.9 Hypothyroidism, unspecified; Z79.4 Long term (current) use of insulin
CPT/HCPCS: 36415; 80053; 81001; 82306; 82570; 83036; 83970; 84155; 84550; 85014; 85018; 85048; 85049

== ENCOUNTER → 2023-01-04 09:17 | Outpatient (CLI) | payer MEDICARE, OTHER, SELFPAY ==
--- NOTE | 2023-01-04 09:24 | US_ITS ---
FINAL REPORT CLINICAL HISTORY: Decreased pulses in lower extremities ,DIABETIC,CAD,CLAUDICATION FINDINGS: COMPLETE ANKLE/BRACHIAL INDICES BILATERAL Complete ankle brachial indices was obtained. The right SHAHBAZ is 1.1. The left SHAHBAZ is 1.1. IMPRESSION: ABIs are within normal limits bilaterally. Reviewed, Interpreted and Dictated by Williams Haskins III, MD Transcribed by Juany Mendoza Authenticated and [facility]
== END ==
PROVIDERS: PCP Internal Medicine Adolescent Medicine; Visit Provider Nurse Practitioner Family
DX: R09.89 Other specified symptoms and signs involving the circulatory and respiratory systems (principal)
CPT/HCPCS: 93923

== ENCOUNTER 2023-01-13 10:00 | Outpatient (RCR) | payer MEDICARE, OTHER, SELFPAY ==
--- NOTE | 2022-11-22 11:58 | HMH.PTOPWND ---
Rehab Outpt Wound Evaluation Rehab OP Wound Evaluation Start: 11/22/22 11:03 Freq: Status: Active Protocol: Document 11/22/22 11:44 PHOALBINO (Rec: 11/22/22 11:57 PHORNE [id number]) E-signed By Derik Guerrero, PT Subjective/History History History This is the initial PT eval for Joel Wu, 82 yowm who presents with c/o edema in B LE, but worse on the R side, x ~ 2-3 mos. He reports recent bout of cellulitis that responded well to oral abx. He has hx of R ZARI, as well, which is likely to increase the edema in that leg. He has no c/o increased pain at this time, but does have worsening symptoms of restless leg syndrome at night per his report. He has PMH of DM-II, CAD, HLD, HTN, mitral valve prolapse S/P repair, R cochlear implant, R ZARI. Subjective Subjective He reports no pain and no TTP this am. He presents with decreased sensation via monofilament testing in B LE from ankle distally. 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 He reports his anticoagulant makes it difficult for him to stop the bleeding if he gets a cut or scrape. 1+ pitting edema noted to R lower leg this am. Lymphedema Eval Classification of Lymphedema Secondary Lymphedema Yes Stemmer's sign Stemmer's Sign no Stage of Lymphedema Lymphedema stages Stage I (Pitting edema, reduces w/ elevation, no fibrosis) Skin Changes Dry Skin Yes Taut, Shiny Skin Yes Redness Yes: blanchable Wounds Yes Discoloration of Skin Yes Other Changes Yes Pain Scale Pain Scale (0-10) 0 Affected Extremities Areas Affected by Lymphedema/Edema Right Lower Extremity,Left Lower Extremity Manual Lymphatic Drainage Treatment Area MLD Treatment Area Right Lower Extremity,Left
--- NOTE | 2022-12-19 10:51 | HMH.RHREAS ---
Rehab Reassessment Rehab OP Re-assessment Start: 11/22/22 11:03 Freq: Status: Active Protocol: Document 12/19/22 10:41 ANAND (Rec: 12/19/22 10:51 ANAND [id number]) E-signed By Derik Guerrero, PT Rehab Re-assessment Subjective Subjective Pt reports 0/10 pain at this time, feels much better overall, but continues to have difficulty with ADLs due to edema in R LE. Objective Objective Notes Circumferential Measurements: R LE total is 145.8 cm which is -6.3 cm since initial eval L LE total is 145.6 cm which is -6.3 cm since initial eval. Edema: 1+ pitting edema remains in R ankle and foot this date. Minimal blanchable erythema noted to R LE also. Assessment Progress Assessment Progressing as Expected Assessment Notes Pt has shown significant improvement in overall edema to B LE to this point. He continues to have difficulty with donning shoes and ambulation due to edema in his lower legs, worse on the R side. He continues to need skilled intervention to return to prior level of function with all ADLs. Patient goals met ST Goals Not Met ST LT,2,3,4,5 Revised Goals none Plan Plan Continue per initial POC. Frequency of Therapy 1 x/wk Duration of therapy 4 wks Time and Billing Re-Eval Time 14 Re-Eval Billing Units 1 PHYSICIAN CERTIFICATION: I certify the specified therapy services for Joel Wu are required, authorized, and reviewed every 30 days.
== END 2023-01-13 11:00 | disposition home or self-care (01) ==
LOC: PT 10:00
PROVIDERS: PCP Internal Medicine Adolescent Medicine; Visit Provider Internal Medicine Adolescent Medicine
DX: I89.0 Lymphedema, not elsewhere classified (principal); R60.0 Localized edema
CPT/HCPCS: 97140; 97163; 97164

== ENCOUNTER → 2023-01-24 14:31 | Outpatient (CLI) | payer MEDICARE, OTHER, SELFPAY ==
--- NOTE | 2023-01-24 14:34 | XR_ITS ---
FINAL REPORT CLINICAL HISTORY: cough COMPARISON: 07/01/2022 FINDINGS: TWO VIEW CHEST The heart size is normal. The patient is status post median sternotomy. There is mild bibasilar atelectasis. There is no pneumothorax. IMPRESSION: Mild bibasilar atelectasis. Reviewed, Interpreted and Dictated by Williams Haskins III, MD Transcribed by Keshawn Kessler Authenticated and . [facility]
== END ==
PROVIDERS: PCP Nurse Practitioner Family; Visit Provider Internal Medicine Pulmonary Disease
DX: R06.02 Shortness of breath (principal); R05.9 Cough, unspecified
CPT/HCPCS: 71046

== ENCOUNTER → 2023-01-26 14:55 | Outpatient (CLI) | payer MEDICARE, OTHER, SELFPAY ==
[2023-01-26 15:36] LABS: Basophils % 0.3 % (0.1-2.0); Eosinophils # 0.4 K/mm3 (0.0-0.4); Eosinophils % 3.3 % (0.1-12.0); Hematocrit 43.8 % (42.0-52.0); Hemoglobin 13.8 g/dL (14.1-18.0); Lymphocytes # 1.6 K/mm3 (0.7-4.5); Lymphocytes % 14.2 % (10-50); Mean Corpuscular HGB Conc 31.4 g/dL (31.8-35.4); Mean Corpuscular Hemoglobin 30.9 pg (27.0-31.2); Mean Corpuscular Volume 98.2 fl (80-94); Mean Platelet Volume 8.4 fl (7.4-10.4); Monocytes # 0.7 K/mm3 (0.1-1.0); Monocytes % 6.2 % (1.7-9.3); Neutrophils # 8.4 K/mm3 (1.8-7.8); Platelet Count 242 K/mm3 (142-424); Red Blood Count 4.46 M/mm3 (4.60-6.20); Red Cell Distribution Width 15.3 % (11.5-17.5); White Blood Count 11.1 K/mm3 (4.8-10.8)
[2023-01-26 15:56] LABS: Alanine Aminotransferase 28 U/L (12-78); Albumin Level 3.6 g/dl (3.5-5.0); Alkaline Phosphatase 83 U/L (38-126); Anion Gap 9.8 mEq/L (5-15); Aspartate Amino Transferase 34 U/L (17-59); Bilirubin,Indirect 0.6 mg/dL (0.0-0.9); Bilirubin,Total 0.6 mg/dl (0.2-1.3); Bilirubin,Unconjugated 0.7 mg/dL (0.0-1.1); Blood Urea Nitrogen 40 mg/dl (9-20); Carbon Dioxide 34 mmol/L (22.0-30.0); Chloride 102 mmol/L (98-107); Chol/HDL Ratio 3.5 (1-3.5); Cholesterol 154 mg/dl (140-200); Estimated Glomerular Filt Rate 45 ml/min (>60); GFR (African American) 54 ML/MIN (>60); HDL Cholesterol 44 mg/dl (40-60); Magnesium 1.8 mg/dl (1.6-2.3); Potassium 3.8 mmoL/L (3.5-5.1); Sodium 142 mmol/L (136-145); Triglycerides 84 mg/dl (30-150); VLDL Cholesterol 17 mg/dL (0-40)
[2023-01-26 16:04] LABS: Digoxin < 0.40 ng/ml (0.2-2.00)
[2023-01-26 16:07] LABS: Direct LDL Cholesterol 90.36 mg/dL (100-129)
[2023-01-26 16:13] LABS: Free T4 (Free Thyroxine) 1.99 ng/dl (0.78-2.19)
[2023-01-26 16:28] LABS: Glucose 31 mg/dl (74-100)
== END ==
PROVIDERS: PCP Internal Medicine Adolescent Medicine; Visit Provider Nurse Practitioner
DX: I10 Essential (primary) hypertension (principal); I48.0 Paroxysmal atrial fibrillation; Z95.1 Presence of aortocoronary bypass graft; R06.00 Dyspnea, unspecified; R05.9 Cough, unspecified
CPT/HCPCS: 36415; 80048; 80061; 80076; 80162; 83735; 84439; 84443; 85025; 93270

== ENCOUNTER → 2023-02-03 09:01 | Outpatient (CLI) | payer MEDICARE, OTHER, SELFPAY ==
--- NOTE | 2023-02-03 09:05 | CA_ITS ---
APPROVED REPORT EXAM: Comprehensive 2D, Doppler, and color-flow Echocardiogram Claims Adjuster: Maria M Carver RT(R) Ht: 6 ft 0 in Wt: 202lbs BSA: 2.14 BP: 118/79 mmHg Indications: MV clip/repair, HTN, DM, hyperlipidemia, h/o CABG, chronic AF, SOA 2D Dimensions LVOT 2.14 cm (M/F) 1.5-2.5 LA Volume 70.30 mL LA Volume Index 32.85 mL/m2 (M/F) 16-34 M-Mode Dimensions RVDd 4.00 cm (0.9-2.6) LA Diam 4.30 cm (1.9-4.0) LVDd 4.99 cm (3.5-5.7) Ao Diam 3.45 cm (2.0-3.7) LVDs 3.63 cm (3.5-5.7) IVSd 0.99 cm (0.6-1.1) PWd 0.87 cm (0.6-1.1) EF (Teich) 52.80% FS 27.30% EDV (Teich) 117.70 mL ESV (Teich) 55.50 mL LV Diastology E Decel Time 317.00 (160-240 msec) E/A Ratio 1.6 MED E' 3.90 (< 7 cm/sec) E'/MED E' Ratio 44.00 (>14) Aortic Valve AO VTI 65.88 (18-25 cm) Mitral Valve MV E Max Matteo. 172.00 (40-130 cm/s) MV A Velocity 109.00 (40-130 cm/s) E/A Ratio 1.58 MV Decel. Time 317.00 (160-240 ms) MV PHT 93.00 ms Tricuspid Valve TR P. Velocity 359.00 cm/s RAP Estimate 10.00 mmHg RVSP 61.60 mmHg Left Ventricle The left ventricle is normal size. The left ventricular systolic function is normal. The left ventricular ejection fraction is within the normal range. There is increased LV wall thickness. There is normal LV segmental wall motion. Grade 2 diastolic dysfunction is present. LVEF is 60%. Right Ventricle The RV is difficult to visualize, but grossly appears mildly dilated with normal RV function. Atria The left atrium size is normal. The right atrium size is mildly dilated. s/p iatrogenic ASD following MitraClip. The shunt is not visualized on color Doppler evaluation. Aortic Valve The aortic valve is mildly thickened. There is no aortic valvular stenosis. Mild aortic regurgitation. Mitral Valve s/p MitraClip (2019). The mitral valve leaflets are mildly thickened. Mild mitral stenosis is present. Mean MV gradient 7 mmHg (HR 65 bpm). Mild mitral regurgitation. Tricuspid Valve The tricuspid valve leaflets are thin and pliable. Mild tricuspid regurgitation. RVSP is 50-55 mmHg. Pulmonic Valve The pulmonary valve is normal in structure. Mild pulmonic regurgitation. Great Vessels The aortic root is normal in size. IVC is normal in size and collapses >50% with inspiration. Pericardium There is no pericardial effusion. Other Information Study Quality: Fair Conclusion Normal LV systolic function. Grade II diastolic dysfunction. RV difficult to visualize, grossly appears mildly dilated with normal RV function. s/p MitraClip. Mild MR. Mild MS. Iatrogenic ASD post-MitraClip not well visualized. Elevated RVSP 50-55 mmHg. Electronically signed by : Alia Malone, 02/05/2023 16:41:10
[2023-02-03 11:35] LABS: Anion Gap 9.7 mEq/L (5-15); Blood Urea Nitrogen 39 mg/dl (9-20); Calcium 8.8 mg/dl (8.4-10.2); Carbon Dioxide 37 mmol/L (22.0-30.0); Chloride 97 mmol/L (98-107); Estimated Glomerular Filt Rate 45 ml/min (>60); GFR (African American) 54 ML/MIN (>60); Glucose 155 mg/dl (74-100); Magnesium 2.3 mg/dl (1.6-2.3); Potassium 4.7 mmoL/L (3.5-5.1); Sodium 139 mmol/L (136-145)
== END ==
PROVIDERS: Internal Medicine; PCP Internal Medicine Adolescent Medicine; Visit Provider Nurse Practitioner
DX: I05.9 Rheumatic mitral valve disease, unspecified (principal); R06.00 Dyspnea, unspecified; I48.0 Paroxysmal atrial fibrillation; Z95.1 Presence of aortocoronary bypass graft; R05.9 Cough, unspecified
CPT/HCPCS: 36415; 80048; 83735; 93306

== ENCOUNTER → 2023-02-15 07:21 | Outpatient (CLI) | payer MEDICARE, OTHER, SELFPAY ==
--- NOTE | 2023-02-15 | CA_ITS ---
APPROVED REPORT Exam: Pharmacologic Technologist: Georgette Alvarez Ht: 6 ft 0 in Wt: 202 lbs BSA: 2.14 m2 HR: 73 bpm BP: 106/70 mmHg Rhythm: Ectopic atrial rhythm Indications: Shortness of Air Medical History Medications: Levothyroxine,,,,, Metoprolol,,,,, Allopurinol,,,,, Escitalopram,,,,, Ropinirole,,,,, Albuterol,,,,, Montelukast,,,,, BenzONATATE,,,,, LanTUS,,,,, DOxazosin,,,,, Humalog,,,,, Finasteride,,,,, Stress Test Details Test: LEXISCAN HR Resting HR: 71 bpm Max Heart Rate (APMHR): 136 bpm Max HR Achieved: 99 bpm Target HR (85% APMHR): 116 bpm % of APMHR: 73 Recovery HR: 75 bpm BP Resting BP: 106.0/70.0 mmHg Max BP: 107.0/60.0 mmHg Recovery BP: 105.0/60.0 mmHg ECG Resting ECG: Ectopic atrial rhythm, First degree AV block, PVCs, PACs, non-specific ST abnormalities. Stress ECG: No change Arrhythmia: Frequent ventricular couplets, one 5-beat NSVT. PACS Clinical Exercise duration: 04:00 min Highest Stage Achieved: Exercise capacity: n/a METs Stress ECG Conclusion Symptoms: None Arrhythmias/Ectopy: Frequent PVCs, occasional ventricular couplets, one 5 beat non-sustained ventricular tachycardia (NSVT). Occasional PAC. ST-T Changes: No significant ST changes. Conclusion: No significant ST changes, but frequent ventricular ectopy, including one 5-beat NSVT. Myoview images reported separately. Test Summary REST . . . . . . . Resting REST 05:13 . . 71 . 106/ 70 . . Stage 1 . . . . . . . Myoview Injected Stage 1 01:00 . . 72 . . . . Stage 2 01:00 . . 76 . . . . Stage 3 01:00 . . 77 . 107/ 60 . . Stage 4 01:00 . . 77 . 104/ 60 . Stop exercise at 04:00 RECOVERY 01:00 . . 75 . 102/ 61 . . RECOVERY 02:00 . . 79 . 102/ 61 . . RECOVERY 03:00 . . 78 . 105/ 60 . . RECOVERY 03:22 . . 74 . 105/ 60 . . Electronically signed by : Alia Malone, 02/17/2023 16:38:50
--- NOTE | 2023-02-15 07:24 | NM_ITS ---
APPROVED REPORT Exam: Nuclear Stress Test Indication: soa..fatigue Patient Location: Outpatient Stress Tech: Georgette Alvarez NC Tech:RAFFI Barron RT(R)(N) Ht: 6 ft 0 in Wt: 194 lbs HR: 71 bpm BP: 106/70 mmHg BSA: 2.10 m2 Rhythm: Ectopic atrial rhythm TID: 0.97 History: soa..fatigue Procedure: Patient received 0.4 mg of intravenous Lexiscan, resting heart rate 71 bpm, resting blood pressure 106/70 mmHg, with Lexiscan maximum heart rate achieved was 99 bpm which is 85 % of the maximum predicted heart rate and blood pressure was 107/60 mmHg. With Lexiscan, patient denied any complaint of chest pain. The patient is not able to lay on his abdomen for prone images. Cardiac Stress and Resting SPECT Images: Cardiac Stress and Resting SPECT images were obtained using technetium 99m Myoview 29.6 mCi stress and 10.07 mCi at rest. The patient was unable to lie on his abdomen. Therefore, prone stress imaging could not be performed. This may affect the diagnostic interpretation of the study findings. Raw images demonstrate possibly dilated RV. Resting and stress imaging in supine position demonstrate a medium-sized, mild, fixed perfusion defect in the LV apical well, as well as a small-sized, moderate, fixed perfusion defect in the basal lateral wall. Gated imaging demonstrates normal global LV systolic function. There is mild hypokinesis of the basal lateral LV wall. LVEF is calculated at 59%. Conclusion: The patient was unable to lie on his abdomen. Therefore, prone stress imaging could not be performed. This may affect the diagnostic interpretation of the study findings. Raw images demonstrate possibly dilated RV. Medium-sized, mild, fixed perfusion defect in the LV apical well, as well as a small-sized, moderate, fixed perfusion defect in the basal lateral wall. Gated imaging demonstrates normal global LV systolic function. There is mild hypokinesis of the basal lateral LV wall. LVEF is calculated at 59%. Electronically signed by : Alia Malone, 02/17/2023 16:42:52
== END ==
PROVIDERS: PCP Internal Medicine Adolescent Medicine; Visit Provider Nurse Practitioner
DX: R06.02 Shortness of breath (principal)
CPT/HCPCS: 78452; 93017; A9502; J2785

== ENCOUNTER → 2023-03-27 10:40 | Outpatient (CLI) | payer MEDICARE, OTHER, SELFPAY ==
[2023-03-27 11:17] LABS: Basophils % 0.5 % (0.1-2.0); Eosinophils # 0.1 K/mm3 (0.0-0.4); Eosinophils % 1.2 % (0.1-12.0); Hematocrit 42.9 % (42.0-52.0); Hemoglobin 13.6 g/dL (14.1-18.0); Lymphocytes # 1.2 K/mm3 (0.7-4.5); Lymphocytes % 12.6 % (10-50); Mean Corpuscular HGB Conc 31.7 g/dL (31.8-35.4); Mean Corpuscular Hemoglobin 31.8 pg (27.0-31.2); Mean Corpuscular Volume 100.2 fl (80-94); Mean Platelet Volume 8.1 fl (7.4-10.4); Monocytes # 0.5 K/mm3 (0.1-1.0); Monocytes % 5.5 % (1.7-9.3); Neutrophils # 7.7 K/mm3 (1.8-7.8); Neutrophils % 80.3 % (37.0-80.0); Platelet Count 254 K/mm3 (142-424); Red Blood Count 4.28 M/mm3 (4.60-6.20); Red Cell Distribution Width 15.9 % (11.5-17.5); White Blood Count 9.6 K/mm3 (4.8-10.8)
[2023-03-27 13:09] LABS: Anion Gap 12.4 mEq/L (5-15); Blood Urea Nitrogen 41 mg/dl (9-20); Calcium 8.8 mg/dl (8.4-10.2); Carbon Dioxide 28 mmol/L (22.0-30.0); Chloride 96 mmol/L (98-107); Estimated Glomerular Filt Rate 39 ml/min (>60); GFR (African American) 47 ML/MIN (>60); Glucose 252 mg/dl (74-100); Potassium 4.4 mmoL/L (3.5-5.1); Sodium 132 mmol/L (136-145)
== END ==
PROVIDERS: PCP Internal Medicine Adolescent Medicine; Visit Provider Internal Medicine
DX: I48.0 Paroxysmal atrial fibrillation (principal); Z95.1 Presence of aortocoronary bypass graft; I25.10 Atherosclerotic heart disease of native coronary artery without angina pectoris; E78.5 Hyperlipidemia, unspecified; R06.00 Dyspnea, unspecified; Z98.890 Other specified postprocedural states; Z79.4 Long term (current) use of insulin; I11.0 Hypertensive heart disease with heart failure; I50.33 Acute on chronic diastolic (congestive) heart failure
CPT/HCPCS: 36415; 80048; 85025

== ENCOUNTER → 2023-04-10 15:41 | Outpatient (CLI) | payer MEDICARE, OTHER, SELFPAY ==
[2023-04-10 16:16] LABS: Basophils % 0.4 % (0.1-2.0); Eosinophils # 0.1 K/mm3 (0.0-0.4); Eosinophils % 0.9 % (0.1-12.0); Hematocrit 41.7 % (42.0-52.0); Hemoglobin 14.1 g/dL (14.1-18.0); Lymphocytes # 1.5 K/mm3 (0.7-4.5); Lymphocytes % 15.4 % (10-50); Mean Corpuscular HGB Conc 33.7 g/dL (31.8-35.4); Mean Corpuscular Hemoglobin 34.4 pg (27.0-31.2); Mean Corpuscular Volume 101.9 fl (80-94); Mean Platelet Volume 7.9 fl (7.4-10.4); Monocytes # 0.4 K/mm3 (0.1-1.0); Monocytes % 4.3 % (1.7-9.3); Neutrophils # 7.5 K/mm3 (1.8-7.8); Platelet Count 249 K/mm3 (142-424); Red Cell Distribution Width 16.1 % (11.5-17.5); White Blood Count 9.5 K/mm3 (4.8-10.8)
[2023-04-10 17:15] LABS: Chloride 97 mmol/L (98-107); Potassium 4.7 mmoL/L (3.5-5.1); Sodium 133 mmol/L (136-145)
[2023-04-10 17:18] LABS: Anion Gap 12.7 mEq/L (5-15); Blood Urea Nitrogen 37 mg/dl (9-20); Calcium 8.8 mg/dl (8.4-10.2); Carbon Dioxide 28 mmol/L (22.0-30.0); Estimated Glomerular Filt Rate 45 ml/min (>60); GFR (African American) 54 ML/MIN (>60); Glucose 167 mg/dl (74-100)
== END ==
PROVIDERS: PCP Internal Medicine Adolescent Medicine; Visit Provider Internal Medicine
DX: I50.30 Unspecified diastolic (congestive) heart failure (principal); R06.02 Shortness of breath
CPT/HCPCS: 36415; 80048; 85025

== ENCOUNTER 2023-04-27 08:34 | Day surgery (SDC) | payer MEDICARE, OTHER, SELFPAY ==
[2023-04-14 12:07] VITALS: BMI 26.7
[2023-04-27 08:46] VITALS: BP 131/74; PULSE 89; RESP 18; TEMP 36.2; O2SAT 99
[2023-04-27 09:04] LABS: POC Glucose,Bedside 174 (70-110)
--- NOTE | 2023-04-27 09:25 | EXP.ANES.CKL ---
[facility] Disclaimer: The information contained in this section may have been updated after the patient was seen, as this information can be updated by other users. Medical History (HFpEF) heart failure with preserved ejection fraction ABPA (allergic bronchopulmonary aspergillosis) Allergic rhinitis Asthma Atrial fibrillation Bleeding from left ear CAD (coronary artery disease) Chronic cough Chronic kidney disease COPD mixed type Diabetes mellitus Diabetes mellitus, type 2 Dysphagia Dyspnea on exertion Edema Enlarged prostate Family history of cardiac disorder Hemorrhoid History of anemia History of cataract History of transient ischemic attack (TIA) Hoarseness Hyperlipidemia Hypertensive disorder Hypothyroid Impacted cerumen Lung nodule Mitral valve prolapse Mitral valve regurgitation Moderate persistent asthma Murmur Pneumonia Restrictive lung disease Rhabdomyolysis due to statin therapy Sinusitis Thyroid goiter Surgical History History of bronchoscopy History of cochlear implant History of mitral valve repair mitral valve leaflet clip 04/13 History of right hip replacement S/P CABG x 2 Family History Sister Pulmonary hypertension Father Heart attack Brother Heart attack Grandmother Heart attack Mother Alzheimer disease Social History (Updated 04/27/23 @ 08:57 by Nirmala Whitaker RN) Smoking Status: Never smoker second hand exposure: No alcohol intake: never counseling provided: none substance use type: denies use current occupational status: retired Travel in the last 8 weeks: None household members: spouse housing: house current occupational exposures/hazards: No caffeine: No [facility] Anesthesia Checklist Patient Identification Patient Identification: Arm Band Structural Data Admitted From: Home Planned Operative Procedure/s: EGD Consent for Planned Operative Procedure(s) Verified: Yes Verified Documents: Surgical Consent and History and Physical NPO Status Verified Time NPO: 00:00 Additional verifications Anesthesia Reactions: No Hx Blood Transfusions: No Blood Transfusion Reaction: No Airway Assessment Mallampati Score:: Class II C-Spine Mobility Assessed: Yes TMJ Mobility Assessed: Yes Dentition: Good Dentition Neurological Assessment Level of Consciousness: Awake and Alert Anesthesia Plan Anesthesia Risk discussed: Yes Anesthesia Plan: Verified ASA Class: III Anesthesia Type: MAC
[2023-04-27 09:29] VITALS: O2SAT 99
--- NOTE | 2023-04-27 09:40 | HMH.SCOPE ---
Procedure: Date: 04/27/23 Patient Date of :: 1940 Procedure Performed:: EGD with biopsies and bougie dilation Indications:: Dysphagia Performing Provider:: Stephanie Olvera MD Referring Provider:: Kayla Olvera APRN Sedation:: Propofol Procedure:: The gastroscope was gently passed through the incisoral orifice into the oral cavity and under direct visualization the esophagus was intubated. The endoscope was passed down the esophagus, through the stomach, and into the duodenum. Color, texture, mucosa, and anatomy of the esophagus, stomach, and duodenum were carefully examined with the scope. Findings:: Oropharynx: normal Esophagus: whitish plaques noted, biopsied, bougie dilation performed with 56F dilator EG Junction: intact at 40 cm Cardia: normal Fundus: normal Body: normal Antrum: normal Duodenal bulb: normal Duodenum (second and third portion): normal Impression: Esophageal candidiasis Symptomatic dysphagia treated with bougie dilation Specimens:: Esophagus Recommendations:: Symptomatic therapy for thrush and repeat dilation in about THREE years or so, sooner if clinically indicated. Complications:: None Estimated blood obtained (mL): 0 Colonoscopy Component Colonoscopy Component Was a colonoscopy performed during today's procedure?: No
[2023-04-27 09:43] VITALS: BP 106/55; PULSE 74; RESP 14; TEMP 36.3; O2SAT 97
[2023-04-27 09:53] VITALS: BP 119/75; PULSE 75; RESP 16; O2SAT 94
[2023-04-27 10:03] VITALS: BP 119/69; PULSE 74; RESP 18; O2SAT 96
[2023-04-27 10:32] VITALS: BP 123/69; PULSE 74; RESP 18; O2SAT 98
[2023-04-27 14:51] LABS: Basophils % 0.3 % (0.1-2.0); Eosinophils # 0.1 K/mm3 (0.0-0.4); Eosinophils % 0.9 % (0.1-12.0); Hematocrit 41.1 % (42.0-52.0); Hemoglobin 13.8 g/dL (14.1-18.0); Lymphocytes # 1.2 K/mm3 (0.7-4.5); Lymphocytes % 14.1 % (10-50); Mean Corpuscular HGB Conc 33.5 g/dL (31.8-35.4); Mean Corpuscular Hemoglobin 34.2 pg (27.0-31.2); Mean Corpuscular Volume 102.3 fl (80-94); Mean Platelet Volume 8.1 fl (7.4-10.4); Monocytes # 0.4 K/mm3 (0.1-1.0); Monocytes % 4.6 % (1.7-9.3); Neutrophils # 6.9 K/mm3 (1.8-7.8); Neutrophils % 80.1 % (37.0-80.0); Platelet Count 219 K/mm3 (142-424); Red Blood Count 4.02 M/mm3 (4.60-6.20); Red Cell Distribution Width 16.1 % (11.5-17.5); White Blood Count 8.6 K/mm3 (4.8-10.8)
[2023-04-27 15:37] LABS: Anion Gap 11.5 mEq/L (5-15); Blood Urea Nitrogen 32 mg/dl (9-20); Calcium 9.1 mg/dl (8.4-10.2); Carbon Dioxide 31 mmol/L (22.0-30.0); Chloride 98 mmol/L (98-107); Creatinine Clearance Estimated 57 mL/min (50-200); Estimated Glomerular Filt Rate 58 ml/min (>60); GFR (African American) 70 ML/MIN (>60); Glucose 306 mg/dl (74-100); Potassium 4.5 mmoL/L (3.5-5.1); Sodium 136 mmol/L (136-145)
== END 2023-04-27 10:34 | disposition home or self-care (01) ==
PROVIDERS: Internal Medicine; PCP Internal Medicine Adolescent Medicine; Visit Provider Internal Medicine Gastroenterology
PROC: 0DJ08ZZ Inspection of Upper Intestinal Tract, Via Natural or Artificial Opening Endoscopic (ICD-10-PCS; CPT 43235; principal; 2023-04-27 09:30)
DX: B37.81 Candidal esophagitis (principal); E11.9 Type 2 diabetes mellitus without complications; E78.5 Hyperlipidemia, unspecified; I05.9 Rheumatic mitral valve disease, unspecified; I10 Essential (primary) hypertension; I25.10 Atherosclerotic heart disease of native coronary artery without angina pectoris; I48.0 Paroxysmal atrial fibrillation; I48.91 Unspecified atrial fibrillation; I50.30 Unspecified diastolic (congestive) heart failure; I50.9 Heart failure, unspecified; I73.9 Peripheral vascular disease, unspecified; L81.9 Disorder of pigmentation, unspecified; N28.9 Disorder of kidney and ureter, unspecified; R06.00 Dyspnea, unspecified; R25.2 Cramp and spasm; Z95.1 Presence of aortocoronary bypass graft; Z98.890 Other specified postprocedural states; R13.10 Dysphagia, unspecified
CPT/HCPCS: 43239; 43248; 36415; 80048; 82962; 85025; 88305; 88312

== ENCOUNTER 2023-05-02 08:27 | Day surgery (SDC) | payer MEDICARE, OTHER, SELFPAY ==
[2023-05-02] VITALS (14 sets, daily range): BP systolic 103–157; BP diastolic 55–95; PULSE 72–80; RESP 16–20; O2SAT 91–98; BMI 26.8
--- NOTE | 2023-05-02 07:03 | IR_ITS ---
APPROVED REPORT Patient Location: Outpatient Computer Teacher: RAFFI Casas RT (R) PROCEDURES Right femoral arterial access Right retrograde femoral angiogram with unilateral runoff to the right foot Catheter placement in the left superficial femoral artery Left superficial femoral artery antegrade angiogram with unilateral runoff to the left foot Catheter placed into the left common iliac artery Left common iliac artery antegrade angiogram INDICATION Abnormal SHAHBAZ, Peripheral vascular disease, Claudication Lincoln class III Informed consent was obtained prior to the procedure. COMPLICATIONS None Estimated Blood Loss: Less than 10 mls TECHNIQUE 1% lidocaine used anesthetize right groin the right coronary successfully the center technique and a 5 Serbian sheath is placed in the right femoral artery. Retrograde angiography was performed through the right femoral sheath with unilateral runoff to the right foot. This was performed in this manner to spare contrast based on patient's renal insufficiency. Following the right leg angiography a rim catheter was advanced to the distal abdominal aorta and used to cannulate the left common iliac artery. Left common iliac artery antegrade angiography was performed to outline the iliac arteries and an advantage wire was then placed into the left superficial femoral artery under fluoroscopic guidance. The rim catheter was advanced to the proximal left SFA and unilateral runoff to the left foot was performed via antegrade angiography. At the end of procedure the apparatus was removed the patient was transferred to the postop putting in stable condition for sheath removal ANGIOGRAPHIC RESULTS Bilateral common internal and external iliac arteries are widely patent Bilateral common femoral arteries are patent Bilateral profunda femoris arteries are patent Bilateral superficial femoral arteries have mild atheromatous plaque Bilateral popliteal arteries are widely patent There is three-vessel runoff below the knee bilaterally IMPRESSION Widely patent iliofemoral vessels with three-vessel runoff to the bilateral feet PLAN 1. Evaluation of nonischemic symptoms Electronically signed by : Seth Clement MD 05/02/2023 10:40:05
[2023-05-02 09:18] LABS: Basophils # 0.1 K/mm3 (0-0.2); Basophils % 0.5 % (0.1-2.0); Eosinophils # 0.1 K/mm3 (0.0-0.4); Eosinophils % 1.4 % (0.1-12.0); Hematocrit 44.3 % (42.0-52.0); Hemoglobin 14.9 g/dL (14.1-18.0); Lymphocytes # 1.5 K/mm3 (0.7-4.5); Mean Corpuscular HGB Conc 33.7 g/dL (31.8-35.4); Mean Corpuscular Volume 100.9 fl (80-94); Mean Platelet Volume 8.2 fl (7.4-10.4); Monocytes # 0.5 K/mm3 (0.1-1.0); Monocytes % 4.4 % (1.7-9.3); Neutrophils % 78.8 % (37.0-80.0); Platelet Count 253 K/mm3 (142-424); Red Blood Count 4.39 M/mm3 (4.60-6.20); Red Cell Distribution Width 15.8 % (11.5-17.5); White Blood Count 10.2 K/mm3 (4.8-10.8)
[2023-05-02 09:32] LABS: Blood Urea Nitrogen 34 mg/dl (9-20); Calcium 9.4 mg/dl (8.4-10.2); Carbon Dioxide 32 mmol/L (22.0-30.0); Chloride 99 mmol/L (98-107); Creatinine Clearance Estimated 40 mL/min (50-200); Estimated Glomerular Filt Rate 38 ml/min (>60); GFR (African American) 47 ML/MIN (>60); Glucose 63 mg/dl (74-100); Sodium 142 mmol/L (136-145)
== END 2023-05-02 14:16 | disposition home or self-care (01) ==
PROVIDERS: PCP Internal Medicine Adolescent Medicine; Visit Provider Internal Medicine
DX: I70.213 Atherosclerosis of native arteries of extremities with intermittent claudication, bilateral legs (principal); L81.9 Disorder of pigmentation, unspecified; R25.2 Cramp and spasm; Z79.899 Other long term (current) drug therapy; E11.9 Type 2 diabetes mellitus without complications; Z79.4 Long term (current) use of insulin; I25.10 Atherosclerotic heart disease of native coronary artery without angina pectoris; I48.0 Paroxysmal atrial fibrillation; E03.9 Hypothyroidism, unspecified; I50.31 Acute diastolic (congestive) heart failure; I13.0 Hypertensive heart and chronic kidney disease with heart failure and stage 1 through stage 4 chronic kidney disease, or unspecified chronic kidney disease; N18.9 Chronic kidney disease, unspecified
CPT/HCPCS: 36247; 75716; 80048; 85025; 99152; C1725; C1769; C1894; J1644; Q9966

== ENCOUNTER → 2023-05-10 11:18 | Outpatient (CLI) | payer MEDICARE, OTHER, SELFPAY ==
[2023-05-10 11:41] LABS: Basophils % 0.3 % (0.1-2.0); Eosinophils # 0.2 K/mm3 (0.0-0.4); Hematocrit 40.8 % (42.0-52.0); Hemoglobin 13.7 g/dL (14.1-18.0); Lymphocytes # 1.2 K/mm3 (0.7-4.5); Lymphocytes % 11.7 % (10-50); Mean Corpuscular HGB Conc 33.5 g/dL (31.8-35.4); Mean Corpuscular Hemoglobin 34.4 pg (27.0-31.2); Mean Corpuscular Volume 102.9 fl (80-94); Mean Platelet Volume 7.9 fl (7.4-10.4); Monocytes # 0.4 K/mm3 (0.1-1.0); Monocytes % 4.2 % (1.7-9.3); Neutrophils # 8.2 K/mm3 (1.8-7.8); Neutrophils % 81.9 % (37.0-80.0); Platelet Count 269 K/mm3 (142-424); Red Blood Count 3.97 M/mm3 (4.60-6.20); Red Cell Distribution Width 15.7 % (11.5-17.5)
[2023-05-10 12:22] LABS: Chloride 97 mmol/L (98-107); Potassium 4.6 mmoL/L (3.5-5.1); Sodium 135 mmol/L (136-145)
[2023-05-10 12:24] LABS: Blood Urea Nitrogen 38 mg/dl (9-20); Estimated Glomerular Filt Rate 36 ml/min (>60); GFR (African American) 44 ML/MIN (>60); Iron 88 ug/dL (49-181)
[2023-05-10 12:25] LABS: Anion Gap 9.6 mEq/L (5-15); Calcium 8.7 mg/dl (8.4-10.2); Carbon Dioxide 33 mmol/L (22.0-30.0); Glucose 106 mg/dl (74-100); Magnesium 2.5 mg/dl (1.6-2.3)
[2023-05-10 12:34] LABS: Total Iron Binding Capacity 371 ug/dL (261-462)
[2023-05-10 13:00] LABS: Ferritin 72.6 ng/ml (17.9-464)
[2023-05-10 13:36] LABS: Vitamin B12 256 pg/mL (239-931)
[2023-05-10 13:37] LABS: Folate 8.23 ng/mL
== END ==
PROVIDERS: Nurse Practitioner; PCP Internal Medicine Adolescent Medicine; Visit Provider Internal Medicine
DX: I25.10 Atherosclerotic heart disease of native coronary artery without angina pectoris (principal); I48.91 Unspecified atrial fibrillation; N28.9 Disorder of kidney and ureter, unspecified; E11.9 Type 2 diabetes mellitus without complications; E78.5 Hyperlipidemia, unspecified; I05.9 Rheumatic mitral valve disease, unspecified; I11.0 Hypertensive heart disease with heart failure; I50.30 Unspecified diastolic (congestive) heart failure; L81.9 Disorder of pigmentation, unspecified; R25.2 Cramp and spasm; Z95.1 Presence of aortocoronary bypass graft; Z98.890 Other specified postprocedural states; Z79.4 Long term (current) use of insulin; Z79.84 Long term (current) use of oral hypoglycemic drugs
CPT/HCPCS: 36415; 80048; 80162; 82607; 82728; 82746; 83540; 83550; 83735; 85025

== ENCOUNTER → 2023-06-23 07:12 | Outpatient (CLI) | payer MEDICARE, OTHER, SELFPAY ==
[2023-06-23 07:21] LABS: Microscopic, Urine URINE MICROSCOPIC (MICROSCOPIC)
[2023-06-23 07:53] LABS: Appearance,Urine CLEAR (Clear); Bilirubin,Urine Negative (Negative); Blood, Urine Negative (Negative); Color,Urine YELLOW (Yellow); Glucose,Urine (UA) 3+ (Negative); Ketones,Urine Negative (Negative); Leukocyte Esterase,Urine Negative (Negative); Nitrate,Urine Negative (Negative); Protein,Urine Negative (Negative); Urobilinogen,Urine 0.2 EU/dl (0.2)
[2023-06-23 08:07] LABS: Basophils % 0.2 % (0.1-2.0); Eosinophils # 0.1 K/mm3 (0.0-0.4); Eosinophils % 0.9 % (0.1-12.0); Hematocrit 39.8 % (42.0-52.0); Lymphocytes # 1.3 K/mm3 (0.7-4.5); Lymphocytes % 13.5 % (10-50); Mean Corpuscular HGB Conc 32.8 g/dL (31.8-35.4); Mean Corpuscular Hemoglobin 33.8 pg (27.0-31.2); Monocytes # 0.3 K/mm3 (0.1-1.0); Monocytes % 3.3 % (1.7-9.3); Neutrophils # 7.6 K/mm3 (1.8-7.8); Neutrophils % 82.1 % (37.0-80.0); Platelet Count 221 K/mm3 (142-424); Red Blood Count 3.86 M/mm3 (4.60-6.20); Red Cell Distribution Width 14.9 % (11.5-17.5); White Blood Count 9.3 K/mm3 (4.8-10.8)
[2023-06-23 08:20] LABS: RBC,Urine Occasional #/hpf (0-3)
[2023-06-23 08:21] LABS: Bacteria,Urine Trace /lpf
[2023-06-23 08:53] LABS: Chloride 92 mmol/L (98-107); Potassium 5.3 mmoL/L (3.5-5.1); Sodium 128 mmol/L (136-145)
[2023-06-23 08:56] LABS: Alanine Aminotransferase 27 U/L (12-78); Albumin Level 3.3 g/dl (3.5-5.0); Albumin/Globulin Ratio 1.2 (1.1-1.8); Alkaline Phosphatase 89 U/L (38-126); Anion Gap 12.3 mEq/L (5-15); Aspartate Amino Transferase 33 U/L (17-59); Bilirubin,Total 0.6 mg/dl (0.2-1.3); Blood Urea Nitrogen 35 mg/dl (9-20); Calcium 8.1 mg/dl (8.4-10.2); Carbon Dioxide 29 mmol/L (22.0-30.0); Estimated Glomerular Filt Rate 44 ml/min (>60); GFR (African American) 54 ML/MIN (>60); Globulin 2.7 g/dL (1.3-3.2)
[2023-06-23 09:33] LABS: Glucose 552 mg/dl (74-100)
[2023-06-23 11:10] LABS: 25-OH Vitamin D, Total 33.1 ng/mL (30-100)
[2023-06-23 12:40] LABS: Intact Parathyroid Hormone 118.4 pg/mL (7.5-53.5)
== END ==
PROVIDERS: PCP Internal Medicine Adolescent Medicine; Visit Provider Internal Medicine Nephrology
DX: N18.30 Chronic kidney disease, stage 3 unspecified (principal); E11.65 Type 2 diabetes mellitus with hyperglycemia; E79.0 Hyperuricemia without signs of inflammatory arthritis and tophaceous disease; I10 Essential (primary) hypertension; E55.9 Vitamin D deficiency, unspecified; E03.9 Hypothyroidism, unspecified; Z79.4 Long term (current) use of insulin
CPT/HCPCS: 36415; 80053; 81001; 82306; 83970; 85025

== ENCOUNTER 2023-07-05 07:46 | Outpatient (CLI) | payer MEDICARE, OTHER, SELFPAY ==
[2023-07-05] MEDS: ALBUTEROL 0.083% 2.5 MG/3 ML NEB IH (08:38)
== END 2023-07-05 23:59 ==
LOC: RT 07:46
PROVIDERS: PCP Internal Medicine Adolescent Medicine; Visit Provider Internal Medicine Pulmonary Disease
DX: R06.09 Other forms of dyspnea (principal)
CPT/HCPCS: 94060; 94726; 94729

== ENCOUNTER 2023-08-10 13:41 | Outpatient (CLI) | payer MEDICARE, OTHER, SELFPAY ==
[2023-08-10 14:00] LABS: Microscopic, Urine URINE MICROSCOPIC (MICROSCOPIC)
[2023-08-10 14:27] LABS: Basophils % 0.3 % (0.1-2.0); Eosinophils # 0.7 K/mm3 (0.0-0.4); Eosinophils % 6.8 % (0.1-12.0); Hemoglobin 13.1 g/dL (14.1-18.0); Lymphocytes # 1.2 K/mm3 (0.7-4.5); Lymphocytes % 11.6 % (10-50); Mean Corpuscular HGB Conc 33.5 g/dL (31.8-35.4); Mean Corpuscular Hemoglobin 34.4 pg (27.0-31.2); Mean Corpuscular Volume 102.5 fl (80-94); Mean Platelet Volume 7.6 fl (7.4-10.4); Monocytes # 0.4 K/mm3 (0.1-1.0); Monocytes % 3.7 % (1.7-9.3); Neutrophils # 8.2 K/mm3 (1.8-7.8); Neutrophils % 77.6 % (37.0-80.0); Platelet Count 226 K/mm3 (142-424); Red Blood Count 3.81 M/mm3 (4.60-6.20); Red Cell Distribution Width 15.1 % (11.5-17.5); White Blood Count 10.6 K/mm3 (4.8-10.8)
[2023-08-10 15:02] LABS: Alanine Aminotransferase 28 U/L (12-78); Albumin Level 3.6 g/dl (3.5-5.0); Alkaline Phosphatase 74 U/L (38-126); Anion Gap 10.2 mEq/L (5-15); Aspartate Amino Transferase 32 U/L (17-59); Bilirubin,Direct 0.2 mg/dl (0.0-0.4); Bilirubin,Indirect 0.3 mg/dL (0.0-0.9); Bilirubin,Total 0.5 mg/dl (0.2-1.3); Bilirubin,Unconjugated 0.4 mg/dL (0.0-1.1); Blood Urea Nitrogen 33 mg/dl (9-20); Calcium 8.8 mg/dl (8.4-10.2); Carbon Dioxide 33 mmol/L (22.0-30.0); Chloride 102 mmol/L (98-107); Chol/HDL Ratio 5.7 (1-3.5); Cholesterol 164 mg/dl (140-200); Estimated Glomerular Filt Rate 36 ml/min (>60); GFR (African American) 44 ML/MIN (>60); Glucose 52 mg/dl (74-100); HDL Cholesterol 29 mg/dl (40-60); Potassium 4.2 mmoL/L (3.5-5.1); Sodium 141 mmol/L (136-145); Total Protein,Serum 6.6 g/dl (6.3-8.2); Triglycerides 158 mg/dl (30-150); VLDL Cholesterol 32 mg/dL (0-40)
[2023-08-10 15:12] LABS: Direct LDL Cholesterol 108.55 mg/dL (100-129)
[2023-08-10 15:16] LABS: Free T4 (Free Thyroxine) 1.57 ng/dl (0.78-2.19)
[2023-08-10 15:25] LABS: Appearance,Urine CLEAR (Clear); Bilirubin,Urine Negative (Negative); Blood, Urine Negative (Negative); Color,Urine YELLOW (Yellow); Glucose,Urine (UA) 2+ (Negative); Ketones,Urine Negative (Negative); Leukocyte Esterase,Urine Negative (Negative); Nitrate,Urine Negative (Negative); Protein,Urine Negative (Negative); Urobilinogen,Urine 0.2 EU/dl (0.2)
[2023-08-10 15:32] LABS: Thyroid Stimulating Hormone 0.87 uIU/mL (0.465-4.68)
[2023-08-10 15:58] LABS: Bacteria,Urine Trace /lpf; Squamous Epithelial Cell,Urine Occasional #/hpf (0-5)
== END 2023-08-10 23:59 ==
LOC: LAB 13:42
PROVIDERS: PCP Internal Medicine Adolescent Medicine; Visit Provider Internal Medicine
DX: I48.0 Paroxysmal atrial fibrillation (principal); I25.10 Atherosclerotic heart disease of native coronary artery without angina pectoris; I50.30 Unspecified diastolic (congestive) heart failure; R06.09 Other forms of dyspnea; E78.5 Hyperlipidemia, unspecified; E11.9 Type 2 diabetes mellitus without complications; Z79.4 Long term (current) use of insulin
CPT/HCPCS: 36415; 80048; 80061; 80076; 81001; 84439; 84443; 85025

== ENCOUNTER 2023-08-28 08:02 | Outpatient (CLI) | payer MEDICARE, OTHER, SELFPAY ==
[2023-08-28 08:09] LABS: Microscopic, Urine URINE MICROSCOPIC (MICROSCOPIC)
[2023-08-28 08:44] LABS: Basophils % 0.3 % (0.1-2.0); Eosinophils # 2.1 K/mm3 (0.0-0.4); Eosinophils % 18.9 % (0.1-12.0); Hematocrit 42.7 % (42.0-52.0); Hemoglobin 13.3 g/dL (14.1-18.0); Lymphocytes # 1.2 K/mm3 (0.7-4.5); Lymphocytes % 11.3 % (10-50); Mean Corpuscular HGB Conc 31.1 g/dL (31.8-35.4); Mean Corpuscular Hemoglobin 33.1 pg (27.0-31.2); Mean Corpuscular Volume 106.3 fl (80-94); Mean Platelet Volume 8.2 fl (7.4-10.4); Monocytes # 0.4 K/mm3 (0.1-1.0); Monocytes % 3.4 % (1.7-9.3); Neutrophils # 7.2 K/mm3 (1.8-7.8); Neutrophils % 66.1 % (37.0-80.0); Platelet Count 274 K/mm3 (142-424); Red Blood Count 4.02 M/mm3 (4.60-6.20); Red Cell Distribution Width 15.1 % (11.5-17.5); White Blood Count 10.9 K/mm3 (4.8-10.8)
[2023-08-28 08:54] LABS: Hemoglobin A1C 7.6 % (4.0-6.0)
[2023-08-28 09:11] LABS: Alanine Aminotransferase 25 U/L (12-78); Albumin Level 3.5 g/dl (3.5-5.0); Albumin/Globulin Ratio 1.1 (1.1-1.8); Alkaline Phosphatase 81 U/L (38-126); Aspartate Amino Transferase 32 U/L (17-59); Bilirubin,Total 0.6 mg/dl (0.2-1.3); Blood Urea Nitrogen 30 mg/dl (9-20); Carbon Dioxide 31 mmol/L (22.0-30.0); Chloride 101 mmol/L (98-107); Estimated Glomerular Filt Rate 38 ml/min (>60); GFR (African American) 47 ML/MIN (>60); Globulin 3.1 g/dL (1.3-3.2); Glucose 209 mg/dl (74-100); Sodium 139 mmol/L (136-145); Total Protein,Serum 6.6 g/dl (6.3-8.2); Uric Acid 7.2 mg/dl (3.5-8.5)
[2023-08-28 09:28] LABS: 25-OH Vitamin D, Total 34.4 ng/mL (30-100)
[2023-08-28 09:29] LABS: Intact Parathyroid Hormone 66.5 pg/mL (7.5-53.5)
[2023-08-28 10:40] LABS: Appearance,Urine CLEAR (Clear); Bilirubin,Urine Negative (Negative); Blood, Urine 2+ (Negative); Color,Urine YELLOW (Yellow); Glucose,Urine (UA) 3+ (Negative); Ketones,Urine Negative (Negative); Leukocyte Esterase,Urine Negative (Negative); Nitrate,Urine Negative (Negative); Protein,Urine Negative (Negative); Specific Gravity, Urine 1.015 (1.005-1.030); Urobilinogen,Urine 0.2 EU/dl (0.2)
[2023-08-28 10:51] LABS: Creatinine,Urine Random 86 mg/dL (Not Estab.)
[2023-08-28 10:56] LABS: Bacteria,Urine Trace /lpf; WBC,Urine Occasional #/hpf (0-3)
== END 2023-08-28 23:59 ==
LOC: LAB 08:03
PROVIDERS: PCP Internal Medicine Adolescent Medicine; Visit Provider Internal Medicine Nephrology
DX: N18.30 Chronic kidney disease, stage 3 unspecified; I10 Essential (primary) hypertension; E11.65 Type 2 diabetes mellitus with hyperglycemia; E55.9 Vitamin D deficiency, unspecified; E79.0 Hyperuricemia without signs of inflammatory arthritis and tophaceous disease; E03.9 Hypothyroidism, unspecified; Z79.4 Long term (current) use of insulin; Z79.899 Other long term (current) drug therapy
CPT/HCPCS: 36415; 80053; 81001; 82306; 82570; 83036; 83970; 84155; 84550; 85025

== ENCOUNTER 2023-08-31 14:24 | Outpatient (CLI) | payer MEDICARE, OTHER, SELFPAY ==
--- NOTE | 2023-08-31 14:28 | XR_ITS ---
FINAL REPORT CLINICAL HISTORY: cough COMPARISON: 01/24/2023 FINDINGS: Two views of the chest were obtained. The patient has undergone a prior midline sternotomy. The heart size and pulmonary vascularity are within normal limits. The mediastinum is normal. Bibasilar opacities are present, favor atelectasis, worse than seen on the prior exam of January 2023. There is no pneumothorax. The bony thorax is intact. IMPRESSION: Bibasilar opacities, favor atelectasis, more prominent than on the prior exam of January 2023. Reviewed, Interpreted and Dictated by Williams Haskins III, MD Transcribed by Jennifer Real Authenticated and [facility]
== END 2023-08-31 23:59 ==
LOC: RAD 14:26
PROVIDERS: PCP Internal Medicine Adolescent Medicine; Visit Provider Internal Medicine
DX: R05.3 Chronic cough (principal); I48.0 Paroxysmal atrial fibrillation; I50.30 Unspecified diastolic (congestive) heart failure; Z95.1 Presence of aortocoronary bypass graft
CPT/HCPCS: 71046

== ENCOUNTER 2023-10-06 10:00 | Day surgery (SDC) | payer MEDICARE, OTHER, SELFPAY ==
[2023-10-06] VITALS (10 sets, daily range): BP systolic 101–140; BP diastolic 52–69; PULSE 41–87; RESP 15–47; TEMP 36.7; O2SAT 89–96; BMI 26.4
--- NOTE | 2023-10-06 07:11 | IR_ITS ---
APPROVED REPORT Patient Location: Outpatient Road Patcher: ARFFI Casas RT (R) PROCEDURES Right heart catheterization Left heart catheterization Selective coronary angiogram Left ventriculogram Left internal mammary angiography Selective engagement of saphenous vein graft to the right coronary Bilateral selective renal angiography Infrarenal abdominal aortogram INDICATION Coronary artery disease, Pulmonary hypertension, Worsening dyspnea, History of coronary bypass surgery, Chronic renal failure creatinine 1.9, Renovascular hypertension, Infrarenal abdominal aortic aneurysm Informed consent was obtained prior to the procedure. COMPLICATIONS NONE Estimated Blood Loss: LESS THAN 10 ML TECHNIQUE One percent lidocaine was used to anesthetize the right groin. The right femoral artery was accessed via the Seldinger technique. A 4-Indonesian and 7 kinyarwanda sheath was placed in the right femoral artery and vein respectfully. A 7 Indonesian sheath was introduced and a Salinas-Yanelis catheter was floated using hemodynamic waveforms in the pulmonary artery, right ventricle , and right atrium. Saturations were obtained in the pulmonary artery and the right atrium. The JR-4 and JL-4 catheter was also used to perform left heart catheterization, left ventriculography and selective coronary angiogram. The JR4 catheter was used to perform bilateral selective renal angiography. An infrarenal abdominal aortic aneurysm was identified therefore hand-injection was made through the JR4 catheter which demonstrated a lobulated aneurysm. At the end of the procedure the patient was transferred to the post-op holding area in stable condition for arterial sheath removal. ANGIOGRAPHIC RESULTS The left main artery Has a distal 50% stenosis The left anterior descending artery Proximally occluded The circumflex artery Nondominant gives rise to a large ramus intermedius which has a proximal 40% stenosis with the circumflex artery being widely patent and nondominant small The right coronary artery Is dominant and has a mid vessel 90% stenosis with competitive flow identified distally in the PDA The SANCHEZ ventriculogram reveals Reduced at 45% The left ventricular end-diastolic pressure 15 mmHg Right renal artery singular normal Left renal artery singular normal Lobulated eccentric infrarenal abdominal aortic aneurysm was identified right atrial pressure 10 mmHg Pulmonary artery pressure 70/25 mmHg Pulmonary occlusion pressure 18 mmHg Right atrial saturation 49% Pulmonary artery saturation 45% Aortic saturation 97% Hemoglobin 14.7 2.5 L/min Cardiac index 1.2 IMPRESSION Patent coronary arteries as described above Severe pulmonary hypertension Patent renal arteries Lobulated infrarenal abdominal aortic aneurysm PLAN 1. Medical management for pulmonary hypertension 2. Recommend starting vasodilator therapy for pulmonary pretension 3. Some diuresis may benefit given the slightly elevated pulmonary artery occlusion pressure 4. Medical management for coronary disease 5. Abdominal aortic ultrasound to better evaluate size of AAA Electronically signed by : Seth Clement MD 10/06/2023 12:49:35
--- NOTE | 2023-10-06 10:02 | CA_ITS ---
APPROVED REPORT EXAM: Comprehensive 2D, Doppler, and color-flow Echocardiogram [employer] Worker: Maria M Carver RT(R) Ht: 6 ft 0 in Wt: 190lbs BSA: 2.08 BP: 132/64 mmHg Indications: history of failed MVR and mitral valve clip, CAD, AFIB, TOVAR, DM, TOVAR, fatigue. 2D Dimensions LA Volume 89.40 mL LA Volume Index 42.98 mL/m2 (M/F) 16-34 EF AP4 67.60 % GL Strain -20.9 % M-Mode Dimensions RVDd 3.34 cm (0.9-2.6) LA Diam 4.64 cm (1.9-4.0) LVDd 4.02 cm (3.5-5.7) LVDs 3.00 cm (3.5-5.7) IVSd 1.06 cm (0.6-1.1) PWd 0.68 cm (0.6-1.1) EF (Teich) 50.60% FS 25.40% EDV (Teich) 70.80 mL ESV (Teich) 35.00 mL Aortic Valve AO VTI 60.8 (18-25 cm) Mitral Valve MV PHT 63.0 ms Tricuspid Valve TR P. Velocity 411.00 cm/s RAP Estimate 15.00 mmHg RVSP 82.70 mmHg Left Ventricle The left ventricle is normal size. The left ventricular systolic function is normal. The left ventricular ejection fraction is within the normal range. There is increased LV wall thickness. The septum is asynchronous. Diastolic function is indeterminate. LVEF is 60%. Right Ventricle The right ventricle is mildly dilated. The right ventricular systolic function is normal. Atria Left atrium is mildly dilated. Right atrium is mildly dilated. s/p iatrogenic interatrial shunt in the setting of MitraClip procedure. The interatrial shunt is not well-visualized. Aortic Valve The aortic valve is mildly thickened. There is no aortic valvular stenosis. Trace aortic regurgitation. Mitral Valve s/p MitraClip procedure. The MV clip is well-seated. Mean MV gradient 7 mmHg (HR 80 bpm). Mild to moderate mitral regurgitation. Tricuspid Valve The tricuspid valve leaflets are thin and pliable. Mild tricuspid regurgitation. RVSP is 55???60 mmHg. Pulmonic Valve The pulmonary valve is normal in structure. Mild to moderate pulmonic regurgitation. Great Vessels The aortic root is normal in size. The ascending aorta is not well visualized. IVC is normal in size and collapses >50% with inspiration. Pericardium There is no pericardial effusion. Other Information Study Quality: Fair Conclusion Normal biventricular systolic function. Asynchronous septum. Mild RV dilation. Mild biatrial dilation. s/p MitraClip procedure. Mild to moderate MR. Mean MV gradient 7 mmHg (HR 80 bpm). Mild TR. Mild to moderate PI. Markedly elevated RVSP 55-60 mmHg. s/p iatrogenic interatrial shunt in the setting of MitraClip procedure. The interatrial shunt is not well-visualized in this study. Electronically signed by : Alia Malone MD 10/09/2023 13:07:30
[2023-10-06 11:08] LABS: Basophils # 0.1 K/mm3 (0-0.2); Basophils % 0.8 % (0.1-2.0); Eosinophils # 0.8 K/mm3 (0.0-0.4); Eosinophils % 7.7 % (0.1-12.0); Hematocrit 47.8 % (42.0-52.0); Hemoglobin 14.7 g/dL (14.1-18.0); Lymphocytes % 10.3 % (10-50); Mean Corpuscular HGB Conc 30.8 g/dL (31.8-35.4); Mean Corpuscular Hemoglobin 32.1 pg (27.0-31.2); Mean Corpuscular Volume 104.2 fl (80-94); Mean Platelet Volume 8.5 fl (7.4-10.4); Monocytes # 0.5 K/mm3 (0.1-1.0); Monocytes % 5.4 % (1.7-9.3); Neutrophils # 7.5 K/mm3 (1.8-7.8); Neutrophils % 75.7 % (37.0-80.0); Platelet Count 230 K/mm3 (142-424); Red Blood Count 4.58 M/mm3 (4.60-6.20); White Blood Count 9.9 K/mm3 (4.8-10.8)
[2023-10-06 11:23] LABS: Anion Gap 11.1 mEq/L (5-15); Blood Urea Nitrogen 62 mg/dl (9-20); Calcium 9.8 mg/dl (8.4-10.2); Carbon Dioxide 33 mmol/L (22.0-30.0); Chloride 96 mmol/L (98-107); Creatinine Clearance Estimated 36 mL/min (50-200); Estimated Glomerular Filt Rate 34 ml/min (>60); GFR (African American) 41 ML/MIN (>60); Glucose 276 mg/dl (74-100); Potassium 4.1 mmoL/L (3.5-5.1); Sodium 136 mmol/L (136-145)
[2023-10-06] MEDS: 0.9 % SODIUM CHLORIDE 500 ML 25 ML IV (11:59)
[2023-10-06] MEDS: HEPARIN 1,000 UNITS/500ML NS (CATH LAB) 3000 UNIT IV (11:59)
[2023-10-06] MEDS: LIDOCAINE 1% 10ML MDV 20 ML IJ (12:00)
[2023-10-06] MEDS: diphenhydrAMINE 50MG/ML VIAL 50 MG IV (12:00)
[2023-10-06] MEDS: MIDAZOLAM HCL 1MG/1ML 5ML VIAL 1 MG IV (12:21)
[2023-10-06] MEDS: FENTANYL 100MCG/2ML VIAL 50 MCG IV (12:22)
[2023-10-06 13:09] LABS: Vitamin B12 888 pg/mL (239-931)
[2023-10-06] MEDS: IOPAMIDOL-370 (76%);100ML BOTTLE 50 ML IV (13:21)
[2023-10-06 13:22] LABS: CATHL Arterial O2 SAT 45 % (90-100)
[2023-10-06 13:23] LABS: CATHL Venous O2 SAT 49.2 % (75-80)
[2023-10-07 11:17] LABS: Complement C3 130 mg/dL (82-167)
[2023-10-09 13:08] LABS: Cytoplasmic (C-ANCA) <1:20 titer (Neg:<1:20); Perinuclear (P-ANCA) <1:20 titer (Neg:<1:20)
[2023-10-11 13:49] LABS: Strongyloides IgG Antibody Negative (Negative)
[2023-10-13 08:21] LABS: Antinuclear Antibodies (ANA) Negative; Antiproteinase 3 (PR-3) Abs <0.2; Myeloperoxidase Antibody <0.2
== END 2023-10-06 15:22 | disposition home or self-care (01) ==
LOC: CATHLAB 10:01
PROVIDERS: Internal Medicine Pulmonary Disease; PCP Internal Medicine Adolescent Medicine; Visit Provider Internal Medicine
DX: I25.10 Atherosclerotic heart disease of native coronary artery without angina pectoris (principal); I50.30 Unspecified diastolic (congestive) heart failure; Z95.1 Presence of aortocoronary bypass graft; Z98.890 Other specified postprocedural states; R53.83 Other fatigue; D72.10 Eosinophilia, unspecified; J84.9 Interstitial pulmonary disease, unspecified; I48.20 Chronic atrial fibrillation, unspecified; E78.5 Hyperlipidemia, unspecified; Z79.4 Long term (current) use of insulin; I27.20 Pulmonary hypertension, unspecified; E11.22 Type 2 diabetes mellitus with diabetic chronic kidney disease; I12.9 Hypertensive chronic kidney disease with stage 1 through stage 4 chronic kidney disease, or unspecified chronic kidney disease; N18.9 Chronic kidney disease, unspecified; I15.0 Renovascular hypertension; I71.40 Abdominal aortic aneurysm, without rupture, unspecified; Z79.899 Other long term (current) drug therapy
CPT/HCPCS: 36252; 36415; 80048; 82607; 82810; 83520; 85025; 86038; 86161; 86225; 86235; 86256; 86682; 93306; 93461; 99152; C1725; C1760; C1769; C1894; J1644; Q9967

== ENCOUNTER 2023-10-09 09:03 | Outpatient (CLI) | payer MEDICARE, OTHER, SELFPAY ==
[2023-10-09 09:24] LABS: Basophils # 0.1 K/mm3 (0-0.2); Basophils % 0.8 % (0.1-2.0); Eosinophils # 1.3 K/mm3 (0.0-0.4); Eosinophils % 15.5 % (0.1-12.0); Hematocrit 43.4 % (42.0-52.0); Hemoglobin 13.7 g/dL (14.1-18.0); Lymphocytes # 1.3 K/mm3 (0.7-4.5); Lymphocytes % 15.7 % (10-50); Mean Corpuscular HGB Conc 31.7 g/dL (31.8-35.4); Mean Corpuscular Hemoglobin 32.7 pg (27.0-31.2); Mean Corpuscular Volume 103.3 fl (80-94); Mean Platelet Volume 8.6 fl (7.4-10.4); Monocytes # 0.4 K/mm3 (0.1-1.0); Monocytes % 4.7 % (1.7-9.3); Neutrophils # 5.4 K/mm3 (1.8-7.8); Neutrophils % 63.3 % (37.0-80.0); Platelet Count 219 K/mm3 (142-424); Red Cell Distribution Width 15.9 % (11.5-17.5); White Blood Count 8.5 K/mm3 (4.8-10.8)
[2023-10-09 10:04] LABS: Anion Gap 12.5 mEq/L (5-15); Blood Urea Nitrogen 67 mg/dl (9-20); Calcium 9.1 mg/dl (8.4-10.2); Carbon Dioxide 34 mmol/L (22.0-30.0); Chloride 96 mmol/L (98-107); Estimated Glomerular Filt Rate 30 ml/min (>60); GFR (African American) 37 ML/MIN (>60); Glucose 63 mg/dl (74-100); Potassium 3.5 mmoL/L (3.5-5.1); Sodium 139 mmol/L (136-145)
[2023-10-11 09:11] LABS: Peripheral Smear Review Scanned Result
== END 2023-10-09 23:59 | disposition home or self-care (01) ==
LOC: LAB 09:04
PROVIDERS: Internal Medicine; Internal Medicine Medical Oncology; PCP Internal Medicine Adolescent Medicine; Visit Provider Internal Medicine
DX: I25.10 Atherosclerotic heart disease of native coronary artery without angina pectoris (principal)
CPT/HCPCS: 36415; 80048; 85025

== ENCOUNTER 2023-10-16 15:55 | Outpatient (CLI) | payer MEDICARE, OTHER, SELFPAY ==
[2023-10-16 15:55] LABS: Microscopic, Urine URINE MICROSCOPIC (MICROSCOPIC)
[2023-10-16 16:26] LABS: Appearance,Urine CLEAR (Clear); Bilirubin,Urine Negative (Negative); Blood, Urine TRACE-I (Negative); Color,Urine YELLOW (Yellow); Glucose,Urine (UA) 3+ (Negative); Ketones,Urine Negative (Negative); Leukocyte Esterase,Urine Negative (Negative); Nitrate,Urine Negative (Negative); Protein,Urine TRACE (Negative); Specific Gravity, Urine 1.015 (1.005-1.030); Urobilinogen,Urine 0.2 EU/dl (0.2)
[2023-10-16 17:40] LABS: RBC,Urine Occasional #/hpf (0-3)
== END 2023-10-16 23:59 | disposition home or self-care (01) ==
LOC: LAB.DROPOF 15:55
PROVIDERS: PCP Urology; Visit Provider Urology
DX: R30.9 Painful micturition, unspecified (principal)
CPT/HCPCS: 81001

== ENCOUNTER 2023-10-18 09:50 | Outpatient (CLI) | payer MEDICARE, OTHER, SELFPAY ==
--- NOTE | 2023-10-18 09:50 | US_ITS ---
FINAL REPORT CLINICAL HISTORY: painful urination, blood in urine COMPARISON: None FINDINGS: ULTRASOUND BLADDER WITH POST VOID RESIDUAL Bladder volumes were estimated based on 3 dimensional measurements, pre- and postvoid. There is echogenic foci in the dependent portion of the bladder which may represent either stones or mural calcification. The prostate appears to be mildly enlarged. Prevoid bladder volume: 298 mls Postvoid bladder volume: 46 mls IMPRESSION: Echogenic foci in the dependent portion of the bladder, stones versus mural calcification. Urologic evaluation recommended. CT scan may be of value. Estimated bladder volumes as above with small postvoid residual . Reviewed, Interpreted and Dictated by Jonah Camargo MD Transcribed by Nina Rosario Authenticated and [facility]
--- NOTE | 2023-10-18 09:53 | US_ITS ---
FINAL REPORT TECHNIQUE: Ultrasound images of the abdominal aorta were obtained. CLINICAL HISTORY: AAA screening COMPARISON: None FINDINGS: ULTRASOUND OF THE ABDOMINAL AORTA There is 4.4 x 3.3 cm fusiform ectasia of the infrarenal abdominal aorta. The bifurcation is normal. IMPRESSION: Fusiform ectasia of the infrarenal abdominal aorta up to 4.4 cm. Reviewed, Interpreted and Dictated by Jonah Camargo MD Transcribed by Nina Rosario Authenticated and [facility]
== END 2023-10-18 23:59 | disposition home or self-care (01) ==
LOC: RAD 09:50
PROVIDERS: PCP Internal Medicine Adolescent Medicine; Visit Provider Internal Medicine Adolescent Medicine
DX: R30.9 Painful micturition, unspecified (principal); Z13.6 Encounter for screening for cardiovascular disorders; R31.9 Hematuria, unspecified; I48.91 Unspecified atrial fibrillation; Z79.01 Long term (current) use of anticoagulants; Z51.81 Encounter for therapeutic drug level monitoring
CPT/HCPCS: 76705; 76857

== ENCOUNTER 2023-11-08 15:21 | Outpatient (CLI) | payer MEDICARE, OTHER, SELFPAY ==
[2023-11-08 16:26] LABS: Anion Gap 12.1 mEq/L (5-15); Blood Urea Nitrogen 30 mg/dl (9-20); Calcium 9.5 mg/dl (8.4-10.2); Carbon Dioxide 35 mmol/L (22.0-30.0); Chloride 96 mmol/L (98-107); Estimated Glomerular Filt Rate 32 ml/min (>60); GFR (African American) 39 ML/MIN (>60); Glucose 126 mg/dl (74-100); Potassium 4.1 mmoL/L (3.5-5.1); Sodium 139 mmol/L (136-145)
== END 2023-11-08 23:59 | disposition home or self-care (01) ==
PROVIDERS: PCP Internal Medicine Adolescent Medicine; Visit Provider Internal Medicine
DX: R63.0 Anorexia (principal); I27.21 Secondary pulmonary arterial hypertension; I50.30 Unspecified diastolic (congestive) heart failure; R06.02 Shortness of breath; Z95.1 Presence of aortocoronary bypass graft; Z98.890 Other specified postprocedural states; I05.9 Rheumatic mitral valve disease, unspecified; N28.9 Disorder of kidney and ureter, unspecified; Z68.24 Body mass index [BMI] 24.0-24.9, adult; Z51.81 Encounter for therapeutic drug level monitoring
CPT/HCPCS: 36415; 80048; 80162

== ENCOUNTER 2023-11-14 08:58 | Outpatient (POV) | payer MEDICARE, OTHER, SELFPAY | END 2023-11-14 23:59 | disposition home or self-care (01) | LOC: SC 08:58 | PROVIDERS: PCP Internal Medicine Adolescent Medicine; Visit Provider Dermatology | DX: Z00.00 Encounter for general adult medical examination without abnormal findings (principal) ==

== ENCOUNTER 2023-12-04 12:47 | Outpatient (CLI) | payer MEDICARE, OTHER, SELFPAY ==
[2023-12-04 12:53] LABS: Microscopic, Urine URINE MICROSCOPIC (MICROSCOPIC)
[2023-12-04 13:34] LABS: Appearance,Urine CLEAR (Clear); Blood, Urine TRACE-I (Negative); Color,Urine YELLOW (Yellow); Glucose,Urine (UA) 1+ (Negative); Ketones,Urine 1+ (Negative); Leukocyte Esterase,Urine Negative (Negative); Nitrate,Urine Negative (Negative); Protein,Urine Negative (Negative); Urobilinogen,Urine 0.2 EU/dl (0.2)
[2023-12-04 13:42] LABS: Bilirubin,Urine 1+ (Negative)
[2023-12-04 13:53] LABS: Bacteria,Urine Trace /lpf; RBC,Urine Occasional #/hpf (0-3); Squamous Epithelial Cell,Urine Occasional #/hpf (0-5); WBC,Urine Occasional #/hpf (0-3)
== END 2023-12-04 23:59 | disposition home or self-care (01) ==
LOC: LAB 12:48
PROVIDERS: PCP Internal Medicine Adolescent Medicine; Visit Provider Urology
DX: N40.1 Benign prostatic hyperplasia with lower urinary tract symptoms (principal); N13.8 Other obstructive and reflux uropathy; R31.9 Hematuria, unspecified; N39.0 Urinary tract infection, site not specified
CPT/HCPCS: 81001

== ENCOUNTER 2023-12-25 07:17 | Outpatient (CLI) | payer MEDICARE, OTHER, SELFPAY ==
[2023-12-25 07:56] LABS: Basophils % 0.8 % (0.1-2.0); Eosinophils # 0.2 K/mm3 (0.0-0.4); Eosinophils % 3.3 % (0.1-12.0); Hemoglobin 13.3 g/dL (14.1-18.0); Lymphocytes # 0.8 K/mm3 (0.7-4.5); Lymphocytes % 14.5 % (10-50); Mean Corpuscular HGB Conc 30.8 g/dL (31.8-35.4); Mean Corpuscular Hemoglobin 31.7 pg (27.0-31.2); Mean Corpuscular Volume 102.7 fl (80-94); Mean Platelet Volume 8.5 fl (7.4-10.4); Monocytes # 0.3 K/mm3 (0.1-1.0); Monocytes % 5.1 % (1.7-9.3); Neutrophils # 4.3 K/mm3 (1.8-7.8); Neutrophils % 76.4 % (37.0-80.0); Platelet Count 169 K/mm3 (142-424); Red Blood Count 4.19 M/mm3 (4.60-6.20); Red Cell Distribution Width 16.3 % (11.5-17.5); White Blood Count 5.6 K/mm3 (4.8-10.8)
[2023-12-25 08:26] LABS: Albumin Level 3.1 g/dl (3.5-5.0); Anion Gap 8.7 mEq/L (5-15); Blood Urea Nitrogen 26 mg/dl (9-20); Carbon Dioxide 35 mmol/L (22.0-30.0); Chloride 97 mmol/L (98-107); Estimated Glomerular Filt Rate 58 ml/min (>60); GFR (African American) 70 ML/MIN (>60); Glucose 237 mg/dl (74-100); Phosphorous 3.2 mg/dl (2.5-4.5); Potassium 4.7 mmoL/L (3.5-5.1); Sodium 136 mmol/L (136-145)
[2023-12-25 08:37] LABS: Intact Parathyroid Hormone 40.5 pg/mL (7.5-53.5)
[2023-12-25 08:43] LABS: 25-OH Vitamin D, Total 33.8 ng/mL (30-100)
[2023-12-25 09:23] LABS: Microscopic, Urine URINE MICROSCOPIC (MICROSCOPIC)
[2023-12-25 09:44] LABS: Appearance,Urine CLEAR (Clear); Bilirubin,Urine Negative (Negative); Blood, Urine Negative (Negative); Color,Urine YELLOW (Yellow); Glucose,Urine (UA) Negative (Negative); Ketones,Urine Negative (Negative); Leukocyte Esterase,Urine Negative (Negative); Nitrate,Urine Negative (Negative); Protein,Urine Negative (Negative); Urobilinogen,Urine 0.2 EU/dl (0.2)
[2023-12-25 10:00] LABS: Microalbumin/Creatinine Ratio 32.7
[2023-12-25 10:01] LABS: Creatinine,Urine Random 103 mg/dL (Not Estab.)
[2023-12-25 10:39] LABS: Bacteria,Urine Trace /lpf; WBC,Urine Occasional #/hpf (0-3)
== END 2023-12-25 23:59 | disposition home or self-care (01) ==
LOC: LAB 07:18
PROVIDERS: PCP Internal Medicine Adolescent Medicine; Visit Provider Nurse Practitioner
DX: N28.9 Disorder of kidney and ureter, unspecified (principal); I27.20 Pulmonary hypertension, unspecified; R60.9 Edema, unspecified
CPT/HCPCS: 36415; 80069; 81001; 82043; 82306; 82570; 83970; 84156; 85025

== ENCOUNTER 2024-01-19 09:03 | Outpatient (CLI) | payer MEDICARE, OTHER, SELFPAY ==
[2024-01-19 10:47] LABS: Anion Gap 11.3 mEq/L (5-15); Blood Urea Nitrogen 21 mg/dl (9-20); Calcium 9.9 mg/dl (8.4-10.2); Carbon Dioxide 34 mmol/L (22.0-30.0); Chloride 100 mmol/L (98-107); Estimated Glomerular Filt Rate 58 ml/min (>60); GFR (African American) 70 ML/MIN (>60); Glucose 148 mg/dl (74-100); Potassium 4.3 mmoL/L (3.5-5.1); Sodium 141 mmol/L (136-145)
== END 2024-01-19 23:59 | disposition home or self-care (01) ==
LOC: LAB 09:05
PROVIDERS: PCP Internal Medicine Adolescent Medicine; Visit Provider Internal Medicine
DX: Z79.899 Other long term (current) drug therapy (principal)
CPT/HCPCS: 36415; 80048

== ENCOUNTER 2024-02-19 13:00 | Outpatient (CLI) | payer MEDICARE, OTHER, SELFPAY ==
[2024-02-19 15:25] LABS: Microscopic, Urine URINE MICROSCOPIC (MICROSCOPIC)
[2024-02-19 16:53] LABS: Appearance,Urine SL CLOUDY (Clear); Blood, Urine 3+ (Negative); Color,Urine YELLOW (Yellow); Glucose,Urine (UA) TRACE (Negative); Ketones,Urine Negative (Negative); Leukocyte Esterase,Urine 2+ (Negative); Nitrate,Urine Negative (Negative); Protein,Urine Negative (Negative); Urobilinogen,Urine 0.2 EU/dl (0.2)
[2024-02-19 18:00] LABS: Bilirubin,Urine 1+ (Negative)
[2024-02-19 20:22] LABS: Bacteria,Urine 3+ /lpf; RBC,Urine 50-100 #/hpf (0-3); WBC,Urine TNTC #/hpf (0-3)
== END 2024-02-19 23:59 | disposition home or self-care (01) ==
LOC: LAB.DROPOF 02-20 09:49
PROVIDERS: PCP Urology; Visit Provider Urology
DX: R31.9 Hematuria, unspecified (principal)
CPT/HCPCS: 81001; 87077; 87086

== ENCOUNTER 2024-03-07 16:30 | Outpatient (CLI) | payer MEDICARE, OTHER, SELFPAY ==
[2024-03-07 17:14] LABS: Blood Urea Nitrogen 43 mg/dl (9-20); Estimated Glomerular Filt Rate 30 ml/min (>60); GFR (African American) 37 ML/MIN (>60)
== END 2024-03-07 23:59 | disposition home or self-care (01) ==
LOC: LAB 16:32
PROVIDERS: PCP Internal Medicine Adolescent Medicine; Visit Provider Urology
DX: R31.9 Hematuria, unspecified (principal)
CPT/HCPCS: 36415; 82565; 84520

== ENCOUNTER 2024-03-08 08:00 | Outpatient (CLI) | payer MEDICARE, OTHER, SELFPAY ==
--- NOTE | 2024-03-08 08:00 | CT_ITS ---
FINAL REPORT TECHNIQUE: Axial CT images of the abdomen and pelvis were obtained before and after the administration of IV contrast. This study was performed with techniques to keep radiation doses as low as reasonably achievable (ALARA). Individualized dose reduction techniques using automated exposure control or adjustment of mA and/or kV according to the patient's size were employed. CLINICAL HISTORY: hematuria COMPARISON: Prior CT of the abdomen dated 07/31/2020 FINDINGS: Abdomen: Mild scarring is present in the lung bases. The heart is normal in size. Cardiomegaly is present. There is mild fatty infiltration of the liver without evidence of focal mass or ductal dilatation. Multiple gallstones are noted in the gallbladder. The spleen is unremarkable. No adrenal masses present. The pancreas has an unremarkable appearance. The kidneys enhance normally. There is a 47 mm infrarenal abdominal aortic aneurysm, larger than seen on the prior CT of 2020, when the infrarenal aorta measured 39 mm in diameter. There is no free fluid or adenopathy. No mass or abnormal fluid collection is seen. A small umbilical hernia is present containing fat. There is a moderate L1 compression fracture, that appears chronic although it was not seen on the prior CT of 2020. Precontrast images demonstrate no evidence of nephrolithiasis. Pelvis: The appendix is unremarkable in appearance. Prostate seed implants are noted in the pelvis. There is a moderate amount of stool present throughout the colon. There is diverticulosis of the descending and sigmoid portions of the colon without evidence of acute inflammatory change. There is streak artifact from a right hip arthroplasty again noted. There is sclerosis in the left femoral head, stable, and consistent with avascular necrosis. There is a 7 mm stone in the region of the right bladder, favor a bladder stone or passed ureteral stone rather than a distal ureteral stone. No inflammatory process is seen. There is no evidence of mass or adenopathy. There is no evidence of bowel obstruction. IMPRESSION: No evidence of acute intra-abdominal process. The infrarenal abdominal aortic aneurysm noted on the prior CT of 2020 has enlarged, on current exam measuring 47 mm in diameter, was previously 39 mm. 7 mm calcification in the region of the right side of the bladder, favor a bladder stone or passed ureteral stone rather than a distal ureteral stone. No hydronephrosis is present. Multiple gallstones and mild fatty infiltration of the liver are again noted. Moderate L1 compression fracture, which appears chronic although this fracture is new since the prior exam of 2020. Reviewed, Interpreted and Dictated by Williams Haskins III, MD Transcribed by Jennifer Real Authenticated and [facility]
[2024-03-08] MEDS: IOPAMIDOL-370 (76%);100ML BOTTLE 50 ML IV (08:36)
[2024-03-08] MEDS: SODIUM CHLORIDE 0.9% 10ML SYR (RAD ONLY) 10 ML IV (08:36)
== END 2024-03-08 23:59 | disposition home or self-care (01) ==
LOC: RAD 08:00
PROVIDERS: PCP Internal Medicine Adolescent Medicine; Visit Provider Urology
DX: R31.9 Hematuria, unspecified (principal)
CPT/HCPCS: 74178; Q9967

== ENCOUNTER 2024-03-25 10:50 | Outpatient (CLI) | payer MEDICARE, OTHER, SELFPAY ==
--- NOTE | 2024-03-25 | XR_ITS ---
FINAL REPORT TECHNIQUE: Chest PA & Lateral CLINICAL HISTORY: SOA AND COUGH COMPARISON: 08/31/2023 FINDINGS: 2 views of the chest were performed. Mild cardiomegaly is present. The patient has undergone a prior midline sternotomy. The mediastinum is within normal limits. There is no acute cardiopulmonary process. The exam is underinflated. There is scarring versus fibrosis in the lung bases. There are no pleural effusions. There is no pneumothorax. The bony thorax appears intact. IMPRESSION: Mild cardiomegaly without acute cardiopulmonary process. Reviewed, Interpreted and Dictated by Jonah Camargo MD Transcribed by Jennifer Real Authenticated and [facility]
== END 2024-03-25 23:59 | disposition home or self-care (01) ==
PROVIDERS: PCP Internal Medicine Adolescent Medicine; Visit Provider Internal Medicine Adolescent Medicine
DX: R06.02 Shortness of breath (principal); R05.9 Cough, unspecified
CPT/HCPCS: 71046

== ENCOUNTER 2024-04-09 11:29 | Outpatient (CLI) | payer MEDICARE, OTHER, SELFPAY ==
[2024-04-09 12:28] LABS: Chloride 97 mmol/L (98-107); Potassium 5.2 mmoL/L (3.5-5.1); Sodium 133 mmol/L (136-145)
[2024-04-09 12:31] LABS: Anion Gap 9.2 mEq/L (5-15); Blood Urea Nitrogen 51 mg/dl (9-20); Calcium 8.2 mg/dl (8.4-10.2); Carbon Dioxide 32 mmol/L (22.0-30.0); Estimated Glomerular Filt Rate 41 ml/min (>60); GFR (African American) 50 ML/MIN (>60); Glucose 240 mg/dl (74-100)
== END 2024-04-09 23:59 | disposition home or self-care (01) ==
PROVIDERS: PCP Internal Medicine Adolescent Medicine; Visit Provider Internal Medicine
DX: I27.21 Secondary pulmonary arterial hypertension (principal); R06.02 Shortness of breath; I25.10 Atherosclerotic heart disease of native coronary artery without angina pectoris; Z95.1 Presence of aortocoronary bypass graft; R63.0 Anorexia; Z98.890 Other specified postprocedural states; N28.9 Disorder of kidney and ureter, unspecified; I48.20 Chronic atrial fibrillation, unspecified; E78.2 Mixed hyperlipidemia; E11.9 Type 2 diabetes mellitus without complications; Z79.4 Long term (current) use of insulin; I10 Essential (primary) hypertension; I50.30 Unspecified diastolic (congestive) heart failure; R53.83 Other fatigue; K21.9 Gastro-esophageal reflux disease without esophagitis
CPT/HCPCS: 80048

== ENCOUNTER 2024-04-27 15:55 | Emergency (ER) | payer MEDICARE, OTHER, SELFPAY ==
[2024-04-27 15:56] VITALS: BP 106/69; PULSE 109; RESP 16; TEMP 36.6; O2SAT 96; BMI 23.1
--- NOTE | 2024-04-27 15:58 | ED_ITS ---
<Statement entered by Carol Hitchcock MD - 04/27/24 23:18> I was consulted by the ALESHIA, and we discussed the complexity of the problems being addressed. I approved the treatment and management plan for this patient's care in the emergency department, thus performing a substantive portion of the medical decision making. Carol Hitchcock MD, KAREN, FACEP Discharge Plan Disposition Patient Disposition: Xfer Short-Term Hosp Condition: Serious Chief Complaint: Altered Mental Status Prescriptions Prescriptions: No Action ipratropium-albuterol 0.5 mg-3 mg(2.5 mg base)/3 mL solution for nebulization 3 ml inhalation Q6H PRN (Reason: shortness of breath or wheezing) Qty: 90 3RF albuterol sulfate 90 mcg/actuation HFA aerosol inhaler 2 inh inhalation Q6H PRN (Reason: shortness of breath or wheezing) 90 Days Qty: 8.5 2RF spironolactone 25 mg tablet 25 mg PO DAILY ezetimibe 10 mg tablet 10 mg PO HS Qty: 90 3RF montelukast [Singulair] 10 mg tablet 10 mg PO HS calcitriol 0.5 mcg capsule PO levothyroxine [Synthroid] 200 mcg tablet PO escitalopram oxalate [Lexapro] 10 mg tablet 10 mg PO DAILY metoprolol succinate 25 mg tablet extended release 24 hr 25 mg PO BID furosemide [Lasix] 20 mg tablet 40 mg PO DAILY ropinirole 4 mg tablet See Rx Instructions .ROUTE .COMPLEX Qty: 180 3RF Dose Instruction: TAKE 1 TABLET TWICE A DAY Rx Instructions: TAKE 1 TABLET TWICE A DAY rivaroxaban 15 mg tablet 15 mg PO DAILY Qty: 90 3RF Rx Instructions: must administer with evening meal nystatin-triamcinolone 100,000-0.1 unit/g-% cream 1 applic topical BID Qty: 30 3RF phenazopyridine [Pyridium] 200 mg tablet 200 mg PO TID 3 Days Qty: 7 0RF finasteride 5 mg tablet 5 mg PO DAILY 90 Days Qty: 90 1RF insulin lispro protamin-lispro [Humalog Mix 75-25 KwikPen] 100 unit/mL (75-25) insulin pen 15 unit SQ TID PRN (Reason: Hyperglycemia) insulin glargine [Lantus Solostar U-100 Insulin] 100 UNIT/ML insulin pen 30 unit SQ PM Referrals Follow up/Referrals: Toney Contreras MD [Primary Care Provider] - See instructions Clinical Impressions Clinical Impression: Stroke-like symptom Stand Alone Forms Stand Alone Forms: Transfer Record - ED Instructions Patient Instructions: DI for Altered Mental Status Print Language Print Language: Cymraes Discharge ED Provider: Carol Hitchcock General Adult HPI General Chief complaint: Altered Mental Status Stated complaint: weakness, eyes turning,confusion Time Seen by Provider: 04/27/24 15:58 History of Present Illness HPI narrative: Patient presents for acute vision changes. Patient's states he was in the shower and he suddenly exclaimed that he could not see. This was around 11 AM. Patient's and his daughter note that he seems to be confused more than his apparent baseline. He is at baseline sometimes confused mainly as a result of his severe presbycusis. There is no other acute complaints no chest pain shortness of breath fever chills hemoptysis hematochezia melena nausea vomiting diarrhea headache. Related Data Home Medications ?Medication ?Instructions ?Recorded ?Confirmed insulin lispro protamine-lispro 15 unit SQ TID PRN Hyperglycemia 09/29/20 04/26/24 100 unit/mL (75-25) subcutaneous pen (Humalog Mix 75-25 KwikPen) insulin glargine 100 unit/mL (3 30 unit SQ PM Diabetes 12/01/20 04/26/24 mL) subcutaneous pen (Lantus Solostar U-100 Insulin) montelukast 10 mg tablet 10 mg PO HS ALLERGIES 04/13/22 04/26/24 (Singulair) calcitriol 0.5 mcg capsule mcg PO 11/29/23 04/26/24 levothyroxine 200 mcg tablet mcg PO 11/29/23 04/26/24 (Synthroid) spironolactone 25 mg tablet 25 mg PO DAILY 02/01/24 04/26/24 furosemide 20 mg tablet (Lasix) 40 mg PO DAILY 04/09/24 04/26/24 metoprolol succinate 25 mg 25 mg PO BID High blood pressure 04/09/24 04/26/24 tablet,extended release 24 hr escitalopram oxalate 10 mg tablet 10 mg PO DAILY 04/26/24 04/26/24 (Lexapro) Previous Rx's ?Medication ?Instructions ?Recorded ipratropium 0.5 mg-albuterol 3 mg 3 ml inhalation Q6H PRN shortness 10/04/23 (2.5 mg base)/3 mL nebulization of breath or wheezing #90 mL soln albuterol sulfate 90 mcg/actuation 2 inh inhalation Q6H PRN shortness 12/26/23 aerosol inhaler of breath or wheezing 90 days #8.5 grams ropinirole 4 mg tablet See Rx Instructions .Route 01/09/24 .COMPLEX #180 tabs rivaroxaban 15 mg tablet 15 mg PO DAILY #90 tabs 02/06/24 nystatin-triamcinolone 100,000 1 applic topical BID #30 grams 02/07/24 unit/g-0.1 % topical cream finasteride 5 mg tablet 5 mg PO DAILY Prostate 90 days #90 02/27/24 tabs phenazopyridine 200 mg tablet 200 mg PO TID 3 days #7 tabs 02/27/24 (Pyridium) ezetimibe 10 mg tablet 10 mg PO HS Cholesterol #90 tabs 03/05/24 Allergies Allergy/AdvReac Type Severity Reaction Status Date / Time nystatin Allergy Intermediate I-HIVES Verified 04/26/24 10:42 Iantfni-MYR-PuH Reductase AdvReac Severe rhabdomyoly Verified 04/26/24 10:42 Inhibitor sis [Yvgurfw-Val-Wlk Reductase Inhibitor] [facility] Disclaimer: The information contained in this section may have been updated after the patient was seen, as this information can be updated by other users. Medical History Pulmonary arterial hypertension Eosinophilia (HFpEF) heart failure with preserved ejection fraction Bleeding from left ear Impacted cerumen Thyroid goiter Hoarseness Dysphagia ABPA (allergic bronchopulmonary aspergillosis) Enlarged prostate Chronic kidney disease Pneumonia Chronic cough History of transient ischemic attack (TIA) Hemorrhoid Hypothyroid Diabetes mellitus, type 2 History of cataract Atrial fibrillation Edema History of anemia Restrictive lung disease COPD mixed type Moderate persistent asthma Sinusitis Lung nodule Allergic rhinitis Asthma Dyspnea on exertion Rhabdomyolysis due to statin therapy CAD (coronary artery disease) Mitral valve regurgitation Family history of cardiac disorder Murmur Diabetes mellitus Hyperlipidemia Mitral valve prolapse Hypertensive disorder Surgical History History of bronchoscopy S/P CABG x 2 History of mitral valve repair mitral valve leaflet clip 04/13 History of cochlear implant History of right hip replacement Family History Sister Pulmonary hypertension Father Heart attack Brother Heart attack Grandmother Heart attack Mother Alzheimer disease Social History Smoking Status: Never smoker second hand exposure: No alcohol intake: never counseling provided: none substance use type: denies use current occupational status: retired Travel in the last 8 weeks: Inside the [place] household members: spouse housing: house marital status: number of children: 3 current occupational exposures/hazards: No caffeine: No Other Medical History Have you received the Flu Vaccine for this season: Yes Have you received the Pneumonia Vaccine: Yes ROS Obtained: Yes Systems reviewed as appropriate & no additional complaints except as documented Physical Exam General General appearance: alert and in no apparent distress Respiratory Respiratory exam: Present normal lung sounds bilaterally Cardiovascular Cardiovascular exam: Present regular rate Neurological Exam Neurological exam: Present alert and oriented X3; Absent CN II-XII intact Psychiatric Psychiatric exam: Present normal affect and normal mood Medical Decision Making Medical Records Medical records reviewed: Yes I reviewed the patient's medical records. Screening: Per USPSTF and CDC recommendations, given the prevalence of disease in our region, it is our hospital?s policy to screen for HIV and viral Hepatitis for all patients aged 18 and over and those with ongoing risk factors. Todd Inquiry Pt receiving controlled substance: No Vital Signs: 04/27/24 15:56 04/27/24 17:00 Temperature 97.9 F Temperature Source Oral Pulse Rate 111 H Pulse Rate [Right] 109 H Respiratory Rate 16 18 Blood Pressure 100/62 L Blood Pressure [Right Arm] 106/69 L Blood Pressure Mean 74 Blood Pressure Mean [Right Arm] 81 02 Sat by Pulse Oximetry 96 95 Oxygen Delivery Method Room Air Lab Data Lab results reviewed: Yes I reviewed the patient's lab results. Lab Results 04/27/24 16:07: WBC 6.4, RBC 3.08 L, Hgb 11.7 L, Hct 32.1 L, MCV 104.4 H, MCH 38.1 H, MCHC 36.5 H, RDW 16.2, Plt Count 164, MPV 7.8, Neut % (Auto) 49.1, Lymph % (Auto) 12.1, Garfield % (Auto) 3.0, Eos % (Auto) 35.3 H, Baso % (Auto) 0.6, Neut # (Auto) 3.1, Lymph # (Auto) 0.8, Garfield # (Auto) 0.2, Eos # (Auto) 2.2 H, Baso # (Auto) 0.0, PT 11.6, INR 1.04, APTT 28.4 04/27/24 16:07 Orders (Tests/Meds): ED MEDICATIONS Generic Name Dose Route Start Last Admin Trade Name Freq PRN Reason Stop Dose Admin Lactated Ringer's 1,000 mls @ 999 mls/hr 04/27/24 16:59 04/27/24 17:00 Lactated Ringer's 1000 Ml Bag IV 04/27/24 17:59 999 mls/hr .Q1H1M ONE Administration Sodium Chloride 10 ml 04/27/24 16:13 Sodium Chloride 0.9% 10ml Flush Syringe IV 05/27/24 16:12 NEEDED PRN Maintain IV Site Discontinued Medications Generic Name Dose Route Start Last Admin Trade Name Freq PRN Reason Stop Dose Admin Iopamidol 80 ml 04/27/24 16:33 04/27/24 16:35 Iopamidol-370 (76%);100ml Bottle IV 04/27/24 16:34 80 ml ONCE ONE Administration Sodium Chloride 50 ml 04/27/24 16:33 04/27/24 16:34 0.9 % Sodium Chloride 50 Ml Vial IV 04/27/24 16:34 50 ml ONCE ONE Administration Sodium Chloride 10 ml 04/27/24 16:33 04/27/24 16:35 Sodium Chloride 0.9% 10ml Syr (Rad Only) IV 04/27/24 16:34 10 ml ONCE ONE Administration ORDERS Category Date Time Status CT angio head Stat Cat Scan 04/27/24 16:[address] angio neck Stat Cat Scan 04/27/24 16:[address] head/brain wo con Stat Cat Scan 04/27/24 16:13 Completed XR chest portable Stat Exams 04/27/24 16:13 Completed Activated Partial Thrombo Time Stat Lab 04/27/24 16:07 Completed Complete Blood Count Auto Diff Stat Lab 04/27/24 16:07 Completed Comprehensive Metabolic Panel Stat Lab 04/27/24 16:07 Received Drug Screen,Urine Stat Lab 04/27/24 16:13 Ordered Ethyl Alcohol Stat Lab 04/27/24 16:07 Received HIV (1&2) Antibody Rapid Stat Lab 04/27/24 16:11 Received Hep C Ab with Reflex to RNA Stat Lab 04/27/24 16:11 Received Lipid Panel Stat Lab 04/27/24 16:07 Received Prothrombin Time INR Stat Lab 04/27/24 16:07 Completed Troponin I Q3H Lab 04/27/24 19:15 Ordered Troponin I Q3H Lab 04/27/24 22:15 Ordered Troponin I Stat Lab 04/27/24 16:07 Received Urinalysis and Microscopic Stat Lab 04/27/24 16:13 Ordered ECG Request Stat Y 04/27/24 16:13 Ordered Medical Decision Narrative: In summary patient is a 84-year-old male who presents to the emergency department for evaluation of acute vision changes and confusion. Patient is slightly hypotensive with a systolic blood pressure of 106 with a diastolic of 69, a pulse of 109, breathing 16 times a minute satting at 96% on room air upon arrival, afebrile. Physical exam is remarkable for very quickly noticed right eye palsy. He does not have medial gaze and does not cross midline. He also is impaired with looking upwards. He looks laterally and downward without difficulty. He also reports that he has a change in that vision in that eye as well. The left eye has full range of motion with no no pain on extraocular movements. Patient's Glascow coma score is 15 with the caveat that the patient has severe presbycusis and questions have to be repeated multiple times for him to answer correctly. His NIH stroke score is 1. Differential diagnosis includes central or brainstem stroke versus NAHUN versus aneurysm etc. Initial workup will be conducted with stroke alert which includes CT of the head and CTA of the head neck hematologic labs. Initial interventions include crystalloid bolus for now. Initial workup reviewed by me and his CT imaging is negative for any acute pathology BMI informal interpretation. Upon repeat evaluation patient still has continued right eye palsy with no other focal neurologic deficits.. Given this an interactive discussion outpatient management with the stroke team at [facility] and he has been accepted for further evaluation and care by Dr. morales Critical Care Critical Care Time Critical Care Time: Yes Attestation: On 04/27/24, the high probability of a clinically significant, sudden or life threatening deterioration of the following system: Neurologic; cardiovascular, required my full and direct attention, intervention and personal management. The time I documented below is in addition to time spent performing reported procedures but includes the following listed in this critical care notation. Total Time Total Critical Care Time: 30
--- NOTE | 2024-04-27 16:06 | PC.NURSE ---
Finger Blood Sugar at this time is 164.
--- NOTE | 2024-04-27 16:13 | ECG_ITS ---
APPROVED REPORT Exam: Resting ECG HR:113 bpm ECG Measurements Heart Rate 113 AXES QRSd 122 QRS 93 QT 364 T 90 QTc 431 Conclusion ATRIAL FLUTTER/TACHYCARDIA WITH RAPID VENTRICULAR RESPONSE WITH ABERRANT CONDUCTION OR VENTRICULAR PREMATURE COMPLEXES BORDERLINE RIGHT AXIS DEVIATION [QRS AXIS > 90] MODERATE INTRAVENTRICULAR CONDUCTION DELAY [110+ ms QRS DURATION] NONSPECIFIC ST & T-WAVE ABNORMALITY ABNORMAL RHYTHM ECG UNCONFIRMED REPORT Electronically signed by : Lawrence Hitchcock, 04/27/2024 23:21:10
--- NOTE | 2024-04-27 16:13 | CT_ITS ---
PROCEDURE INFORMATION: Exam: CT Head Without Contrast Exam date and time: 04/27/2024 4:34 PM Age: 84 years old Clinical indication: Stroke-like symptoms; Altered mental status/memory loss; Additional info: Possible stroke TECHNIQUE: Imaging protocol: Computed tomography of the head without contrast. Radiation optimization: All CT scans at this facility use at least one of these dose optimization techniques: automated exposure control; mA and/or kV adjustment per patient size (includes targeted exams where dose is matched to clinical indication); or iterative reconstruction. Other technique: STROKE PROTOCOL was implemented. COMPARISON: HEADWO CT head/brain wo con 12/27/2018 10:14 AM FINDINGS: Tubes, catheters and devices: Right cochlear implant is well positioned and causes streaky beam hardening artifact across the right parietal lobe Brain: No hemorrhage. Mild low density in the white matter of both cerebral hemispheres without mass effect. No other intra-axial or extra-axial lesions or masses. No midline shift. Cerebral ventricles: Ventricular systems are age-appropriate. Paranasal sinuses: Visualized sinuses are well aerated. No fluid levels. Mastoid air cells: Visualized mastoid air cells are well aerated. Bones: No acute fracture or bone lesions. Soft tissues: No abnormalities. IMPRESSION: 1. No acute intracranial abnormality. 2. Mild white matter microvascular disease. ASSESSMENT: ASPECTS ([place] Stroke Program Early CT Score) is 10.
--- NOTE | 2024-04-27 16:13 | CT_ITS ---
PROCEDURE INFORMATION: Exam: CTA Head With Contrast, Arteriography Exam date and time: 04/27/2024 4:37 PM Age: 84 years old Clinical indication: Stroke-like symptoms; Altered mental status/memory loss; Additional info: Possible stroke TECHNIQUE: Imaging protocol: Computed tomographic angiography of the head with contrast. Exam focused on the arteries. 3D rendering (Not supervised by radiologist): MIP and/or 3D reconstructed images were created by the technologist. Radiation optimization: All CT scans at this facility use at least one of these dose optimization techniques: automated exposure control; mA and/or kV adjustment per patient size (includes targeted exams where dose is matched to clinical indication); or iterative reconstruction. Contrast material: ISOVUE 370; Contrast volume: 80 ml; Contrast route: INTRAVENOUS (IV); COMPARISON: CT HEAD/BRAIN WO CON 04/27/2024 4:34 PM FINDINGS: ANTERIOR CIRCULATION: Right internal carotid artery: Intracranial segment is patent with no significant stenosis. No aneurysm. Right middle cerebral artery: No occlusion or significant stenosis. No aneurysm. Right anterior cerebral artery: No occlusion or significant stenosis. No aneurysm. A1 is absent. Left internal carotid artery: Intracranial segment is patent with no significant stenosis. No aneurysm. Left middle cerebral artery: No occlusion or significant stenosis. No aneurysm. Left anterior cerebral artery: No occlusion or significant stenosis. No aneurysm. POSTERIOR CIRCULATION: Right vertebral artery: No occlusion or significant stenosis. No aneurysm. V4 is hypoplastic. Left vertebral artery: No occlusion or significant stenosis. No aneurysm. Basilar artery: No occlusion or significant stenosis. No aneurysm. Right posterior cerebral artery: No occlusion or significant stenosis. No aneurysm. P1 is hypoplastic and posterior communicator is patent. Left posterior cerebral artery: No occlusion or significant stenosis. No aneurysm. Brain: No definite mass, mass effect, or midline shift. Right-sided cochlear implant. Cerebral ventricles: No ventriculomegaly. Bones/joints: No acute fracture or focal bone lesions. Soft tissues: No masses or swelling. IMPRESSION: No large vessel occlusion. No acute intracranial abnormalities. THIS REPORT CONTAINS FINDINGS THAT MAY BE CRITICAL TO PATIENT CARE. The findings were verbally communicated via telephone conference with Dhruv Mccallum at 5:00 PM EDT on 04/27/2024. The findings were acknowledged and understood.
--- NOTE | 2024-04-27 16:13 | CT_ITS ---
PROCEDURE INFORMATION: Exam: CTA Neck With Contrast Exam date and time: 04/27/2024 4:37 PM Age: 84 years old Clinical indication: Stroke-like symptoms; Altered mental status/memory loss; Additional info: Possible stroke TECHNIQUE: Imaging protocol: Computed tomographic angiography of the neck with contrast. Exam focused on the cervical segments of the vasculature. 3D rendering (Not supervised by radiologist): MIP and/or 3D reconstructed images were created by the technologist. Radiation optimization: All CT scans at this facility use at least one of these dose optimization techniques: automated exposure control; mA and/or kV adjustment per patient size (includes targeted exams where dose is matched to clinical indication); or iterative reconstruction. Contrast material: ISOVUE 370; Contrast volume: 80 ml; Contrast route: INTRAVENOUS (IV); COMPARISON: CT ANGIO HEAD 04/27/2024 4:37 PM FINDINGS: Right common carotid artery: No stenosis. No dissection or occlusion. Right internal carotid artery: No stenosis of the extracranial segment. No dissection or occlusion. Right external carotid artery: No occlusion or stenosis of the origin. Left common carotid artery: No stenosis. No dissection or occlusion. Left internal carotid artery: No stenosis of the extracranial segment. No dissection or occlusion. Calcified plaque causes less than 50% stenosis. Left external carotid artery: No occlusion or stenosis of the origin. Right vertebral artery: No stenosis. No dissection or occlusion. Left vertebral artery: No stenosis. No dissection or occlusion. Soft tissues: No masses or edema. Bones/joints: No acute fracture, subluxations, or bone lesions. Degenerative disc space narrowing and facet hypertrophy at multiple levels of the cervical spine. IMPRESSION: No arterial stenosis or occlusion in the neck. REFERENCES: NASCET CRITERIA. The degree of stenosis in the cervical segment of the internal carotid artery is based on NASCET criteria. Normal is no stenosis. Mild is less than 50% stenosis. Moderate is 50-69% stenosis. Severe is 70% to 99% stenosis. Total occlusion is no detectable patent lumen. THIS REPORT CONTAINS FINDINGS THAT MAY BE CRITICAL TO PATIENT CARE. The findings were verbally communicated via telephone conference with Dhruv Mccallum at 5:00 PM EDT on 04/27/2024. The findings were acknowledged and understood.
--- NOTE | 2024-04-27 16:13 | XR_ITS ---
PROCEDURE INFORMATION: Exam: XR Chest Exam date and time: 04/27/2024 4:33 PM Age: 84 years old Clinical indication: Shortness of breath; Additional info: Stroke alert TECHNIQUE: Imaging protocol: Radiologic exam of the chest. Views: 1 view. COMPARISON: CR XR CHEST 2V 03/25/2024 3:06 PM FINDINGS: Lungs: Lung volumes are low. No airspace consolidation or nodules. Pleural spaces: No pleural effusion. No pneumothorax. Heart/Mediastinum: Cardiomegaly without vascular congestion. Bones/joints: No fractures or bone lesions. Sternotomy wires. Other findings: . IMPRESSION: 1. No acute findings in the chest. Low lung volumes. 2. Cardiomegaly.
--- NOTE | 2024-04-27 16:15 | PC.NURSE ---
RADIOLOGY NOTIFIED OF STROKE ALERT
--- NOTE | 2024-04-27 16:27 | PC.NURSE ---
PT TO CT
[2024-04-27] MEDS: 0.9 % SODIUM CHLORIDE 50 ML VIAL IV (16:34)
[2024-04-27] MEDS: IOPAMIDOL-370 (76%);100ML BOTTLE 80 ML IV (16:35)
[2024-04-27] MEDS: SODIUM CHLORIDE 0.9% 10ML SYR (RAD ONLY) 10 ML IV (16:35)
--- NOTE | 2024-04-27 16:40 | PC.NURSE ---
PT RETURNED FROM CT
[2024-04-27 16:46] LABS: Basophils % 0.6 % (0.1-2.0); Eosinophils # 2.2 K/mm3 (0.0-0.4); Eosinophils % 35.3 % (0.1-12.0); Hematocrit 32.1 % (42.0-52.0); Hemoglobin 11.7 g/dL (14.1-18.0); Lymphocytes # 0.8 K/mm3 (0.7-4.5); Lymphocytes % 12.1 % (10-50); Mean Corpuscular HGB Conc 36.5 g/dL (31.8-35.4); Mean Corpuscular Hemoglobin 38.1 pg (27.0-31.2); Mean Corpuscular Volume 104.4 fl (80-94); Mean Platelet Volume 7.8 fl (7.4-10.4); Monocytes # 0.2 K/mm3 (0.1-1.0); Neutrophils # 3.1 K/mm3 (1.8-7.8); Neutrophils % 49.1 % (37.0-80.0); Platelet Count 164 K/mm3 (142-424); Red Blood Count 3.08 M/mm3 (4.60-6.20); Red Cell Distribution Width 16.2 % (11.5-17.5); White Blood Count 6.4 K/mm3 (4.8-10.8)
[2024-04-27 16:50] LABS: INR 1.04 (0.9-1.1); Prothrombin Time 11.6 seconds (10.1-12.5)
[2024-04-27 17:00] VITALS: BP 100/62; PULSE 111; RESP 18; O2SAT 95
[2024-04-27 17:00] LABS: Activated Partial Thrombo Time 28.4 seconds (22.8-30.6); Albumin Level 3.7 g/dl (3.5-5.0); Chloride 99 mmol/L (98-107); Potassium 4.5 mmoL/L (3.5-5.1); Sodium 136 mmol/L (136-145)
[2024-04-27] MEDS: LACTATED RINGERS 1000ML 1,000 ML 999 ML IV (17:00)
[2024-04-27 17:03] LABS: Alanine Aminotransferase 21 U/L (12-78); Albumin/Globulin Ratio 0.8 (1.1-1.8); Alkaline Phosphatase 99 U/L (38-126); Anion Gap 11.5 mEq/L (5-15); Aspartate Amino Transferase 30 U/L (17-59); Bilirubin,Total 0.9 mg/dl (0.2-1.3); Blood Urea Nitrogen 59 mg/dl (9-20); Carbon Dioxide 30 mmol/L (22.0-30.0); Cholesterol 115 mg/dl (140-200); Creatinine Clearance Estimated 26 mL/min (50-200); Estimated Glomerular Filt Rate 29 ml/min (>60); GFR (African American) 35 ML/MIN (>60); Globulin 4.6 g/dL (1.3-3.2); Total Protein,Serum 8.3 g/dl (6.3-8.2); Triglycerides 74 mg/dl (30-150); VLDL Cholesterol 15 mg/dL (0-40)
[2024-04-27 17:04] LABS: Calcium 9.1 mg/dl (8.4-10.2); Chol/HDL Ratio 2.9 (1-3.5); Glucose 183 mg/dl (74-100); HDL Cholesterol 39 mg/dl (40-60)
--- NOTE | 2024-04-27 17:04 | PC.NURSE ---
CAlled Stroke Williams @ [facility]
--- NOTE | 2024-04-27 17:09 | PC.NURSE ---
DR CRONIN SPEAKING WITH [facility]
--- NOTE | 2024-04-27 17:09 | PC.NURSE ---
DR CRONIN UPDATING FAMILY
--- NOTE | 2024-04-27 17:11 | PC.NURSE ---
IMAGES POEWRSHARED WITH BIN
[2024-04-27 17:15] LABS: Direct LDL Cholesterol 57.47 mg/dL (100-129)
[2024-04-27 17:26] LABS: Troponin I 0.05 ng/ml (0.00-0.034)
[2024-04-27 17:30] VITALS: BP 99/66; PULSE 110; RESP 18; O2SAT 98
--- NOTE | 2024-04-27 17:43 | PC.NURSE ---
[facility] NOTIFIED OF TRANSFER TO [facility], 3E, RM 336 FAMILY UPDATED AT THIS TIME
[2024-04-27 17:45] LABS: Ethyl Alcohol < 10 mg/dl (0-10)
--- NOTE | 2024-04-27 17:48 | PC.NURSE ---
report called to Aretha @ [facility].
[2024-04-27 18:00] VITALS: BP 100/58; PULSE 113; RESP 18; O2SAT 96
[2024-04-27 18:01] LABS: HIV (1&2) Antibody Rapid NONREACTIVE (NONREACTIVE)
[2024-04-27 18:25] VITALS: BP 100/58; PULSE 112; RESP 16; TEMP 36.5; O2SAT 94
--- NOTE | 2024-04-28 04:24 | PC.NURSE ---
Stephon called from [facility] to check if pt received any ABX while in this ER, per MAR no ABX given. I updated Stephon with this information.
[2024-04-30 05:10] LABS: HCV Ab Non Reactive (Non Reactive)
== END 2024-04-27 18:27 | disposition short-term general hospital (02) ==
PROVIDERS: Physician Assistant; Emergency Provider Student in an Organized Health Care Education/Training Program; PCP Internal Medicine Adolescent Medicine
DX: R29.90 Unspecified symptoms and signs involving the nervous system (principal); R41.82 Altered mental status, unspecified; R53.1 Weakness
CPT/HCPCS: 70450; 70496; 70498; 71045; 80053; 80061; 80320; 84484; 85025; 85610; 85730; 86803; 87389; 93005; 96360; 99291; G0480; J7120; Q9967

== ENCOUNTER 2024-05-06 10:57 | Inpatient (IN) | payer MEDICARE, OTHER, SELFPAY ==
[2024-05-06] VITALS (18 sets, daily range): BP systolic 84–102; BP diastolic 48–77; PULSE 52–114; RESP 17–18; TEMP 36.4–37.2; O2SAT 90–99; BMI 24.0
--- NOTE | 2024-05-06 13:19 | XR_ITS ---
FINAL REPORT CLINICAL HISTORY: Weakness hypotension COMPARISON: 03/25/2024 FINDINGS: A single portable view of the chest was obtained. Cardiomegaly is present. The patient has undergone a prior midline sternotomy. The mediastinum is within normal limits. Bibasilar opacities are present, favor atelectasis. The bony thorax is intact. IMPRESSION: Bibasilar opacities, favor atelectasis. Reviewed, Interpreted and Dictated by Williams Haskins III, MD Transcribed by Jennifer Real Authenticated and [facility]
--- NOTE | 2024-05-06 13:19 | ED_ITS ---
Discharge Plan Disposition Patient Disposition: Admitted Condition: Fair Prescriptions Prescriptions: No Action ipratropium-albuterol 0.5 mg-3 mg(2.5 mg base)/3 mL solution for nebulization 3 ml inhalation Q6H PRN (Reason: shortness of breath or wheezing) Qty: 90 3RF albuterol sulfate 90 mcg/actuation HFA aerosol inhaler 2 inh inhalation Q6H PRN (Reason: shortness of breath or wheezing) 90 Days Qty: 8.5 2RF spironolactone 25 mg tablet 25 mg PO DAILY cefuroxime axetil 250 mg tablet 250 mg PO ONCE tamsulosin 0.4 mg capsule PO aspirin 81 mg tablet,chewable 81 mg PO DAILY ezetimibe 10 mg tablet 10 mg PO HS Qty: 90 3RF montelukast [Singulair] 10 mg tablet 10 mg PO HS calcitriol 0.5 mcg capsule PO levothyroxine [Synthroid] 200 mcg tablet PO escitalopram oxalate [Lexapro] 10 mg tablet 10 mg PO DAILY metoprolol succinate 25 mg tablet extended release 24 hr 25 mg PO BID furosemide [Lasix] 20 mg tablet 40 mg PO DAILY ropinirole 4 mg tablet See Rx Instructions .ROUTE .COMPLEX Qty: 180 3RF Dose Instruction: TAKE 1 TABLET TWICE A DAY Rx Instructions: TAKE 1 TABLET TWICE A DAY rivaroxaban 15 mg tablet 15 mg PO DAILY Qty: 90 3RF Rx Instructions: must administer with evening meal nystatin-triamcinolone 100,000-0.1 unit/g-% cream 1 applic topical BID Qty: 30 3RF phenazopyridine [Pyridium] 200 mg tablet 200 mg PO TID 3 Days Qty: 7 0RF finasteride 5 mg tablet 5 mg PO DAILY 90 Days Qty: 90 1RF Breztri Aerosphere 160-9-4.8 mcg/actuation HFA aerosol inhaler 1 inh inhalation BID 90 Days Qty: 10.7 3RF insulin lispro protamin-lispro [Humalog Mix 75-25 KwikPen] 100 unit/mL (75-25) insulin pen 15 unit SQ TID PRN (Reason: Hyperglycemia) insulin glargine [Lantus Solostar U-100 Insulin] 100 UNIT/ML insulin pen 30 unit SQ PM Referrals Follow up/Referrals: Toney Contreras MD [Primary Care Provider] - See instructions Clinical Impressions Clinical Impression: Adult failure to thrive Acute exacerbation of CHF (congestive heart failure) Qualifiers: Heart failure type: diastolic Qualified Code(s): I50.33 - Acute on chronic diastolic (congestive) heart failure Print Language Print Language: Bruneian Discharge ED Provider: Santi Grady General Adult HPI <MARY Lowry - Last Filed: 05/06/24 15:10> General Chief complaint: Weakness Stated complaint: weakness Time Seen by Provider: 05/06/24 12:00 Mode of Arrival: Wheelchair Source of Information: Spouse Limitations: No Limitations Description of Symptoms (Recalled from ER Triage Doc. by RN): Spouse reports pt has been very lethargic this morning. Pt has required assistance gettting to the bathroom, no appetite, cough, very weak. History of Present Illness HPI narrative: Patient presents for evaluation of asthenia. According to the patient's he has been much weaker more lethargic today however he is mentating appropriately. He has hearing difficulty and has a cochlear implant but at the time of my exam is responding appropriately is oriented to person place and circumstance. He actually himself denies chest pain shortness of breath fever chills hemoptysis hematochezia melena. He did not want to come today but his insisted according to the patient. He does have a fairly significant past medical history of atrial fibrillation on chronic anticoagulation, he had surgery mid March of this year for circumcision revision, has a history of CHF and pulmonary artery hypertension, he has a history of chronic atrial fibrillation maintained on Eliquis metoprolol spironolactone and Lasix, history of insulin- dependent diabetes mellitus, and most recently on 04 27 of this month had acute right eye palsy that was sent to [facility] for further workup. Reportedly patient stayed in the hospital 2 days but no cause was found primarily due to the inability to do an MRI due to his cochlear implant however his symptoms have since resolved completely. There are some concern that he may have had a TIA as he was off his blood thinner in the perioperative period. Related Data Home Medications ?Medication ?Instructions ?Recorded ?Confirmed insulin lispro protamine-lispro 15 unit SQ TID PRN Hyperglycemia 09/29/20 05/02/24 100 unit/mL (75-25) subcutaneous pen (Humalog Mix 75-25 KwikPen) insulin glargine 100 unit/mL (3 30 unit SQ PM Diabetes 12/01/20 05/02/24 mL) subcutaneous pen (Lantus Solostar U-100 Insulin) montelukast 10 mg tablet 10 mg PO HS ALLERGIES 04/13/22 05/02/24 (Singulair) calcitriol 0.5 mcg capsule mcg PO 11/29/23 05/02/24 levothyroxine 200 mcg tablet mcg PO 11/29/23 05/02/24 (Synthroid) spironolactone 25 mg tablet 25 mg PO DAILY 02/01/24 05/02/24 furosemide 20 mg tablet (Lasix) 40 mg PO DAILY 04/09/24 05/02/24 metoprolol succinate 25 mg 25 mg PO BID High blood pressure 04/09/24 05/02/24 tablet,extended release 24 hr escitalopram oxalate 10 mg tablet 10 mg PO DAILY 04/26/24 05/02/24 (Lexapro) aspirin 81 mg chewable tablet 81 mg PO DAILY 05/02/24 05/02/24 cefuroxime axetil 250 mg tablet 250 mg PO ONCE 05/02/24 05/02/24 tamsulosin 0.4 mg capsule mg PO 05/02/24 05/02/24 Previous Rx's ?Medication ?Instructions ?Recorded ipratropium 0.5 mg-albuterol 3 mg 3 ml inhalation Q6H PRN shortness 10/04/23 (2.5 mg base)/3 mL nebulization of breath or wheezing #90 mL soln albuterol sulfate 90 mcg/actuation 2 inh inhalation Q6H PRN shortness 12/26/23 aerosol inhaler of breath or wheezing 90 days #8.5 grams ropinirole 4 mg tablet See Rx Instructions .Route 01/09/24 .COMPLEX #180 tabs rivaroxaban 15 mg tablet 15 mg PO DAILY #90 tabs 02/06/24 nystatin-triamcinolone 100,000 1 applic topical BID #30 grams 02/07/24 unit/g-0.1 % topical cream finasteride 5 mg tablet 5 mg PO DAILY Prostate 90 days #90 02/27/24 tabs phenazopyridine 200 mg tablet 200 mg PO TID 3 days #7 tabs 02/27/24 (Pyridium) ezetimibe 10 mg tablet 10 mg PO HS Cholesterol #90 tabs 03/05/24 budesonide 160 mcg-glycopyr 9 1 inh inhalation BID 90 days #10.7 04/29/24 mcg-formot 4.8 mcg/actuation HFA grams inhaler (Breztri Aerosphere) Allergies Allergy/AdvReac Type Severity Reaction Status Date / Time nystatin Allergy Intermediate I-HIVES Verified 05/02/24 11:39 Bnuqlwx-IND-PqX Reductase AdvReac Severe rhabdomyoly Verified 05/02/24 11:39 Inhibitor sis [Ofdizds-Pux-Dnr Reductase Inhibitor] [facility] <MARY Lowry - Last Filed: 05/06/24 15:10> [facility] Disclaimer: The information contained in this section may have been updated after the patient was seen, as this information can be updated by other users. Medical History Pulmonary arterial hypertension Eosinophilia (HFpEF) heart failure with preserved ejection fraction Bleeding from left ear Impacted cerumen Thyroid goiter Hoarseness Dysphagia ABPA (allergic bronchopulmonary aspergillosis) Enlarged prostate Chronic kidney disease Pneumonia Chronic cough History of transient ischemic attack (TIA) Hemorrhoid Hypothyroid Diabetes mellitus, type 2 History of cataract Atrial fibrillation Edema History of anemia Restrictive lung disease COPD mixed type Moderate persistent asthma Sinusitis Lung nodule Allergic rhinitis Asthma Dyspnea on exertion Rhabdomyolysis due to statin therapy CAD (coronary artery disease) Mitral valve regurgitation Family history of cardiac disorder Murmur Diabetes mellitus Hyperlipidemia Mitral valve prolapse Hypertensive disorder Surgical History History of bronchoscopy S/P CABG x 2 History of mitral valve repair mitral valve leaflet clip 04/13 History of cochlear implant History of right hip replacement Family History Sister Pulmonary hypertension Father Heart attack Brother Heart attack Grandmother Heart attack Mother Alzheimer disease Social History Smoking Status: Never smoker second hand exposure: No alcohol intake: never counseling provided: none substance use type: denies use current occupational status: retired Travel in the last 8 weeks: Inside the [place] household members: spouse housing: house marital status: number of children: 3 current occupational exposures/hazards: No caffeine: No Other Medical History Have you received the Flu Vaccine for this season: Yes Have you received the Pneumonia Vaccine: Yes <MARY Lowry - Last Filed: 05/06/24 15:10> ROS Obtained: Yes Systems reviewed as appropriate & no additional complaints except as documented Physical Exam <MARY Lowry - Last Filed: 05/06/24 15:10> General General appearance: alert and in no apparent distress Respiratory Respiratory exam: Present wheezes (Bibasilar diminished breath sounds and expiratory wheezes); Absent normal lung sounds bilaterally Cardiovascular Cardiovascular exam: Present regular rate Neurological Exam Neurological exam: Present alert and oriented X3 Medical Decision Making <MARY Lowry - Last Filed: 05/06/24 15:10> Medical Records Medical records reviewed: Yes I reviewed the patient's medical records. Screening: Per USPSTF and CDC recommendations, given the prevalence of disease in our region, it is our hospital?s policy to screen for HIV and viral Hepatitis for all patients aged 18 and over and those with ongoing risk factors. Todd Inquiry Pt receiving controlled substance: No Vital Signs: 05/06/24 11:21 05/06/24 11:30 05/06/24 12:00 Pulse Rate 109 H 109 H Pulse Rate [Right Brachial] 58 L Respiratory Rate 18 Blood Pressure 96/77 L 86/68 L Blood Pressure [Right Arm] 84/59 L Blood Pressure Mean 81 74 Blood Pressure Mean [Right Arm] 67 Blood Pressure Source [Right Arm] Automatic Cuff Blood Pressure Position [Right Arm] Sitting 02 Sat by Pulse Oximetry 90 L 99 98 Oxygen Delivery Method Room Air Room Air Room Air 05/06/24 12:30 05/06/24 13:00 05/06/24 13:12 Pulse Rate 104 H 96 H 96 H Pulse Rate [Right Brachial] Respiratory Rate Blood Pressure 92/71 L 90/62 L 94/64 L Blood Pressure [Right Arm] Blood Pressure Mean 75 66 72 Blood Pressure Mean [Right Arm] Blood Pressure Source [Right Arm] Blood Pressure Position [Right Arm] 02 Sat by Pulse Oximetry 94 L 95 95 Oxygen Delivery Method Room Air Room Air Room Air 05/06/24 13:30 05/06/24 14:00 05/06/24 14:30 Pulse Rate 84 111 H 114 H Pulse Rate [Right Brachial] Respiratory Rate Blood Pressure 93/71 L 96/68 L 96/65 L Blood Pressure [Right Arm] Blood Pressure Mean 75 Blood Pressure Mean [Right Arm] Blood Pressure Source [Right Arm] Blood Pressure Position [Right Arm] 02 Sat by Pulse Oximetry 96 95 94 L Oxygen Delivery Method Room Air Room Air Room Air 05/06/24 14:45 Pulse Rate 110 H Pulse Rate [Right Brachial] Respiratory Rate Blood Pressure 96/65 L Blood Pressure [Right Arm] Blood Pressure Mean Blood Pressure Mean [Right Arm] Blood Pressure Source [Right Arm] Blood Pressure Position [Right Arm] 02 Sat by Pulse Oximetry 96 Oxygen Delivery Method Lab Data Lab results reviewed: Yes I reviewed the patient's lab results. Lab Results 05/06/24 11:50: WBC 10.5, RBC 3.57 L, Hgb 12.5 L, Hct 37.6 L, MCV 105.3 H, MCH 35.0 H, MCHC 33.3, RDW 16.3, Plt Count 141 L, MPV 8.6, Neut % (Auto) 30.6 L, L ymph % (Auto) 8.8 L, [place] % (Auto) 2.4, Eos % (Auto) 57.7 H, Baso % (Auto) 0.4, Neut # (Auto) 3.2, Lymph # (Auto) 0.9, [place] # (Auto) 0.3, Eos # (Auto) 6.0 H, Baso # (Auto) 0.0, Sodium 135 L, Potassium 5.9 H, Chloride 102, Carbon Dioxide 26, Anion Gap 12.9, BUN 52 H, Creatinine 2.20 H, Estimated Creat Clear 27, E stimated GFR 29 L, Est GFR ( Amer) 35 L, Glucose 135 H, Calcium 9.4, Magnesium 1.9, Total Bilirubin 1.4 H, AST 85 H, ALT 48, Alkaline Phosphatase 104, Troponin I 0.03, NT-Pro-B Natriuret Pep 73576 H, Total Protein 7.9, Albumin 3.3 L, Globulin 4.6 H, Albumin/Globulin Ratio 0.7 L, HIV 1&2 Antibody Rapid Nonreactive 05/06/24 11:50 05/06/24 11:50 Orders (Tests/Meds): ED MEDICATIONS Generic Name Dose Route Start Last Admin Trade Name Freq PRN Reason Stop Dose Admin Sodium Chloride 1,000 mls @ 250 mls/hr 05/06/24 13:19 05/06/24 13:47 Sod Chlor 0.9% 1000ml Bag IV 05/06/24 17:18 250 mls/hr .Q4H ONE Administration Insulin Human Lispro 0 unit 05/06/24 16:30 Humalog 100 Units/Ml 10ml Vial (Ssi) SUBCUT 06/05/24 16:29 ACHS CORINA Protocol Discontinued Medications Generic Name Dose Route Start Last Admin Trade Name Dorene PRN Reason Stop Dose Admin Bumetanide 2 mg 05/06/24 14:57 Bumetanide 1mg/4ml Vial IV 05/06/24 14:58 ONCE ONE Sodium Zirconium Cyclosilicate 10 gm 05/06/24 14:22 Lokelma 5gm Packet PO 05/06/24 14:23 ONCE ONE ORDERS Category Date Time Status Cardiology Consult [Consult to Cardiology] [CONS] Cons 05/06/24 14:57 Active Routine Chest XR -- portable [XR chest portable] Stat Exams 05/06/24 13:19 Completed BNP [NT Pro Brain Natriuretic Pep.] Stat Lab 05/06/24 11:50 Completed CBC w/Auto Diff [Complete Blood Count Auto Diff] Stat Lab 05/06/24 11:50 Completed CMP [Comprehensive Metabolic Panel] Stat Lab 05/06/24 11:50 Completed Complete Blood Count Auto Diff AMLAB Lab 05/07/24 06:00 Ordered Comprehensive Metabolic Panel AMLAB Lab 05/07/24 06:00 Ordered Diarrhea 23 Panel, PCR Stat Lab 05/06/24 13:40 Received Full Resp Panel w/COVID ([facility]) Routine Lab 05/06/24 13:40 Received HIV (1&2) Antibody Rapid Stat Lab 05/06/24 11:50 Completed Hep C Ab with Reflex to RNA Stat Lab 05/06/24 11:50 Received Magnesium AMLAB Lab 05/07/24 06:00 Ordered Magnesium Stat Lab 05/06/24 11:50 Completed Trop I [Troponin I] Stat Lab 05/06/24 11:50 Completed Troponin I Q3H Lab 05/06/24 16:30 Ordered Troponin I Q3H Lab 05/06/24 19:30 Ordered UA [Urinalysis and Microscopic] Stat Lab 05/06/24 13:34 Ordered HEART Score History (anamnesis): Slightly suspicious ECG: Non-specific disturbance Age: >65 years Risk factors: 3 or more risk factors Troponin: </= normal limit HEART Score: 5 Medical Decision Narrative: In summary patient is a 84-year-old gentleman who presents to the emergency department for evaluation of initially a chief complaint of [place]. Patient is initially hypotensive with a blood pressure of 84/59 pulse 58 satting at 90% on room air breathing 18 times a minute upon arrival, [febrile/afebrile]. Physical exam is remarkable for an unwell appearing chronically ill-appearing 84-year-old gentleman who does not currently appear to be in acute distress. He is awake alert and oriented when he can actually hear the questions. Physical exam is remarkable for end expiratory wheezes in all 4 thacker with diminished breath sounds at the bases with no increased work of breathing or accessory muscle use. Heart sounds are normal. Patient has no dependent edema. There is no abdominal tenderness with normal bowel sounds. Differential diagnosis includes CHF versus pulmonary artery hypertension versus therapeutic misadventure given that he is on beta-julianne and multiple fluid pills versus functional decline versus infection etc. Initial workup will be conducted with hematologic labs plain film chest x-ray twelve-lead EKG. Initial interventions include gentle fluid bolus of 250 cc an hour given his history of heart failure but also given his low blood pressure. Initial workup reviewed by me shows he has hyperkalemia with potassium of 5.9 and an NT proBNP of greater than 10,000 which is different from his baseline of around approximately 8000. My personal interpretation of his plain film chest x-ray does not show any overt pleural effusion but does show some vascular crowding suggestive of pulmonary edema though patient has no oxygen requirement. Given this I had an interactive discussion with hospital medicine regarding patient management and he will be admitted for further evaluation and care <Santi Grady MD - Last Filed: 05/06/24 15:17> Vital Signs: 05/06/24 11:21 05/06/24 11:30 05/06/24 12:00 Pulse Rate 109 H 109 H Pulse Rate [Right Brachial] 58 L Respiratory Rate 18 Blood Pressure 96/77 L 86/68 L Blood Pressure [Right Arm] 84/59 L Blood Pressure Mean 81 74 Blood Pressure Mean [Right Arm] 67 Blood Pressure Source [Right Arm] Automatic Cuff Blood Pressure Position [Right Arm] Sitting 02 Sat by Pulse Oximetry 90 L 99 98 Oxygen Delivery Method Room Air Room Air Room Air 05/06/24 12:30 05/06/24 13:00 05/06/24 13:12 Pulse Rate 104 H 96 H 96 H Pulse Rate [Right Brachial] Respiratory Rate Blood Pressure 92/71 L 90/62 L 94/64 L Blood Pressure [Right Arm] Blood Pressure Mean 75 66 72 Blood Pressure Mean [Right Arm] Blood Pressure Source [Right Arm] Blood Pressure Position [Right Arm] 02 Sat by Pulse Oximetry 94 L 95 95 Oxygen Delivery Method Room Air Room Air Room Air 05/06/24 13:30 05/06/24 14:00 05/06/24 14:30 Pulse Rate 84 111 H 114 H Pulse Rate [Right Brachial] Respiratory Rate Blood Pressure 93/71 L 96/68 L 96/65 L Blood Pressure [Right Arm] Blood Pressure Mean 75 Blood Pressure Mean [Right Arm] Blood Pressure Source [Right Arm] Blood Pressure Position [Right Arm] 02 Sat by Pulse Oximetry 96 95 94 L Oxygen Delivery Method Room Air Room Air Room Air 05/06/24 14:45 Pulse Rate 110 H Pulse Rate [Right Brachial] Respiratory Rate Blood Pressure 96/65 L Blood Pressure [Right Arm] Blood Pressure Mean Blood Pressure Mean [Right Arm] Blood Pressure Source [Right Arm] Blood Pressure Position [Right Arm] 02 Sat by Pulse Oximetry 96 Oxygen Delivery Method Lab Data Lab Results 05/06/24 11:50: WBC 10.5, RBC 3.57 L, Hgb 12.5 L, Hct 37.6 L, MCV 105.3 H, MCH 35.0 H, MCHC 33.3, RDW 16.3, Plt Count 141 L, MPV 8.6, Neut % (Auto) 30.6 L, L ymph % (Auto) 8.8 L, [place] % (Auto) 2.4, Eos % (Auto) 57.7 H, Baso % (Auto) 0.4, Neut # (Auto) 3.2, Lymph # (Auto) 0.9, [place] # (Auto) 0.3, Eos # (Auto) 6.0 H, Baso # (Auto) 0.0, Sodium 135 L, Potassium 5.9 H, Chloride 102, Carbon Dioxide 26, Anion Gap 12.9, BUN 52 H, Creatinine 2.20 H, Estimated Creat Clear 27, E stimated GFR 29 L, Est GFR ( Amer) 35 L, Glucose 135 H, Calcium 9.4, Magnesium 1.9, Total Bilirubin 1.4 H, AST 85 H, ALT 48, Alkaline Phosphatase 104, Troponin I 0.03, NT-Pro-B Natriuret Pep 31493 H, Total Protein 7.9, Albumin 3.3 L, Globulin 4.6 H, Albumin/Globulin Ratio 0.7 L, HIV 1&2 Antibody Rapid Nonreactive Orders (Tests/Meds): ED MEDICATIONS Generic Name Dose Route Start Last Admin Trade Name Freq PRN Reason Stop Dose Admin Sodium Chloride 1,000 mls @ 250 mls/hr 05/06/24 13:19 05/06/24 13:47 Sod Chlor 0.9% 1000ml Bag IV 05/06/24 17:18 250 mls/hr .Q4H ONE Administration Insulin Human Lispro 0 unit 05/06/24 16:30 Humalog 100 Units/Ml 10ml Vial (Ssi) SUBCUT 06/05/24 16:29 ACHS CORINA Protocol Discontinued Medications Generic Name Dose Route Start Last Admin Trade Name Freq PRN Reason Stop Dose Admin Bumetanide 2 mg 05/06/24 14:57 Bumetanide 1mg/4ml Vial IV 05/06/24 14:58 ONCE ONE Sodium Zirconium Cyclosilicate 10 gm 05/06/24 14:22 Lokelma 5gm Packet PO 05/06/24 14:23 ONCE ONE ORDERS Category Date Time Status Cardiology Consult [Consult to Cardiology] [CONS] Cons 05/06/24 14:57 Active Routine Chest XR -- portable [XR chest portable] Stat Exams 05/06/24 13:19 Completed BNP [NT Pro Brain Natriuretic Pep.] Stat Lab 05/06/24 11:50 Completed CBC w/Auto Diff [Complete Blood Count Auto Diff] Stat Lab 05/06/24 11:50 Completed CMP [Comprehensive Metabolic Panel] Stat Lab 05/06/24 11:50 Completed Complete Blood Count Auto Diff AMLAB Lab 05/07/24 06:00 Ordered Comprehensive Metabolic Panel AMLAB Lab 05/07/24 06:00 Ordered Diarrhea 23 Panel, PCR Stat Lab 05/06/24 13:40 Received Full Resp Panel w/COVID ([facility]) Routine Lab 05/06/24 13:40 Received HIV (1&2) Antibody Rapid Stat Lab 05/06/24 11:50 Completed Hep C Ab with Reflex to RNA Stat Lab 05/06/24 11:50 Received Magnesium AMLAB Lab 05/07/24 06:00 Ordered Magnesium Stat Lab 05/06/24 11:50 Completed Trop I [Troponin I] Stat Lab 05/06/24 11:50 Completed Troponin I Q3H Lab 05/06/24 16:30 Ordered Troponin I Q3H Lab 05/06/24 19:30 Ordered UA [Urinalysis and Microscopic] Stat Lab 05/06/24 13:34 Ordered ECG Data Tracing #1: Independently interpreted by me rate is 101, rhythm is irregular, no ST elevation in anatomical contiguous leads, QTc 439, atrial fibrillation HEART Score HEART Score: 5 Medical Decision Narrative: In summary patient is a 84-year-old gentleman who presents to the emergency department for evaluation of initially a chief complaint of [place]. Patient is initially hypotensive with a blood pressure of 84/59 pulse 58 satting at 90% on room air breathing 18 times a minute upon arrival, [febrile/afebrile]. Physical exam is remarkable for an unwell appearing chronically ill-appearing 84-year-old gentleman who does not currently appear to be in acute distress. He is awake alert and oriented when he can actually hear the questions. Physical exam is remarkable for end expiratory wheezes in all 4 thacker with diminished breath sounds at the bases with no increased work of breathing or accessory muscle use. Heart sounds are normal. Patient has no dependent edema. There is no abdominal tenderness with normal bowel sounds. Differential diagnosis includes CHF versus pulmonary artery hypertension versus therapeutic misadventure given that he is on beta-julianne and multiple fluid pills versus functional decline versus infection etc. Initial workup will be conducted with hematologic labs plain film chest x-ray twelve-lead EKG. Initial interventions include gentle fluid bolus of 250 cc an hour given his history of heart failure but also given his low blood pressure. Initial workup reviewed by me shows he has hyperkalemia with potassium of 5.9 and an NT proBNP of greater than 10,000 which is different from his baseline of around approximately 8000. My personal interpretation of his plain film chest x-ray does not show any overt pleural effusion but does show some vascular crowding suggestive of pulmonary edema though patient has no oxygen requirement. Given this I had an interactive discussion with hospital medicine regarding patient management and he will be admitted for further evaluation and care. I was consulted by the ALESHIA, and we discussed the complexity of the problems being addressed. I approved the treatment and management plan for this patient's care in the emergency department, thus performing a substantive portion of the medical decision making. Santi Grady MD Critical Care <MARY Lowry - Last Filed: 05/06/24 15:10> Critical Care Time Critical Care Time: No
[2024-05-06 13:26] LABS: Basophils % 0.4 % (0.1-2.0); Eosinophils % 57.7 % (0.1-12.0); Hematocrit 37.6 % (42.0-52.0); Hemoglobin 12.5 g/dL (14.1-18.0); Lymphocytes # 0.9 K/mm3 (0.7-4.5); Lymphocytes % 8.8 % (10-50); Mean Corpuscular HGB Conc 33.3 g/dL (31.8-35.4); Mean Corpuscular Volume 105.3 fl (80-94); Mean Platelet Volume 8.6 fl (7.4-10.4); Monocytes # 0.3 K/mm3 (0.1-1.0); Monocytes % 2.4 % (1.7-9.3); Neutrophils # 3.2 K/mm3 (1.8-7.8); Neutrophils % 30.6 % (37.0-80.0); Platelet Count 141 K/mm3 (142-424); Red Blood Count 3.57 M/mm3 (4.60-6.20); Red Cell Distribution Width 16.3 % (11.5-17.5); White Blood Count 10.5 K/mm3 (4.8-10.8)
[2024-05-06 13:35] LABS: Alanine Aminotransferase 48 U/L (12-78); Albumin Level 3.3 g/dl (3.5-5.0); Albumin/Globulin Ratio 0.7 (1.1-1.8); Alkaline Phosphatase 104 U/L (38-126); Anion Gap 12.9 mEq/L (5-15); Aspartate Amino Transferase 85 U/L (17-59); Bilirubin,Total 1.4 mg/dl (0.2-1.3); Blood Urea Nitrogen 52 mg/dl (9-20); Calcium 9.4 mg/dl (8.4-10.2); Carbon Dioxide 26 mmol/L (22.0-30.0); Chloride 102 mmol/L (98-107); Creatinine Clearance Estimated 27 mL/min (50-200); Estimated Glomerular Filt Rate 29 ml/min (>60); GFR (African American) 35 ML/MIN (>60); Globulin 4.6 g/dL (1.3-3.2); Glucose 135 mg/dl (74-100); Magnesium 1.9 mg/dl (1.6-2.3); Potassium 5.9 mmoL/L (3.5-5.1); Sodium 135 mmol/L (136-145); Total Protein,Serum 7.9 g/dl (6.3-8.2)
[2024-05-06 13:46] LABS: Adenovirus F 40/41, stool Not Detected (NotDetected); Adenovirus,PCR Not Detected (NotDetected); Astrovirus Not Detected (NotDetected); Bordetella Pertussis Not Detected (NotDetected); Campylobacter Not Detected (NotDetected); Chlamydophila Pneumoniae, PCR Not Detected (NotDetected); Clostridium Difficile A/B, PCR Not Detected (NotDetected); Coronavirus 19, PCR Not Detected (NotDetected); Coronavirus 229E Not Detected (NotDetected); Coronavirus NL63 Not Detected (NotDetected); Coronavirus OC43 Not Detected (NotDetected); Coronovirus HKU1,PCR Not Detected (NotDetected); Cryptosporidium Not Detected (NotDetected); Cyclospora Cayetanesis Not Detected (NotDetected); Entamoeba histolytica Not Detected (NotDetected); Enteroaggregative E coli Not Detected (NotDetected); Enteropathogenic E coli Not Detected (NotDetected); Enterotoxigenic E coli Not Detected (NotDetected); Giardia lamblia Not Detected (NotDetected); Human Metapneumovirus Not Detected (NotDetected); Influenza A, PCR Not Detected (NotDetected); Influenza AH1, 2009 Not Detected (NotDetected); Influenza AH1, PCR Not Detected (NotDetected); Influenza AH3,PCR Not Detected (NotDetected); Influenza B, PCR Not Detected (NotDetected); Mycoplasma Pneumoniae, PCR Not Detected (NotDetected); Norovirus Not Detected (NotDetected); Parainfluenza 1, PCR Not Detected (NotDetected); Parainfluenza 2, PCR Not Detected (NotDetected); Parainfluenza 3, PCR Not Detected (NotDetected); Parainfluenza 4, PCR Not Detected (NotDetected); Plesimonas Shigalloides, PCR Not Detected (NotDetected); Respiratory Syncytial Virus Not Detected (NotDetected); Rhinovirus/Enterovirus Not Detected (NotDetected); Rotavirus A Not Detected (NotDetected); Salmonella, PCR Not Detected (NotDetected); Sapovirus Not Detected (NotDetected); Shiga-like toxin E coli Not Detected (NotDetected); Shigella Enterovasive E coli Not Detected (NotDetected); Vibrio Cholerae Not Detected (NotDetected); Vibrio, PCR Not Detected (NotDetected); Yersinia Entercolitica, PCR Not Detected (NotDetected)
[2024-05-06 13:47] LABS: NT Pro Brain Natriuretic Pep. 10700 pg/mL (0-450); Troponin I 0.03 ng/ml (0.00-0.034)
[2024-05-06] MEDS: 0.9 % SODIUM CHLORIDE 1000ML 1,000 ML 250 ML IV (13:47)
--- NOTE | 2024-05-06 13:55 | ECG_ITS ---
APPROVED REPORT Exam: Resting ECG HR:101 bpm ECG Measurements Heart Rate 101 AXES QRSd 118 QRS 101 QT 381 T 76 QTc 439 Conclusion ATRIAL FLUTTER/TACHYCARDIA WITH RAPID VENTRICULAR RESPONSE WITH ABERRANT CONDUCTION OR VENTRICULAR PREMATURE COMPLEXES RIGHT AXIS DEVIATION [QRS AXIS > 100] MODERATE INTRAVENTRICULAR CONDUCTION DELAY [110+ ms QRS DURATION] MINIMAL ST DEPRESSION [0.025+ mV ST DEPRESSION] ABNORMAL ECG Electronically signed by : KANDICE MANZANO, 05/06/2024 16:56:16
--- NOTE | 2024-05-06 14:00 | PC.NURSE ---
Finger Blood Sugar is 130 at this time.
[2024-05-06 14:27] LABS: HIV (1&2) Antibody Rapid NONREACTIVE (NONREACTIVE)
--- NOTE | 2024-05-06 15:02 | EXP.HP ---
History of Present Illness *Admission Date: 05/06/24 *Reason for visit:: weakness *History of present illness: Mr. Wu is an 84-year-old male with multiple comorbidities including CHF, pulmonary hypertension, BPH, COPD with no oxygen requirement and worsening decline with multiple recent hospitalizations per his . Who presents to the hospital with worsening fatigue and lethargy today. Has required assistance to get to the bathroom with poor appetite, dry nonproductive cough, very weak over the past week. Patient's reports he has been much weaker today but is mentating normally. Denies any fever, has had some nausea and emesis over the past 2 days. Denies any diarrhea. No shortness of breath. Workup in the ER found normal white count. Kidney function stable with creatinine 2.2. BNP elevated at 10,000. Stool and respiratory panel negative. Chest x-ray with bibasilar atelectasis, does have some prominent pulmonary vasculature. Presentation most consistent with CHF exacerbation. Admitted to medicine for diuresis and further management. After arrival to the floor, patient alert and oriented x 3. Hard of hearing but answers questions appropriately with cochlear on. and son at bedside. Patient appears fatigued but in no significant distress. Prefers sitting upright in bed. Prominent JVD noted during interview. Stable on room air. Afebrile [facility] Disclaimer: The information contained in this section may have been updated after the patient was seen, as this information can be updated by other users. Medical History Pulmonary arterial hypertension Eosinophilia (HFpEF) heart failure with preserved ejection fraction Bleeding from left ear Impacted cerumen Thyroid goiter Hoarseness Dysphagia ABPA (allergic bronchopulmonary aspergillosis) Enlarged prostate Chronic kidney disease Pneumonia Chronic cough History of transient ischemic attack (TIA) Hemorrhoid Hypothyroid Diabetes mellitus, type 2 History of cataract Atrial fibrillation Edema History of anemia Restrictive lung disease COPD mixed type Moderate persistent asthma Sinusitis Lung nodule Allergic rhinitis Asthma Dyspnea on exertion Rhabdomyolysis due to statin therapy CAD (coronary artery disease) Mitral valve regurgitation Family history of cardiac disorder Murmur Diabetes mellitus Hyperlipidemia Mitral valve prolapse Hypertensive disorder Surgical History History of bronchoscopy S/P CABG x 2 History of mitral valve repair History of cochlear implant History of right hip replacement Family History Sister Pulmonary hypertension Father Heart attack Brother Heart attack Grandmother Heart attack Mother Alzheimer disease Social History Smoking Status: Never smoker second hand exposure: No alcohol intake: never counseling provided: none substance use type: denies use current occupational status: retired Travel in the last 8 weeks: Inside the [place] household members: spouse housing: house marital status: number of children: 3 current occupational exposures/hazards: No caffeine: No Other Medical History Have you received the Flu Vaccine for this season: Yes Have you received the Pneumonia Vaccine: Yes Review of Systems Review of Systems Review of systems (narrative): 14 point review of systems performed, pertinent positives and negatives as per [facility] Meds Home Medications and Allergies Home Medications ?Medication ?Instructions ?Recorded ?Confirmed ?Type insulin lispro protamine-lispro 15 unit SQ TID PRN Hyperglycemia 09/29/20 05/06/24 History 100 unit/mL (75-25) subcutaneous pen (Humalog Mix 75-25 KwikPen) insulin glargine 100 unit/mL (3 16 unit SQ PM Diabetes 12/01/20 05/06/24 History mL) subcutaneous pen (Lantus Solostar U-100 Insulin) montelukast 10 mg tablet 10 mg PO HS ALLERGIES 04/13/22 05/06/24 History (Singulair) ipratropium 0.5 mg-albuterol 3 mg 3 ml inhalation Q6H PRN shortness 10/04/23 05/06/24 Rx (2.5 mg base)/3 mL nebulization of breath or wheezing #90 mL soln calcitriol 0.5 mcg capsule 0.5 mcg PO DAILY 11/29/23 05/06/24 History levothyroxine 200 mcg tablet 200 mcg PO DAILYDM 11/29/23 05/06/24 History (Synthroid) albuterol sulfate 90 mcg/actuation 2 inh inhalation Q6H PRN shortness 12/26/23 05/06/24 Rx aerosol inhaler of breath or wheezing 90 days #8.5 grams ropinirole 4 mg tablet See Rx Instructions .Route 01/09/24 05/06/24 Rx .COMPLEX #180 tabs spironolactone 25 mg tablet 25 mg PO DAILY 02/01/24 05/06/24 History rivaroxaban 15 mg tablet 15 mg PO DAILY #90 tabs 02/06/24 05/06/24 Rx nystatin-triamcinolone 100,000 1 applic topical BID #30 grams 02/07/24 05/02/24 Rx unit/g-0.1 % topical cream finasteride 5 mg tablet 5 mg PO DAILY Prostate 90 days #90 02/27/24 05/06/24 Rx tabs ezetimibe 10 mg tablet 10 mg PO HS Cholesterol #90 tabs 03/05/24 05/06/24 Rx furosemide 20 mg tablet (Lasix) 20 mg PO DAILY 04/09/24 05/06/24 History metoprolol succinate 25 mg 12.5 mg PO BID High blood pressure 04/09/24 05/06/24 History tablet,extended release 24 hr escitalopram oxalate 10 mg tablet 10 mg PO DAILY 04/26/24 05/06/24 History (Lexapro) budesonide 160 mcg-glycopyr 9 1 inh inhalation BID 90 days #10.7 04/29/24 05/06/24 Rx mcg-formot 4.8 mcg/actuation HFA grams inhaler (Breztri Aerosphere) aspirin 81 mg chewable tablet 81 mg PO DAILY 05/02/24 05/06/24 History tamsulosin 0.4 mg capsule 0.4 mg PO DAILY 05/02/24 05/06/24 History New Prescriptions to Start Prescriptions: Allergies Allergy/AdvReac Type Severity Reaction Status Date / Time nystatin Allergy Intermediate I-HIVES Verified 05/02/24 11:39 Onbhtbu-SBE-AtQ Reductase AdvReac Severe rhabdomyoly Verified 05/02/24 11:39 Inhibitor sis [Pywrqda-Yjs-Pjk Reductase Inhibitor] Exam Data for Last 24 hours Vital signs and Labs for Last 24 Hours: Pulse Resp BP Pulse Ox O2 Del Method 110 H 18 96/65 L 96 Room Air 05/06/24 14:45 05/06/24 11:21 05/06/24 14:45 05/06/24 14:45 05/06/24 14:30 Laboratory Results - last 24 hr 05/06/24 11:50: WBC 10.5, RBC 3.57 L, Hgb 12.5 L, Hct 37.6 L, MCV 105.3 H, MCH 35.0 H, MCHC 33.3, RDW 16.3, Plt Count 141 L, MPV 8.6, Neut % (Auto) 30.6 L, Lymph % (Auto) 8.8 L, Hardy % (Auto) 2.4, Eos % (Auto) 57.7 H, Baso % (Auto) 0.4, Neut # (Auto) 3.2, Lymph # (Auto) 0.9, Hardy # (Auto) 0.3, Eos # (Auto) 6.0 H, Baso # (Auto) 0.0, Sodium 135 L, Potassium 5.9 H, Chloride 102, Carbon Dioxide 26, Anion Gap 12.9, BUN 52 H, Creatinine 2.20 H, Estimated Creat Clear 27, Estimated GFR 29 L, Est GFR ( Amer) 35 L, Glucose 135 H, Calcium 9.4, Magnesium 1.9, Total Bilirubin 1.4 H, AST 85 H, ALT 48, Alkaline Phosphatase 104, Troponin I 0.03, NT-Pro-B Natriuret Pep 50064 H, Total Protein 7.9, Albumin 3.3 L, Globulin 4.6 H, Albumin/Globulin Ratio 0.7 L, HIV 1&2 Antibody Rapid Nonreactive I & O for Last 24 hours: Intake & Output 05/03/24 05/04/24 05/05/24 05/06/24 23:59 23:59 23:59 23:59 Weight 80.286 kg Constitutional Constitutional: mild distress, average body habitus, chronically ill appearing and cooperative *Routine HEENT Exam Head: Present normocephalic Eye: Present EOMI and PERRL ENT: Present mucous membranes dry *Routine Neck Exam Neck: Present supple; Absent lymphadenopathy *Routine Respiratory Exam Respiratory: Present prolonged expiratory phase and wheezes; Absent respiratory distress, rhonchi or crackles *Routine Cardiovascular Exam Cardiovascular: Present irregularly irregular *Routine Abdominal Exam Abdominal: Present soft and normoactive bowel sounds; Absent tenderness *Routine Rectal Exam Rectal:: deferred *Routine Genitalia Exam Genitalia:: deferred *Routine Extremities Exam Extremities: Present edema (1+ to knees); Absent cyanosis or clubbing *Routine Skin Exam Skin: Present warm; Absent rash *Routine Neurological Exam Neurological: Present alert, oriented X3 and moving all extremities; Absent altered mental status Comments: Hard of hearing, fatigued, but answers questions appropriately Assessment and Plan *Assessment and plan (1) Acute exacerbation of CHF (congestive heart failure): Status: Acute Qualifiers: Heart failure type: diastolic Qualified Code(s): I50.33 - Acute on chronic diastolic (congestive) heart failure Category: Medical Code(s): I50.9 - Heart failure, unspecified (2) (HFpEF) heart failure with preserved ejection fraction: Status: Acute Qualifiers: Heart failure chronicity: unspecified Qualified Code(s): I50.30 - Unspecified diastolic (congestive) heart failure Category: Medical Code(s): I50.30 - Unspecified diastolic (congestive) heart failure (3) Adult failure to thrive: Status: Acute Category: Medical Code(s): R62.7 - Adult failure to thrive (4) Polyneuropathy: Problem Comment: 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 Status: Chronic Category: Medical Code(s): G62.9 - Polyneuropathy, unspecified (5) BPH w urinary obs/LUTS: Status: Acute Category: Medical Code(s): N40.1 - Benign prostatic hyperplasia with lower urinary tract symptoms; N13.8 - Other obstructive and reflux uropathy (6) Pulmonary arterial hypertension: Status: Acute Category: Medical Code(s): I27.21 - Secondary pulmonary arterial hypertension (7) History of coronary artery bypass graft: Status: Chronic Category: Surgical Code(s): Z95.1 - Presence of aortocoronary bypass graft (8) History of TIA (transient ischemic attack): Status: Chronic Category: Medical Code(s): Z86.73 - Personal history of transient ischemic attack (TIA), and cerebral infarction without residual deficits (9) 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 type: unspecified Qualified Code(s): J43.9 - Emphysema, unspecified Category: Medical Code(s): J44.9 - Chronic obstructive pulmonary disease, unspecified (10) A-fib: Status: Chronic Qualifiers: Atrial fibrillation type: unspecified chronic Qualified Code(s): I48.20 - Chronic atrial fibrillation, unspecified Category: Medical Code(s): I48.91 - Unspecified atrial fibrillation (11) CKD stage 4 due to type 2 diabetes mellitus: Status: Acute Category: Medical Code(s): E11.22 - Type 2 diabetes mellitus with diabetic chronic kidney disease; N18.4 - Chronic kidney disease, stage 4 (severe) Plan 84-year-old male who presents with worsening decline and shortness of breath. Concern for CHF exacerbation. Discussed case with ER provider, request admission for further management and therapy latasha I agreed to admit. Will jeanmariee x 1. Cardiology consulted to assist with care. Problems addressed as follows: Heart failure with preserved ejection fraction: Atrial fibrillation Reviewed echocardiogram from earlier this year in September, noted to have normal EF, elevated RVSP at 55-60. In light of elevated BNP of 10,000, will initiate diuresis -Bumex 2 mg IV twice daily. Strict ins and outs. -Repeat CBC, CMP, magnesium ordered for the morning. -Low concern for infection, will hold on antibiotics -Serial troponin ordered, initial troponin 0.03. No chest pain at this time. -Cardiology consulted, appreciate their assistance in care. -Continue metoprolol succinate 12.5 mg twice daily, aspirin 81 mg daily, continue Xarelto 15mg daily, continue spironolactone 25 mg daily Hyperkalemia: Received Lokelma in the ER. Will monitor for improvement with diuresis. Potassium 5.9. -EKG reviewed, has a flutter but no significant T wave elevation or peaking. CKD 4: Stable kidney function with creatinine 2.2. Monitor daily, caution with nephrotoxins Diabetes: Continue Lantus at decreased dose of 10 mg daily, sliding scale insulin with fingersticks ACHS. A1c pending. BPH: Continue tamsulosin 0.4 mg daily and finasteride 5 mg daily. Progressive weakness/failure to thrive: PT/OT consulted, further recs pending Continue Lexapro 10 mg daily for mood Continue levothyroxine 200 mcg daily for hypothyroid DNR Xarelto Diabetic diet
--- NOTE | 2024-05-06 15:09 | PC.NURSE ---
called for admission
--- NOTE | 2024-05-06 15:47 | PC.NURSE ---
report called to Tony Cullen RN
[2024-05-06] MEDS: BUMETANIDE 1MG/4ML VIAL 2 MG IV (16:57)
[2024-05-06 17:11] LABS: Troponin I 0.03 ng/ml (0.00-0.034)
[2024-05-06] MEDS: IPRATROPIUM/ALBUTEROL 3 ML NEB IH ×2 (18:41→23:50)
[2024-05-06 19:26] LABS: POC Glucose,Bedside 102 (70-110)
[2024-05-06 20:21] LABS: Troponin I 0.03 ng/ml (0.00-0.034)
[2024-05-06 20:37] LABS: Microscopic, Urine URINE MICROSCOPIC (MICROSCOPIC)
[2024-05-06 20:49] LABS: Appearance,Urine CLEAR (Clear); Bilirubin,Urine Negative (Negative); Blood, Urine TRACE-I (Negative); Color,Urine YELLOW (Yellow); Glucose,Urine (UA) Negative (Negative); Ketones,Urine Negative (Negative); Leukocyte Esterase,Urine Negative (Negative); Nitrate,Urine Negative (Negative); Protein,Urine Negative (Negative); Specific Gravity, Urine 1.015 (1.005-1.030); Urobilinogen,Urine 0.2 EU/dl (0.2)
[2024-05-06 20:56] LABS: POC Glucose,Bedside 106 (70-110)
[2024-05-06 21:03] LABS: Bacteria,Urine Trace /lpf; Hyaline Casts,Urine Occasional #/lpf (0)
[2024-05-06] MEDS: ROPINIROLE 1MG TABLET 4 MG PO (21:18)
[2024-05-07] VITALS (16 sets, daily range): BP systolic 79–118; BP diastolic 30–71; PULSE 50–124; RESP 16–30; TEMP 36.5–36.8; O2SAT 92–97; BMI 23.8
[2024-05-07] MEDS: IPRATROPIUM/ALBUTEROL 3 ML NEB IH ×2 (05:55→18:51)
[2024-05-07 06:55] LABS: Basophils % 0.4 % (0.1-2.0); Eosinophils # 4.6 K/mm3 (0.0-0.4); Eosinophils % 46.1 % (0.1-12.0); Hematocrit 35.5 % (42.0-52.0); Hemoglobin 11.9 g/dL (14.1-18.0); Lymphocytes # 0.9 K/mm3 (0.7-4.5); Lymphocytes % 9.1 % (10-50); Mean Corpuscular HGB Conc 33.5 g/dL (31.8-35.4); Mean Corpuscular Hemoglobin 34.4 pg (27.0-31.2); Mean Corpuscular Volume 102.8 fl (80-94); Mean Platelet Volume 8.4 fl (7.4-10.4); Monocytes # 0.3 K/mm3 (0.1-1.0); Monocytes % 3.3 % (1.7-9.3); Neutrophils # 4.1 K/mm3 (1.8-7.8); Neutrophils % 41.1 % (37.0-80.0); Platelet Count 133 K/mm3 (142-424); Red Blood Count 3.45 M/mm3 (4.60-6.20); Red Cell Distribution Width 16.3 % (11.5-17.5); White Blood Count 9.9 K/mm3 (4.8-10.8)
[2024-05-07 07:12] LABS: Alanine Aminotransferase 132 U/L (12-78); Albumin/Globulin Ratio 0.8 (1.1-1.8); Alkaline Phosphatase 101 U/L (38-126); Anion Gap 12.6 mEq/L (5-15); Aspartate Amino Transferase 308 U/L (17-59); Bilirubin,Total 1.6 mg/dl (0.2-1.3); Blood Urea Nitrogen 54 mg/dl (9-20); Calcium 8.9 mg/dl (8.4-10.2); Carbon Dioxide 24 mmol/L (22.0-30.0); Chloride 105 mmol/L (98-107); Creatinine Clearance Estimated 25 mL/min (50-200); Estimated Glomerular Filt Rate 26 ml/min (>60); GFR (African American) 31 ML/MIN (>60); Glucose 109 mg/dl (74-100); Magnesium 1.7 mg/dl (1.6-2.3); Potassium 5.6 mmoL/L (3.5-5.1); Sodium 136 mmol/L (136-145)
--- NOTE | 2024-05-07 07:42 | SW/DCPLANNER ---
Addendum entered by Suellen Springer 05/10/24 12:04: A.D. w/ Hospice is at bedside and has admitted patient under Hospice inpatient. I have updated MD. Addendum entered by Suellen Springer 05/10/24 08:48: Patient's family is now interested in comfort care and agreeable to Hospice services. Patient information has been faxed to [facility]/ [facility]. I will follow up once information is reviewed. Addendum entered by Suellen Springer 05/09/24 10:26: I spoke w/ patient and his regarding plans at time of discharge. Per PT/OT patient has shown a decline physically and SNF level of care is recommended. is unsure if they want to go to placement but is agreeable for information to be faxed to [facility] at this time to see if patient's insurance is in network w/ facility. I will follow up w/ George at [facility] once information is reviewed. Discharge date is unknown at this time. Original Note: This patient is currently established w/ [facility]. I will continue to follow up w/ Hanna from [facility] until patient is medically stable for discharge. Discharge date is unknown at this time.
--- NOTE | 2024-05-07 08:38 | CA_ITS ---
APPROVED REPORT EXAM: Limited 2D Echocardiogram Clinical Program Coordinator: RT Parag(R) Ht: 6 ft 0 in Wt: 172lbs BSA: 2.00 BP: 96/65 mmHg Indications: hx of TIA, AFIB, CAD, hx of MV ring, CHF, HTN, HLD, DM, fatigue, weakness. Ordered as limited to assess EF. Patient is on back and upright in the bed. All imaging obtained in this position. M-Mode Dimensions RVDd 4.56 cm (0.9-2.6) LVDd 3.55 cm (3.5-5.7) LVDs 2.66 cm (3.5-5.7) IVSd 0.93 cm (0.6-1.1) PWd 0.93 cm (0.6-1.1) EF (Teich) 50.60% FS 25.10% EDV (Teich) 52.60 mL ESV (Teich) 26.00 mL Other Information Study Quality: Fair Conclusion This is a limited TTE to evaluate for biventricular systolic function. Limited windows were obtained. The left ventricle is normal in size. There is increased LV wall thickness. The septum is flattened, consistent with right-sided volume/pressure overload. There is low normal LV systolic function. LVEF is 50%. The right ventricle is severely dilated. There is severe reduction in RV systolic function. s/p MitrClip procedure. Mild MR is present. Electronically signed by : Alia Malone MD 05/08/2024 00:06:29
--- NOTE | 2024-05-07 09:10 | HMH.PHAINT1 ---
Pharmacy Intervention Comments: HOME MEDICATIONS VERIFIED VIA OUTPATIENT PHARMACY AND PATIENT INTERVIEW
[2024-05-07] MEDS: CITALOPRAM 20MG TABLET 20 MG PO (09:15)
[2024-05-07] MEDS: METOPROLOL SUCCINATE XL 25MG TABLET 12.5 MG PO (09:15)
[2024-05-07] MEDS: ASPIRIN 81MG CHEWABLE TABLET 81 MG PO (09:15)
[2024-05-07] MEDS: FINASTERIDE 5MG TABLET 5 MG PO (09:15)
[2024-05-07] MEDS: ROPINIROLE 1MG TABLET 4 MG PO (09:16)
[2024-05-07] MEDS: SPIRONOLACTONE 25MG TABLET 25 MG PO (09:16)
[2024-05-07 09:22] LABS: HCV Ab Non Reactive (Non Reactive)
--- NOTE | 2024-05-07 09:43 | HMH.PTEV ---
Physical Therapy Evaluation Rehab PT IP Evaluation Start: 05/06/24 17:55 Freq: ONCE Status: Active Protocol: Document 05/07/24 08:03 BHAVANA (Rec: 05/07/24 09:33 BHAVANA [id number]) Subjective/History History History Per H&P: Mr. Wu is an 84- year-old male with multiple comorbidities including CHF, pulmonary hypertension, BPH, COPD with no oxygen requirement and worsening decline with multiple recent hospitalizations per his . Who presents to the hospital with worsening fatigue and lethargy today. Has required assistance to get to the bathroom with poor appetite, dry nonproductive cough, very weak over the past week. Patient's reports he has been much weaker today but is mentating normally. Denies any fever, has had some nausea and emesis over the past 2 days. Denies any diarrhea. No shortness of breath. Workup in the ER found normal white count. Kidney function stable with creatinine 2.2. BNP elevated at 10,000. Stool and respiratory panel negative. Chest x-ray with bibasilar atelectasis, does have some prominent pulmonary vasculature. Presentation most consistent with CHF exacerbation. Admitted to medicine for diuresis and further management. Subjective Subjective Pt pleasantly agreeable to PT evaluation. PLOF: Pt was IND with ambulation using a RW. Required 's assistance to get in and out of the shower ( uses shower chair). Was sleeping in recliner d/t recent difficulty getting up/ down stairs to second floor. Has had 2 falls in the past month. Is currently receiving PT services. Home: Lives in a two-story home with [address]. Able to stay on ground level with full bath and bedroom on first floor. Available assistance: Lives with his who is present day and night to assist as needed. reports if she is not there, other family members will be there to assist pt. New diagnosis of cancer in past 12 No months? Rehab PT IP Eval Objective Appearance Patient Behavior Appropriate,Cooperative Patient Orientation Person,Birthday Difficulty following instructions mild Speech Pattern Clear Ambulation Patient Able to Ambulate Yes Ambulation Observation IP General Gait Pattern Observation Decrease Stride Lngth (R), Decrease Stride Lngth (L) Ambulation Distance (feet) 40 Ambulation Assistive Device Rolling Walker Ambulation Ability Contact Guard/Hand Hold Balance Ability to Arise Able, w/o using arms Sitting Balance Steady, safe Standing Balance Steady, wide stance Dynamic Sitting Balance Ability Good Dynamic Standing Balance Ability Fair Transfers Sit to Stand Bed Transfer Ability Contact Guard/Hand Hold Rehab PT IP prob,goals,plan Problems Date of Evaluation: 05/07/24 PT IP Problems Bed Mobility,Transfers,Gait, Balance,Self care,Safety Rehab Potential Rehab Potential Good Plan PT Intervention Plan Bed Mobility,Transfers,Gait, Balance,Safety,Therapeutic Exercise Other Intervention Plan 1-2 times PT Plan Frequency Daily Duration LOS Discharge Goals Bed Transfer Ability Supervision/Stand by Sit to Stand Chair Transfer Ability Supervision/Stand by Ambulation Assistive Device Rolling Walker Ambulation Distance (feet) 100 Discharge Plan PT Discharge Plan Initial physical therapy evaluation performed. Pt presents below baseline in functional mobility, gait, and balance. Pt would benefit from skilled acute care physical therapy while at [facility] to prevent further functional decline. PT recommending pt return home with PT services upon d/c from [facility] ( pending no further functional decline). Pt did display impaired endurance and gait speed but did not require physical assistance from PT. PT recommending pt use RW for all mobility with 's assistance as needed. Eval Complexity Eval Charge Codes 11949 - Moderate Complexity PHYSICIAN CERTIFICATION: I certify the specified therapy services for Joel Wu are required, authorized, and reviewed every 30 days.
--- NOTE | 2024-05-07 09:44 | HMH.OTEV ---
OT Inpatient Evaluation Rehab OT IP Evaluation Start: 05/06/24 17:55 Freq: ONCE Status: Active Protocol: Document 05/07/24 09:36 [email or web address] (Rec: 05/07/24 09:44 [facility] [id number]) Rehab OT IP Assessment Subjective History Pt oriented x2 on arrival. Pt agreeable to engage in evaluation. Pt admitted to [facility] on 05/06/24 due to weakness. Pt history and physical report : Mr. Wu is an 84-year-old male with multiple comorbidities including CHF, pulmonary hypertension, BPH, COPD with no oxygen requirement and worsening decline with multiple recent hospitalizations per his . Who presents to the hospital with worsening fatigue and lethargy today. Has required assistance to get to the bathroom with poor appetite, dry nonproductive cough, very weak over the past week. Patient's reports he has been much weaker today but is mentating normally. Denies any fever, has had some nausea and emesis over the past 2 days. Denies any diarrhea. No shortness of breath. Workup in the ER found normal white count. Kidney function stable with creatinine 2.2. BNP elevated at 10,000. Stool and respiratory panel negative. Chest x-ray with bibasilar atelectasis, does have some prominent pulmonary vasculature. Presentation most consistent with CHF exacerbation. Admitted to medicine for diuresis and further management. Subjective Pt's present during evaluation. Some information was provided by pt's due to lethargy and general confusion. Prior to admission to hospital, pt lived at home with his . reports that she is home 16/01 and their children also provide assistance. Pt required assistance for ADLs and IADLs. Pt's reports that he uses a walker during functional transfers. Objective Patient Orientation Name,Birthday Right Upper Extremity Gross ROM WFL Bed Mobility bed mobility-scooting,bed mobility - supine/sit Assist Level Minimal x 1 (25% assist) Transfer Training Sit/Stand Transfer Assist Level Contact Guard/Hand Hold Decrease in Endurance Yes Rehab OT IP prob,goals,plan Problems Date of Evaluation: 05/07/24 OT IP Problems Bed Mobility,Transfers,Balance ,Self care,Safety Rehab Potential Rehab Potential Good Equipment Needs Assistive Devices Rolling / Wheeled Walker Plan OT intervention Plan Bed Mobility,Transfers,Balance ,Self care,Safety,Therapeutic Exercise OT Plan Frequency Daily Duration LOS Discharge Goals Bed Mobility Ability Standby Assistance Sit to Stand Chair Transfer Ability Contact Guard/Hand Hold Chair Transfer Ability Contact Guard/Hand Hold Chair Transfer Technique Sit to/from Ambulatory Chair Transfer Assistive Devices Rolling Walker Feeding Ability Assist with Tray Set Up Lower Body Dressing Ability Moderate Assistance Upper Body Dressing Ability Moderate Assistance Bathing Ability Maximum Assistance Performing Toilet Hygiene Ability Moderate Assistance Overall Commode/Toilet Transfer Ability Minimal Assistance Commode/Toilet Transfer Technique Sit to/from Ambulatory Commode/Toilet Transfer Assistive Grab Bars Devices Oral Care Assist Minimal Assistance Decrease in Endurance No Discharge Plan OT Discharge Plan Pt will continue to be seen for OT services while at [facility]. Once medically stable, pt could return home provided that is available 16/01 for assistance. Pt would benefit most from home health evaluation to address functional decline. Continued skilled services are important to improve safety, balance, endurance, ADL independence, and functional transfers to reach PLOF. Eval Complexity Eval Charge Codes 23712 - Moderate Complexity PHYSICIAN CERTIFICATION: I certify the specified therapy services for Jole Wu are required, authorized, and reviewed every 30 days.
--- NOTE | 2024-05-07 09:58 | US_ITS ---
FINAL REPORT CLINICAL HISTORY: elevated LFTs, jaundice COMPARISON: None FINDINGS: Sonographic images of the right upper quadrant were obtained. The pancreas is obscured.The liver has an unremarkable appearance. Gallstones are seen in the gallbladder. There is no evidence of biliary ductal dilatation.The common duct measures 6 mm which is normal for age. Limited images of the right kidney are unremarkable. IMPRESSION: Gallstones. Reviewed, Interpreted and Dictated by Williams Haskins III, MD Transcribed by Nina Rosario Authenticated and [facility]
--- NOTE | 2024-05-07 10:46 | EXP.CARD.CON ---
History of Present Illness History of Present Illness Consult date: 05/07/24 Requesting physician: Clif Forman Consult reason: congestive heart failure and known to you Chief complaint: weakness History of present illness: This is an 84-year-old white gentleman who presented to the emergency department with complaints of weakness. The patient does have a past medical history of coronary artery disease, HFpEF, pulmonary hypertension, chronic kidney disease, chronic atrial fibrillation on Xarelto, diabetes, hypertension and hyperlipidemia. The patient presents to the hospital with worsening fatigue and lethargy. The patient's reports that he has not been able to do much at all due to his profound weakness and fatigue. He had poor appetite and a dry nonproductive cough. His states that he has been very short of breath when he is trying to do any exertion at all. She states that he was just sitting around not doing anything and this became very concerning to her. He was evaluated in cardiology clinic last week and has significantly declined since his appointment and got weaker by the day. He denies any chest pain or pressure. He denies any shortness of breath but his states that he is profoundly short of breath with any exertion and it does get better when he rests. He denies any lower extremity edema. He denies any fever, chills, nausea, vomiting or diarrhea. In the emergency department the patient was found to have a creatinine of 2.2 and an elevated BNP greater than 10,000. Chest x-ray shows bibasilar opacities favoring atelectasis. He was admitted for acute on chronic HFpEF. The patient did have an elevation in his AST today from 85-308. He does appear very jaundiced this morning. [facility] Disclaimer: The information contained in this section may have been updated after the patient was seen, as this information can be updated by other users. Medical History (Updated 05/07/24 @ 12:41 by Sahra Meng APRN) Acute right ventricular heart failure Elevated liver enzymes Jaundice Acute on chronic heart failure with preserved ejection fraction (HFpEF) Pulmonary arterial hypertension Eosinophilia (HFpEF) heart failure with preserved ejection fraction Bleeding from left ear Impacted cerumen Thyroid goiter Hoarseness Dysphagia ABPA (allergic bronchopulmonary aspergillosis) Enlarged prostate Chronic kidney disease Pneumonia Chronic cough History of transient ischemic attack (TIA) Hemorrhoid Hypothyroid Diabetes mellitus, type 2 History of cataract Atrial fibrillation Edema History of anemia Restrictive lung disease COPD mixed type Moderate persistent asthma Sinusitis Lung nodule Allergic rhinitis Asthma Dyspnea on exertion Rhabdomyolysis due to statin therapy CAD (coronary artery disease) Mitral valve regurgitation Family history of cardiac disorder Murmur Diabetes mellitus Hyperlipidemia Mitral valve prolapse Hypertensive disorder Surgical History History of bronchoscopy S/P CABG x 2 History of mitral valve repair History of cochlear implant History of right hip replacement Family History Sister Pulmonary hypertension Father Heart attack Brother Heart attack Grandmother Heart attack Mother Alzheimer disease Social History Smoking Status: Never smoker second hand exposure: No alcohol intake: never counseling provided: none substance use type: denies use current occupational status: retired Travel in the last 8 weeks: Inside the [place] household members: spouse housing: house marital status: number of children: 3 current occupational exposures/hazards: No caffeine: No Review of Systems Review of Systems Review of systems:: pertinent systems reviewed and negative unless documented below Constitutional Constitutional: Reports system reviewed and no additional complaints, except as documented, Reports fatigue, Reports poor appetite, Reports lethargy, Reports malaise and Reports weakness Eyes Eyes: Reports system reviewed and no additional complaints, except as documented ENT Ears, Nose, Mouth, and Throat: Reports system reviewed and no additional complaints, except as documented *Cardiovascular Cardiovascular: Reports system reviewed and no additional complaints, except as documented, Denies chest pain, Reports dyspnea on exertion and Denies leg edema *Respiratory Respiratory: Reports system reviewed and no additional complaints, except as documented and Reports dyspnea on exertion *Gastrointestinal Gastrointestinal: Reports system reviewed and no additional complaints, except as documented *Genitourinary Genitourinary: Reports system reviewed and no additional complaints, except as documented *Musculoskeletal Musculoskeletal: Reports system reviewed and no additional complaints, except as documented Integumentary/Breasts Skin/Breast: Reports system reviewed and no additional complaints, except as documented *Neurologic Neurologic: Reports system reviewed and no additional complaints, except as documented and Reports weakness Psychiatric Psychiatric: Reports system reviewed and no additional complaints, except as documented Endocrine Endocrine: Reports system reviewed and no additional complaints, except as documented and Reports fatigue Hematologic/Lymphatic Hematologic/Lymphatic: Reports system reviewed and no additional complaints, except as documented Allergic/Immunologic Allergic/Immunologic: Reports system reviewed and no additional complaints, except as documented Exam Data for Last 24 hours Vital signs and Labs for Last 24 Hours: Temp Pulse Resp BP Pulse Ox O2 Del Method O2 Flow Rate 97.9 F 113 H 20 95/50 L 96 Nasal Cannula 2 05/07/24 08:00 05/07/24 08:00 05/07/24 08:00 05/07/24 08:00 05/07/24 08:00 05/07/24 09:51 05/07/24 09:51 Laboratory Results - last 24 hr 05/06/24 11:50: WBC 10.5, RBC 3.57 L, Hgb 12.5 L, Hct 37.6 L, MCV 105.3 H, MCH 35.0 H, MCHC 33.3, RDW 16.3, Plt Count 141 L, MPV 8.6, Neut % (Auto) 30.6 L, Lymph % (Auto) 8.8 L, [place] % (Auto) 2.4, Eos % (Auto) 57.7 H, Baso % (Auto) 0.4, Neut # (Auto) 3.2, Lymph # (Auto) 0.9, [place] # (Auto) 0.3, Eos # (Auto) 6.0 H, Baso # (Auto) 0.0, Sodium 135 L, Potassium 5.9 H, Chloride 102, Carbon Dioxide 26, Anion Gap 12.9, BUN 52 H, Creatinine 2.20 H, Estimated Creat Clear 27, Estimated GFR 29 L, Est GFR ( Amer) 35 L, Glucose 135 H, Calcium 9.4, Magnesium 1.9, Total Bilirubin 1.4 H, AST 85 H, ALT 48, Alkaline Phosphatase 104, Troponin I 0.03, NT-Pro-B Natriuret Pep 66823 H, Total Protein 7.9, Albumin 3.3 L, Globulin 4.6 H, Albumin/Globulin Ratio 0.7 L, Hepatitis C Antibody Non reactive, HIV 1&2 Antibody Rapid Nonreactive 05/06/24 13:40: Stl Aeromonas (PCR) Not detected, Stl C. cayetanensis PCR Not detected, Stool Rotavirus (PCR) Not detected, Stl Adenov F 40/41 PCR Not detected, Stool Astrovirus (PCR) Not detected, Stool Campylobacter PCR Not detected, Stl C.difficile Tox PCR Not detected, Stool Cryptosporidium PCR Not detected, Stl E.coli Shiga Tox PCR Not detected, Stool E coli O157 PCR Not detected, Stl Enterotoxigenic E PCR Not detected, Stool EPEC (PCR) Not detected, Stool EAEC (PCR) Not detected, Stl E. histolytica PCR Not detected, Stool Giardia Lamblia PCR Not detected, Stool Salmonella PCR Not detected, Stool Sapovirus (PCR) Not detected, Stl P. shigelloides PCR Not detected, Stl Shigella/EIEC PCR Not detected, St Y.enterocolitica PCR Not detected, Stool Vibrio (PCR) Not detected, Stl Vibrio cholerae PCR Not detected, Stl Norovirus GI/GII PCR Not detected, Chlamy pneumoniae PCR Not detected, Adenovirus (PCR) Not detected, B. pertussis DNA (PCR) Not detected, Coronavirus OC43 (PCR) Not detected, Coronavirus HKU1 (PCR) Not detected, Coronavirus 229E (PCR) Not detected, SARS-CoV-2 (PCR) Not detected, Coronavirus NL63 (PCR) Not detected, Human Metapneumovir PCR Not detected, Influenza A (H1) PCR Not detected, Influ A (H1N1/09) PCR Not detected, Influenza A (H3) PCR Not detected, Influenza Type A (PCR) Not detected, Influenza Type B (PCR) Not detected, M. pneumoniae (PCR) Not detected, Parainfluenza 1 (PCR) Not detected, Parainfluenza 2 (PCR) Not detected, Parainfluenza 3 (PCR) Not detected, Parainfluenza 4 (PCR) Not detected, RSV (PCR) Not detected, Entero/Rhino (PCR) Not detected 05/06/24 16:41: Troponin I 0.03 05/06/24 17:04: POC Glucose 102 05/06/24 19:37: Troponin I 0.03 05/06/24 20:33: POC Glucose 106, Urine Color Yellow, Urine Appearance Clear, Urine pH 6.0, Ur Specific [place] 1.015, Urine Protein Negative, Urine Glucose (UA) Negative, Urine Ketones Negative, Urine Blood Trace-i, Urine Nitrate Negative, Urine Bilirubin Negative, Urine Urobilinogen 0.2, Ur Leukocyte Esterase Negative, Urine RBC 3-5, Urine WBC None, Ur Squamous Epith Cells 5-10, Urine Bacteria Trace, Hyaline Casts Occasional 11/12/24 06:12: WBC 9.9, RBC 3.45 L, Hgb 11.9 L, Hct 35.5 L, MCV 102.8 H, MCH 34.4 H, MCHC 33.5, RDW 16.3, Plt Count 133 L, MPV 8.4, Neut % (Auto) 41.1, Lymph % (Auto) 9.1 L, [place] % (Auto) 3.3, Eos % (Auto) 46.1 H, Baso % (Auto) 0.4, Neut # (Auto) 4.1, Lymph # (Auto) 0.9, [place]rie # (Auto) 0.3, Eos # (Auto) 4.6 H, Baso # (Auto) 0.0, Sodium 136, Potassium 5.6 H, Chloride 105, Carbon Dioxide 24, Anion Gap 12.6, BUN 54 H, Creatinine 2.40 H, Estimated Creat Clear 25, Estimated GFR 26 L, Est GFR ( Amer) 31 L, Glucose 109 H, Calcium 8.9, Magnesium 1.7 D, Total Bilirubin 1.6 H, AST 308 H* D, ALT 132 H D, Alkaline Phosphatase 101, Total Protein 7.0, Albumin 3.0 L, Globulin 4.0 H, Albumin/Globulin Ratio 0.8 L I & O for Last 24 hours: Intake & Output 05/04/24 05/05/24 05/06/24 05/07/24 23:59 23:59 23:59 23:59 Intake Total 120 / 120 Output Total 450 / 450 Balance -330 / -330 Weight 177 lb 3 oz 176 lb 5.917 oz Constitutional Constitutional: no acute distress, average body habitus and chronically ill appearing *Routine HEENT Exam Head: Present normocephalic and atraumatic ENT: Present mucous membranes moist *Routine Neck Exam Neck: Present supple, full ROM and normal carotid upstroke; Absent JVD, carotid bruit or lymphadenopathy *Routine Respiratory Exam Respiratory: Present CTA bilaterally, normal respiratory effort, able to speak in complete sentences and symmetric chest movement *Routine Cardiovascular Exam Cardiovascular: Present RRR, Normal S1, Normal S2 and murmur; Absent gallop *Routine Abdominal Exam Abdominal: Present soft and normoactive bowel sounds; Absent tenderness, distended or organomegaly *Routine Extremities Exam Extremities: Present full ROM, pulses intact and normal capillary refill; Absent cyanosis, clubbing or edema *Routine Skin Exam Skin: Present intact, warm and jaundice; Absent erythema *Routine Neurological Exam Neurological: Present alert, oriented X3 and CN II-XII intact; Absent sensory deficit or motor deficit Routine Psychiatric Exam Psychiatric: Present normal affect Meds Home Medications and Allergies Home Medications ?Medication ?Instructions ?Recorded ?Confirmed ?Type insulin lispro protamine-lispro 15 unit SQ TID PRN Hyperglycemia 09/29/20 05/07/24 History 100 unit/mL (75-25) subcutaneous pen (Humalog Mix 75-25 KwikPen) insulin glargine 100 unit/mL (3 16 unit SQ PM Diabetes 12/01/20 05/07/24 History mL) subcutaneous pen (Lantus Solostar U-100 Insulin) montelukast 10 mg tablet 10 mg PO HS ALLERGIES 04/13/22 05/07/24 History (Singulair) ipratropium 0.5 mg-albuterol 3 mg 3 ml inhalation Q6H PRN shortness 10/04/23 05/07/24 Rx (2.5 mg base)/3 mL nebulization of breath or wheezing #90 mL soln calcitriol 0.5 mcg capsule 0.5 mcg PO DAILY 11/29/23 05/06/24 History levothyroxine 200 mcg tablet 200 mcg PO DAILYDM 11/29/23 05/07/24 History (Synthroid) albuterol sulfate 90 mcg/actuation 2 inh inhalation Q6H PRN shortness 12/26/23 05/06/24 Rx aerosol inhaler of breath or wheezing 90 days #8.5 grams spironolactone 25 mg tablet 25 mg PO DAILY 02/01/24 05/07/24 History rivaroxaban 15 mg tablet 15 mg PO DAILY #90 tabs 02/06/24 05/07/24 Rx finasteride 5 mg tablet 5 mg PO DAILY Prostate 90 days #90 02/27/24 05/07/24 Rx tabs ezetimibe 10 mg tablet 10 mg PO HS Cholesterol #90 tabs 03/05/24 05/07/24 Rx furosemide 20 mg tablet (Lasix) 20 mg PO DAILY 04/09/24 05/06/24 History metoprolol succinate 25 mg 12.5 mg PO BID High blood pressure 04/09/24 05/07/24 History tablet,extended release 24 hr escitalopram oxalate 10 mg tablet 10 mg PO DAILY 04/26/24 05/07/24 History (Lexapro) budesonide 160 mcg-glycopyr 9 1 inh inhalation BID 90 days #10.7 04/29/24 05/06/24 Rx mcg-formot 4.8 mcg/actuation HFA grams inhaler (Breztri Aerosphere) aspirin 81 mg chewable tablet 81 mg PO DAILY 05/02/24 05/06/24 History tamsulosin 0.4 mg capsule 0.4 mg PO DAILY 05/02/24 05/07/24 History mirtazapine 15 mg tablet 15 mg PO HS 05/07/24 05/07/24 History oxybutynin chloride 10 mg 10 mg PO DAILY 05/07/24 05/07/24 History tablet,extended release 24 hr ropinirole 4 mg tablet 4 mg PO BID 05/07/24 05/07/24 History New Prescriptions to Start Prescriptions: Allergies Allergy/AdvReac Type Severity Reaction Status Date / Time nystatin Allergy Intermediate I-HIVES Verified 05/02/24 11:39 Lyopedr-NEX-RiD Reductase AdvReac Severe rhabdomyoly Verified 05/02/24 11:39 Inhibitor sis [Jkvrjmq-Lwp-Duf Reductase Inhibitor] Assessment and Plan *Assessment and plan (1) Acute on chronic heart failure with preserved ejection fraction (HFpEF): Status: Acute Category: Medical Code(s): I50.33 - Acute on chronic diastolic (congestive) heart failure (2) Jaundice: Status: Acute Category: Medical Code(s): R17 - Unspecified jaundice (3) Elevated liver enzymes: Status: Acute Category: Medical Code(s): R74.8 - Abnormal levels of other serum enzymes (4) Pulmonary arterial hypertension: Status: Acute Category: Medical Code(s): I27.21 - Secondary pulmonary arterial hypertension (5) CAD (coronary artery disease): Status: Chronic Qualifiers: Associated angina: without angina Coronary Disease-Associated Artery/Lesion type: [place] artery [place] vs. transplanted heart: [place] heart Qualified Code(s): I25.10 - Atherosclerotic heart disease of [place] coronary artery without angina pectoris Category: Medical Code(s): I25.10 - Atherosclerotic heart disease of [place] coronary artery without angina pectoris (6) Hypertensive disorder: Status: Chronic Qualifiers: Hypertension type: essential hypertension Qualified Code(s): I10 - Essential (primary) hypertension Category: Medical Code(s): I10 - Essential (primary) hypertension (7) Hyperlipidemia: Status: Chronic Qualifiers: Hyperlipidemia type: mixed hyperlipidemia Qualified Code(s): E78.2 - Mixed hyperlipidemia Category: Medical Code(s): E78.5 - Hyperlipidemia, unspecified (8) CKD stage 4 due to type 2 diabetes mellitus: Status: Acute Category: Medical Code(s): E11.22 - Type 2 diabetes mellitus with diabetic chronic kidney disease; N18.4 - Chronic kidney disease, stage 4 (severe) (9) History of coronary artery bypass graft: Status: Chronic Category: Surgical Code(s): Z95.1 - Presence of aortocoronary bypass graft (10) History of mitral valve repair: Status: Chronic Category: Surgical Code(s): Z98.890 - Other specified postprocedural states (11) History of TIA (transient ischemic attack): Status: Chronic Category: Medical Code(s): Z86.73 - Personal history of transient ischemic attack (TIA), and cerebral infarction without residual deficits (12) Diabetes mellitus: Status: Chronic Qualifiers: Diabetes mellitus complication status: without complication 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: with intermodal truck driver use Diabetes mellitus type: type 2 Qualified Code(s): E11.9 - Type 2 diabetes mellitus without complications; Z79.4 - long term care phlebotomist (current) use of insulin Category: Medical Code(s): E11.9 - Type 2 diabetes mellitus without complications (13) A-fib: Status: Chronic Qualifiers: Atrial fibrillation type: unspecified chronic Qualified Code(s): I48.20 - Chronic atrial fibrillation, unspecified Category: Medical Code(s): I48.91 - Unspecified atrial fibrillation (14) 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 type: unspecified Qualified Code(s): J43.9 - Emphysema, unspecified Category: Medical Code(s): J44.9 - Chronic obstructive pulmonary disease, unspecified (15) Acute right ventricular heart failure: Status: Acute Category: Medical Code(s): I50.811 - Acute right heart failure Plan Plan: 1. Patient was admitted to the hospital for acute on chronic HFpEF. He was diuresed with IV Bumex overnight. His creatinine remains stable today around 2.4. Intake and output was not adequately assessed overnight. 2. The patient's liver enzymes did significantly elevate overnight. He does appear jaundiced this morning. The hospitalist is ordering a liver ultrasound. However this is most likely cardiohepatic congestion from his severe RV failure. 3. Coronary artery disease is present. He denies any chest pain or pressure. His troponin is negative. No plans for invasive left cardiac catheterization at this time. 4. His blood pressure is on the low side but stable. 5. His LDL goal is less than 55. His LDL is 57. He is on Zetia. He is intolerant to statins. 6. The patient does have chronic atrial fibrillation. He is currently rate controlled. Continue Toprol. 7. The patient is on long-term anticoagulation with Xarelto. 8. The patient is hyperkalemic today with potassium of 5.6. Stop spironolactone. 9. The patient is diabetic. Will defer management of this to the hospitalist. 10. Once he is euvolemic consider Jardiance in this patient with HFpEF. 11. Will repeat a limited echocardiogram to evaluate his EF due to his acute on chronic HFpEF. 12. 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 Will start the patient on a dobutamine drip for his RV failure. 13. Further recommendations will be made pending the patient's response to treatment. Thank you for the opportunity to help participate in the care of this patient. All recommendations and orders are per Dr. Malone.
[2024-05-07 12:30] LABS: Alanine Aminotransferase 182 U/L (12-78); Albumin Level 3.1 g/dl (3.5-5.0); Albumin/Globulin Ratio 0.8 (1.1-1.8); Alkaline Phosphatase 94 U/L (38-126); Anion Gap 14.9 mEq/L (5-15); Aspartate Amino Transferase 397 U/L (17-59); Bilirubin,Total 2.1 mg/dl (0.2-1.3); Blood Urea Nitrogen 59 mg/dl (9-20); Carbon Dioxide 23 mmol/L (22.0-30.0); Chloride 102 mmol/L (98-107); Creatinine Clearance Estimated 24 mL/min (50-200); Estimated Glomerular Filt Rate 25 ml/min (>60); GFR (African American) 30 ML/MIN (>60); Globulin 3.9 g/dL (1.3-3.2); Glucose 157 mg/dl (74-100); Sodium 133 mmol/L (136-145)
[2024-05-07 12:40] LABS: Potassium 6.9 mmoL/L (3.5-5.1)
--- NOTE | 2024-05-07 12:48 | ECG_ITS ---
APPROVED REPORT Exam: Resting ECG HR:109 bpm ECG Measurements Heart Rate 109 AXES QRSd 121 QRS 117 QT 376 T -9 QTc 440 Conclusion ATRIAL FLUTTER/TACHYCARDIA WITH RAPID VENTRICULAR RESPONSE POSSIBLE RIGHT VENTRICULAR HYPERTROPHY [SOME/ALL OF: PROMINENT R IN V1, LATE TRANSITION, RAD, MUNA, SSS] MODERATE ST DEPRESSION [0.05+ mV ST DEPRESSION] ABNORMAL QRS-T ANGLE [QRS-T AXIS DIFFERENCE > 60] ABNORMAL ECG UNCONFIRMED REPORT Electronically signed by : Toney Contreras MD 05/07/2024 17:00:09
[2024-05-07] MEDS: humaLOG 100 UNITS/ML 10ML VIAL (SSI) 15 UNIT SUBCUT (13:14)
[2024-05-07] MEDS: CALCIUM GLUC IN NACL, ISO-OSM 1 GM/50 ML BAG IV (13:15)
[2024-05-07 13:18] LABS: Free T4 (Free Thyroxine) 2.55 ng/dl (0.78-2.19)
[2024-05-07 13:34] LABS: Thyroid Stimulating Hormone 1.19 uIU/mL (0.465-4.68)
[2024-05-07] MEDS: DOBUTAMINE HCL/D5W 250 ML 6 MG IV (14:53)
--- NOTE | 2024-05-07 15:16 | EXP.PN ---
Subjective *Date: 05/07/24 *Time: 15:16 Exam Data for Last 24 hours Vital signs and Labs for Last 24 Hours: Temp Pulse Resp BP Pulse Ox O2 Del Method O2 Flow Rate 98.3 F 117 H 22 118/54 L 97 Room Air 2 05/07/24 12:00 05/07/24 15:00 05/07/24 15:00 05/07/24 15:00 05/07/24 15:00 05/07/24 15:00 05/07/24 12:10 Laboratory Results - last 24 hr 05/06/24 11:50: Hepatitis C Antibody Non reactive 05/06/24 13:40: Stl Aeromonas (PCR) Not detected, Stl C. cayetanensis PCR Not detected, Stool Rotavirus (PCR) Not detected, Stl Adenov F 40/41 PCR Not detected, Stool Astrovirus (PCR) Not detected, Stool Campylobacter PCR Not detected, Stl C.difficile Tox PCR Not detected, Stool Cryptosporidium PCR Not detected, Stl E.coli Shiga Tox PCR Not detected, Stool E coli O157 PCR Not detected, Stl Enterotoxigenic E PCR Not detected, Stool EPEC (PCR) Not detected, Stool EAEC (PCR) Not detected, Stl E. histolytica PCR Not detected, Stool Giardia Lamblia PCR Not detected, Stool Salmonella PCR Not detected, Stool Sapovirus (PCR) Not detected, Stl P. shigelloides PCR Not detected, Stl Shigella/EIEC PCR Not detected, St Y.enterocolitica PCR Not detected, Stool Vibrio (PCR) Not detected, Stl Vibrio cholerae PCR Not detected, Stl Norovirus GI/GII PCR Not detected, Chlamy pneumoniae PCR Not detected, Adenovirus (PCR) Not detected, B. pertussis DNA (PCR) Not detected, Coronavirus OC43 (PCR) Not detected, Coronavirus HKU1 (PCR) Not detected, Coronavirus 229E (PCR) Not detected, SARS-CoV-2 (PCR) Not detected, Coronavirus NL63 (PCR) Not detected, Human Metapneumovir PCR Not detected, Influenza A (H1) PCR Not detected, Influ A (H1N1/09) PCR Not detected, Influenza A (H3) PCR Not detected, Influenza Type A (PCR) Not detected, Influenza Type B (PCR) Not detected, M. pneumoniae (PCR) Not detected, Parainfluenza 1 (PCR) Not detected, Parainfluenza 2 (PCR) Not detected, Parainfluenza 3 (PCR) Not detected, Parainfluenza 4 (PCR) Not detected, RSV (PCR) Not detected, Entero/Rhino (PCR) Not detected 05/06/24 16:41: Troponin I 0.03 05/06/24 17:04: POC Glucose 102 05/06/24 19:37: Troponin I 0.03 05/06/24 20:33: POC Glucose 106, Urine Color Yellow, Urine Appearance Clear, Urine pH 6.0, Ur Specific [place] 1.015, Urine Protein Negative, Urine Glucose (UA) Negative, Urine Ketones Negative, Urine Blood Trace-i, Urine Nitrate Negative, Urine Bilirubin Negative, Urine Urobilinogen 0.2, Ur Leukocyte Esterase Negative, Urine RBC 3-5, Urine WBC None, Ur Squamous Epith Cells 5-10, Urine Bacteria Trace, Hyaline Casts Occasional 05/07/24 06:12: WBC 9.9, RBC 3.45 L, Hgb 11.9 L, Hct 35.5 L, MCV 102.8 H, MCH 34.4 H, MCHC 33.5, RDW 16.3, Plt Count 133 L, MPV 8.4, Neut % (Auto) 41.1, Lymph % (Auto) 9.1 L, [place] % (Auto) 3.3, Eos % (Auto) 46.1 H, Baso % (Auto) 0.4, Neut # (Auto) 4.1, Lymph # (Auto) 0.9, [place] # (Auto) 0.3, Eos # (Auto) 4.6 H, Baso # (Auto) 0.0, Sodium 136, Potassium 5.6 H, Chloride 105, Carbon Dioxide 24, Anion Gap 12.6, BUN 54 H, Creatinine 2.40 H, Estimated Creat Clear 25, Estimated GFR 26 L, Est GFR ( Amer) 31 L, Glucose 109 H, Calcium 8.9, Magnesium 1.7 D, Total Bilirubin 1.6 H, AST 308 H* D, ALT 132 H D, Alkaline Phosphatase 101, Total Protein 7.0, Albumin 3.0 L, Globulin 4.0 H, Albumin/Globulin Ratio 0.8 L, TSH 1.19, Free T4 2.55 H 05/07/24 12:05: Sodium 133 L, Potassium 6.9 H* D, Chloride 102, Carbon Dioxide 23, Anion Gap 14.9, BUN 59 H, Creatinine 2.50 H, Estimated Creat Clear 24, Estimated GFR 25 L, Est GFR ( Amer) 30 L, Glucose 157 H D, Calcium 9.0, Total Bilirubin 2.1 H, AST 397 H* D, ALT 182 H D, Alkaline Phosphatase 94, Total Protein 7.0, Albumin 3.1 L, Globulin 3.9 H, Albumin/Globulin Ratio 0.8 L I & O for Last 24 hours: Intake & Output 05/04/24 05/05/24 05/06/24 05/07/24 23:59 23:59 23:59 23:59 Intake Total 120 / 120 Output Total 450 / 450 Balance -330 / -330 Weight 80.371 kg 80 kg Constitutional Constitutional: no acute distress Comments: Jaundiced. Somnolent but arousable. *Routine HEENT Exam Head: Present normocephalic Eye: Present EOMI and PERRL ENT: Present mucous membranes moist *Routine Neck Exam Neck: Present supple; Absent lymphadenopathy *Routine Respiratory Exam Respiratory: Present CTA bilaterally *Routine Cardiovascular Exam Cardiovascular: Present RRR *Routine Abdominal Exam Abdominal: Present soft and normoactive bowel sounds; Absent tenderness *Routine Extremities Exam Extremities: Absent cyanosis, clubbing or edema *Routine Skin Exam Skin: Present warm; Absent rash *Routine Neurological Exam Neurological: Present alert and oriented X3 Assessment and Plan *Assessment and plan (1) Acute exacerbation of CHF (congestive heart failure): Status: Acute Qualifiers: Heart failure type: diastolic Qualified Code(s): I50.33 - Acute on chronic diastolic (congestive) heart failure Category: Medical Code(s): I50.9 - Heart failure, unspecified (2) (HFpEF) heart failure with preserved ejection fraction: Status: Acute Qualifiers: Heart failure chronicity: unspecified Qualified Code(s): I50.30 - Unspecified diastolic (congestive) heart failure Category: Medical Code(s): I50.30 - Unspecified diastolic (congestive) heart failure (3) Adult failure to thrive: Status: Acute Category: Medical Code(s): R62.7 - Adult failure to thrive (4) Polyneuropathy: Problem Comment: 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 Status: Chronic Category: Medical Code(s): G62.9 - Polyneuropathy, unspecified (5) BPH w urinary obs/LUTS: Status: Acute Category: Medical Code(s): N40.1 - Benign prostatic hyperplasia with lower urinary tract symptoms; N13.8 - Other obstructive and reflux uropathy (6) Pulmonary arterial hypertension: Status: Acute Category: Medical Code(s): I27.21 - Secondary pulmonary arterial hypertension (7) History of coronary artery bypass graft: Status: Chronic Category: Surgical Code(s): Z95.1 - Presence of aortocoronary bypass graft (8) History of TIA (transient ischemic attack): Status: Chronic Category: Medical Code(s): Z86.73 - Personal history of transient ischemic attack (TIA), and cerebral infarction without residual deficits (9) 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 type: unspecified Qualified Code(s): J43.9 - Emphysema, unspecified Category: Medical Code(s): J44.9 - Chronic obstructive pulmonary disease, unspecified (10) A-fib: Status: Chronic Qualifiers: Atrial fibrillation type: unspecified chronic Qualified Code(s): I48.20 - Chronic atrial fibrillation, unspecified Category: Medical Code(s): I48.91 - Unspecified atrial fibrillation (11) CKD stage 4 due to type 2 diabetes mellitus: Status: Acute Category: Medical Code(s): E11.22 - Type 2 diabetes mellitus with diabetic chronic kidney disease; N18.4 - Chronic kidney disease, stage 4 (severe) Plan 84-year-old male who presents with worsening decline and shortness of breath. Concern for CHF exacerbation. Discussed case with ER provider, request admission for further management and therapy eval's. I agreed to admit. Will diurese x 1. Cardiology consulted to assist with care. Problems addressed as follows: #Acute on chronic HFpEF #Severe right heart failure #Congestive hepatopathy, jaundice ? Limited ECHO suggest severe right ventricular failure. ? Cardiology consulted, started dobutamine drip and continuing Bumex diuresis. ? Dobutamine drip at 2.5 mcg/kg/min. Can be further uptitrated depending on response. ? IV Bumex 2 mg twice daily. Follow urine output, renal function, electrolytes. Electrolyte replacement protocol. ? Continue spironolactone 25 mg. ? Follow-up repeat CMP at 7 PM. AST/ALT increased to 308/132 this morning. ? Follow-up RUQ ultrasound. Atrial fibrillation HFpEF -Continue metoprolol succinate 12.5 mg twice daily, aspirin 81 mg daily, continue Xarelto 15mg daily, continue spironolactone 25 mg daily. ? Patient continues to have shortness of breath on exertion. May require supplemental oxygen on discharge. Hyperkalemia: Received Lokelma in the ER. Will monitor for improvement with diuresis. Potassium 5.9. ?Potassium increased to 6.9 this afternoon. ? Given 15 units insulin, continuing diuresis. Also ordered Lokelma 10 today. ? Follow-up repeat CMP at 7 PM #Hypothyroidism #Supratherapeutic treatment ? Free T4 elevated to 2.55, TSH normal at 1.19. ? Decreased home levothyroxine from 200 mcg to 150 mcg. CKD 4: Stable kidney function with creatinine 2.4. Monitor daily, caution with nephrotoxins Diabetes: Continue Lantus at decreased dose of 10 mg daily, sliding scale insulin with fingersticks ACHS. A1c pending. BPH: Continue tamsulosin 0.4 mg daily and finasteride 5 mg daily. Progressive weakness/failure to thrive: PT/OT consulted, further recs pending Continue Lexapro 10 mg daily for mood DNR Xarelto Diabetic diet
[2024-05-07 15:31] LABS: POC Glucose,Bedside 137 (70-110)
[2024-05-07] MEDS: DEXTROSE 50% 50ML SYRINGE (CRASH CART) 50 ML IVP ×2 (16:33→18:14)
[2024-05-07] MEDS: BUMETANIDE 1MG/4ML VIAL 2 MG IV (16:48)
[2024-05-07 17:13] LABS: POC Glucose,Bedside 53 (70-110)
[2024-05-07 17:13] LABS: POC Glucose,Bedside 130 (70-110)
--- NOTE | 2024-05-07 18:14 | PC.NURSE ---
Patient's dexcom reading 66, ok to give 1 amp of d50 per dr. slade
[2024-05-07 18:46] LABS: POC Glucose,Bedside 157 (70-110)
[2024-05-07 19:24] LABS: Chloride 103 mmol/L (98-107)
[2024-05-07 19:25] LABS: Albumin Level 2.9 g/dl (3.5-5.0); Potassium 5.2 mmoL/L (3.5-5.1); Sodium 136 mmol/L (136-145)
[2024-05-07 19:27] LABS: Blood Urea Nitrogen 60 mg/dl (9-20); Creatinine Clearance Estimated 22 mL/min (50-200); Estimated Glomerular Filt Rate 23 ml/min (>60); GFR (African American) 27 ML/MIN (>60)
[2024-05-07 19:28] LABS: Alanine Aminotransferase 215 U/L (12-78); Albumin/Globulin Ratio 0.7 (1.1-1.8); Alkaline Phosphatase 96 U/L (38-126); Anion Gap 12.2 mEq/L (5-15); Aspartate Amino Transferase 482 U/L (17-59); Bilirubin,Total 1.7 mg/dl (0.2-1.3); Calcium 9.4 mg/dl (8.4-10.2); Carbon Dioxide 26 mmol/L (22.0-30.0); Glucose 139 mg/dl (74-100); Total Protein,Serum 6.9 g/dl (6.3-8.2)
[2024-05-07] MEDS: RIVAROXABAN 15MG TABLET 15 MG PO (21:18)
[2024-05-07] MEDS: TAMSULOSIN 0.4MG CAPSULE 0.4 MG PO (21:19)
--- NOTE | 2024-05-07 21:43 | EXP.EVENT.NO ---
Called the bed side because of patient's soft blood pressures and difficulty taking meds. Will attempt nighttime Xarelto. Discussed placement of Chun, family would like to hold for now. Will place manage WIC. Increase dobutamine to 5 mcg with systolics hanging softer in the 80s to 90s and maps 60 (below 65). Remained stable on room air. Having pain from blood pressure cuff. Discussed risks of Tylenol with his liver dysfunction, Toradol with his kidney dysfunction, and morphine with his blood pressure. Recommend switching blood pressure cuff to right arm but family is concerned we will need to remove his Dexcom. Discussed fingersticks, hesitant to transition from Dexcom due to discomfort. Counseled that if continues to have pain with blood pressure checks, we will switch to the right arm, would like to hold for now but may be amenable later. If unable to tolerate Xarelto, will transition to 1 mg/kg daily for anticoagulation given renal dysfunction. With soft blood pressure, holding metoprolol. Heart rate remains at 100-120
[2024-05-07 21:54] LABS: POC Glucose,Bedside 129 (70-110)
[2024-05-08] VITALS (29 sets, daily range): BP systolic 81–143; BP diastolic 38–94; PULSE 71–146; RESP 13–28; TEMP 36.2–37.2; O2SAT 89–97; BMI 22.9
[2024-05-08 00:36] LABS: POC Glucose,Bedside 182 (70-110)
[2024-05-08 07:12] LABS: Basophils % 0.4 % (0.1-2.0); Eosinophils # 5.2 K/mm3 (0.0-0.4); Eosinophils % 52.4 % (0.1-12.0); Hemoglobin 12.1 g/dL (14.1-18.0); Lymphocytes # 0.8 K/mm3 (0.7-4.5); Lymphocytes % 8.4 % (10-50); Mean Corpuscular HGB Conc 32.7 g/dL (31.8-35.4); Mean Corpuscular Hemoglobin 34.6 pg (27.0-31.2); Mean Corpuscular Volume 105.7 fl (80-94); Mean Platelet Volume 8.5 fl (7.4-10.4); Monocytes # 0.3 K/mm3 (0.1-1.0); Monocytes % 2.9 % (1.7-9.3); Neutrophils # 3.5 K/mm3 (1.8-7.8); Platelet Count 117 K/mm3 (142-424); Red Cell Distribution Width 16.5 % (11.5-17.5); White Blood Count 9.8 K/mm3 (4.8-10.8)
--- NOTE | 2024-05-08 07:24 | PC.NURSE ---
Duoneb treatment not given due to Pt having continued tachycardia. Spoke to Pt's RN she states Pt has clear breath sounds and requests treatment be held.
[2024-05-08 07:28] LABS: Alanine Aminotransferase 203 U/L (12-78); Albumin Level 2.9 g/dl (3.5-5.0); Albumin/Globulin Ratio 0.7 (1.1-1.8); Alkaline Phosphatase 100 U/L (38-126); Anion Gap 19.6 mEq/L (5-15); Aspartate Amino Transferase 330 U/L (17-59); Bilirubin,Total 2.3 mg/dl (0.2-1.3); Blood Urea Nitrogen 63 mg/dl (9-20); Carbon Dioxide 17 mmol/L (22.0-30.0); Chloride 103 mmol/L (98-107); Creatinine Clearance Estimated 23 mL/min (50-200); Estimated Glomerular Filt Rate 24 ml/min (>60); GFR (African American) 28 ML/MIN (>60); Globulin 3.9 g/dL (1.3-3.2); Glucose 206 mg/dl (74-100); Lipase 22 U/L (23-300); Potassium 5.6 mmoL/L (3.5-5.1); Sodium 134 mmol/L (136-145); Total Protein,Serum 6.8 g/dl (6.3-8.2)
[2024-05-08] MEDS: METOPROLOL SUCCINATE XL 25MG TABLET 12.5 MG PO ×2 (08:05→20:30)
[2024-05-08] MEDS: LEVOTHYROXINE 150MCG (0.15MG)TAB 150 MCG PO (08:05)
[2024-05-08] MEDS: ROPINIROLE 1MG TABLET 4 MG PO ×2 (08:06→20:30)
[2024-05-08] MEDS: ASPIRIN 81MG CHEWABLE TABLET 81 MG PO (08:06)
[2024-05-08] MEDS: BUMETANIDE 1MG/4ML VIAL 2 MG IV ×2 (08:06→17:49)
[2024-05-08] MEDS: FINASTERIDE 5MG TABLET 5 MG PO (08:06)
[2024-05-08] MEDS: CITALOPRAM 20MG TABLET 20 MG PO (08:06)
[2024-05-08] MEDS: IPRATROPIUM/ALBUTEROL 3 ML NEB IH (11:06)
[2024-05-08] MEDS: humaLOG 100 UNITS/ML 10ML VIAL (SSI) SUBCUT ×2 (11:38→17:58)
[2024-05-08 12:17] LABS: POC Glucose,Bedside 353 (70-110)
[2024-05-08 13:05] LABS: POC Glucose,Bedside 357 (70-110)
--- NOTE | 2024-05-08 13:45 | EXP.CARD.PN ---
Subjective Subjective Date: 05/08/24 Time: 11:30 Principal diagnosis: severe RV heart failure Interval history: This is an 84-year-old white gentleman who was admitted to the hospital with severe right ventricular heart failure. He is currently on a dobutamine drip and getting IV Lasix as well. This morning his reports that she feels like he was able to ambulate a lot better with physical therapy today. She states he was actually able to walk from the chair to the bathroom without having to stop which previously he would have to stop every step or 2 to catch his breath. The patient reports that he is still short of breath especially with exertion but he thinks it might be slightly improved today. He denies any chest pain or pressure. He denies any fever, chills, nausea, vomiting, diarrhea. He does have associated orthopnea with his shortness of breath. Exam Data for Last 24 hours Vital signs and Labs for Last 24 Hours: Temp Pulse Resp BP Pulse Ox O2 Del Method O2 Flow Rate 98.9 F 71 22 87/47 L 94 L Room Air 2 05/08/24 12:00 05/08/24 11:40 05/08/24 10:00 05/08/24 10:00 05/08/24 11:40 05/08/24 13:00 05/07/24 12:10 Laboratory Results - last 24 hr 05/07/24 14:51: POC Glucose 137 H 05/07/24 16:29: POC Glucose 53 L 05/07/24 16:52: POC Glucose 130 H 05/07/24 18:29: POC Glucose 157 H 05/07/24 19:05: Sodium 136, Potassium 5.2 H D, Chloride 103, Carbon Dioxide 26, Anion Gap 12.2, BUN 60 H, Creatinine 2.70 H, Estimated Creat Clear 22, Estimated GFR 23 L, Est GFR ( Amer) 27 L, Glucose 139 H, Calcium 9.4, Total Bilirubin 1.7 H, AST 482 H*, ALT 215 H, Alkaline Phosphatase 96, Total Protein 6.9, Albumin 2.9 L, Globulin 4.0 H, Albumin/Globulin Ratio 0.7 L 05/07/24 21:15: POC Glucose 129 H 05/08/24 00:28: POC Glucose 182 H 05/08/24 05:30: WBC 9.8, RBC 3.50 L, Hgb 12.1 L, Hct 37.0 L, MCV 105.7 H, MCH 34.6 H, MCHC 32.7, RDW 16.5, Plt Count 117 L, MPV 8.5, Neut % (Auto) 36.0 L, Lymph % (Auto) 8.4 L, [place] % (Auto) 2.9, Eos % (Auto) 52.4 H, Baso % (Auto) 0.4, Neut # (Auto) 3.5, Lymph # (Auto) 0.8, [place] # (Auto) 0.3, Eos # (Auto) 5.2 H, Baso # (Auto) 0.0, Sodium 134 L, Potassium 5.6 H, Chloride 103, Carbon Dioxide 17 L, Anion Gap 19.6 H, BUN 63 H, Creatinine 2.60 H, Estimated Creat Clear 23, Estimated GFR 24 L, Est GFR ( Amer) 28 L, Glucose 206 H D, Calcium 9.0, Total Bilirubin 2.3 H, AST 330 H* D, ALT 203 H, Alkaline Phosphatase 100, Total Protein 6.8, Albumin 2.9 L, Globulin 3.9 H, Albumin/Globulin Ratio 0.7 L, Lipase 22 L 05/08/24 11:31: POC Glucose 353 H* 05/08/24 12:58: POC Glucose 357 H* I & O for Last 24 hours: Intake & Output 05/05/24 05/06/24 05/07/24 05/08/24 23:59 23:59 23:59 23:59 Intake Total 162 / 262 570 / 570 Output Total 450 / 450 200 / 200 Balance -288 / -188 370 / 370 Weight 177 lb 3 oz 176 lb 5.917 oz 169 lb 10.331 oz Constitutional Constitutional: no acute distress, average body habitus and chronically ill appearing *Routine HEENT Exam Head: Present normocephalic and atraumatic ENT: Present mucous membranes moist *Routine Neck Exam Neck: Present supple, full ROM and normal carotid upstroke; Absent JVD, carotid bruit or lymphadenopathy *Routine Respiratory Exam Respiratory: Present CTA bilaterally, normal respiratory effort, able to speak in complete sentences and symmetric chest movement *Routine Cardiovascular Exam Cardiovascular: Present RRR, Normal S1, Normal S2 and murmur; Absent gallop *Routine Abdominal Exam Abdominal: Present soft and normoactive bowel sounds; Absent tenderness, distended or organomegaly *Routine Extremities Exam Extremities: Present full ROM, pulses intact and normal capillary refill; Absent cyanosis, clubbing or edema *Routine Skin Exam Skin: Present intact, warm and jaundice; Absent erythema *Routine Neurological Exam Neurological: Present alert, oriented X3 and CN II-XII intact; Absent sensory deficit or motor deficit Routine Psychiatric Exam Psychiatric: Present normal affect Progress Note: A&P Assessment and plan (1) Acute right ventricular heart failure: Status: Acute (2) Elevated liver enzymes: Status: Acute (3) Pulmonary arterial hypertension: Status: Acute (4) History of coronary artery bypass graft: Status: Chronic (5) History of TIA (transient ischemic attack): Status: Chronic (6) 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 (7) A-fib: Status: Chronic (8) CKD stage 4 due to type 2 diabetes mellitus: Status: Acute (9) Jaundice: Status: Acute (10) Acute on chronic heart failure with preserved ejection fraction (HFpEF): Status: Acute (11) Diabetes mellitus: Status: Chronic (12) Hyperlipidemia: Status: Chronic (13) Carotid artery stenosis: Status: Chronic (14) CAD (coronary artery disease): Status: Chronic Assessment and Plan Assessment and Plan for All Diagnoses:: Plan: 1. The patient was admitted to the hospital for acute on chronic HFpEF. He has severe right ventricular heart failure. The patient was started on a dobutamine drip yesterday for his RV failure. He is also getting IV Bumex for diuresis as well. His dobutamine drip was increased through the night for hypotension. Will continue both the dobutamine drip and Bumex at this time. 2. The patient's liver enzymes did slightly improve today. 3. Coronary artery disease is present. He denies any chest pain or pressure. His troponin is negative. No plans for invasive left cardiac catheterization at this time. 4. His blood pressure is stable this morning. 5. His LDL goal is less than 55. His LDL is 57. He is on Zetia. He is intolerant to statins. 6. The patient does have chronic atrial fibrillation. He is currently rate controlled. Continue Toprol. 7. The patient is on long-term anticoagulation with Xarelto. 8. The patient is hyperkalemic today with potassium of 5.6. Will continue to follow. 9. The patient is diabetic. Will defer management of this to the hospitalist. 10. Once he is euvolemic consider Jardiance in this patient with HFpEF. 11. Further recommendations will be made pending the patient's response to treatment. Thank you for the opportunity to help participate in the care of this patient. All recommendations and orders are per Dr. Malone.
[2024-05-08 14:31] LABS: Alanine Aminotransferase 247 U/L (12-78); Albumin Level 2.9 g/dl (3.5-5.0); Albumin/Globulin Ratio 0.8 (1.1-1.8); Alkaline Phosphatase 90 U/L (38-126); Anion Gap 16.9 mEq/L (5-15); Aspartate Amino Transferase 359 U/L (17-59); Bilirubin,Total 2.1 mg/dl (0.2-1.3); Blood Urea Nitrogen 65 mg/dl (9-20); Calcium 9.2 mg/dl (8.4-10.2); Carbon Dioxide 22 mmol/L (22.0-30.0); Chloride 101 mmol/L (98-107); Creatinine Clearance Estimated 22 mL/min (50-200); Estimated Glomerular Filt Rate 24 ml/min (>60); GFR (African American) 28 ML/MIN (>60); Globulin 3.7 g/dL (1.3-3.2); Glucose 295 mg/dl (74-100); Potassium 4.9 mmoL/L (3.5-5.1); Sodium 135 mmol/L (136-145); Total Protein,Serum 6.6 g/dl (6.3-8.2)
[2024-05-08] MEDS: DOBUTAMINE HCL/D5W 250 ML 12 MG IV (15:02)
--- NOTE | 2024-05-08 16:29 | PC.NURSE ---
1445: ordered SL zyprexa for pt. upon entering room to admin meds for pt, family states they are concerned that giving the pt them meds now will cause issues with him going to the bathroom. pt is already noted to have difficulty cooperating with staff when ambulating to the restroom or attempting to stand from the chair. family refused 1438 dose of zyprexa. pt was assisted up to the chair with assist x 2. pt required a significant amount of coaching for body mechanics and ambulation.
--- NOTE | 2024-05-08 16:32 | PC.NURSE ---
1620 upon entering pt room, family was notified that pt was being ordered gabapentin to help with the leg cramps. family states they know he is having leg cramps because he is grimacing and they can see the veins in his legs . family was notified of possible side effects of med, such as drowsiness. family requests for pt to be helped to stand, placed on bedside commode, then placed in bed and have a purwick placed. at that point family was agreeable to pt receiving gabapentin. staff attempted to help pt up to bedside commode. pt sat forward in the chair but refused to go any further. pt also noted to not respond to when she is speaking to him. when staff speaks to pt, he will nod his head or answer questions. attempted to help pt to stand several times, pt refused to attempt to stand. pt family attempted to help pt stand. pt refused. family states they will call for staff if pt decides he wants to get up to the b[facility].
[2024-05-08 17:02] LABS: VBG Base Excess -4.7 mmol/L (-2.4-2.3); VBG HCO3 19.7 mmol/L (23-30); VBG Oxygen Saturation 98.2 % (50-70); VBG PCO2 30.8 mmol/L (35-51); VBG PH 7.42 mmol/L (7.31-7.41); VBG PO2 116.2 mmol/L (28-40); VBG Total CO2 20.7 mmol/L (23-27)
[2024-05-08 17:03] LABS: Lactate Venous 3.7 mmol/L (0.4-2.0)
--- NOTE | 2024-05-08 17:26 | PC.NURSE ---
pt has ambulated to the restroom with staff twice this shift. pt requires frequent redirection. this afternoon pt needed to void, was unable to wait for staff to assist him. pt had an accident in his boxers. after cleaning pt up, purwick was offered for the pt. family refused pt to have a purwick while he was up in the chair. family ok with purwick while he was in bed. but not while in the chair
[2024-05-08] MEDS: RIVAROXABAN 15MG TABLET 15 MG PO (17:49)
[2024-05-08 18:01] LABS: POC Glucose,Bedside 204 (70-110)
[2024-05-08] MEDS: INSULIN GLARGINE 100 UNITS/ML 3ML FLEXPEN 10 UNIT SUBCUT (18:21)
[2024-05-08] MEDS: IPRATROPIUM BROMIDE 0.5 MG/2.5ML SOLUTION IH ×2 (18:26→23:09)
[2024-05-08] MEDS: LEVALBUTEROL 1.25MG/3ML NEB 1.25 MG IH ×2 (18:27→23:09)
[2024-05-08] MEDS: GABAPENTIN 300MG CAPSULE 300 MG PO (18:35)
[2024-05-08] MEDS: OLANZapine 5 MG ODT TABLET SL (20:30)
[2024-05-08] MEDS: TAMSULOSIN 0.4MG CAPSULE 0.4 MG PO (20:31)
[2024-05-08 20:50] LABS: POC Glucose,Bedside 135 (70-110)
[2024-05-08 21:04] LABS: Reflex Lactic Add Lactic Reflex
[2024-05-08 22:30] LABS: Lactic Acid Follow Up (RFLX 1) 3.3 mmol/L (0.7-2.1)
--- NOTE | 2024-05-08 22:42 | EXP.PN ---
Subjective *Date: 05/08/24 *Time: 22:42 Interval history: Patient is somolent but arousable and alert, oriented. Intermittently confised, likely due to hospital acquired delierum. Will start Zyprexa tonight. Exam Data for Last 24 hours Vital signs and Labs for Last 24 Hours: Temp Pulse Resp BP Pulse Ox O2 Del Method O2 Flow Rate 97.6 F 124 H 18 90/57 L 96 Room Air 2 05/08/24 20:00 05/08/24 22:00 05/08/24 22:00 05/08/24 22:00 05/08/24 22:00 05/08/24 22:00 05/07/24 12:10 Laboratory Results - last 24 hr 05/08/24 00:28: POC Glucose 182 H 05/08/24 05:30: WBC 9.8, RBC 3.50 L, Hgb 12.1 L, Hct 37.0 L, MCV 105.7 H, MCH 34.6 H, MCHC 32.7, RDW 16.5, Plt Count 117 L, MPV 8.5, Neut % (Auto) 36.0 L, Lymph % (Auto) 8.4 L, [place] % (Auto) 2.9, Eos % (Auto) 52.4 H, Baso % (Auto) 0.4, Neut # (Auto) 3.5, Lymph # (Auto) 0.8, [place]y # (Auto) 0.3, Eos # (Auto) 5.2 H, Baso # (Auto) 0.0, Sodium 134 L, Potassium 5.6 H, Chloride 103, Carbon Dioxide 17 L, Anion Gap 19.6 H, BUN 63 H, Creatinine 2.60 H, Estimated Creat Clear 23, Estimated GFR 24 L, Est GFR ( Amer) 28 L, Glucose 206 H D, Calcium 9.0, Total Bilirubin 2.3 H, AST 330 H* D, ALT 203 H, Alkaline Phosphatase 100, Total Protein 6.8, Albumin 2.9 L, Globulin 3.9 H, Albumin/Globulin Ratio 0.7 L, Lipase 22 L 05/08/24 11:31: POC Glucose 353 H* 05/08/24 12:58: POC Glucose 357 H* 05/08/24 14:00: VBG pH 7.42 H, VBG pCO2 30.8 L, VBG pO2 116.2 H, VBG HCO3 19.7 L, VBG Total CO2 20.7 L, VBG O2 Saturation 98.2 H, VBG Base Excess -4.7 L, VBG Lactic Acid 3.7 H 05/08/24 14:08: Sodium 135 L, Potassium 4.9, Chloride 101, Carbon Dioxide 22, Anion Gap 16.9 H, BUN 65 H, Creatinine 2.60 H, Estimated Creat Clear 22, Estimated GFR 24 L, Est GFR ( Amer) 28 L, Glucose 295 H D, Calcium 9.2, Total Bilirubin 2.1 H, AST 359 H*, ALT 247 H, Alkaline Phosphatase 90, Total Protein 6.6, Albumin 2.9 L, Globulin 3.7 H, Albumin/Globulin Ratio 0.8 L 05/08/24 17:50: POC Glucose 204 H 05/08/24 20:28: POC Glucose 135 H 05/08/24 21:55: Lactate 3.3 H I & O for Last 24 hours: Intake & Output 05/05/24 05/06/24 05/07/24 05/08/24 23:59 23:59 23:59 23:59 Intake Total 162 / 262 959.4 / 959.4 Output Total 450 / 450 800 / 800 Balance -288 / -188 159.4 / 159.4 Weight 80.371 kg 80 kg 76.95 kg Constitutional Constitutional: no acute distress, average body habitus and chronically ill appearing Comments: Jaundiced. *Routine HEENT Exam Head: Present normocephalic and atraumatic ENT: Present mucous membranes moist *Routine Neck Exam Neck: Present supple, full ROM and normal carotid upstroke; Absent JVD, carotid bruit or lymphadenopathy *Routine Respiratory Exam Respiratory: Present CTA bilaterally, normal respiratory effort, able to speak in complete sentences and symmetric chest movement *Routine Cardiovascular Exam Cardiovascular: Present RRR, Normal S1, Normal S2 and murmur; Absent gallop *Routine Abdominal Exam Abdominal: Present soft and normoactive bowel sounds; Absent tenderness, distended or organomegaly *Routine Extremities Exam Extremities: Present full ROM, pulses intact and normal capillary refill; Absent cyanosis, clubbing or edema *Routine Skin Exam Skin: Present intact, warm and jaundice; Absent erythema *Routine Neurological Exam Neurological: Present alert and CN II-XII intact; Absent sensory deficit or motor deficit Routine Psychiatric Exam Psychiatric: Present normal affect Assessment and Plan *Assessment and plan (1) Acute exacerbation of CHF (congestive heart failure): Status: Acute Qualifiers: Heart failure type: diastolic Qualified Code(s): I50.33 - Acute on chronic diastolic (congestive) heart failure Category: Medical Code(s): I50.9 - Heart failure, unspecified (2) (HFpEF) heart failure with preserved ejection fraction: Status: Acute Qualifiers: Heart failure chronicity: unspecified Qualified Code(s): I50.30 - Unspecified diastolic (congestive) heart failure Category: Medical Code(s): I50.30 - Unspecified diastolic (congestive) heart failure (3) Adult failure to thrive: Status: Acute Category: Medical Code(s): R62.7 - Adult failure to thrive (4) Polyneuropathy: Problem Comment: 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 Status: Chronic Category: Medical Code(s): G62.9 - Polyneuropathy, unspecified (5) BPH w urinary obs/LUTS: Status: Acute Category: Medical Code(s): N40.1 - Benign prostatic hyperplasia with lower urinary tract symptoms; N13.8 - Other obstructive and reflux uropathy (6) Pulmonary arterial hypertension: Status: Acute Category: Medical Code(s): I27.21 - Secondary pulmonary arterial hypertension (7) History of coronary artery bypass graft: Status: Chronic Category: Surgical Code(s): Z95.1 - Presence of aortocoronary bypass graft (8) History of TIA (transient ischemic attack): Status: Chronic Category: Medical Code(s): Z86.73 - Personal history of transient ischemic attack (TIA), and cerebral infarction without residual deficits (9) 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 type: unspecified Qualified Code(s): J43.9 - Emphysema, unspecified Category: Medical Code(s): J44.9 - Chronic obstructive pulmonary disease, unspecified (10) A-fib: Status: Chronic Qualifiers: Atrial fibrillation type: unspecified chronic Qualified Code(s): I48.20 - Chronic atrial fibrillation, unspecified Category: Medical Code(s): I48.91 - Unspecified atrial fibrillation (11) CKD stage 4 due to type 2 diabetes mellitus: Status: Acute Category: Medical Code(s): E11.22 - Type 2 diabetes mellitus with diabetic chronic kidney disease; N18.4 - Chronic kidney disease, stage 4 (severe) Plan 84-year-old male who presents with worsening decline and shortness of breath. Concern for CHF exacerbation. Discussed case with ER provider, request admission for further management and therapy noé'[email or web address]. I agreed to admit. Will diurese x 1. Cardiology consulted to assist with care. Problems addressed as follows: #Acute on chronic HFpEF #Severe right heart failure #Congestive hepatopathy, jaundice ? Limited ECHO suggest severe right ventricular failure. ? Cardiology consulted, started dobutamine drip and continuing Bumex diuresis. ? Continued Dobutamine drip at 5 mcg/kg/min day 2. ? IV Bumex 2 mg twice daily. Follow urine output, renal function, electrolytes. Electrolyte replacement protocol. ? AST/ALT improved this morning 330/203. Renal function stable, Cr. 2.6. ? RUQ ultrasound shows gallstones. With transamnitis, will follow-up with MRCP in morning to r/o biliary pathology. At this time, transaminitis is likely due to congestive hepatopathy. #Hospital acquired delirium - Patient intermittently confused, trying to get out of bed and get in his car . - Zyprexa 5mg nightly. Atrial fibrillation HFpEF -Continue metoprolol succinate 12.5 mg twice daily, aspirin 81 mg daily, continue Xarelto 15mg daily, continue spironolactone 25 mg daily. ? Patient continues to have shortness of breath on exertion. May require supplemental oxygen on discharge. Hyperkalemia: Received Lokelma in the ER. Will monitor for improvement with diuresis. Potassium 5.9. ? Potassium improved today, 4.9. Has needed insulin and D50 during admission with peak 6.9. #Hypothyroidism #Supratherapeutic treatment ? Free T4 elevated to 2.55, TSH normal at 1.19. ? Decreased home levothyroxine from 200 mcg to 150 mcg. CKD 4: Stable kidney function with creatinine 2.4. Monitor daily, caution with nephrotoxins Diabetes: Continue Lantus at decreased dose of 10 mg daily, sliding scale insulin with fingersticks ACHS. A1c f/u in morning. BPH: Continue tamsulosin 0.4 mg daily and finasteride 5 mg daily. Progressive weakness/failure to thrive: PT/OT consulted, further recs pending Continue Lexapro 10 mg daily for mood DNR Xarelto Diabetic diet
[2024-05-08 23:58] LABS: Reflex Lactic (2 hrs) Add Lactic Reflex
[2024-05-09] VITALS (50 sets, daily range): BP systolic 69–126; BP diastolic 40–77; PULSE 112–152; RESP 12–26; TEMP 36.5–37.2; O2SAT 89–100; BMI 22.8
[2024-05-09 00:38] LABS: Lactic Acid Follow up (RFLX 2) 2.1 mmol/L (0.7-2.1)
[2024-05-09] MEDS: BENZONATATE 100MG CAPSULE 100 MG PO (01:08)
--- NOTE | 2024-05-09 01:22 | XR_ITS ---
PROCEDURE INFORMATION: Exam: XR Chest Exam date and time: 05/09/2024 1:34 AM Age: 84 years old Clinical indication: Cough TECHNIQUE: Imaging protocol: Radiologic exam of the chest. Views: 1 view. COMPARISON: CR XR CHEST PORTABLE 04/27/2024 4:33 PM FINDINGS: Lungs: Low lung volumes. Central vascular crowding. Pleural spaces: Unremarkable. No pleural effusion. No pneumothorax. Heart/Mediastinum: Mitral valve clip. Bones/joints: Previous median sternotomy. IMPRESSION: Hypoventilated chest.
[2024-05-09] MEDS: BUMETANIDE 1MG/4ML VIAL 2 MG IV ×2 (01:34→09:12)
[2024-05-09 01:37] LABS: POC Glucose,Bedside 91 (70-110)
--- NOTE | 2024-05-09 04:26 | PC.NURSE ---
Since I came on shift at 1am the patient has had restless sleep. He has continually coughed, the cough is not productive and is getting weaker. was concerned as she said she feels the cough is getting worse. RN did notified MD dictaphone transcriber see orders placed. After initially orders provider was updated that patient still had a cough, but no new orders were placed. Patient has been unable to communicate with me since i came on shift due to not having his implants in to hear what i am saying, his has done most of the talking. Patient does have a purewick on to help with I&O.
[2024-05-09] MEDS: METOPROLOL TARTRATE 5MG/5ML VIAL 2.5 MG IV (05:44)
[2024-05-09 05:55] LABS: POC Glucose,Bedside 92 (70-110)
[2024-05-09 06:36] LABS: Basophils % 0.3 % (0.1-2.0); Eosinophils # 7.8 K/mm3 (0.0-0.4); Eosinophils % 60.3 % (0.1-12.0); Hemoglobin 11.1 g/dL (14.1-18.0); Lymphocytes # 0.9 K/mm3 (0.7-4.5); Mean Corpuscular HGB Conc 33.8 g/dL (31.8-35.4); Mean Corpuscular Hemoglobin 35.3 pg (27.0-31.2); Mean Corpuscular Volume 104.5 fl (80-94); Mean Platelet Volume 8.6 fl (7.4-10.4); Monocytes # 0.3 K/mm3 (0.1-1.0); Monocytes % 2.2 % (1.7-9.3); Neutrophils # 3.9 K/mm3 (1.8-7.8); Neutrophils % 30.1 % (37.0-80.0); Platelet Count 105 K/mm3 (142-424); Red Blood Count 3.15 M/mm3 (4.60-6.20); Red Cell Distribution Width 16.9 % (11.5-17.5)
[2024-05-09 06:37] LABS: Alanine Aminotransferase 224 U/L (12-78); Albumin Level 2.9 g/dl (3.5-5.0); Albumin/Globulin Ratio 0.8 (1.1-1.8); Alkaline Phosphatase 108 U/L (38-126); Anion Gap 13.6 mEq/L (5-15); Aspartate Amino Transferase 251 U/L (17-59); Bilirubin,Total 1.8 mg/dl (0.2-1.3); Blood Urea Nitrogen 66 mg/dl (9-20); Calcium 9.2 mg/dl (8.4-10.2); Carbon Dioxide 26 mmol/L (22.0-30.0); Chloride 101 mmol/L (98-107); Creatinine Clearance Estimated 20 mL/min (50-200); Estimated Glomerular Filt Rate 22 ml/min (>60); GFR (African American) 26 ML/MIN (>60); Globulin 3.8 g/dL (1.3-3.2); Glucose 86 mg/dl (74-100); Potassium 4.6 mmoL/L (3.5-5.1); Sodium 136 mmol/L (136-145); Total Protein,Serum 6.7 g/dl (6.3-8.2)
[2024-05-09] MEDS: LEVALBUTEROL 1.25MG/3ML NEB 1.25 MG IH ×4 (06:49→23:06)
[2024-05-09] MEDS: IPRATROPIUM BROMIDE 0.5 MG/2.5ML SOLUTION IH ×4 (06:49→23:06)
--- NOTE | 2024-05-09 08:21 | ECG_ITS ---
APPROVED REPORT Exam: Resting ECG HR:133 bpm ECG Measurements Heart Rate 133 AXES QRSd 125 QRS 102 QT 316 T 0 QTc 394 Conclusion ATRIAL FIBRILLATION WITH RAPID VENTRICULAR RESPONSE WITH ABERRANT CONDUCTION OR VENTRICULAR PREMATURE COMPLEXES POSSIBLE RIGHT VENTRICULAR HYPERTROPHY [SOME/ALL OF: PROMINENT R IN V1, LATE TRANSITION, RAD, MUNA, SSS] NONSPECIFIC ST & T-WAVE ABNORMALITY ABNORMAL ECG UNCONFIRMED REPORT Electronically signed by : Toney Contreras MD 05/10/2024 10:30:17
[2024-05-09] MEDS: LEVOTHYROXINE 150MCG (0.15MG)TAB 150 MCG PO (09:10)
[2024-05-09] MEDS: FINASTERIDE 5MG TABLET 5 MG PO (09:10)
[2024-05-09] MEDS: ASPIRIN 81MG CHEWABLE TABLET 81 MG PO (09:10)
[2024-05-09] MEDS: ROPINIROLE 1MG TABLET 4 MG PO (09:10)
[2024-05-09] MEDS: CITALOPRAM 20MG TABLET 20 MG PO (09:10)
[2024-05-09] MEDS: METOPROLOL SUCCINATE XL 25MG TABLET 12.5 MG PO (09:11)
--- NOTE | 2024-05-09 09:19 | PC.NURSE ---
dobutamine drip decreased to 2.5 mcg/kg/min per dr Forman verbal order [id number]
[2024-05-09] MEDS: BUDESONIDE GLYCOPYR FORMOTEROL 1 EACH IH ×2 (09:39→18:38)
[2024-05-09] MEDS: PIPERACILLIN/TAZO 2.25 GM in 0.9 % SODIUM CHLORIDE 50 ML IV ×2 (11:57→20:09)
[2024-05-09 12:18] LABS: POC Glucose,Bedside 194 (70-110)
[2024-05-09 12:36] LABS: POC Glucose,Bedside 238 (70-110)
[2024-05-09] MEDS: 0.9 % SODIUM CHLORIDE 1000ML 250 ML 500 ML IV (12:46)
--- NOTE | 2024-05-09 13:29 | EXP.CARD.PN ---
Subjective Subjective Date: 05/09/24 Time: 11:30 Principal diagnosis: severe RV heart failure Interval history: This is an 84-year-old white gentleman who was admitted to the hospital with severe right ventricular heart failure. He remains on a dobutamine drip and is getting IV Bumex as well. Through the night last night the patient did get tachycardic with a heart rate of 120-140s. He states he is still short of breath and has not really seen an improvement. He is more alert and more perky today than he was yesterday. He denies any chest pain or pressure. He denies any lower extremity edema. He denies any fever, chills, nausea, vomiting or diarrhea. Patient does have a short associated orthopnea with his shortness of breath Exam Data for Last 24 hours Vital signs and Labs for Last 24 Hours: Temp Pulse Resp BP Pulse Ox O2 Del Method O2 Flow Rate 97.8 F 128 H 25 H 91/52 L 97 Room Air 2 05/09/24 10:00 05/09/24 13:00 05/09/24 13:00 05/09/24 13:00 05/09/24 13:00 05/09/24 13:00 05/07/24 12:10 Laboratory Results - last 24 hr 05/08/24 14:00: VBG pH 7.42 H, VBG pCO2 30.8 L, VBG pO2 116.2 H, VBG HCO3 19.7 L, VBG Total CO2 20.7 L, VBG O2 Saturation 98.2 H, VBG Base Excess -4.7 L, VBG Lactic Acid 3.7 H 05/08/24 14:08: Sodium 135 L, Potassium 4.9, Chloride 101, Carbon Dioxide 22, Anion Gap 16.9 H, BUN 65 H, Creatinine 2.60 H, Estimated Creat Clear 22, Estimated GFR 24 L, Est GFR ( Amer) 28 L, Glucose 295 H D, Calcium 9.2, Total Bilirubin 2.1 H, AST 359 H*, ALT 247 H, Alkaline Phosphatase 90, Total Protein 6.6, Albumin 2.9 L, Globulin 3.7 H, Albumin/Globulin Ratio 0.8 L 05/08/24 17:50: POC Glucose 204 H 05/08/24 20:28: POC Glucose 135 H 05/08/24 21:55: Lactate 3.3 H 05/09/24 00:15: Lactate 2.1 05/09/24 01:30: POC Glucose 91 05/09/24 05:43: POC Glucose 92 05/09/24 05:58: WBC 13.0 H D, RBC 3.15 L, Hgb 11.1 L, Hct 33.0 L, MCV 104.5 H, MCH 35.3 H, MCHC 33.8, RDW 16.9, Plt Count 105 L, MPV 8.6, Neut % (Auto) 30.1 L, Lymph % (Auto) 7.0 L, [place] % (Auto) 2.2, Eos % (Auto) 60.3 H, Baso % (Auto) 0.3, Neut # (Auto) 3.9, Lymph # (Auto) 0.9, [place] # (Auto) 0.3, Eos # (Auto) 7.8 H, Baso # (Auto) 0.0, Sodium 136, Potassium 4.6, Chloride 101, Carbon Dioxide 26, Anion Gap 13.6, BUN 66 H, Creatinine 2.80 H, Estimated Creat Clear 20, Estimated GFR 22 L, Est GFR ( Amer) 26 L, Glucose 86 D, Hemoglobin A1c 8.0 H, Calcium 9.2, Total Bilirubin 1.8 H, AST 251 H D, ALT 224 H, Alkaline Phosphatase 108, Total Protein 6.7, Albumin 2.9 L, Globulin 3.8 H, Albumin/Globulin Ratio 0.8 L 05/09/24 12:00: POC Glucose 194 H 05/09/24 12:27: POC Glucose 238 H I & O for Last 24 hours: Intake & Output 05/06/24 05/07/24 05/08/24 05/09/24 23:59 23:59 23:59 23:59 Intake Total 162 / 262 971.4 / 971.4 193.1 / 193.1 Output Total 450 / 450 800 / 800 451 / 451 Balance -288 / -188 171.4 / 171.4 -257.9 / -257.9 Weight 177 lb 3 oz 176 lb 5.917 oz 169 lb 10.331 oz 168 lb 11.2 oz Constitutional Constitutional: no acute distress, average body habitus and chronically ill appearing *Routine HEENT Exam Head: Present normocephalic and atraumatic ENT: Present mucous membranes moist *Routine Neck Exam Neck: Present supple, full ROM and normal carotid upstroke; Absent JVD, carotid bruit or lymphadenopathy *Routine Respiratory Exam Respiratory: Present CTA bilaterally, normal respiratory effort, able to speak in complete sentences and symmetric chest movement *Routine Cardiovascular Exam Cardiovascular: Present Normal S1, Normal S2, murmur, tachycardia and irregularly irregular; Absent gallop *Routine Abdominal Exam Abdominal: Present soft and normoactive bowel sounds; Absent tenderness, distended or organomegaly *Routine Extremities Exam Extremities: Present full ROM, pulses intact and normal capillary refill; Absent cyanosis, clubbing or edema *Routine Skin Exam Skin: Present intact, warm and jaundice; Absent erythema *Routine Neurological Exam Neurological: Present alert, oriented X3 and CN II-XII intact; Absent sensory deficit or motor deficit Routine Psychiatric Exam Psychiatric: Present normal affect Progress Note: A&P Assessment and plan (1) Acute right ventricular heart failure: Status: Acute (2) Acute on chronic heart failure with preserved ejection fraction (HFpEF): Status: Acute (3) Pulmonary arterial hypertension: Status: Acute (4) CAD (coronary artery disease): Status: Chronic (5) A-fib: Status: Chronic (6) History of coronary artery bypass graft: Status: Chronic (7) History of TIA (transient ischemic attack): Status: Chronic (8) 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 (9) CKD stage 4 due to type 2 diabetes mellitus: Status: Acute (10) Elevated liver enzymes: Status: Acute (11) Jaundice: Status: Acute (12) History of mitral valve repair: Status: Chronic (13) Diabetes mellitus: Status: Chronic (14) Hyperlipidemia: Status: Chronic (15) Hypertensive disorder: Status: Chronic (16) Carotid artery stenosis: Status: Chronic Assessment and Plan Assessment and Plan for All Diagnoses:: Plan: 1. The patient was admitted to the hospital for acute on chronic HFpEF. He has severe right ventricular heart failure. The patient was started on a dobutamine drip due to his RV failure. He remains on the dobutamine drip at this time. However he did get tachycardic through the night last night with his heart rate up as high as the 140s. Will decrease the dobutamine drip to 2.5 mcg. 2. Will also decrease his Bumex to 1 mg IV twice daily due to his tachycardia. 3. The patient's liver enzymes have continued to improve since being on the dobutamine drip and the Bumex. 4. If he remains tachycardic by tomorrow morning then we will consider changing his dobutamine drip to a Levophed drip to help with the inotrope support and his blood pressure. 5. The patient does have an elevated white blood cell count at 13.0. It is suspected that he is aspirating and will have a speech evaluation today. There should be a very low threshold to treat him for pneumonia but we will leave this up to the hospitalist. 6. Coronary artery disease is present. He denies any chest pain or pressure. His troponin was negative. No plans for invasive left cardiac catheterization at this time. 7. His blood pressure is acceptable at this time. It has been running on the low side. Will continue to follow. 8. His LDL goal is less than 55. His LDL is 57. He is on Zetia. He is intolerant to statins. 9. The patient does have chronic atrial fibrillation. His rate is elevated as mentioned above. This most likely is from his elevated white count and probable pneumonia. Continue his current dose of Toprol. Will continue to follow his heart rate. He is on Xarelto for long-term anticoagulation. 10. The patient is diabetic. Will defer management of this to the primary care team. 11. His potassium has normalized. 12. Once he is euvolemic, consider Jardiance in this patient with HFpEF. 13. Further recommendations will be made pending the patient's response to treatment. Thank you for the opportunity to help participate in the care of this patient. All recommendations and orders are per Dr. Malone.
[2024-05-09] MEDS: DOBUTAMINE HCL/D5W 250 ML 6 MG IV (13:36)
--- NOTE | 2024-05-09 15:40 | EXP.PN ---
Subjective *Date: 05/09/24 *Time: 21:54 Exam Data for Last 24 hours Vital signs and Labs for Last 24 Hours: Temp Pulse Resp BP Pulse Ox O2 Del Method O2 Flow Rate 97.8 F 130 H 19 116/61 94 L Room Air 2 05/09/24 10:00 05/09/24 15:00 05/09/24 15:00 05/09/24 15:00 05/09/24 15:00 05/09/24 15:15 05/07/24 12:10 Laboratory Results - last 24 hr 05/08/24 14:00: VBG pH 7.42 H, VBG pCO2 30.8 L, VBG pO2 116.2 H, VBG HCO3 19.7 L, VBG Total CO2 20.7 L, VBG O2 Saturation 98.2 H, VBG Base Excess -4.7 L, VBG Lactic Acid 3.7 H 05/08/24 17:50: POC Glucose 204 H 05/08/24 20:28: POC Glucose 135 H 05/08/24 21:55: Lactate 3.3 H 05/09/24 00:15: Lactate 2.1 05/09/24 01:30: POC Glucose 91 05/09/24 05:43: POC Glucose 92 05/09/24 05:58: WBC 13.0 H D, RBC 3.15 L, Hgb 11.1 L, Hct 33.0 L, MCV 104.5 H, MCH 35.3 H, MCHC 33.8, RDW 16.9, Plt Count 105 L, MPV 8.6, Neut % (Auto) 30.1 L, Lymph % (Auto) 7.0 L, [place] % (Auto) 2.2, Eos % (Auto) 60.3 H, Baso % (Auto) 0.3, Neut # (Auto) 3.9, Lymph # (Auto) 0.9, [place] # (Auto) 0.3, Eos # (Auto) 7.8 H, Baso # (Auto) 0.0, Sodium 136, Potassium 4.6, Chloride 101, Carbon Dioxide 26, Anion Gap 13.6, BUN 66 H, Creatinine 2.80 H, Estimated Creat Clear 20, Estimated GFR 22 L, Est GFR ( Amer) 26 L, Glucose 86 D, Hemoglobin A1c 8.0 H, Calcium 9.2, Total Bilirubin 1.8 H, AST 251 H D, ALT 224 H, Alkaline Phosphatase 108, Total Protein 6.7, Albumin 2.9 L, Globulin 3.8 H, Albumin/Globulin Ratio 0.8 L 05/09/24 12:00: POC Glucose 194 H 05/09/24 12:27: POC Glucose 238 H I & O for Last 24 hours: Intake & Output 05/06/24 05/07/24 05/08/24 05/09/24 23:59 23:59 23:59 23:59 Intake Total 162 / 262 971.4 / 971.4 449.0 / 449.0 Output Total 450 / 450 800 / 800 451 / 451 Balance -288 / -188 171.4 / 171.4 -2.0 / -2.0 Weight 80.371 kg 80 kg 76.95 kg 76.521 kg Constitutional Constitutional: no acute distress, average body habitus and chronically ill appearing Comments: Jaundiced. *Routine HEENT Exam Head: Present normocephalic and atraumatic ENT: Present mucous membranes moist *Routine Neck Exam Neck: Present supple, full ROM and normal carotid upstroke; Absent JVD, carotid bruit or lymphadenopathy *Routine Respiratory Exam Respiratory: Present CTA bilaterally, normal respiratory effort, able to speak in complete sentences and symmetric chest movement *Routine Cardiovascular Exam Cardiovascular: Present RRR, Normal S1, Normal S2 and murmur; Absent gallop *Routine Abdominal Exam Abdominal: Present soft and normoactive bowel sounds; Absent tenderness, distended or organomegaly *Routine Extremities Exam Extremities: Present full ROM, pulses intact and normal capillary refill; Absent cyanosis, clubbing or edema *Routine Skin Exam Skin: Present intact, warm and jaundice; Absent erythema *Routine Neurological Exam Neurological: Present alert and CN II-XII intact; Absent sensory deficit or motor deficit Routine Psychiatric Exam Psychiatric: Present normal affect Assessment and Plan *Assessment and plan (1) Acute exacerbation of CHF (congestive heart failure): Status: Acute Qualifiers: Heart failure type: diastolic Qualified Code(s): I50.33 - Acute on chronic diastolic (congestive) heart failure Category: Medical Code(s): I50.9 - Heart failure, unspecified (2) (HFpEF) heart failure with preserved ejection fraction: Status: Acute Qualifiers: Heart failure chronicity: unspecified Qualified Code(s): I50.30 - Unspecified diastolic (congestive) heart failure Category: Medical Code(s): I50.30 - Unspecified diastolic (congestive) heart failure (3) Adult failure to thrive: Status: Acute Category: Medical Code(s): R62.7 - Adult failure to thrive (4) Polyneuropathy: Problem Comment: 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 Status: Chronic Category: Medical Code(s): G62.9 - Polyneuropathy, unspecified (5) BPH w urinary obs/LUTS: Status: Acute Category: Medical Code(s): N40.1 - Benign prostatic hyperplasia with lower urinary tract symptoms; N13.8 - Other obstructive and reflux uropathy (6) Pulmonary arterial hypertension: Status: Acute Category: Medical Code(s): I27.21 - Secondary pulmonary arterial hypertension (7) History of coronary artery bypass graft: Status: Chronic Category: Surgical Code(s): Z95.1 - Presence of aortocoronary bypass graft (8) History of TIA (transient ischemic attack): Status: Chronic Category: Medical Code(s): Z86.73 - Personal history of transient ischemic attack (TIA), and cerebral infarction without residual deficits (9) 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 type: unspecified Qualified Code(s): J43.9 - Emphysema, unspecified Category: Medical Code(s): J44.9 - Chronic obstructive pulmonary disease, unspecified (10) A-fib: Status: Chronic Qualifiers: Atrial fibrillation type: unspecified chronic Qualified Code(s): I48.20 - Chronic atrial fibrillation, unspecified Category: Medical Code(s): I48.91 - Unspecified atrial fibrillation (11) CKD stage 4 due to type 2 diabetes mellitus: Status: Acute Category: Medical Code(s): E11.22 - Type 2 diabetes mellitus with diabetic chronic kidney disease; N18.4 - Chronic kidney disease, stage 4 (severe) Plan 84-year-old male who presents with worsening decline and shortness of breath. #Acute on chronic HFpEF #Severe right heart failure #Congestive hepatopathy, jaundice #Hypotension ? Limited ECHO suggest severe right ventricular failure. ? Cardiology following, recommended continuing Dobutamine drip but did decrease IV Bumex to 1mg BID due to soft pressures. HR improved from 140 to 120 after decreasing Dobutamine to 2.5mcg. ? Given MAP consistently below 65, switched to Levophed. Held afternoon Bumex dose. Some concern for pneumonia given increasing WBC, but may be hypovolemic from potential overdiuresis. - Follow urine output, renal function, electrolytes. Electrolyte replacement protocol. ? AST/ALT improved this morning 251/224. Renal function slight bump, Cr. 2.8 from 2.6. ? RUQ ultrasound shows gallstones. With transamnitis, will follow-up with MRCP in morning to r/o biliary pathology. At this time, transaminitis is likely due to congestive hepatopathy. #Suspected aspiration pneumonia - Increased rhochi, rattling when breathing. WBC 13.2 this morning. - Zosyn day 06/30. #Hospital acquired delirium - Patient intermittently confused, trying to get out of bed and get in his car . - Zyprexa 5mg nightly. Atrial fibrillation HFpEF -Continue metoprolol succinate 12.5 mg twice daily, aspirin 81 mg daily, continue Xarelto 15mg daily. ? Patient continues to have shortness of breath on exertion. May require supplemental oxygen on discharge. Hyperkalemia: Received Lokelma in the ER. Will monitor for improvement with diuresis. Intial Potassium 5.9. ? Potassium stbale today. Has needed insulin and D50 during admission with peak 6.9. #Hypothyroidism #Supratherapeutic treatment ? Free T4 elevated to 2.55, TSH normal at 1.19. ? Decreased home levothyroxine from 200 mcg to 150 mcg. CKD 4: Stable kidney function with creatinine 2.4. Monitor daily, caution with nephrotoxins Diabetes: Continue Lantus at decreased dose of 10 mg daily, sliding scale insulin with fingersticks ACHS. A1c f/u in morning. BPH: Continue tamsulosin 0.4 mg daily and finasteride 5 mg daily. Progressive weakness/failure to thrive: PT/OT consulted, further recs pending Continue Lexapro 10 mg daily for mood DNR Xarelto Diabetic diet
[2024-05-09] MEDS: ACETAMINOPHEN 325MG TAB 650 MG PO (15:56)
[2024-05-09] MEDS: RIVAROXABAN 15MG TABLET 15 MG PO (17:09)
[2024-05-09] MEDS: INSULIN GLARGINE 100 UNITS/ML 3ML FLEXPEN 10 UNIT SUBCUT (17:15)
[2024-05-09] MEDS: NOREPINEPHRINE BITARTRATE 8 MG in 0.9 % SODIUM CHLORIDE 250 ML 11.61 MG IV (17:15)
[2024-05-09] MEDS: humaLOG 100 UNITS/ML 10ML VIAL (SSI) SUBCUT ×2 (17:25→21:12)
[2024-05-09 17:27] LABS: POC Glucose,Bedside 384 (70-110)
--- NOTE | 2024-05-09 17:28 | HMH.SLDYSPHA ---
Speech & Language Evaluation Speech/Language Dysphagia Evaluation Start: 05/09/24 17:11 Freq: ONCE Status: Active Protocol: Document 05/09/24 17:11 NAS (Rec: 05/09/24 17:28 [id number] Co-signed By ST Lynda Dysphagia Assess/Goals/Plan Assessment Date of Evaluation: 05/09/24 Evaluation Type Initial Certification Assessment/Problems eval for aspiration per MD order Does Patient Qualify for Service No Qualify/Failure Comment Based on clinical observations made throughout clinical bedside swallow evaluation and pt/nursing interview, further skilled speech therapy services are not warranted at this time d/t no overt s/sx of aspiration and WFL mastication and manipulation of bolus. Recommendations PHYSICIAN CERTIFICATION: The specified therapy services are required, authorized, and reviewed every 30 days. Diet Recommendations Mechanical Soft Liquid Type Recommendations Normal/Thin SL Swallow Guidelines Alt bite w/sip thru meal, Standard Aspiration Prec., Crush meds as allowed*,Eat at slow rate,Oral Care Education Dysphagia Swallow Precautions/Strategies Sitting Upright (90 deg),Small Bites and Sips,Alternate Liquids/Solids Plan Pt/Guardian verbally ack understanding Yes of dx/prognosis/goals G -code Required No Education Instructions provided TIE HACKER discussed clinical observations made throughout clinical bedside swallow evaluation, diet recommendations, and aspiration precautions/ compensatory strategies with pt, family, nursing, and MD, all of which expressed understanding. Pt/Caregiver able to recall information Able to recall/restate Reinforcement needed No Speech & Language HPI History Present Illness Description of Patient Problem TIE HACKER pulled the following information from pt's H&P and chest x-ray: Mr. Wu is an 84-year-old male with multiple comorbidities including CHF, pulmonary hypertension, BPH, COPD with no oxygen requirement and worsening decline with multiple recent hospitalizations per his . Who presents to the hospital with worsening fatigue and lethargy today. Has required assistance to get to the bathroom with poor appetite, dry nonproductive cough, very weak over the past week. Patient's reports he has been much weaker today but is mentating normally. Denies any fever, has had some nausea and emesis over the past 2 days. Denies any diarrhea. No shortness of breath. Workup in the ER found normal white count. Kidney function stable with creatinine 2.2. BNP elevated at 10,000. Stool and respiratory panel negative. Chest x-ray with bibasilar atelectasis, does have some prominent pulmonary vasculature. Presentation most consistent with CHF exacerbation. Admitted to medicine for diuresis and further management. Chest x-ray: FINDINGS: Lungs: Low lung volumes. Central vascular crowding. Pleural spaces: Unremarkable. No pleural effusion. No pneumothorax. Heart/Mediastinum: Mitral valve clip. Bones/joints: Previous median sternotomy. IMPRESSION: Hypoventilated chest. Pt/Caregiver Concerns No concerns noted from pt or family Rehab Services Assessed Speech therapy Hearing Hearing Ability Use of Hearing Aid Comment Pt utilizes cochlear implant Language Primary Language Czech Therapy History Seen by other SL therapists No General Information General Current Food Consistancy Regular,Thin Liquids Dentition Good Dentition Oxygen Status Room Air Patient Orientation Person Ability to Follow Directions Excellent Communication Ability Mild Impairment Dysphagia:Food Presentation Evaluation Food Type Pureed,Mechanical Soft,Regular ,Liquid,Pudding Pudding Consistency Liquid Response Residual on tongue Dysphagia Evaluation Mechanical Soft Difficulty chewing,Residual on Food Behavior Response tongue Dysphagia Evaluation Regular Food Difficulty chewing,Residual on Behavior Response tongue Dysphagia Evaluation Summary A clinical bedside swallow evaluation was administered this afternoon with pt sitting upright in chair, on room air , and with good dentition. Pt was A&O x1 this afternoon, and pt's stated that she believes this is d/t his medicine. Pt seemed pleasantly confused throughout evaluation, but was able to follow commands. Pt wears a cochlear implant, which stated has been malfunctioning . Bolus consistencies administered include thin liquid (water) via open cup and straw, pudding, puree ( applesauce), mechanical soft ( Nutrigrain bar), and regular ( milady cracker). All bolus consistencies administered x2 to assess for consistency and fatigue. Pt did not demonstrate any overt s/sx of aspiration on any consistency trialed. Pt demonstrated adequate labial seal on all trials. Pt was observed to have lingual residue on pudding, mechanical soft, and regular food trials, which were all cleared with a liquid wash. Pt demonstrated prolonged mastication and manipulation of bolus on mechanical soft and regular food trials. TIE HACKER recommends thin liquid/mechanical soft diet d/t prolonged mastication 2' weakness and fatigue. Aspiration precautions/ compensatory strategies recommended include sitting upright during meal and 30-60 minutes after, alternating bites and sips, and small bites and sips. Stroke Dysphagia Assessment PHYSICIAN CERTIFICATION: I certify the specified therapy services for Joel L Bryce are required, authorized, and reviewed every 30 days.
--- NOTE | 2024-05-09 17:46 | PC.NURSE ---
Pt has been up to the chair for the majority of this shift. pt has requested to get up to the bathroom for bm 2 times this shift. each time pt was an assist times 2. pt required direction on ambulation. pt was assisted to reposition in the chair. pt cognition and alertness has waxed and waned throughout the shift. at present time pt is sitting up in the chair eating a frosty with family present at bedside. pt lung sounds contain scattered rhonchi throughout. bowel sounds are hypo active in all quads. pt is voiding clear yellow urine via purwick.
--- NOTE | 2024-05-09 21:25 | PC.NURSE ---
Patient very lethargic, opens eyes to name and touch but doesnt stay alert. Unable to get PM pills down him safely. Notified Jose Alberto Logan APRN of patients status and unable to get lopressor orally, patients HR sustaining 130;s ti 140's New order noted for Lopressor 5mg IV slow push. Patients family at bedside.
--- NOTE | 2024-05-09 21:47 | P.EN_ITS ---
<Statement entered by Clif Forman MD - 05/12/24 22:47> I personally examined patient and agree with DATA GOVERNANCE ANALYST's plan of care. Nursing called to let me know that the patient was quite somnolent that he was awake and, knows who he is but is soon is not stimulated will go right back to sleep the nurse was concerned about taking p.o. medication at this time and he art rate remains 120s or higher. For this reason since he has a beta-julianne that is p.o I will give him 5 mg of Lopressor IV at this time and will reevaluate in approximately 15 minutes to see how he is doing, and to find any other reasons for if this somnolence is just from the fact that he is tired and not some other medical condition that I have not been able to assess at this point in time. Times 3:30 AM, back in to assess post last 500 cc bolus , only had 150 out medium yellow urine . Patient is arousable he does talk some . Also is diaphoretic was sweaty under the covers. The patient and heart rate remaining elevated in the 140s blood pressure systolic below 100 but MAP is 65, . He has a wet cough but the sound is in the upper airway. Lungs are not rattling at this time., Follow-up 500 and normal saline, only had 150 cc out.. Family in room updated given on plan.. Due to right ventricular heart failure I am going to give LR at 250cc an hour for the next 2 hours. For a total of 500 cc question preload might help. I think the patient is vascularly dry. Inotropes presently in use it 10. Also will add a venous blood gas with morning labs to check pH as the patient's respiratory rate is between 35 and 40 shallow rapid equal. O2 saturations remain 95. Patient being repositioned returned trying to get him to cough we will try to suction any secretions from the back of his mouth. 05:22 received phone call from nurse on floor patient's is come out and says she just wants palliative care for him now. She does not want any labs. Plan. Will DC all present labs at this time patient is not in pain and is comfortable,, will not shut off Levophed its at 8 at the present jori will confer with daytime physician as to how to proceed with the inotrope. is in room both daughters are in room. . Order to case management that palliative care has been requested.
[2024-05-09] MEDS: METOPROLOL TARTRATE 5MG/5ML VIAL 5 MG IV (22:00)
[2024-05-09 22:02] LABS: POC Glucose,Bedside 150 (70-110)
[2024-05-09 22:02] LABS: POC Glucose,Bedside 205 (70-110)
--- NOTE | 2024-05-09 23:20 | PC.NURSE ---
Patients HR continues to range from 130-140's BP ranging low also, notified Jose Alberto GUIDRY he did visit and assessment, new orders noted for 500cc fluid bolus. Family remains at bedside. Jose Alberto spent time with and daughter explaining patients status and options at this point and the fine line of giving fluid to hydrate him some but not to much he is overloaded with his CHF status. Family v/u
[2024-05-09] MEDS: 0.9 % SODIUM CHLORIDE 1000ML 1,000 ML 500 ML IV (23:29)
[2024-05-10] VITALS (21 sets, daily range): BP systolic 72–174; BP diastolic 29–102; PULSE 104–160; RESP 10–45; TEMP 36.7–36.8; O2SAT 89–95; BMI 22.8
[2024-05-10] MEDS: PIPERACILLIN/TAZO 2.25 GM in 0.9 % SODIUM CHLORIDE 50 ML IV (03:20)
[2024-05-10] MEDS: RINGERS SOLUTION,LACTATED 500 ML 250 ML IV (03:50)
--- NOTE | 2024-05-10 03:55 | PC.NURSE ---
Patients HR sustaining 145-160 and patient had little output from previous bolus given. Jose Alberto GUIDRY notified. New orders noted LR bolus at 250 x 500cc. Jose Alberto spent time again with and daughter explaining patients condition and his plan for another bolus and see if HR will respond. Patients v/u and stated I know what is going on and I think it's time to let him go in peace he has been through so much. I relayed this to Jose Alberto.
--- NOTE | 2024-05-10 05:22 | PC.NURSE ---
Lab in to obtain AM labs, expressed she does not want anymore labs drawn, not even blood gases scheduled later this am she wants patient to have palliative / comfort care only. Called Jose Alberto GUIDRY and informed of above. New orders noted
[2024-05-10] MEDS: MORPHINE 2MG/ML SYRINGE 2 MG IV ×9 (05:33→20:24)
[2024-05-10] MEDS: LEVALBUTEROL 1.25MG/3ML NEB 1.25 MG IH (06:35)
[2024-05-10] MEDS: IPRATROPIUM BROMIDE 0.5 MG/2.5ML SOLUTION IH (06:35)
[2024-05-10] MEDS: LORazepam 2MG/ML VIAL 1 MG IV (08:32)
[2024-05-10] MEDS: NOREPINEPHRINE BITARTRATE 8 MG in 0.9 % SODIUM CHLORIDE 250 ML 15.48 MG IV (08:52)
--- NOTE | 2024-05-10 10:37 | EXP.CARD.PN ---
Subjective Subjective Date: 05/10/24 Time: 09:30 Principal diagnosis: severe RV heart failure Interval history: This is an 84-year-old gentleman who was admitted to the hospital with severe right ventricular heart failure. He remains on a dobutamine drip and IV Bumex this morning. The patient continued to decline through the night and had to be started on a Levophed drip for blood pressure support. The patient is now unresponsive and his family decided through the night to make him comfort care/palliative care. His Levophed drip was stopped. He remains on the dobutamine and Bumex this morning. His family wishes to stop the strips once all of his family has arrived. He appears to be in no distress. He is not following any commands. Exam Data for Last 24 hours Vital signs and Labs for Last 24 Hours: Temp Pulse Resp BP Pulse Ox O2 Del Method O2 Flow Rate 98.1 F 127 H 24 95/53 L 89 L Room Air 2 05/10/24 08:00 05/10/24 10:00 05/10/24 10:00 05/10/24 10:00 05/10/24 10:00 05/10/24 10:00 05/07/24 12:10 Laboratory Results - last 24 hr 05/07/24 10:37: POC Glucose 150 H 05/08/24 06:07: POC Glucose 205 H 05/09/24 12:00: POC Glucose 194 H 05/09/24 12:27: POC Glucose 238 H 05/09/24 17:11: POC Glucose 384 H* I & O for Last 24 hours: Intake & Output 05/07/24 05/08/24 05/09/24 05/10/24 23:59 23:59 23:59 23:59 Intake Total 162 / 262 971.4 / 971.4 914.303 / 1641.440 8616.597 / 1894.597 Output Total 450 / 450 800 / 800 1051 / 1051 850 / 850 Balance -288 / -188 171.4 / 171.4 -136.697 / 390.403 0001.597 / 1044.597 Weight 176 lb 5.917 oz 169 lb 10.331 oz 168 lb 11.2 oz 168 lb 11.199 oz Constitutional Constitutional: no acute distress, average body habitus and chronically ill appearing *Routine HEENT Exam Head: Present normocephalic and atraumatic ENT: Present mucous membranes moist *Routine Neck Exam Neck: Present supple, full ROM and normal carotid upstroke; Absent JVD, carotid bruit or lymphadenopathy *Routine Respiratory Exam Respiratory: Present CTA bilaterally, normal respiratory effort, able to speak in complete sentences and symmetric chest movement *Routine Cardiovascular Exam Cardiovascular: Present Normal S1, Normal S2, murmur, tachycardia and irregularly irregular; Absent gallop *Routine Abdominal Exam Abdominal: Present soft and normoactive bowel sounds; Absent tenderness, distended or organomegaly *Routine Extremities Exam Extremities: Present full ROM, pulses intact and normal capillary refill; Absent cyanosis, clubbing or edema *Routine Skin Exam Skin: Present intact, warm and jaundice; Absent erythema *Routine Neurological Exam Neurological: Present alert, oriented X3 and CN II-XII intact; Absent sensory deficit or motor deficit Routine Psychiatric Exam Psychiatric: Present normal affect Progress Note: A&P Assessment and plan (1) Adult failure to thrive: Status: Acute (2) Pulmonary arterial hypertension: Status: Acute (3) History of coronary artery bypass graft: Status: Chronic (4) History of TIA (transient ischemic attack): Status: Chronic (5) 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 (6) A-fib: Status: Chronic (7) CKD stage 4 due to type 2 diabetes mellitus: Status: Acute (8) Acute right ventricular heart failure: Status: Acute (9) Elevated liver enzymes: Status: Acute (10) Jaundice: Status: Acute (11) Acute on chronic heart failure with preserved ejection fraction (HFpEF): Status: Acute (12) Renal insufficiency: Status: Acute (13) Hyperlipidemia: Status: Chronic (14) Hypertensive disorder: Status: Chronic (15) Diabetes mellitus: Status: Chronic Assessment and Plan Assessment and Plan for All Diagnoses:: Plan: 1. 1. The patient was admitted to the hospital for acute on chronic HFpEF. He has severe right ventricular heart failure. The patient was started on a dobutamine drip due to his RV failure. He remains on the dobutamine drip at this time. He also remains tachycardic. The patient declined overnight and is now unresponsive. His family has decided to make him comfort care/palliative care. They want to continue the dobutamine drip until all of his family arrives and then we will stop both the dobutamine drip and the IV Bumex. 2. The patient's liver enzymes remain elevated but are better than what they initially were since starting the dobutamine. 3. The patient's blood pressure is acceptable at this time. He is off of the Levophed drip currently. 4. Coronary artery disease is present. He denies any chest pain or pressure. His troponin is negative. No plans for invasive left cardiac catheterization. 5. His LDL goal is less than 55. His LDL is 57. He is on Zetia. He is intolerant to statins. 6. The patient does have chronic atrial fibrillation. His rate is elevated as mentioned above. The family has decided to make the patient comfort care/palliative care. 7. No further recommendations at this time from a cardiac standpoint. Thank you for the opportunity to help participate in the care of this patient. All recommendations and orders are per Dr. Malone.
[2024-05-10] MEDS: GLYCOPYRROLATE 0.2 MG/ML 1ML VIAL IV ×2 (11:37→18:01)
[2024-05-10 14:48] LABS: POC Glucose,Bedside 127 (70-110)
[2024-05-10 15:06] LABS: POC Glucose,Bedside 330 (70-110)
--- NOTE | 2024-05-10 16:31 | PC.NURSE ---
Levophed drip turned off at 1445 per family request. Morphine given to keep patient comfortable and pain free. 2LNC placed on patient as oxygen saturations dropped to 86-87%. Robinul given for secretion build up and relief noted.
--- NOTE | 2024-05-10 20:21 | PC.NURSE ---
All po and IV atb meds not given due to patient unable to arouse and swallow pills, patients family refuses IV antibiotic. Patient is now hospice care
--- NOTE | 2024-05-10 21:40 | P.PN_ITS ---
Subjective *Date: 05/10/24 *Time: 21:40 Exam Data for Last 24 hours Vital signs and Labs for Last 24 Hours: Temp Pulse Resp BP Pulse Ox O2 Del Method O2 Flow Rate 98.2 F 104 H 10 L 89/48 L 95 Nasal Cannula 2 05/10/24 12:00 05/10/24 21:00 05/10/24 21:00 05/10/24 14:00 05/10/24 21:00 05/10/24 21:00 05/10/24 21:00 Laboratory Results - last 24 hr 05/07/24 05:50: POC Glucose 127 H 05/07/24 10:37: POC Glucose 150 H 05/08/24 06:07: POC Glucose 205 H 05/09/24 21:07: POC Glucose 330 H* I & O for Last 24 hours: Intake & Output 05/07/24 05/08/24 05/09/24 05/10/24 23:59 23:59 23:59 23:59 Intake Total 162 / 262 971.4 / 971.4 914.303 / 1112.144 6410.671 / 671 Output Total 450 / 450 800 / 800 1051 / 1051 850 / 850 Balance -288 / -188 171.4 / 171.4 -136.697 / 522.639 6770.671 / 1135.671 Weight 80 kg 76.95 kg 76.521 kg 76.521 kg Constitutional Constitutional: no acute distress, average body habitus and chronically ill appearing Comments: Jaundiced. *Routine HEENT Exam Head: Present normocephalic and atraumatic ENT: Present mucous membranes moist *Routine Neck Exam Neck: Present supple, full ROM and normal carotid upstroke; Absent JVD, carotid bruit or lymphadenopathy *Routine Respiratory Exam Respiratory: Present CTA bilaterally, normal respiratory effort, able to speak in complete sentences and symmetric chest movement *Routine Cardiovascular Exam Cardiovascular: Present RRR, Normal S1, Normal S2 and murmur; Absent gallop *Routine Abdominal Exam Abdominal: Present soft and normoactive bowel sounds; Absent tenderness, d istended or organomegaly *Routine Extremities Exam Extremities: Present full ROM, pulses intact and normal capillary refill; Absent cyanosis, clubbing or edema *Routine Skin Exam Skin: Present intact, warm and jaundice; Absent erythema *Routine Neurological Exam Neurological: Present alert and CN II-XII intact; Absent sensory deficit or motor deficit Routine Psychiatric Exam Psychiatric: Present normal affect Assessment and Plan *Assessment and plan (1) Acute exacerbation of CHF (congestive heart failure): Status: Acute Qualifiers: Heart failure type: diastolic Qualified Code(s): I50.33 - Acute on chronic diastolic (congestive) heart failure Category: Medical Code(s): I50.9 - Heart failure, unspecified (2) (HFpEF) heart failure with preserved ejection fraction: Status: Acute Qualifiers: Heart failure chronicity: unspecified Qualified Code(s): I50.30 - Unspecified diastolic (congestive) heart failure Category: Medical Code(s): I50.30 - Unspecified diastolic (congestive) heart failure (3) Adult failure to thrive: Status: Acute Category: Medical Code(s): R62.7 - Adult failure to thrive (4) Polyneuropathy: Problem Comment: 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 Status: Chronic Category: Medical Code(s): G62.9 - Polyneuropathy, unspecified (5) BPH w urinary obs/LUTS: Status: Acute Category: Medical Code(s): N40.1 - Benign prostatic hyperplasia with lower urinary tract symptoms; N13.8 - Other obstructive and reflux uropathy (6) Pulmonary arterial hypertension: Status: Acute Category: Medical Code(s): I27.21 - Secondary pulmonary arterial hypertension (7) History of coronary artery bypass graft: Status: Chronic Category: Surgical Code(s): Z95.1 - Presence of aortocoronary bypass graft (8) History of TIA (transient ischemic attack): Status: Chronic Category: Medical Code(s): Z86.73 - Personal history of transient ischemic attack (TIA), and cerebral infarction without residual deficits (9) 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 type: unspecified Qualified Code(s): J43.9 - Emphysema, unspecified Category: Medical Code(s): J44.9 - Chronic obstructive pulmonary disease, unspecified (10) A-fib: Status: Chronic Qualifiers: Atrial fibrillation type: unspecified chronic Qualified Code(s): I48.20 - Chronic atrial fibrillation, unspecified Category: Medical Code(s): I48.91 - Unspecified atrial fibrillation (11) CKD stage 4 due to type 2 diabetes mellitus: Status: Acute Category: Medical Code(s): E11.22 - Type 2 diabetes mellitus with diabetic chronic kidney disease; N18.4 - Chronic kidney disease, stage 4 (severe) Plan 84-year-old male who presents with worsening decline and shortness of breath. #Acute on chronic HFpEF #Severe right heart failure #Congestive hepatopathy, jaundice #Hypotension ? Limited ECHO showed severe right ventricular failure. Cardiology consulted, recommended Dobutamine drip and diuresis. Transitioned to Levophed drip after BP became soft. However, patient's condition did not improve, mentation began to wax and wane. - Patient understands severe RV failure is not reversible, and after extensive conversation they understood this treatment is unfortunately only temporary as RV failure is irreversible. For this reason, and family decided to make patient hospice care. - IV morphine, Ativan, Robinol as needed. #Hospital acquired delirium - Zyprexa 5mg nightly. Atrial fibrillation HFpEF -Continue metoprolol succinate 12.5 mg twice daily, aspirin 81 mg daily, continue Xarelto 15mg daily. #Hypothyroidism #Supratherapeutic treatment ? Free T4 elevated to 2.55, TSH normal at 1.19. ? Decreased home levothyroxine from 200 mcg to 150 mcg. CKD 4: Stable kidney function with creatinine 2.4. Monitor daily, caution with nephrotoxins Diabetes: sliding scale insulin with fingersticks ACHS. A1c f/u in morning. BPH: Continue tamsulosin 0.4 mg daily and finasteride 5 mg daily. Continue Lexapro 10 mg daily for mood DNR Xarelto Diabetic diet
--- NOTE | 2024-05-10 22:07 | PC.NURSE ---
Patient remains unable to arouse, family at bedside requesting patient not be turned, no blood pressure checks, blood sugar checks, IV atb's unless they request. Multiple family members present. Patient resting comfortably with oxygen on per nasal cannula at 2liters. Pure wik in place, little urine output noted. Reinforced to family to use call light for any needs.
[2024-05-11] VITALS: PULSE 108
[2024-05-11 00:57] VITALS: PULSE 111; RESP 11; O2SAT 95
[2024-05-11 04:00] VITALS: PULSE 111
[2024-05-11 05:00] VITALS: PULSE 114; RESP 8; O2SAT 95
[2024-05-11] MEDS: MORPHINE 2MG/ML SYRINGE 2 MG IV (05:27)
[2024-05-11] MEDS: LORazepam 2MG/ML VIAL 1 MG IV (05:27)
--- NOTE | 2024-05-11 05:58 | PC.NURSE ---
Patient rested throughout the night family members remained at bedside. Patient sleeping but will arouse slightly when family speaks to him. Patient turned and repositioned by staff with oral care as family request. At this time family does not want him repositioned every 2 hours only when they request it. Patient noted to be starting with BUE third space shifting, educated patient on this is part of the process due to their concerns. Reviewed poc with , no new c/o or questions at this time.
[2024-05-11 08:00] VITALS: BP 55/32; PULSE 120; TEMP 36.9
--- NOTE | 2024-05-11 08:38 | PC.NURSE ---
let nurse know about b/p
--- NOTE | 2024-05-11 09:55 | PC.NURSE ---
performed oral care at this time
--- NOTE | 2024-05-11 12:19 | PC.NURSE ---
Around 1219, Pt's family stated to this nurse that pt's breathing had changed. Pt assessed and noted that respirations were becoming more apneic. Pt is DNR. notified of pt status. Pt's HR also noted to be declining. Pt 's family remained at bedside. Pt was noted to be in asystole @ 1226. Pt assessed and NO heartbeat on auscultation. made aware. TOD pronounced @ 1230 by MD Forman.
--- NOTE | 2024-05-11 13:17 | P.DN_ITS ---
Discharge Sum: Prov Provider Primary care physician: Toney Contreras MD Visit Care Team Role Provider Type Toney Contreras MD Primary Care Provider Staff Physician Bret Malone MD Other Providers Staff Physician Víctor Cazares MD Other Providers Consulting Physician Seth Clement MD Other Providers Staff Physician MARY Salcido Other Providers Physician Auger Operator Rafael Fang MD Other Providers Consulting Physician Ángel Hernandez MD Other Providers Consulting Physician MARY Horton Other Providers Physician Auger Operator Brian Reaves MD Other Providers Staff Physician Moon Yadav APRN Other Providers Nurse Practitioner Sahra Meng APRN Other Providers Nurse Practitioner Santi Grady MD Emergency Provider ER Physician Lawrence Kay MD Admit Provider Staff Physician Attending Provider Consults: 05/06/24 14:57 Cardiology Consult [Consult to Cardiology] [CONS] Routine Consulting Provider: Cardiology Reason For Consult: Acute worsening of heart failure with preserved ejection fraction 05/10/24 05:20 Consult to Case Management [CONS] Routine Reason For Consult: Patient wants palliative care does not want any lab work done both daughters are in room question to whether hospice will be consulted's 05/10/24 09:01 Consult to Case Management [CONS] Routine Reason For Consult: Consult Hospice Discharge Sum: Diag Contributing Factors (1) Acute exacerbation of CHF (congestive heart failure): (2) (HFpEF) heart failure with preserved ejection fraction: (3) Adult failure to thrive: (4) Polyneuropathy: (5) BPH w urinary obs/LUTS: (6) Pulmonary arterial hypertension: (7) History of coronary artery bypass graft: (8) History of TIA (transient ischemic attack): (9) COPD (chronic obstructive pulmonary disease): (10) A-fib: (11) CKD stage 4 due to type 2 diabetes mellitus: Discharge Sum: Summary Date and Time Date of admission: 05/06/24 15:56 Hospital Course prior to Hospital Course Information: 84-year-old male who presents with worsening decline and shortness of breath. #Acute on chronic HFpEF #Severe right heart failure #Congestive hepatopathy, jaundice #Hypotension ? Limited ECHO showed severe right ventricular failure. Cardiology consulted, recommended Dobutamine drip and diuresis. Transitioned to Levophed drip after BP became soft. However, patient's condition did not improve, mentation began to wax and wane. -Family understands severe RV failure is not reversible, and after extensive conversation they understood this treatment is unfortunately only temporary as RV failure is irreversible. For this reason, and family decided to make patient hospice care and transition to comfort measures. - IV morphine, Ativan, Robinol as needed. #Hospital acquired delirium - Zyprexa 5mg nightly. Atrial fibrillation HFpEF -Discontinued metoprolol succinate 12.5 mg twice daily, aspirin 81 mg daily, continue Xarelto 15mg daily. #Hypothyroidism #Supratherapeutic treatment ? Free T4 elevated to 2.55, TSH normal at 1.19. ? Discontinued home levothyroxine. CKD 4: Stable kidney function with creatinine 2.4. Summary Details: 1230 time of . was on comfort care prior to this. [address] [facility] notified per family request but not ready for them to pick Pt up 1300 [facility] notified. Ruled out for donation. [facility] coordinator Duc Martinez, #[phone] [facility] provided 1430 [facility] notified that family was ok for them to come 1519 Pt released to [facility] Additional Data Confirmation of as documented by pronouncing clinician: no pulse, no respirations, no heart sounds and pupils fixed and dilated Family: at bedside Additional persons at bedside: other Attending physician: Clif Forman MD Was code activated?: No merchandise examiner notified?: Yes Hospice patient?: Yes
--- NOTE | 2024-05-11 15:27 | PC.NURSE ---
1230 TOD 1245 [facility] notified per family request but not ready for them to pick Pt up 1300 [facility] notified. Ruled out for donation. [facility] coordinator Duc Martinez, #[phone] [facility] provided 1430 [facility] notified that family was ok for them to come [facility]
== END 2024-05-11 12:30 | disposition expired ==
LOC: ER 15:10 → 2ND 15:54
PROVIDERS: Physician Assistant; Student in an Organized Health Care Education/Training Program; Admitting Provider Internal Medicine Adolescent Medicine; Emergency Provider Emergency Medicine; PCP Internal Medicine Adolescent Medicine; Visit Provider Internal Medicine Adolescent Medicine
DX: I11.0 Hypertensive heart disease with heart failure (principal); I50.33 Acute on chronic diastolic (congestive) heart failure; I21.21 ST elevation (STEMI) myocardial infarction involving left circumflex coronary artery; I48.20 Chronic atrial fibrillation, unspecified; N13.8 Other obstructive and reflux uropathy; N18.4 Chronic kidney disease, stage 4 (severe); R62.7 Adult failure to thrive; N40.1 Benign prostatic hyperplasia with lower urinary tract symptoms; I27.21 Secondary pulmonary arterial hypertension; Z95.1 Presence of aortocoronary bypass graft; Z86.73 Personal history of transient ischemic attack (TIA), and cerebral infarction without residual deficits; E11.22 Type 2 diabetes mellitus with diabetic chronic kidney disease; I25.10 Atherosclerotic heart disease of native coronary artery without angina pectoris; Z79.4 Long term (current) use of insulin; E11.40 Type 2 diabetes mellitus with diabetic neuropathy, unspecified; E87.5 Hyperkalemia
CPT/HCPCS: 36415; 71045; 76705; 80053; 81001; 82803; 82962; 83036; 83605; 83690; 83735; 83880; 84439; 84443; 84484; 85025; 86803; 87265; 87389; 87486; 87507; 87581; 87632; 87635; 92610; 93005; 93308; 94640; 97110; 97116; 97162; 97166; 97530; 99285; J1250; J1595; J1939; J2060; J2270; J2543; J7030; J7120; J7614; J7620; J7644